=== PATIENT | male | born 1930 | race Caucasian/White ===

== ENCOUNTER → 2016-07-29 | Outpatient (CLI) | payer BC ==
[~2016-07-29] MED LIST: ACET-1056 PO; ACET-1311 PO; AMOX875T PO; ASPCH81X PO; ASPI81TA21 PO; ATOR80TA PO; CALCTAB65 PO; FERR1TAB62 PO; FURO-85 PO; ISOS-10 PO; ISOS-11 PO; ISR/5 PO; LCTX PO; LEVO100T7 PO; LEVO88TA PO; LISI-461 PO; LISI2.5T5 PO; LPR25 PO; LVQ750 PO; MAGN400T6 PO; METO25TA3 PO; MULTCHW PO; NRN300 PO; ONDA4TAB65 PO; ONDA8TAB62 SL; PANT40TA PO; POTA10CA28 PO; POTA20TA16 PO; POTTAB2 PO; SUCR1TAB29 PO; TEST1DIS TD; TEST1DIS TOP; TRAM-10 PO; [UNRECOGNIZED DRUG - OTHER] SL
== END | disposition home or self-care (01) ==
LOC: C.LAB 11:12
PROVIDERS: ATTEND Radiology Radiation Oncology
DX: C61 Malignant neoplasm of prostate (principal)

== ENCOUNTER → 2016-07-31 | Outpatient (CLI) | payer BC ==
[2016-01-23 13:13] VITALS: BP 169/87; PULSE 62
[~2016-07-31] MED LIST changes: -FERR1TAB62 PO; +FERR325T PO; -METO25TA3 PO
[2016-07-31 13:57] VITALS: BP 182/97; PULSE 70; TEMP 36.4; O2SAT 96
--- NOTE | 2016-07-31 15:37 | Radiation Oncology Follow-Up ---
Radiation Oncology Follow-Up Date of Visit Jul 31, 2016. Reason For Visit Annual follow-up Radiation Completion Date Implant 01/31/12, IMRT 06/22/12 Diagnosis (1) Prostate cancer Status: Resolved Onset Date: 12/09/2011 Histology Subtype: adenocarcinoma Stage: ll Permanent Comment: Rising PSA while on Avodart to 16.02, clinical stage T1c Status post ultrasound-guided biopsies biopsy stage T2c [place] grade 4+4 Hormonal suppression Status post prostate seed implant 02/10/2012 received 8500 cGy Status post completion of external radiation with IMRT/IGRT completed 2011 received 5000 cGy Radiation proctitis status post laser therapy Last Edited By: Dayana Rubio on Jan 23, 2016 14:28 Interim History He is been doing well over the past year for urinary standpoint. His AUA score was 5. This is stable. He completed expanded prostate cancer index composite for clinical practice and gave a score of 0 of 12 in urinary incontinence symptoms. He gave a score of 0 12 and urinary irritation symptoms. He gave a score of 0 12 and bowel symptoms. He gave a score of 8 of 12 and sexual symptoms. To note this is not a problem. He gave a score of 3 of 12 in hormonal vitality symptoms. His total was 11 of 60. He had a PSA 11/14/2015 at [facility] and this was 0.25. He had a PSA 07/29/2016 at the [facility]. The PSA was 0.085. He previously had treatment for radiation proctitis approximately one year following the completion of his treatment. He has had no recurrence and has had no difficulty with rectal bleeding. He does continue on androgen patches. He had a extremely low testosterone which caused profound fatigue, leg weakness and vertigo. With the hormonal therapy these symptoms did greatly improved. Allergies Coded Allergies: Iodinated Diagnostic Agents (Verified Allergy, Severe, THROAT TIGHTNESS, ) Cefuroxime (Verified Allergy, Unknown, GI UPSET, 01/14/16) Onion (Verified Allergy, Unknown, RAW ONIONS-BLISTERS ON HANDS AND FEET, ) HMG-CoA-R Inhibitors (Verified Adverse Reaction, Intermediate, ELEVATED LFT'S WITH CRESTOR, 01/14/16) NSAIDs (Verified Adverse Reaction, Unknown, GI BLEEDING- TAKES ASA AT HOME , 01/14/16) Home Medications Scheduled Acetaminophen (Tylenol), 325 MG PO q4hprn Aspirin Enteric Coated (Ecotrin Or Generic), 81 MG PO NOON Atorvastatin Calcium (Lipitor), 80 MG PO NOON Calcium Carbonate-Vitamin D (Calcium 500 + D), 1 TAB PO BID Ferrous Sulfate (Ferrous Sulfate), 325 MG PO BID Furosemide (Lasix), 20 MG PO NOON Isosorbide Mononitrate (Isosorbide Mononitrate ER), 30 MG PO NOON Levothyroxine Sodium (Synthroid), 88 MCG PO QAM Lisinopril (Lisinopril), 2.5 MG PO NOON Magnesium Oxide (Mag-Ox), 400 MG PO NOON Metoprolol Tartrate (Lopressor), 25 MG PO HS Pantoprazole (Protonix), 40 MG PO QAM Pot Phosphate Monobasic W/ Sod (Phospha 250 Neutral), 1 TAB PO QID Potassium Ext Rel (Klor-Con), 10 MEQ PO NOON Sucralfate (Carafate), 1 GM PO QID Testosterone (Androderm), 1 PATCH TOP QPM Scheduled PRN Isosorbide Dinitrate (Isordil Unknown Dose), 2.5 MG SL UD PRN for Prior to exertion. Ondansetron Odt (Zofran Odt), 8 MG SL Q8HPRN PRN for Nausea Tramadol (Ultram), 50 MG PO Q6H PRN for Pain Review of Systems Gastrointestinal: Symptoms: WNL GI Comments: "time to time has diarrhea" takes imodium PRN Oral: Symptoms: No Problems Respiratory: Symptoms: WNL Respiratory Comments: Dry cough from time to time Urinary: Symptoms: WNL Comments: See AUA & EPIC Skin: Symptoms: No Problems Physical Exam Vital Signs Date Time Temp Pulse Resp B/P Pulse Ox O2 Delivery O2 Flow Rate FiO2 07/31/16 13:57 36.4 70 16 182/97 96 Fatigue: Moderate General Appearance: no apparent distress Eyes: normal inspection, EOMI ENT: normal ENT inspection, hearing grossly normal, pharynx normal Respiratory/Chest: lungs clear, no respiratory distress, no accessory muscle use Cardiovascular: regular rate, rhythm, no gallop, no JVD Abdomen: non tender, soft Anal / Rectum: Mild decreased sphincter tone. No rectal masses no rectal bleeding. Prostate consistent with seed implant. Extremities: no pedal edema Neurologic/Psychiatric: no motor/sensory deficits, alert Skin: warm/dry Lymphatic: no adenopathy Laboratory Studies Test 07/29/16 11:28 Prostate Specific Antigen 0.085 ng/ml (0.000-4.000) Assessment & Plan Plan: Continue recheck PSAs he does have an upcoming appointment with Dr. Gregory. Continue regular follow-up with his primary care physician. Today' s blood pressure was elevated and was rechecked. It was 160/90 with recheck evaluation. We asked him to return to our office in 1 year. Total Time In Follow-Up I spent 25 minutes speaking to the patient for examination. I spent 15 minutes reviewing information in completing this note. Copy To Gisselle Orellana DO; Vin Gregory MD
== END | disposition home or self-care (01) ==
LOC: C.ONC 13:52
PROVIDERS: ATTEND Radiology Radiation Oncology
DX: Z08 Encounter for follow-up examination after completed treatment for malignant neoplasm (principal); Z92.3 Personal history of irradiation; Z85.46 Personal history of malignant neoplasm of prostate

== ENCOUNTER 2017-02-17 05:27 | Inpatient (IN) | payer BC, OTHER ==
[~2017-02-17] VITALS: Ht 175.3 cm; Wt 76.8 kg
[~2017-02-17 05:27] MED LIST changes: -ACET-1056 PO; -AMOX875T PO; -ASPCH81X PO; -ISOS-10 PO; -ISR/5 PO; -LCTX PO; -LEVO100T7 PO; -LISI-461 PO; -LVQ750 PO; -MULTCHW PO; -NRN300 PO; -ONDA4TAB65 PO; -POTA10CA28 PO; -TEST1DIS TD
[2017-02-17] MEDS ORDERED: SODIUM CHLORIDE 0.9% 1000ML 1,000 ML IV STA (05:51)
[2017-02-17] MEDS ORDERED: ONDANSETRON INJ 2 MG/ML 2 ML VIAL IV STA (05:51)
[2017-02-17] MEDS ORDERED: MoRPHine SULFATE 4 MG/ML 1 ML CARP\\VIAL IV STA (05:57)
--- NOTE | 2017-02-17 06:05 | EMERGENCY ROOM VISIT NOTE ---
History Report prepared by Imani: Brock Joiner Under the Supervision of: Dr. Naida Morataya D.O. First contact with patient: 05:39 Chief Complaint: ABDOMINAL PAIN Stated Complaint: ABDOMINAL PAIN/NAUSEA Nursing Triage Summary: pt brought to main ED from home by DIANA lord for abd pain that began yesterday, worse this morning. pt c/o right lower quad pain that is worse with palpation. pt c/o nausea and vomiting "green stuff." associates urinary urgency and frequency. denies diarrhea. pt alert and oriented x4. hx of prostate ca. pt breathing WNL. History of Present Illness The patient is an 86 year old male who presents to the Emergency Room with complaints of constant right sided sharp abdominal pain starting around 0200 this morning. He currently rates his discomfort as an 8/10 in severity. The patient additionally states that he has been vomiting and nauseous. He states that he went to bed around 2100 yesterday, and the pain woke him up around 0200. The patient states that he has never had pain like this before, and he has a history of prostate cancer, a history of diverticulitis, and a cholecystectomy. He states that he had radiation for his cancer, and it affected his bowels, and it has led him to having melena in the past but none now. He is currently taking iron supplements which turned his stool black. Source of History: patient Onset: 0200 Position: abdomen (RLQ) Quality: sharp Timing: constant Associated Symptoms: + nausea, + vomiting Review of Systems See HPI for pertinent positives & negatives. A total of 10 systems reviewed and were otherwise negative. Past Medical & Surgical Medical Problems: (1) Anticoagulants,Lt,Current Use (2) BPH (benign prostatic hyperplasia) (3) CAD (coronary artery disease) (4) Carcinoma of prostate (5) CKD (chronic kidney disease) stage 3, GFR 30-59 ml/min (6) CKD (chronic kidney disease), stage III (7) Coronary artery disease (8) Diverticular disease of colon (9) Diverticulosis (10) DVT (deep venous thrombosis) (11) Dyslipidemia (12) Dyslipidemia (13) Esophageal Reflux (14) GERD (gastroesophageal reflux disease) (15) GI bleed (16) History of herpes zoster (17) History of pulmonary embolism (18) HTN (hypertension) (19) Hypertension (20) Hypothyroidism (21) Hypothyroidism (22) Hypothyroidism Nos (23) Osteoarthritis (24) Peptic Ulcer Nos (25) Postherpetic neuralgia (26) Prostate cancer (27) Prostate cancer (28) Pulmonary embolism (29) Septic arthritis (30) Septic arthritis of knee, left (31) Spontaneous pneumothorax (32) Spontaneous pneumothorax Surgical Problems: (1) History of bilateral knee replacement (2) History of cholecystectomy (3) S/P CABG x 3 (4) S/P inguinal hernia repair (5) Status post cholecystectomy (6) Status post coronary artery bypass grafting (7) Status post total knee replacement Family History No pertinent family history Social History Smoking Status: Never Smoker Alcohol Use: none Drug Use: none Marital Status: Housing Status: lives alone Occupation Status: retired Current/Historical Medications Scheduled Aspirin (Aspirin Chewable), 81 MG PO DAILY Atorvastatin Calcium (Lipitor), 80 MG PO HS Calcium Carbonate-Vitamin D (Calcium 500 + D), 1 TAB PO BID Ferrous Sulfate (Ferrous Sulfate), 325 MG PO BID Furosemide (Lasix), 20 MG PO DAILY Gabapentin (Gabapentin), 300 MG PO HS Isosorbide Mononitrate (Isosorbide Mononitrate ER), 60 MG PO DAILY Levothyroxine Sodium (Levothyroxine Sodium), 100 MCG PO DAILY Lisinopril (Lisinopril), 10 MG PO DAILY Magnesium Oxide (Mag-Ox), 400 MG PO DAILY Metoprolol Tartrate (Lopressor), 25 MG PO DAILY Multiple Vitamins W/ Minerals (Centrum Silver), 1 TAB PO DAILY Pantoprazole (Protonix), 40 MG PO QAM Pot Phosphate Monobasic W/ Sod (Phospha 250 Neutral), 1 TAB PO QID Potassium Chloride (Micro-K Ext Rel), 10 MEQ PO DAILY Testosterone (Androderm), 1 PATCH TOP QPM Scheduled PRN Acetaminophen (Tylenol), 325 MG PO Q4H PRN for Pain Ondansetron Hcl (Zofran), 4 MG PO Q6H PRN for Nausea or Vomiting Tramadol (Ultram), 50 MG PO Q6H PRN for Pain Allergies Coded Allergies: Iodinated Diagnostic Agents (Verified Allergy, Severe, THROAT TIGHTNESS, ) Cefuroxime (Verified Allergy, Unknown, GI UPSET, 01/14/16) Onion (Verified Allergy, Unknown, RAW ONIONS-BLISTERS ON HANDS AND FEET, ) HMG-CoA-R Inhibitors (Verified Adverse Reaction, Intermediate, ELEVATED LFT'S WITH CRESTOR, 01/14/16) NSAIDs (Verified Adverse Reaction, Unknown, GI BLEEDING- TAKES ASA AT HOME , 01/14/16) Physical Exam Vital Signs Date Time Temp Pulse Resp B/P (MAP) Pulse Ox O2 Delivery O2 Flow Rate FiO2 02/17/17 07:41 74 16 127/72 97 02/17/17 06:35 67 18 144/79 96 Room Air 02/17/17 05:35 36.8 63 18 174/86 92 Room Air Physical Exam HEENT: Head - normocephalic and atraumatic Pupils are equal, round, and reactive to light. Extraocular eye muscles are intact, and sclera are anicteric. Nose - moist nasal mucosa without discharge. Mouth - moist buccal mucosa. Oropharynx is nonerythematous and there is no tonsillar exudate or edema noted. Neck: Supple; no JVD, nuchal rigidity, cervical lymphadenopathy. Heart: Regular rate and rhythm. There is a normal S1 and S2 with no murmurs, clicks, or gallops appreciated. Lungs: Clear to auscultation bilaterally with no wheezes, rales, or rhonchi. Abdomen: Exquisite tenderness to palpation in the right lower quadrant. Surgical scar in the right inguinal canal and surgical scar in the right upper quadrant. Soft, nondistended, with good bowel sounds. There are no palpable pulsatile masses or hepatosplenomegaly. There is no guarding, rigidity, or rebound noted. Extremities: No evidence of cyanosis, clubbing, or edema. There are easily palpable peripheral pulses. Skin: warm and dry with good turgor and no rashes. Medical Decision & Procedures ER Provider Diagnostic Interpretation: Radiology results as stated below per my review and the radiologist's interpretation: ABD/PELVIS NO IV OR ORAL CONT CT DOSE: 595.73 mGy.cm HISTORY: Pain eval for appy vs. Diverticulitis TECHNIQUE: Multiaxial CT images of the abdomen and pelvis were performed without contrast. A dose lowering technique was utilized adhering to the principles of ALARA. COMPARISON STUDY: 12/25/2015 FINDINGS: Bibasilar atelectatic and/or infiltrative change. Liver demonstrates several calcified granulomas as does the spleen. This is unchanged. Small hiatal hernia. Multiple pancreatic cystic lesions similar to that of the prior study. Cortical scarring of the kidneys bilaterally with no evidence for hydronephrosis. Bowel pattern is nonobstructive. Scattered colonic diverticulosis. No evidence for acute diverticulitis. The cecum is in the right upper quadrant. The appendix is inferior to the cecum and anterior to the right kidney. Shows no evidence for distention or periappendiceal infiltrative change. There are findings of mild nonspecific infiltrative change anterior to the right iliopsoas and surrounding the right ureter. Diagnostic considerations include recently passed calculus versus a nonspecific pyelonephritis. There is atherosclerotic change and ectasia of the abdominal aorta. IMPRESSION: 1. Mild fullness of the right ureter with periureteral infiltrative change anterior to the right iliopsoas. 2. Diagnostic considerations include recently passed calculus versus a nonspecific pyelonephritis. 3. Nonobstructive bowel pattern. 4. Normal appendix. 5. Scattered colonic diverticulosis with no evidence for acute diverticulitis. The above report was generated using voice recognition software. It may contain grammatical, syntax or spelling errors. Electronically signed by: Tres Avelar M.D. 02/17/2017 7:22 AM Dictated Date/Time: 02/17/2017 7:11 AM Laboratory Results 02/17/17 05:40 Red Blood Count 5.01, Mean Corpuscular Volume 97.0, Mean Corpuscular Hemoglobin 32.9, Mean Corpuscular Hemoglobin Concent 34.0, Mean Platelet Volume 9.5, Neutrophils (%) (Auto) 79.0, Lymphocytes (%) (Auto) 10.1, Monocytes (%) (Auto) 10.1, Eosinophils (%) (Auto) 0.3, Basophils (%) (Auto) 0.1, Neutrophils # (Auto ) 10.90, Lymphocytes # (Auto) 1.39, Monocytes # (Auto) 1.39, Eosinophils # (Auto ) 0.04, Basophils # (Auto) 0.02 02/17/17 05:40 Test 02/17/17 05:40 02/17/17 07:45 02/17/17 08:12 White Blood Count 13.79 K/uL (4.8-10.8) Red Blood Count 5.01 M/uL (4.7-6.1) Hemoglobin 16.5 g/dL (14.0-18.0) Hematocrit 48.6 % (42-52) Mean Corpuscular Volume 97.0 fL (80-100) Mean Corpuscular Hemoglobin 32.9 pg (25-34) Mean Corpuscular Hemoglobin Concent 34.0 g/dl (32-36) Platelet Count 239 K/uL (130-400) Mean Platelet Volume 9.5 fL (7.4-10.4) Neutrophils (%) (Auto) 79.0 % Lymphocytes (%) (Auto) 10.1 % Monocytes (%) (Auto) 10.1 % Eosinophils (%) (Auto) 0.3 % Basophils (%) (Auto) 0.1 % Neutrophils # (Auto) 10.90 K/uL (1.4-6.5) Lymphocytes # (Auto) 1.39 K/uL (1.2-3.4) Monocytes # (Auto) 1.39 K/uL (0.11-0.59) Eosinophils # (Auto) 0.04 K/uL (0-0.5) Basophils # (Auto) 0.02 K/uL (0-0.2) RDW Standard Deviation 51.1 fL (36.4-46.3) RDW Coefficient of Variation 14.4 % (11.5-14.5) Immature Granulocyte % (Auto) 0.4 % Immature Granulocyte # (Auto) 0.05 K/uL (0.00-0.02) Prothrombin Time 10.8 SECONDS (9.0-12.0) Prothromb Time International Ratio 1.0 (0.9-1.1) Anion Gap 5.0 mmol/L (3-11) Est Creatinine Clear Calc Drug Dose 29.5 ml/min Estimated GFR () 38.6 Estimated GFR (Non- 33.3 BUN/Creatinine Ratio 17.1 (10-20) Calcium Level 9.7 mg/dl (8.5-10.1) Total Bilirubin 1.3 mg/dl (0.2-1) Direct Bilirubin 0.3 mg/dl (0-0.2) Aspartate Amino Transf (AST/SGOT) 24 U/L (15-37) Alanine Aminotransferase (ALT/SGPT) 28 U/L (12-78) Alkaline Phosphatase 125 U/L (45-117) Total Protein 7.8 gm/dl (6.4-8.2) Albumin 3.6 gm/dl (3.4-5.0) Lipase 77 U/L (73-393) Urine Color YELLOW Urine Appearance TURBID (CLEAR) Urine pH 6.0 (4.5-7.5) Urine Specific [place] 1.018 (1.000-1.030) Urine Protein 3+ (NEG) Urine Glucose (UA) NEG (NEG) Urine Ketones TRACE (NEG) Urine Occult Blood 3+ (NEG) Urine Nitrite POS (NEG) Urine Bilirubin NEG (NEG) Urine Urobilinogen NEG (NEG) Urine Leukocyte Esterase LARGE (NEG) Urine WBC (Auto) >30 /hpf (0-5) Urine RBC (Auto) 10-30 /hpf (0-4) Urine Hyaline Casts (Auto) 1-5 /lpf (0-5) Urine Epithelial Cells (Auto) 10-20 /lpf (0-5) Urine Bacteria (Auto) 4+ (NEG) Urine Yeast (Auto) (NONE PRSENT) Bedside Lactic Acid Venous 1.38 mmol/L (0.90-1.70) Laboratory results per my review. Medications Administered Medications (Trade) Dose Ordered Sig/Freddy Route Start Time Stop Time Status Last Admin Dose Admin Sodium Chloride 1,000 ml @ 250 mls/hr Q4H STAT IV 02/17/17 05:51 02/17/17 09:50 DC 02/17/17 06:03 250 MLS/HR Ondansetron HCl (Zofran Inj) 4 mg NOW STAT IV 02/17/17 05:51 02/17/17 05:54 DC 02/17/17 06:04 4 MG Morphine Sulfate (MoRPHine SULFATE INJ) 4 mg NOW STAT IV 02/17/17 05:57 02/17/17 05:58 DC 02/17/17 06:06 4 MG Levofloxacin (Levaquin / D5W) 750 mg NOW STAT IV 02/17/17 07:53 02/17/17 07:55 DC 02/17/17 08:15 750 MG Procedure Zofran, Sodium Chloride, Morphine sulfate, levofloxacin ED Course 0549: Past medical records reviewed. The patient was evaluated in room A9. A complete history and physical exam was performed. An IV lock was initiated and labs were drawn as above.. 0551: Zofran Inj 4mg IV, Sodium Chloride 1000 ml @ 250 mls/hr IV. 0557: Morphine Sulfate 4mg IV. The patient will go for CT scan of the abdomen/ pelvis. 0748: I reevaluated the patient, and he is still comfortable after getting pain medications. He told me that he had urinary frequency and incontinence yesterday which is unusual for him. He also states that he has a history of kidney stones. A urine specimen was obtained and appeared to be infected. 0753: Levofloxacin 750mg IV 0755: I discussed the patient's case with KIRAN Slaughter. She is going to evaluate the patient for further treatment. Medical Decision The patient is a 86 year old male who presents to the ED with abdominal pain. Differential diagnosis includes appendicitis, diverticulitis, diverticular abscess, small bowel obstruction, and perforated viscus. Lab results show: White Count 13.7, stable H&H, BUN 31, creatinine 1.8 elevated and most likely represents dehydration. Urinalysis appears to be significantly infected. It will be sent for culture. This is an 86 year old Male patient presents to emergency with severe right lower quadrant abdominal pain that woke him from sleep. The patient has had some relief of his discomfort while here in the emergency prompt. Urinalysis appears to be infected. CT scan shows evidence of dilation and inflammation of the right ureter consistent with pyelonephritis and/or a recently passed kidney stone. A septic protocol was performed including blood cultures and lactic acid. He was started on IV Levaquin. I discussed the case with the [facility] Hospitalist and they will evaluate for further management. Medication Reconcilliation Current Medication List: was personally reviewed by me Blood Pressure Screening Patient's blood pressure: Normal blood pressure Consults Time Called: 0750 Consulting Physician: KIRAN Slaughter Returned Call: [phone] I discussed the patient's case with KIRAN Slaughter. She is going to evaluate the patient for further treatment. Impression Primary Impression: Pyelonephritis Scribe Attestation The scribe's documentation has been prepared under my direction and personally reviewed by me in its entirety. I confirm that the note above accurately reflects all work, treatment, procedures, and medical decision making performed by me. Departure Information Dispostion Being Evaluated By Hospitalist Referrals Keiter, Pitts K.,DO (PCP) Patient Instructions [facility]
[2017-02-17 06:08] LABS: BASO % 0.1 %; BASO ABS # 0.02 K/uL (0-0.2); COMPLETE YES; EOS % 0.3 %; HEMATOCRIT 48.6 % (42-52); IG% 0.4 %; LYMPH % 10.1 %; LYMPH ABS # 1.39 K/uL (1.2-3.4); MEAN CORPUSCULAR HEMOGLOBIN 32.9 pg (25-34); MEAN PLATELET VOLUME 9.5 fL (7.4-10.4); MONO % 10.1 %; PLATELET COUNT 239 K/uL (130-400); RED BLOOD COUNT 5.01 M/uL (4.7-6.1); WHITE BLOOD COUNT 13.79 K/uL (4.8-10.8)
[2017-02-17 06:18] LABS: BUN/CREATININE RATIO 17.1 (10-20); CALCIUM 9.7 mg/dl (8.5-10.1); CREATININE 1.8 mg/dl (0.60-1.40); POTASSIUM 4.3 mmol/L (3.5-5.1)
--- NOTE | 2017-02-17 07:24 | DIAGNOSTIC IMAGING REPORT ---
ABD/PELVIS NO IV OR ORAL CONT CT DOSE: 595.73 mGy.cm HISTORY: Pain eval for appy vs. Diverticulitis TECHNIQUE: Multiaxial CT images of the abdomen and pelvis were performed without contrast. A dose lowering technique was utilized adhering to the principles of ALARA. COMPARISON STUDY: 12/25/2015 FINDINGS: Bibasilar atelectatic and/or infiltrative change. Liver demonstrates several calcified granulomas as does the spleen. This is unchanged. Small hiatal hernia. Multiple pancreatic cystic lesions similar to that of the prior study. Cortical scarring of the kidneys bilaterally with no evidence for hydronephrosis. Bowel pattern is nonobstructive. Scattered colonic diverticulosis. No evidence for acute diverticulitis. The cecum is in the right upper quadrant. The appendix is inferior to the cecum and anterior to the right kidney. Shows no evidence for distention or periappendiceal infiltrative change. There are findings of mild nonspecific infiltrative change anterior to the right iliopsoas and surrounding the right ureter. Diagnostic considerations include recently passed calculus versus a nonspecific pyelonephritis. There is atherosclerotic change and ectasia of the abdominal aorta. IMPRESSION: 1. Mild fullness of the right ureter with periureteral infiltrative change anterior to the right iliopsoas. 2. Diagnostic considerations include recently passed calculus versus a nonspecific pyelonephritis. 3. Nonobstructive bowel pattern. 4. Normal appendix. 5. Scattered colonic diverticulosis with no evidence for acute diverticulitis. The above report was generated using voice recognition software. It may contain grammatical, syntax or spelling errors. Electronically signed by: Tres Avelar M.D. 02/17/2017 7:22 AM Dictated Date/Time: 02/17/2017 7:11 AM
[2017-02-17] MEDS ORDERED: LEVO100T7 PO (07:40)
[2017-02-17] MEDS ORDERED: MULTCHW PO (07:40)
[2017-02-17] MEDS ORDERED: ISR/5 PO (07:40)
[2017-02-17] MEDS ORDERED: ASPCH81X PO (07:40)
[2017-02-17] MEDS ORDERED: ISOS-10 PO (07:40)
[2017-02-17] MEDS ORDERED: POTA10CA28 PO (07:40)
[2017-02-17] MEDS ORDERED: LISI-461 PO (07:40)
[2017-02-17] MEDS ORDERED: NRN300 PO (07:40)
[2017-02-17] MEDS ORDERED: LEVAQUIN 750MG / 150ML D5W IV STA (07:53)
[2017-02-17 08:04] LABS: URINE APPEARANCE TURBID (CLEAR); URINE BILIRUBIN NEG (NEG); URINE COLOR YELLOW; URINE NITRITE POS (NEG); URINE SPECIFIC GRAVITY 1.018 (1.000-1.030); UROBILINOGEN NEG (NEG)
[2017-02-17 08:15] LABS: MANUAL MICROSCOPIC REQUIRED? NO; REVIEW REQ? YES
[2017-02-17 08:41] VITALS: O2SAT 97; Ht 175.3 cm; Wt 76.8 kg
[2017-02-17] MEDS ORDERED: ACETAMINOPHEN 325 MG TAB PO PRN (08:45)
[2017-02-17] MEDS ORDERED: ONDANSETRON INJ 2 MG/ML 2 ML VIAL IV PRN (08:45)
[2017-02-17 09:06] LABS: PROTHROMBIN TIME (PATIENT) 10.8 SECONDS (9.0-12.0)
[2017-02-17] MEDS ORDERED: TRAM-10 PO (09:19)
[2017-02-17] MEDS ORDERED: ONDA4TAB65 PO (09:19)
[2017-02-17] MEDS ORDERED: TRAMADOL HCL 50 MG TAB PO PRN (09:30)
[2017-02-17 09:54] VITALS: BP 143/71; PULSE 68; TEMP 36.9; O2SAT 95
--- NOTE | 2017-02-17 10:11 | History and Physical ---
History & Physical Date & Time of Service: Feb 17, 2017 ~ 0815 Chief Complaint: Abdominal Pain/Nausea Primary Care Physician: Gisselle Orellana,DO History of Present Illness 86 year old male who presents to the ER with abdominal pain and nausea. Patient reports his symptoms began yesterday. He reports RLQ pain that has progressively gotten worse. He describes the pain as sharp. He rates the pain # 9/10 at its worst. He reports walking was difficult due to the pain. He has felt nauseous and PO intake has been poor. He reports one episode of vomiting and describes the emesis as yellow and bilious in nature. He denies hematemesis or coffee ground emesis. He reports constipation a couple of days ago and took a stool softener and has since had a normal bowel movement. He reports his stools are always dark due to taking iron. He denies BRBPR. He reports urinary frequency but denies dysuria. He reports running low grade fevers of around 99.0. He reports intermittent lightheadedness and dizziness but denies any syncopal events. No chest pain or shortness of breath. In the ER, patient's U/A is suggestive of UTI. CT abd/pelvis shows possible pyelonephritis vs. recently passed stone. WBC 13K, creat is 1.8 (mildly elevated from baseline). Other labs are unremarkable. Vitals are stable. Patient was treated with IV Levaquin, IVF, Zofran, and morphine. Past Medical/Surgical History Medical Problems: (1) Anticoagulants,Lt,Current Use Status: Chronic (2) BPH (benign prostatic hyperplasia) Status: Chronic (3) CAD (coronary artery disease) Permanent Comment: s/p CABG 2000 cath 2007 - LAD, RCA, and obtuse marginal 100% occlusion 80% stenosis diagonal #2 patent [place]bol[place]o to LAD graft and saphenous to obtuse marginal occluded saphenous to RCA graft with collaterals Status: Chronic (4) Carcinoma of prostate Status: Chronic (5) CKD (chronic kidney disease) stage 3, GFR 30-59 ml/min Status: Chronic (6) CKD (chronic kidney disease), stage III Status: Chronic (7) Coronary artery disease Status: Chronic (8) Diverticular disease of colon Status: Chronic (9) Diverticulosis Status: Chronic (10) DVT (deep venous thrombosis) Status: Chronic (11) Dyslipidemia Status: Chronic (12) Dyslipidemia Status: Chronic (13) Esophageal Reflux Status: Chronic (14) GERD (gastroesophageal reflux disease) Status: Chronic (15) GI bleed Status: Chronic (16) History of herpes zoster Status: Chronic (17) History of pulmonary embolism Status: Chronic (18) HTN (hypertension) Status: Chronic (19) Hypertension Status: Chronic (20) Hypothyroidism Status: Chronic (21) Hypothyroidism Status: Chronic (22) Hypothyroidism Nos Status: Chronic (23) Osteoarthritis Status: Chronic (24) Peptic Ulcer Nos Status: Chronic (25) Postherpetic neuralgia Status: Chronic (26) Prostate cancer Permanent Comment: Rising PSA while on Avodart to 16.04. Clinical stage TIc Status post ultrasound-guided biopsies, biopsy stage T2c Leeson grade 4+4 Initiation of hormonal suppression Status post seed implant as boost 02/10/2012 received 8500 cGy Status post completion of external radiation with IMRT IGRT 06/22/2012 5000 cGy Radiation proctitis status post laser therapy Status: Resolved (27) Prostate cancer Permanent Comment: Rising PSA while on Avodart to 16.02, clinical stage T1c Status post ultrasound-guided biopsies biopsy stage T2c Creole grade 4+4 Hormonal suppression Status post prostate seed implant 02/10/2012 received 8500 cGy Status post completion of external radiation with IMRT/IGRT completed 2011 received 5000 cGy Radiation proctitis status post laser therapy Status: Resolved (28) Pulmonary embolism Status: Chronic (29) Septic arthritis Status: Chronic (30) Septic arthritis of knee, left Status: Chronic (31) Spontaneous pneumothorax Status: Resolved (32) Spontaneous pneumothorax Status: Chronic Surgical Problems: (1) History of bilateral knee replacement Permanent Comment: revision of left for septic arthritis Status: Chronic (2) History of cholecystectomy Status: Chronic (3) S/P CABG x 3 Permanent Comment: 2000 Status: Chronic (4) S/P inguinal hernia repair Status: Chronic (5) Status post cholecystectomy Status: Chronic (6) Status post coronary artery bypass grafting Status: Chronic (7) Status post total knee replacement Status: Chronic Family History non contributory due to patient's advanced age Social History Smoking Status: Never Smoker Alcohol Use: none Housing status: lives alone Immunizations History of Influenza Vaccine: Yes Influenza Vaccine Date: Mar 27, 2016 History of Tetanus Vaccine?: Yes Tetanus Immunization Date: December 09, 2012 History of Pneumococcal: Yes Pneumococcal Date: Aug 29, 2014 Multi-Drug Resistant Organisms History of MDRO: No Allergies Coded Allergies: Iodinated Diagnostic Agents (Verified Allergy, Severe, THROAT TIGHTNESS, ) Cefuroxime (Verified Allergy, Unknown, GI UPSET, 01/14/16) Onion (Verified Allergy, Unknown, RAW ONIONS-BLISTERS ON HANDS AND FEET, ) HMG-CoA-R Inhibitors (Verified Adverse Reaction, Intermediate, ELEVATED LFT'S WITH CRESTOR, 01/14/16) NSAIDs (Verified Adverse Reaction, Unknown, GI BLEEDING- TAKES ASA AT HOME , 01/14/16) Home Medications Scheduled Aspirin (Aspirin Chewable), 81 MG PO DAILY Atorvastatin Calcium (Lipitor), 80 MG PO HS Calcium Carbonate-Vitamin D (Calcium 500 + D), 1 TAB PO BID Ferrous Sulfate (Ferrous Sulfate), 325 MG PO BID Furosemide (Lasix), 20 MG PO DAILY Gabapentin (Gabapentin), 300 MG PO HS Isosorbide Mononitrate (Isosorbide Mononitrate ER), 60 MG PO DAILY Levothyroxine Sodium (Levothyroxine Sodium), 100 MCG PO DAILY Lisinopril (Lisinopril), 10 MG PO DAILY Magnesium Oxide (Mag-Ox), 400 MG PO DAILY Metoprolol Tartrate (Lopressor), 25 MG PO DAILY Multiple Vitamins W/ Minerals (Centrum Silver), 1 TAB PO DAILY Pantoprazole (Protonix), 40 MG PO QAM Pot Phosphate Monobasic W/ Sod (Phospha 250 Neutral), 1 TAB PO QID Potassium Chloride (Micro-K Ext Rel), 10 MEQ PO DAILY Testosterone (Androderm), 1 PATCH TOP QPM Scheduled PRN Acetaminophen (Tylenol), 325 MG PO Q4H PRN for Pain Ondansetron Hcl (Zofran), 4 MG PO Q6H PRN for Nausea or Vomiting Tramadol (Ultram), 50 MG PO Q6H PRN for Pain Review of Systems ROS per HPI, all other systems reviewed and negative Physical Exam Vital Signs Date Time Temp Pulse Resp B/P (MAP) Pulse Ox O2 Delivery O2 Flow Rate FiO2 02/17/17 09:22 66 16 147/84 95 02/17/17 09:11 66 16 147/84 95 Room Air 02/17/17 08:41 97 Room Air 02/17/17 07:41 74 16 127/72 97 02/17/17 06:35 67 18 144/79 96 Room Air 02/17/17 05:35 36.8 63 18 174/86 92 Room Air General Appearance: no apparent distress Head: normocephalic Eyes: normal inspection ENT: hearing grossly normal Neck: supple, no JVD Respiratory/Chest: lungs clear, normal breath sounds, no respiratory distress Cardiovascular: regular rate, rhythm, no edema, normal peripheral pulses Abdomen/GI: soft, + tenderness (RLQ, LLQ ) Back: no CVA tenderness Extremities/Musculoskelatal: normal inspection, no calf tenderness Neurologic/Psych: no motor/sensory deficits, alert, normal mood/affect, oriented x 3 Skin: normal color, warm/dry Diagnostics Laboratory Results Results Past 24 Hours Test 02/17/17 05:40 02/17/17 07:45 02/17/17 08:12 Range/Units White Blood Count 13.79 4.8-10.8 K/uL Red Blood Count 5.01 4.7-6.1 M/uL Hemoglobin 16.5 14.0-18.0 g/dL Hematocrit 48.6 42-52 % Mean Corpuscular Volume 97.0 80-100 fL Mean Corpuscular Hemoglobin 32.9 25-34 pg Mean Corpuscular Hemoglobin Concent 34.0 32-36 g/dl Platelet Count 239 130-400 K/uL Mean Platelet Volume 9.5 7.4-10.4 fL Neutrophils (%) (Auto) 79.0 % Lymphocytes (%) (Auto) 10.1 % Monocytes (%) (Auto) 10.1 % Eosinophils (%) (Auto) 0.3 % Basophils (%) (Auto) 0.1 % Neutrophils # (Auto) 10.90 1.4-6.5 K/uL Lymphocytes # (Auto) 1.39 1.2-3.4 K/uL Monocytes # (Auto) 1.39 0.11-0.59 K/uL Eosinophils # (Auto) 0.04 0-0.5 K/uL Basophils # (Auto) 0.02 0-0.2 K/uL RDW Standard Deviation 51.1 36.4-46.3 fL RDW Coefficient of Variation 14.4 11.5-14.5 % Immature Granulocyte % (Auto) 0.4 % Immature Granulocyte # (Auto) 0.05 0.00-0.02 K/uL Prothrombin Time 10.8 9.0-12.0 SECONDS Prothromb Time International Ratio 1.0 0.9-1.1 Sodium Level 141 136-145 mmol/L Potassium Level 4.3 3.5-5.1 mmol/L Chloride Level 106 98-107 mmol/L Carbon Dioxide Level 30 21-32 mmol/L Anion Gap 5.0 3-11 mmol/L Blood Urea Nitrogen 31 7-18 mg/dl Creatinine 1.80 0.60-1.40 mg/dl Est Creatinine Clear Calc Drug Dose 29.5 ml/min Estimated GFR () 38.6 Estimated GFR (Non- 33.3 BUN/Creatinine Ratio 17.1 10-20 Random Glucose 118 70-99 mg/dl Calcium Level 9.7 8.5-10.1 mg/dl Total Bilirubin 1.3 0.2-1 mg/dl Direct Bilirubin 0.3 0-0.2 mg/dl Aspartate Amino Transf (AST/SGOT) 24 15-37 U/L Alanine Aminotransferase (ALT/SGPT) 28 12-78 U/L Alkaline Phosphatase 125 45-117 U/L Total Protein 7.8 6.4-8.2 gm/dl Albumin 3.6 3.4-5.0 gm/dl Lipase 77 73-393 U/L Urine Color YELLOW Urine Appearance TURBID CLEAR Urine pH 6.0 4.5-7.5 Urine Specific Rumely 1.018 1.000-1.030 Urine Protein 3+ NEG Urine Glucose (UA) NEG NEG Urine Ketones TRACE NEG Urine Occult Blood 3+ NEG Urine Nitrite POS NEG Urine Bilirubin NEG NEG Urine Urobilinogen NEG NEG Urine Leukocyte Esterase LARGE NEG Urine WBC (Auto) >30 0-5 /hpf Urine RBC (Auto) 10-30 0-4 /hpf Urine Hyaline Casts (Auto) 1-5 0-5 /lpf Urine Epithelial Cells (Auto) 10-20 0-5 /lpf Urine Bacteria (Auto) 4+ NEG Urine Yeast (Auto) NONE PRSENT Bedside Lactic Acid Venous 1.38 0.90-1.70 mmol/L Microbiology Results 02/17/17 Blood Culture, Received Pending 02/17/17 Blood Culture, Received Pending 02/17/17 Urine Culture, Received Pending Diagnostic Radiology CT ABD/PELVIS IMPRESSION: 1. Mild fullness of the right ureter with periureteral infiltrative change anterior to the right iliopsoas. 2. Diagnostic considerations include recently passed calculus versus a nonspecific pyelonephritis. 3. Nonobstructive bowel pattern. 4. Normal appendix. 5. Scattered colonic diverticulosis with no evidence for acute diverticulitis. Impression Assessment and Plan COMPLICATED UTI, POSSIBLE PYELONEPHRITIS - admit to med/surg - patient presenting with RLQ pain and urinary frequency x 1 day; in the ED, U/ A suggestive of UTI and CT showing pyelonephritis vs. recently passed stone, no obstructing stone identified - WBC 13K, no other signs of sepsis - s/p Levaquin in the ED, will continue with - follow up urine and blood culture results - IVF JUVENTINO ON CKD STAGE III - baseline creat runs in the mid 1's - creat noted to be 1.8 today - likely prerenal due to poor PO intake / GI loss from vomiting - IVF, hold ACEi CAD - stable, no reports of chest pain - continue ASA, beta lizzie, nitrate, and statin HTN - BP intermittently elevated, likely pain driven - continue metoprolol and isosorbide, holding Lisinopril for now due to JUVENTINO HYPOTHYROIDISM - continue levothyroxine DVT PROPHYLAXIS - SQ heparin CODE STATUS - Patient is a full code as per my discussion with him. DISPO - In my clinical judgment this beneficiary meets acute admission criteria, established by [facility], that includes being hospitalized through two midnights. Attending Addendum: The patient was seen and examined Admitted with Lower abdominal pain and fever with chills and sweating last night No nausea and or vomiting Feels a lot better following admission O/E Hemodynamically stable Chest-clear Heart-regular Abdomen-benign,minimally tender RLQ No tenderness in Renal Angles Extremities-negative for any edema Labs and Imaging studies were reviewed Agree with the assessment and plan. Dr Suresh Ludwig Advanced Directives Existing Living Will: Yes Existing Power of Sales Data Analyst: Yes ([employer] ) VTE Prophylaxis VTE Risk Assessment Done? Y/N: Yes Risk Level: Moderate
[2017-02-17] MEDS: SODIUM CHLORIDE 0.9% 1000ML 1,000 ML IV SCH ×2 (10:52→21:23)
[2017-02-17] MEDS: POT PHOSPHATE MONOBASIC W/ SOD TAB PO SCH ×3 (14:14→21:21)
[2017-02-17 15:19] VITALS: BP 123/73; PULSE 61; TEMP 37; O2SAT 94
[2017-02-17] MEDS: CALCIUM 600MG + VIT D 400 IU TAB PO SCH (21:22)
[2017-02-17] MEDS: GABAPENTIN 300 MG CAP PO SCH (21:22)
[2017-02-17] MEDS: ATORVASTATIN 40 MG TAB PO SCH (21:22)
[2017-02-17] MEDS: HEPARIN SOD 5000 UNIT/0.5 ML CARP SQ SCH (21:25)
[2017-02-17 23:08] VITALS: BP 131/76; PULSE 59; TEMP 36.8; O2SAT 94
[2017-02-18] MEDS: LEVOTHYROXINE 100 MCG TAB PO SCH (05:39)
[2017-02-18 07:20] VITALS: BP 133/73; PULSE 53; TEMP 36.9; O2SAT 93
[2017-02-18 08:00] VITALS: O2SAT 93
[2017-02-18] MEDS: CEROVITE ADV FORMULA TAB PO SCH (08:00)
[2017-02-18] MEDS: PANTOprazole SOD 40 MG TAB PO SCH (08:00)
[2017-02-18] MEDS: ISOSORBIDE MONONITRATE 60 MG TABCR PO SCH (08:00)
[2017-02-18] MEDS: POT PHOSPHATE MONOBASIC W/ SOD TAB PO SCH ×4 (08:00→21:25)
[2017-02-18] MEDS: ASPIRIN 81 MG ECTAB PO SCH (08:01)
[2017-02-18] MEDS: POTASSIUM CHLORIDE 10 MEQ TABCR PO SCH (08:01)
[2017-02-18] MEDS: CALCIUM 600MG + VIT D 400 IU TAB PO SCH ×2 (08:01→21:25)
[2017-02-18] MEDS: METOPROLOL TARTRATE 25 MG TAB PO SCH (08:02)
[2017-02-18] MEDS: MAGNESIUM OXIDE 400 MG TAB PO SCH (08:02)
[2017-02-18] MEDS: HEPARIN SOD 5000 UNIT/0.5 ML CARP SQ SCH ×2 (08:08→21:24)
[2017-02-18 08:11] LABS: BLOOD UREA NITROGEN 23 mg/dl (7-18); BUN/CREATININE RATIO 15.5 (10-20); CARBON DIOXIDE 29 mmol/L (21-32); CHLORIDE 108 mmol/L (98-107); GLUCOSE 93 mg/dl (70-99); SODIUM 142 mmol/L (136-145)
[2017-02-18 08:12] LABS: CALCIUM 8.1 mg/dl (8.5-10.1)
[2017-02-18 08:41] LABS: HEMATOCRIT 39.8 % (42-52); MEAN CELL VOLUME 96.8 fL (80-100); MEAN CORPUSCULAR HEMOGLOBIN 31.6 pg (25-34); MEAN CORPUSCULAR HGB CONC 32.7 g/dl (32-36); MEAN PLATELET VOLUME 9.4 fL (7.4-10.4); PLATELET COUNT 203 K/uL (130-400); RED BLOOD COUNT 4.11 M/uL (4.7-6.1); WHITE BLOOD COUNT 9.37 K/uL (4.8-10.8)
--- NOTE | 2017-02-18 11:28 | Progress Note ---
Internal Med Progress Note Date of Service: Feb 18, 2017. Provider Documentation: SUBJECTIVE: The patient was seen and examined Denies any more abdominal pain,nausea and or vomiting Feels a lot better No problem with ambulation OBJECTIVE: Vital Signs-as noted below Exam: General-No distress at rest Eyes-normal ENT-normal Neck-supple Lungs-clear to ausucltate bilaterally Heart-Regular,no murmur Abdomen-Benign,no masses.bowel sound present No tenderness in renal angles Extremities-No edema Neuro-AAOx3 Lab data as noted below. ASSESSMENT & PLAN: COMPLICATED UTI, POSSIBLE PYELONEPHRITIS - patient presented with RLQ pain and urinary frequency x 1 day;U/A suggestive of UTI and CT showing pyelonephritis vs. recently passed stone, no obstructing stone identified - No signs of Sepsis - s/p Levaquin in the ED and will continue - urine culture-E Coli,sensitivity pending -Blood culture-pending - gentle IV fluid -Clinicvally much better JUVENTINO ON CKD STAGE III - baseline creat runs in the mid 1's - creat noted to be 1.8 today - likely prerenal due to poor PO intake / GI loss from vomiting - IVF, hold ACEi -Renal function improving CAD - stable, no reports of chest pain - continue ASA, beta lizzie, nitrate, and statin HTN - BP intermittently elevated, likely pain driven - continue metoprolol and isosorbide, holding Lisinopril for now due to JUVENTINO -remains stable -may need to restart Lisinopril on improvement of the Renal function HYPOTHYROIDISM - continue levothyroxine DVT PROPHYLAXIS - SQ heparin CODE STATUS - Patient is a full code as per my discussion with him. DISPO - In my clinical judgment this beneficiary meets acute admission criteria, established by [facility], that includes being hospitalized through two midnights. Likely discharge tomorrow Vital Signs: Date Time Temp Pulse Resp B/P (MAP) Pulse Ox O2 Delivery O2 Flow Rate FiO2 02/18/17 08:00 93 Room Air 02/18/17 07:20 36.9 53 18 133/73 (93) 93 Room Air 02/18/17 00:00 Room Air 02/17/17 23:08 36.8 59 18 131/76 (94) 94 Room Air 02/17/17 16:20 Room Air 02/17/17 15:19 37.0 61 18 123/73 (90) 94 Room Air Lab Results: Results Past 24 Hours Test 02/18/17 07:14 02/18/17 08:56 Range/Units White Blood Count 9.37 4.8-10.8 K/uL Red Blood Count 4.11 4.7-6.1 M/uL Hemoglobin 13.0 14.0-18.0 g/dL Hematocrit 39.8 42-52 % Mean Corpuscular Volume 96.8 80-100 fL Mean Corpuscular Hemoglobin 31.6 25-34 pg Mean Corpuscular Hemoglobin Concent 32.7 32-36 g/dl RDW Standard Deviation 51.8 36.4-46.3 fL RDW Coefficient of Variation 14.6 11.5-14.5 % Platelet Count 203 130-400 K/uL Mean Platelet Volume 9.4 7.4-10.4 fL Sodium Level 142 136-145 mmol/L Potassium Level 4.2 3.5-5.1 mmol/L Chloride Level 108 98-107 mmol/L Carbon Dioxide Level 29 21-32 mmol/L Anion Gap 5.0 3-11 mmol/L Blood Urea Nitrogen 23 7-18 mg/dl Creatinine 1.50 0.60-1.40 mg/dl Est Creatinine Clear Calc Drug Dose 35.4 ml/min Estimated GFR () 48.2 Estimated GFR (Non- 41.6 BUN/Creatinine Ratio 15.5 10-20 Random Glucose 93 70-99 mg/dl Calcium Level 8.1 8.5-10.1 mg/dl
[2017-02-18] MEDS: SODIUM CHLORIDE 0.9% 1000ML 1,000 ML IV SCH ×2 (14:10→22:25)
[2017-02-18 15:38] VITALS: BP 103/58; PULSE 68; TEMP 36.9; O2SAT 94
[2017-02-18] MEDS: GABAPENTIN 300 MG CAP PO SCH (21:25)
[2017-02-18] MEDS: ATORVASTATIN 40 MG TAB PO SCH (21:26)
[2017-02-18 23:52] VITALS: BP 112/66; PULSE 60; TEMP 37.5; O2SAT 92
[2017-02-19] MEDS: LEVOTHYROXINE 100 MCG TAB PO SCH (06:45)
[2017-02-19 07:34] VITALS: BP 148/79; PULSE 54; TEMP 37; O2SAT 93
[2017-02-19 08:00] VITALS: O2SAT 93
[2017-02-19] MEDS ORDERED: LEVOFLOXACIN / D5W 750 MG in PREMIXED IN D5W 150 ML IV SCH (08:00)
[2017-02-19] MEDS: ASPIRIN 81 MG ECTAB PO SCH (08:15)
[2017-02-19] MEDS: POTASSIUM CHLORIDE 10 MEQ TABCR PO SCH (08:16)
[2017-02-19] MEDS: MAGNESIUM OXIDE 400 MG TAB PO SCH (08:16)
[2017-02-19] MEDS: POT PHOSPHATE MONOBASIC W/ SOD TAB PO SCH (08:16)
[2017-02-19] MEDS: ISOSORBIDE MONONITRATE 60 MG TABCR PO SCH (08:16)
[2017-02-19] MEDS: CEROVITE ADV FORMULA TAB PO SCH (08:17)
[2017-02-19] MEDS: PANTOprazole SOD 40 MG TAB PO SCH (08:17)
[2017-02-19] MEDS: METOPROLOL TARTRATE 25 MG TAB PO SCH (08:17)
[2017-02-19] MEDS: HEPARIN SOD 5000 UNIT/0.5 ML CARP SQ SCH (08:21)
[2017-02-19] MEDS: CALCIUM 600MG + VIT D 400 IU TAB PO SCH (08:22)
[2017-02-19] MEDS: SODIUM CHLORIDE 0.9% 1000ML 1,000 ML IV SCH (11:00)
--- NOTE | 2017-02-19 11:08 | Progress Note ---
Internal Med Progress Note Date of Service: Feb 19, 2017. Provider Documentation: SUBJECTIVE: The patient was seen and examined Denies any more abdominal pain,nausea and or vomiting Feels a lot better today No problem with ambulation Wants to go home today OBJECTIVE: Vital Signs-as noted below Exam: General-No distress at rest Eyes-normal ENT-normal Neck-supple Lungs-clear to ausucltate bilaterally Heart-Regular,no murmur Abdomen-Benign,no masses.bowel sound present No tenderness in renal angles Extremities-No edema Neuro-AAOx3 Lab data as noted below. ASSESSMENT & PLAN: COMPLICATED UTI, POSSIBLE PYELONEPHRITIS - patient presented with RLQ pain and urinary frequency x 1 day;U/A suggestive of UTI and CT showing pyelonephritis vs. recently passed stone, no obstructing stone identified - No signs of Sepsis - s/p Levaquin in the ED and will continue - urine culture-E Coli,Pansensitive -Blood culture-negative - gentle IV fluid -Clinically much better today -will give Levaquin for 10 days in total JUVENTINO ON CKD STAGE III - baseline creat runs in the mid 1's - creat noted to be 1.8 today - likely prerenal due to poor PO intake / GI loss from vomiting - IVF, hold ACEi -Renal function improving CAD - stable, no reports of chest pain - continue ASA, beta lizzie, nitrate, and statin HTN - BP intermittently elevated, likely pain driven - continue metoprolol and isosorbide, holding Lisinopril for now due to JUVENTINO -remains stable -may need to restart Lisinopril on improvement of the Renal function HYPOTHYROIDISM - continue levothyroxine DVT PROPHYLAXIS - SQ heparin CODE STATUS - Patient is a full code as per my discussion with him. DISPO - In my clinical judgment this beneficiary meets acute admission criteria, established by [facility], that includes being hospitalized through two midnights. -discharge today Vital Signs: Date Time Temp Pulse Resp B/P (MAP) Pulse Ox O2 Delivery O2 Flow Rate FiO2 02/19/17 08:00 93 Room Air 02/19/17 07:34 37.0 54 18 148/79 (102) 93 Room Air 02/19/17 00:00 Room Air 02/18/17 23:52 37.5 60 20 112/66 (81) 92 Room Air 02/18/17 16:10 Room Air 02/18/17 15:38 36.9 68 18 103/58 (35) 94 Room Air
[2017-02-19 12:31] LABS: BUN/CREATININE RATIO 17.4 (10-20); CALCIUM 7.9 mg/dl (8.5-10.1); CREATININE 1.4 mg/dl (0.60-1.40); POTASSIUM 3.6 mmol/L (3.5-5.1)
[2017-02-19] MEDS ORDERED: LCTX PO (12:55)
[2017-02-19] MEDS ORDERED: LVQ750 PO (12:55)
--- NOTE | 2017-02-19 12:58 | Discharge Instructions ---
Discharge Instructions Date of Service Feb 19, 2017. Admission Reason for Admission: UTI Discharge Discharge Diagnosis / Problem: E Coli UTI,Pyelonephritis Discharge Goals Goal(s): Prevent Disease Progression Activity Recommendations Activity Limitations: resume your previous activity . Instructions / Follow-Up Instructions / Follow-Up Dr Orellana on 02/24/17 at 1:00PM.Keep appointment with your Urologist Current Hospital Diet Patient's current hospital diet: AHA Diet (Heart Healthy) Discharge Diet Recommended Diet: AHA Diet (Heart Healthy) Pending Studies Studies pending at discharge: no Medical Emergencies . Who to Call and When: Medical Emergencies: If at any time you feel your situation is an emergency, please call 911 immediately. . Non-Emergent Contact Non-Emergency issues call your: Primary Care Provider . Past History Medical & Surgical History: (1) Pyelonephritis (2) HTN (hypertension) (3) CAD (coronary artery disease) (4) CKD (chronic kidney disease), stage III (5) Prostate cancer (6) BPH (benign prostatic hyperplasia) (7) Hypothyroidism (8) History of cholecystectomy (9) History of bilateral knee replacement (10) S/P CABG x 3 (11) S/P inguinal hernia repair . "Provider Documentation" section prepared by Amara Ludwig. . VTE Core Measure Inpt VTE Proph given/why not?: Unfractionated heparin SQ
[2017-02-19 13:00] VITALS: BP 148/79; PULSE 54; TEMP 37; O2SAT 93
--- NOTE | 2017-02-20 08:15 | Discharge Summary ---
Discharge Summary Date of Service Feb 20, 2017. Discharge Summary Admission Date: Feb 17, 2017 at 08:31 Discharge Date: Feb 19, 2017 Discharge Disposition: Home Principal Diagnosis: E Coli UTI,Pyelonephritis Secondary Diagnoses/Problems: Please see H&P and Hospital Progress note Medication Reconciliation New Medications: Lactobacillus Acidophilus (Lactinex) Tab 2 TAB PO BID, #30 TAB Levofloxacin (Levofloxacin) 750 Mg Tab 750 MG PO Q2D@1100 for 6 Days, #3 TAB Continued Medications: Acetaminophen (Tylenol) 325 Mg Tab 325 MG PO Q4H PRN for Pain, TAB Aspirin (Aspirin Chewable) 81 Mg Chew 81 MG PO DAILY Atorvastatin Calcium (Lipitor) 80 Mg Tab 80 MG PO HS Calcium Carbonate-Vitamin D (Calcium 500 + D) 1 Tab Tab 1 TAB PO BID Ferrous Sulfate (Ferrous Sulfate) 325 Mg Tab 325 MG PO BID Furosemide (Lasix) 20 Mg Tab 20 MG PO DAILY extra tab daily as needed for edema Gabapentin (Gabapentin) 300 Mg Cap 300 MG PO HS Isosorbide Mononitrate (Isosorbide Mononitrate ER) 60 Mg Tabcr 60 MG PO DAILY Levothyroxine Sodium (Levothyroxine Sodium) 100 Mcg Tab 100 MCG PO DAILY for 90 Days, #90 TAB 3 Refills Lisinopril (Lisinopril) 10 Mg Tab 10 MG PO DAILY Magnesium Oxide (Mag-Ox) 400 Mg Tab 400 MG PO DAILY Metoprolol Tartrate (Lopressor) 25 Mg Tab 25 MG PO DAILY Multiple Vitamins W/ Minerals (Centrum Silver) 1 Chw Chw 1 TAB PO DAILY Ondansetron Hcl (Zofran) 4 Mg Tab 4 MG PO Q6H PRN for Nausea or Vomiting, TAB Pantoprazole (Protonix) 40 Mg Tab 40 MG PO QAM, TAB Pot Phosphate Monobasic W/ Sod (Phospha 250 Neutral) 1 Tab Tab 1 TAB PO QID Potassium Chloride (Micro-K Ext Rel) 10 Meq Capcr 10 MEQ PO DAILY, CAP Testosterone (Androderm) 4 Mg/24 Hr Dis 1 PATCH TOP QPM Tramadol (Ultram) 50 Mg Tab 50 MG PO Q6H PRN for Pain, TAB Admission Information HPI (per Admitting provider): 86 year old male who presents to the ER with abdominal pain and nausea. Patient reports his symptoms began yesterday. He reports RLQ pain that has progressively gotten worse. He describes the pain as sharp. He rates the pain # 9/10 at its worst. He reports walking was difficult due to the pain. He has felt nauseous and PO intake has been poor. He reports one episode of vomiting and describes the emesis as yellow and bilious in nature. He denies hematemesis or coffee ground emesis. He reports constipation a couple of days ago and took a stool softener and has since had a normal bowel movement. He reports his stools are always dark due to taking iron. He denies BRBPR. He reports urinary frequency but denies dysuria. He reports running low grade fevers of around 99.0. He reports intermittent lightheadedness and dizziness but denies any syncopal events. No chest pain or shortness of breath. In the ER, patient's U/A is suggestive of UTI. CT abd/pelvis shows possible pyelonephritis vs. recently passed stone. WBC 13K, creat is 1.8 (mildly elevated from baseline). Other labs are unremarkable. Vitals are stable. Patient was treated with IV Levaquin, IVF, Zofran, and morphine. Past Medical/Surgical History Medical Problems: (1) Anticoagulants,Lt,Current Use Status: Chronic (2) BPH (benign prostatic hyperplasia) Status: Chronic (3) CAD (coronary artery disease) Permanent Comment: s/p CABG 2000 cath 2007 - LAD, RCA, and obtuse marginal 100% occlusion 80% stenosis diagonal #2 patent [place] to LAD graft and saphenous to obtuse marginal occluded saphenous to RCA graft with collaterals Status: Chronic (4) Carcinoma of prostate Status: Chronic (5) CKD (chronic kidney disease) stage 3, GFR 30-59 ml/min Status: Chronic (6) CKD (chronic kidney disease), stage III Status: Chronic (7) Coronary artery disease Status: Chronic (8) Diverticular disease of colon Status: Chronic (9) Diverticulosis Status: Chronic (10) DVT (deep venous thrombosis) Status: Chronic (11) Dyslipidemia Status: Chronic (12) Dyslipidemia Status: Chronic (13) Esophageal Reflux Status: Chronic (14) GERD (gastroesophageal reflux disease) Status: Chronic (15) GI bleed Status: Chronic (16) History of herpes zoster Status: Chronic (17) History of pulmonary embolism Status: Chronic (18) HTN (hypertension) Status: Chronic (19) Hypertension Status: Chronic (20) Hypothyroidism Status: Chronic (21) Hypothyroidism Status: Chronic (22) Hypothyroidism Nos Status: Chronic (23) Osteoarthritis Status: Chronic (24) Peptic Ulcer Nos Status: Chronic (25) Postherpetic neuralgia Status: Chronic (26) Prostate cancer Permanent Comment: Rising PSA while on Avodart to 16.04. Clinical stage TIc Status post ultrasound-guided biopsies, biopsy stage T2c [place] grade 4+4 Initiation of hormonal suppression Status post seed implant as boost 02/10/2012 received 8500 cGy Status post completion of external radiation with IMRT IGRT 06/22/2012 5000 cGy Radiation proctitis status post laser therapy Status: Resolved (27) Prostate cancer Permanent Comment: Rising PSA while on Avodart to 16.02, clinical stage T1c Status post ultrasound-guided biopsies biopsy stage T2c [place] grade 4+4 Hormonal suppression Status post prostate seed implant 02/10/2012 received 8500 cGy Status post completion of external radiation with IMRT/IGRT completed 2011 received 5000 cGy Radiation proctitis status post laser therapy Status: Resolved (28) Pulmonary embolism Status: Chronic (29) Septic arthritis Status: Chronic (30) Septic arthritis of knee, left Status: Chronic (31) Spontaneous pneumothorax Status: Resolved (32) Spontaneous pneumothorax Status: Chronic Surgical Problems: (1) History of bilateral knee replacement Permanent Comment: revision of left for septic arthritis Status: Chronic (2) History of cholecystectomy Status: Chronic (3) S/P CABG x 3 Permanent Comment: 2000 Status: Chronic (4) S/P inguinal hernia repair Status: Chronic (5) Status post cholecystectomy Status: Chronic (6) Status post coronary artery bypass grafting Status: Chronic (7) Status post total knee replacement Status: Chronic Family History non contributory due to patient's advanced age Social History Smoking Status: Never Smoker Alcohol Use: none Housing status: lives alone Immunizations History of Influenza Vaccine: Yes Influenza Vaccine Date: Mar 27, 2016 History of Tetanus Vaccine?: Yes Tetanus Immunization Date: December 09, 2012 History of Pneumococcal: Yes Pneumococcal Date: Aug 29, 2014 Multi-Drug Resistant Organisms History of MDRO: No Allergies Coded Allergies: Iodinated Diagnostic Agents (Verified Allergy, Severe, THROAT TIGHTNESS, ) Cefuroxime (Verified Allergy, Unknown, GI UPSET, 01/14/16) Onion (Verified Allergy, Unknown, RAW ONIONS-BLISTERS ON HANDS AND FEET, ) HMG-CoA-R Inhibitors (Verified Adverse Reaction, Intermediate, ELEVATED LFT'S WITH CRESTOR, 01/14/16) NSAIDs (Verified Adverse Reaction, Unknown, GI BLEEDING- TAKES ASA AT HOME , 01/14/16) Home Medications Scheduled Aspirin (Aspirin Chewable), 81 MG PO DAILY Atorvastatin Calcium (Lipitor), 80 MG PO HS Calcium Carbonate-Vitamin D (Calcium 500 + D), 1 TAB PO BID Ferrous Sulfate (Ferrous Sulfate), 325 MG PO BID Furosemide (Lasix), 20 MG PO DAILY Gabapentin (Gabapentin), 300 MG PO HS Isosorbide Mononitrate (Isosorbide Mononitrate ER), 60 MG PO DAILY Levothyroxine Sodium (Levothyroxine Sodium), 100 MCG PO DAILY Lisinopril (Lisinopril), 10 MG PO DAILY Magnesium Oxide (Mag-Ox), 400 MG PO DAILY Metoprolol Tartrate (Lopressor), 25 MG PO DAILY Multiple Vitamins W/ Minerals (Centrum Silver), 1 TAB PO DAILY Pantoprazole (Protonix), 40 MG PO QAM Pot Phosphate Monobasic W/ Sod (Phospha 250 Neutral), 1 TAB PO QID Potassium Chloride (Micro-K Ext Rel), 10 MEQ PO DAILY Testosterone (Androderm), 1 PATCH TOP QPM Scheduled PRN Acetaminophen (Tylenol), 325 MG PO Q4H PRN for Pain Ondansetron Hcl (Zofran), 4 MG PO Q6H PRN for Nausea or Vomiting Tramadol (Ultram), 50 MG PO Q6H PRN for Pain Review of Systems ROS per HPI, all other systems reviewed and negative Physical Ex - H&P Physical Exam Vital Signs Date Time Temp Pulse Resp B/P (MAP) Pulse Ox O2 Delivery O2 Flow Rate FiO2 02/17/17 09:22 66 16 147/84 95 02/17/17 09:11 66 16 147/84 95 Room Air 02/17/17 08:41 97 Room Air 02/17/17 07:41 74 16 127/72 97 02/17/17 06:35 67 18 144/79 96 Room Air 02/17/17 05:35 36.8 63 18 174/86 92 Room Air General Appearance: no apparent distress Head: normocephalic Eyes: normal inspection ENT: hearing grossly normal Neck: supple, no JVD Respiratory/Chest: lungs clear, normal breath sounds, no respiratory distress Cardiovascular: regular rate, rhythm, no edema, normal peripheral pulses Abdomen/GI: soft, + tenderness (RLQ, LLQ ) Back: no CVA tenderness Extremities/Musculoskelatal: normal inspection, no calf tenderness Neurologic/Psych: no motor/sensory deficits, alert, normal mood/affect, oriented x 3 Skin: normal color, warm/dry Diagnostics - H&P Diagnostics Laboratory Results Results Past 24 Hours Test 02/17/17 05:40 02/17/17 07:45 02/17/17 08:12 Range/Units White Blood Count 13.79 4.8-10.8 K/uL Red Blood Count 5.01 4.7-6.1 M/uL Hemoglobin 16.5 14.0-18.0 g/dL Hematocrit 48.6 42-52 % Mean Corpuscular Volume 97.0 80-100 fL Mean Corpuscular Hemoglobin 32.9 25-34 pg Mean Corpuscular Hemoglobin Concent 34.0 32-36 g/dl Platelet Count 239 130-400 K/uL Mean Platelet Volume 9.5 7.4-10.4 fL Neutrophils (%) (Auto) 79.0 % Lymphocytes (%) (Auto) 10.1 % Monocytes (%) (Auto) 10.1 % Eosinophils (%) (Auto) 0.3 % Basophils (%) (Auto) 0.1 % Neutrophils # (Auto) 10.90 1.4-6.5 K/uL Lymphocytes # (Auto) 1.39 1.2-3.4 K/uL Monocytes # (Auto) 1.39 0.11-0.59 K/uL Eosinophils # (Auto) 0.04 0-0.5 K/uL Basophils # (Auto) 0.02 0-0.2 K/uL RDW Standard Deviation 51.1 36.4-46.3 fL RDW Coefficient of Variation 14.4 11.5-14.5 % Immature Granulocyte % (Auto) 0.4 % Immature Granulocyte # (Auto) 0.05 0.00-0.02 K/uL Prothrombin Time 10.8 9.0-12.0 SECONDS Prothromb Time International Ratio 1.0 0.9-1.1 Sodium Level 141 136-145 mmol/L Potassium Level 4.3 3.5-5.1 mmol/L Chloride Level 106 98-107 mmol/L Carbon Dioxide Level 30 21-32 mmol/L Anion Gap 5.0 3-11 mmol/L Blood Urea Nitrogen 31 7-18 mg/dl Creatinine 1.80 0.60-1.40 mg/dl Est Creatinine Clear Calc Drug Dose 29.5 ml/min Estimated GFR () 38.6 Estimated GFR (Non- 33.3 BUN/Creatinine Ratio 17.1 10-20 Random Glucose 118 70-99 mg/dl Calcium Level 9.7 8.5-10.1 mg/dl Total Bilirubin 1.3 0.2-1 mg/dl Direct Bilirubin 0.3 0-0.2 mg/dl Aspartate Amino Transf (AST/SGOT) 24 15-37 U/L Alanine Aminotransferase (ALT/SGPT) 28 12-78 U/L Alkaline Phosphatase 125 45-117 U/L Total Protein 7.8 6.4-8.2 gm/dl Albumin 3.6 3.4-5.0 gm/dl Lipase 77 73-393 U/L Urine Color YELLOW Urine Appearance TURBID CLEAR Urine pH 6.0 4.5-7.5 Urine Specific [place] 1.018 1.000-1.030 Urine Protein 3+ NEG Urine Glucose (UA) NEG NEG Urine Ketones TRACE NEG Urine Occult Blood 3+ NEG Urine Nitrite POS NEG Urine Bilirubin NEG NEG Urine Urobilinogen NEG NEG Urine Leukocyte Esterase LARGE NEG Urine WBC (Auto) >30 0-5 /hpf Urine RBC (Auto) 10-30 0-4 /hpf Urine Hyaline Casts (Auto) 1-5 0-5 /lpf Urine Epithelial Cells (Auto) 10-20 0-5 /lpf Urine Bacteria (Auto) 4+ NEG Urine Yeast (Auto) NONE PRSENT Bedside Lactic Acid Venous 1.38 0.90-1.70 mmol/L Microbiology Results 02/17/17 Blood Culture, Received Pending 02/17/17 Blood Culture, Received Pending 02/17/17 Urine Culture, Received Pending Diagnostic Radiology CT ABD/PELVIS IMPRESSION: 1. Mild fullness of the right ureter with periureteral infiltrative change anterior to the right iliopsoas. 2. Diagnostic considerations include recently passed calculus versus a nonspecific pyelonephritis. 3. Nonobstructive bowel pattern. 4. Normal appendix. 5. Scattered colonic diverticulosis with no evidence for acute diverticulitis. Impression - H&P Impression Assessment and Plan COMPLICATED UTI, POSSIBLE PYELONEPHRITIS - admit to med/surg - patient presenting with RLQ pain and urinary frequency x 1 day; in the ED, U/ A suggestive of UTI and CT showing pyelonephritis vs. recently passed stone, no obstructing stone identified - WBC 13K, no other signs of sepsis - s/p Levaquin in the ED, will continue with - follow up urine and blood culture results - IVF JUVENTINO ON CKD STAGE III - baseline creat runs in the mid 1's - creat noted to be 1.8 today - likely prerenal due to poor PO intake / GI loss from vomiting - IVF, hold ACEi CAD - stable, no reports of chest pain - continue ASA, beta lizzie, nitrate, and statin HTN - BP intermittently elevated, likely pain driven - continue metoprolol and isosorbide, holding Lisinopril for now due to JUVENTINO HYPOTHYROIDISM - continue levothyroxine DVT PROPHYLAXIS - SQ heparin CODE STATUS - Patient is a full code as per my discussion with him. DISPO - In my clinical judgment this beneficiary meets acute admission criteria, established by [facility], that includes being hospitalized through two midnights. Attending Addendum: The patient was seen and examined Admitted with Lower abdominal pain and fever with chills and sweating last night No nausea and or vomiting Feels a lot better following admission O/E Hemodynamically stable Chest-clear Heart-regular Abdomen-benign,minimally tender RLQ No tenderness in Renal Angles Extremities-negative for any edema Labs and Imaging studies were reviewed Agree with the assessment and plan. Dr Suresh Ludwig Advanced Directives Existing Living Will: Yes Existing Power of Product Engineering Manager: Yes (JERMAINE DTR ) VTE Prophylaxis VTE Risk Assessment Done? Y/N: Yes Risk Level: Moderate Physical Exam (per Admitting): General Appearance: no apparent distress Head: normocephalic Eyes: normal inspection ENT: hearing grossly normal Neck: supple, no JVD Respiratory/Chest: lungs clear, normal breath sounds, no respiratory distress Cardiovascular: regular rate, rhythm, no edema, normal peripheral pulses Abdomen/GI: soft, + tenderness (RLQ, LLQ ) Back: no CVA tenderness Extremities/Musculoskelatal: normal inspection, no calf tenderness Neurologic/Psych: no motor/sensory deficits, alert, normal mood/affect, oriented x 3 Skin: normal color, warm/dry Hospital Course COMPLICATED UTI, POSSIBLE PYELONEPHRITIS - patient presented with RLQ pain and urinary frequency x 1 day;U/A suggestive of UTI and CT showing pyelonephritis vs. recently passed stone, no obstructing stone identified - No signs of Sepsis - s/p Levaquin in the ED and will continue - urine culture-E Coli,Pansensitive -Blood culture-negative - gentle IV fluid -Clinically much better today -will give Levaquin for 10 days in total JUVENTINO ON CKD STAGE III - baseline creat runs in the mid 1's - creat noted to be 1.8 today - likely prerenal due to poor PO intake / GI loss from vomiting - IVF, hold ACEi -Renal function improving CAD - stable, no reports of chest pain - continue ASA, beta lizzie, nitrate, and statin HTN - BP intermittently elevated, likely pain driven - continue metoprolol and isosorbide, holding Lisinopril for now due to JUVENTINO -remains stable -may need to restart Lisinopril on improvement of the Renal function HYPOTHYROIDISM - continue levothyroxine DVT PROPHYLAXIS - SQ heparin CODE STATUS - Patient is a full code as per my discussion with him. DISPO - In my clinical judgment this beneficiary meets acute admission criteria, established by [facility], that includes being hospitalized through two midnights. -discharge today Total time spent on discharge = 35 minutes This includes examination of the patient, discharge planning, medication reconciliation, and communication with other providers. Discharge Instructions Date of Service Feb 19, 2017. Admission Reason for Admission: UTI Discharge Discharge Diagnosis / Problem: E Coli UTI,Pyelonephritis Discharge Goals Goal(s): Prevent Disease Progression Activity Recommendations Activity Limitations: resume your previous activity . Instructions / Follow-Up Instructions / Follow-Up Dr Orellana on 02/24/17 at 1:00PM.Keep appointment with your Urologist Current Hospital Diet Patient's current hospital diet: AHA Diet (Heart Healthy) Discharge Diet Recommended Diet: AHA Diet (Heart Healthy) Pending Studies Studies pending at discharge: no Medical Emergencies . Who to Call and When: Medical Emergencies: If at any time you feel your situation is an emergency, please call 911 immediately. . Non-Emergent Contact Non-Emergency issues call your: Primary Care Provider . Past History Medical & Surgical History: (1) Pyelonephritis (2) HTN (hypertension) (3) CAD (coronary artery disease) (4) CKD (chronic kidney disease), stage III (5) Prostate cancer (6) BPH (benign prostatic hyperplasia) (7) Hypothyroidism (8) History of cholecystectomy (9) History of bilateral knee replacement (10) S/P CABG x 3 (11) S/P inguinal hernia repair . "Provider Documentation" section prepared by Amara Ludwig. . VTE Core Measure Inpt VTE Proph given/why not?: Unfractionated heparin SQ <Electronically signed by Amara Ludwig M.D.> Signed: 02/19/17 [id number] Additional Copies To Gisselle Orellana,DO
[2017-02-21] MEDS ORDERED: LEVOFLOXACIN 750 MG TAB PO SCH (11:00)
[2017-03-24] MEDS ORDERED: LCTX PO (15:01)
[2017-03-24] MEDS ORDERED: AMOX875T PO (15:01)
== END 2017-02-19 14:00 | disposition home or self-care (01) | DRG 690 ==
LOC: EDBD 05:27 → C.EDA 05:28 → C.MS2W 08:31 → ENRESERV 08:54
PROVIDERS: ADMIT Internal Medicine; ATTEND Internal Medicine
DX: N12 Tubulo-interstitial nephritis, not specified as acute or chronic (principal); B96.20 Unspecified Escherichia coli [E. coli] as the cause of diseases classified elsewhere; N39.0 Urinary tract infection, site not specified; N17.9 Acute kidney failure, unspecified; I12.9 Hypertensive chronic kidney disease with stage 1 through stage 4 chronic kidney disease, or unspecified chronic kidney disease; N18.3 Chronic kidney disease, stage 3 (moderate); E03.9 Hypothyroidism, unspecified; I25.10 Atherosclerotic heart disease of native coronary artery without angina pectoris; Z95.1 Presence of aortocoronary bypass graft; Z96.653 Presence of artificial knee joint, bilateral; Z86.718 Personal history of other venous thrombosis and embolism; Z86.711 Personal history of pulmonary embolism; Z79.891 Long term (current) use of opiate analgesic; Z79.82 Long term (current) use of aspirin; Z79.899 Other long term (current) drug therapy

== ENCOUNTER 2017-03-22 14:15 | Inpatient (IN) | payer BC, OTHER ==
[~2017-03-22] VITALS: Ht 177.8 cm; Wt 78.7 kg
[~2017-03-22 14:15] MED LIST changes: +ASPCH81X PO; -ASPI81TA21 PO; +ISOS-10 PO; -ISOS-11 PO; +LCTX PO; +LEVO100T7 PO; -LEVO88TA PO; +LISI-461 PO; -LISI2.5T5 PO; +LVQ750 PO; +MULTCHW PO; +NRN300 PO; +ONDA4TAB65 PO; -ONDA8TAB62 SL; +POTA10CA28 PO; -POTA20TA16 PO; -SUCR1TAB29 PO; -[UNRECOGNIZED DRUG - OTHER] SL
[2017-03-22] MEDS ORDERED: SODIUM CHLORIDE 0.9% 1000ML 1,000 ML IV STA (14:46)
[2017-03-22] MEDS ORDERED: SODIUM CHLORIDE 0.9% 1000ML 1,000 ML IV ONE (14:46)
[2017-03-22] MEDS ORDERED: ACET-1056 PO (15:02)
[2017-03-22] MEDS ORDERED: ISR/5 PO (15:02)
[2017-03-22] MEDS ORDERED: TEST1DIS TD (15:02)
[2017-03-22 15:27] LABS: BASO % 0.3 %; BASO ABS # 0.03 K/uL (0-0.2); COMPLETE YES; EOS % 0.7 %; HEMATOCRIT 44.4 % (42-52); IG% 0.3 %; LYMPH % 28.1 %; LYMPH ABS # 2.86 K/uL (1.2-3.4); MEAN CELL VOLUME 97.2 fL (80-100); MEAN CORPUSCULAR HEMOGLOBIN 32.2 pg (25-34); MEAN CORPUSCULAR HGB CONC 33.1 g/dl (32-36); MEAN PLATELET VOLUME 9.4 fL (7.4-10.4); MONO % 10.9 %; NEUT % 59.7 %; PLATELET COUNT 185 K/uL (130-400); RED BLOOD COUNT 4.57 M/uL (4.7-6.1); WHITE BLOOD COUNT 10.17 K/uL (4.8-10.8)
[2017-03-22 15:35] LABS: PARTIAL THROMBOPLASTIN RATIO 1.1; PROTHROMBIN TIME (PATIENT) 10.9 SECONDS (9.0-12.0)
[2017-03-22 15:44] LABS: ALT/SGPT 23 U/L (12-78); AST/SGOT 22 U/L (15-37); BLOOD UREA NITROGEN 26 mg/dl (7-18); BUN/CREATININE RATIO 16.1 (10-20); CALCIUM 9.2 mg/dl (8.5-10.1); CARBON DIOXIDE 30 mmol/L (21-32); CHLORIDE 104 mmol/L (98-107); GLUCOSE 98 mg/dl (70-99); POTASSIUM 4.3 mmol/L (3.5-5.1); SODIUM 139 mmol/L (136-145)
[2017-03-22 15:46] LABS: ACETAMINOPHEN < 2 ug/ml (10-30)
--- NOTE | 2017-03-22 15:49 | DIAGNOSTIC IMAGING REPORT ---
CHEST ONE VIEW PORTABLE HISTORY: 86 years-old Male CHEST PAIN COMPARISON: Portable chest radiograph 01/17/2016 TECHNIQUE: Portable upright AP view of the chest FINDINGS: Cardiac silhouette is mildly enlarged. Prior median sternotomy. There is atherosclerosis of the aorta. There is no pneumothorax, pleural effusion or focal airspace consolidation. There is chronic right hemidiaphragmatic elevation with subsegmental right basilar atelectasis/scarring. No change from prior. The bones are grossly intact. Degenerative changes involve the bilateral shoulders. IMPRESSION: No acute cardiopulmonary process. The above report was generated using voice recognition software. It may contain grammatical, syntax or spelling errors. Electronically signed by: Chevy Emmanuel M.D. 03/22/2017 3:48 PM Dictated Date/Time: 03/22/2017 3:46 PM
[2017-03-22 15:55] LABS: ALKALINE PHOSPHATASE 118 U/L (45-117)
--- NOTE | 2017-03-22 16:02 | DIAGNOSTIC IMAGING REPORT ---
HEAD WITHOUT CONTRAST (CT) CLINICAL HISTORY: 86 years-old Male with episode of confusion. TECHNIQUE: Multiple axial CT images of the head were obtained without contrast. A dose lowering technique was utilized adhering to the principles of ALARA. CT DOSE: 638.56 mGycm COMPARISON: CT head 01/09/2015 FINDINGS: No acute intracranial hemorrhage, midline shift, mass, large territorial ischemia or abnormal extra-axial collection. There is moderate cerebral atrophy with ex vacuo ventriculomegaly. Scattered areas of low-attenuation within the periventricular white matter suggests chronic microvascular ischemic changes. Vascular calcifications are seen at the level of the skull base. The calvarium is intact. The paranasal sinuses, mastoid air cells, and middle ear cavities are clear. IMPRESSION: 1. No acute intracranial abnormality. 2. Atrophy with chronic microvascular ischemic changes. The above report was generated using voice recognition software. It may contain grammatical, syntax or spelling errors. Electronically signed by: Chevy Emmanuel M.D. 03/22/2017 4:01 PM Dictated Date/Time: 03/22/2017 3:59 PM
--- NOTE | 2017-03-22 16:28 | DIAGNOSTIC IMAGING REPORT ---
SOFT TISSUE NECK WITHOUT HISTORY: 86 years-old Male eval for infection/abcess . Acute stroke pain. Submandibular swelling. COMPARISON: CT soft tissue neck 12/25/2015 TECHNIQUE: Multiple axial CT images of the soft tissues of the neck were obtained without IV contrast. A dose lowering technique was used consistent with the principals of JEYSON. FINDINGS: The nasopharynx, oropharynx and hypopharynx are patent. Ventral fat planes are symmetric without peritonsillar abscess. The epiglottis and vallecula are unremarkable. The aryepiglottic folds are not thickened. The preepiglottic fat is well-maintained. The true and false cords appear symmetric. There is moderate soft tissue swelling within the submandibular tissues with associated subcutaneous edema. There is a focus of soft tissue density and air foci measuring approximately 1.4 x 1.0 cm just inferior to the left mandibular body without well-circumscribed margins identified. This is adjacent to a linear lucent tract corresponding to a prior left mandibular molar seen on comparison study which has been extracted in the interval (nicely seen on image 103 of the axial series). No large periapical cysts are identified. Air is also seen within the root tract. Multilevel degenerative changes of the cervical spine are noted. Intervertebral disc space narrowing is seen most pronounced at C5-C6 and C6-C7. There is atherosclerotic plaquing of the carotid bulbs. Mastoid air cells, middle ear cavities and paranasal sinuses are clear. Lung apices are generally clear with mild biapical pleural parenchymal scarring. There is thyroid atrophy. IMPRESSION: 1. Moderate soft tissue swelling and phlegmonous change with suggested abscess without well-defined margins within the left submandibular tissues, 1.4 x 1.0 cm containing mostly air without significant fluid. This is adjacent to a partially air-filled tract of the left mandible corresponding to an area of prior mandibular molar tooth extraction. No evidence of associated osteomyelitis at this time. 2. Additional incidental findings as above. The above report was generated using voice recognition software. It may contain grammatical, syntax or spelling errors. Electronically signed by: Chevy Emmanuel M.D. 03/22/2017 4:27 PM Dictated Date/Time: 03/22/2017 4:08 PM
[2017-03-22] MEDS ORDERED: AMPICILLIN/SULBACTAM SOD INJ 3,000 MG in SODIUM CHLORIDE 0.9% 100ML 100 ML IV ONE (17:00)
[2017-03-22] MEDS ORDERED: SODIUM CHLORIDE 0.9% 1000ML 500 ML IV SCH (17:33)
[2017-03-22] MEDS ORDERED: ONDANSETRON 4 MG TAB PO PRN (17:45)
[2017-03-22] MEDS ORDERED: ONDANSETRON INJ 2 MG/ML 2 ML VIAL IV PRN (17:45)
[2017-03-22] MEDS ORDERED: VANCOMYCIN INJ 1,000 MG in SODIUM CHLORIDE 0.9% 250ML 250 ML IV SCH (17:45)
[2017-03-22] MEDS ORDERED: ALUMINUM/MAGNESIUM/SIMETH (MAALOX MAX) 30 ML UDC PO PRN (17:45)
[2017-03-22] MEDS ORDERED: TRAMADOL HCL 50 MG TAB PO PRN (17:45)
[2017-03-22] MEDS ORDERED: MAGNESIUM HYDROXIDE SUSP 30 ML UDC PO PRN (17:45)
[2017-03-22] MEDS ORDERED: NITROGLYCERIN 0.4 MG SL PER TAB CHARGE SL PRN (17:45)
[2017-03-22] MEDS ORDERED: PIPERACILL/TAZOBAC IV 4.5 GM in DEXTROSE 5% 100ML 100 ML IV SCH (17:45)
[2017-03-22] MEDS ORDERED: ACETAMINOPHEN 325 MG TAB PO PRN (17:45)
[2017-03-22 20:10] VITALS: BP 135/75; PULSE 85; TEMP 36.8; O2SAT 94; Ht 177.8 cm; Wt 78.7 kg
--- NOTE | 2017-03-22 20:15 | HISTORY & PHYSICAL EXAMINATION ---
DATE OF ADMISSION: 03/22/2017 CHIEF COMPLAINT: Confusion. HISTORY OF PRESENT ILLNESS: This 86-year-old male with past medical history significant for hypertension, ischemic heart disease, hypothyroidism, hyperlipidemia, history of prostate cancer, history of anemia, history of testicular hypofunction, history of pancreatic cyst, history of septic arthritis of left knee, history of bacterial endocarditis, history of radiation proctitis, history of chronic kidney disease stage III, presents with confusion. The patient had his left molar tooth extracted for abscess infection last Thursday and he is taking Tylenol, he lives alone. He talks with his daughter everyday. Yesterday, daughter thought that he was confused but he thought it from the procedure and from the pain, and today he did go to the [facility]. When his friend came and checked on him saw redness and swelling on the left side of the neck and brought him to the ER. The patient currently is more alert and awake and more talking, though somewhat slow to answer. He has some mild headache, no blurred vision. Denies any fever, chills, no cough. He has some pain at surgical site. Denies any cough, no chest pain, no nausea, no vomiting, no abdominal pain. Normal bowel and bladder movements. Did not notice any blood in the urine or stools. No burning micturition. No swelling in the legs, currently resting comfortably. The patient says he did not eat anything today. Blood pressure running slightly on the lower side. ALLERGIES: ONION. PAST MEDICAL HISTORY: As mentioned above. PAST SURGICAL HISTORY: Bilateral total knee arthroscopy, biopsy of the prostate, CABG, colonoscopy, EGD with endoscopic ultrasound, cholecystectomy, repair of inguinal hernia on the right side. MEDICATIONS: The patient is on lactobacillus 2 tablets p.o. b.i.d., Androderm 4 mg/24hr apply on skin daily, Lasix 20 mg p.o. daily, lisinopril 10 mg p.o. daily, Imdur 60 mg p.o. daily, atorvastatin 80 mg p.o. daily, Neutra-Phos 1 tablet p.o. q.i.d., gabapentin 300 mg p.o. at bedtime, potassium chloride ER 10 mEq p.o. daily, levothyroxine 100 mcg p.o. daily, tramadol 50 mg p.o. q. 6 hours p.r.n., Zofran 4 mg p.o. q. 6 hours p.r.n., Imodium 2 mg p.o. every 4 hours p.r.n., magnesium oxide 400 mg p.o. daily, Tylenol 650 mg p.o. q. 4 hours p.r.n., aspirin 81 mg p.o. daily, calcium 500 plus D 1 tablet twice daily, Centrum Silver 1 tablet p.o. daily, ferrous sulfate 325 mg p.o. b.i.d., metoprolol succinate XL 25 mg p.o. daily, Protonix 40 mg p.o. daily. FAMILY HISTORY: Father had WI and at age of 62. Mother had diabetes, dementia, at the age of 72 .Sister had multiple myeloma and at age of 59. SOCIAL HISTORY: No tobacco use. No alcohol use. No drug abuse. , currently lives alone. REVIEW OF SYMPTOMS: As per HPI. Rest of review of symptoms negative. PHYSICAL EXAMINATION: GENERAL: The patient is of moderate build, not in distress. VITAL SIGNS: Temperature 36.6, pulse 76, respiratory rate 18, blood pressure 92/60 oxygen 96% room air. HEENT: No pallor, no icterus. Pupils equal, round, and reactive to light. NECK: Mild erythematous changes on the left side of neck and tenderness in the left mandibular region. CARDIOVASCULAR: S1, S2 heard, regular rate and rhythm, no murmur, no gallop. RESPIRATORY SYSTEM: Normal AP diameter. No accessory muscle use. No wheezing, no crackles. ABDOMEN: Soft, bowel sounds present, nontender. No distention. CENTRAL NERVOUS SYSTEM: Cranial nerves are II-XII grossly intact, nonfocal. SKIN: Erythematous and changes in the left side of the neck. EXTREMITIES: No edema, erythema. LABS: WBC 10.17, hemoglobin 14.7, hematocrit 44.4, platelets 185. Sodium 139, potassium 4.3, chloride 104, bicarbonate 30, BUN 26, creatinine 1.6, serum glucose 98, calcium 9.2. Total bilirubin 1, direct bilirubin 0.2, AST 22, ALT 23, alkaline phosphatase is 118. Point of care troponin 0.03. Lipase 62. TSH is 3.03. PT 10.9, INR 1, APTT 29.2. Toxicology: Acetaminophen level less than 2, salicylate less than 1.7. CT of the soft tissue of the neck shows moderate soft tissue swelling and phlegmonous changes to suggest abscess without well-defined margins with left submandibular tissue mostly air without significant fluid. This is adjacent to partially air-filled tract of the left mandible corresponding to area of prior mandibular molar tooth extraction. No evidence of osteomyelitis at this time. IMAGING DATA: CT of the head, no acute findings. Chest x-ray, no cardiopulmonary findings. EKG: Normal sinus rhythm with rate of 79 with some left axis deviation, no acute ST changes seen. ASSESSMENT AND PLAN: This is an 86-year-old male presents with altered mental status. 1. Altered mental status, most likely secondary to left side of the neck cellulitis and abscess, possible abscess at the tooth extraction site. Metabolic encephalopathy. We will place him on IV Zosyn and IV vancomycin and follow the cultures and consult oral surgery for further recommendations. We will also check the urinalysis and culture as patient recently was treated for urinary tract infection.Intravenous fluids and monitor on tele floor. 2. History of coronary artery disease status post coronary artery bypass graft. Continue with aspirin and statin, beta lizzie with holding parameters, we will hold nitrates as blood pressure running on the lower side. 3. History of hypertension. Currently, blood pressure is on the lower side. Will continue Toprol-XL with holding parameters. Hold lisinopril and Imdur. Monitor blood pressure. 4. Hypothyroidism. Continue Synthroid. 5. Acute renal failure and chronic kidney disease, stage III, baseline creatinine of 1.5 We will follow his labs. 6. History of prostate cancer, follow with his urologist. 7. Hyperlipidemia, statin. 8. Deep vein thrombosis prophylaxis, sequential compression devices and heparin subQ. DISPOSITION: Admit to tele floor. Expect to discharge home and follow with family doctor. Level 1 full code. MTDD
[2017-03-22] MEDS ORDERED: PIPERACILL/TAZOBAC IV 4.5 GM in DEXTROSE 5% 100ML IV ONE (21:45)
[2017-03-22] MEDS ORDERED: PIPERACILL/TAZOBAC IV 4.5 GM in DEXTROSE 5% 100ML IV SCH (21:45)
[2017-03-22] MEDS ORDERED: PATIENT'S HEIGHT AND/OR WEIGHT NEEDED SCH (21:45)
--- NOTE | 2017-03-22 22:11 | EMERGENCY ROOM VISIT NOTE ---
History Report prepared by Imani: Yvrose Forrester Under the Supervision of: Dr. Kranthi Durant M.D. First contact with patient: 14:29 Chief Complaint: CONFUSION Stated Complaint: NECK SWELLING AND CONFUSION Nursing Triage Summary: Pt normally goes to worship and did not show, friends checked on him and found him confused. Recent tooth extraction and now with swelling in the neck which was not there before. Also was prescribed tylenol with codeine not sure if he is taking more than he should. Pt has not eaten yet today and this is out of his normal routine per family friend. Pinpoint pupils in triage History of Present Illness The patient is an 86 year old male who presents to the Emergency Room with complaints of an episode of confusion starting today. The patient states that he had a molar extracted two days ago. He states that they gave him pain medications to use as needed, but he denies taking any. He notes that they also gave him antibiotics. The patient is complains of having swelling in his mouth and neck. He notes that he realized that he was kind of bewildered today when he had a friend call saying they missed him in worship today. He reports that he didn't even realize it was Thursday. The patient notes that he hasn't eaten breakfast or lunch today and normally he eats a lot. The patient complains of a headache, eye pain, a cough, and infrequent bowel movements. He notes that the infrequent bowel movements are not new. The patient denies a fall, prior eye problems, fevers, shortness of breath, abdominal pain, weakness, numbness, nausea, urinary symptoms, hematochezia, melena, and chills. The patient's friend notes that the patient is normally like clockwork and that this is very unlike him. He reports that he normally has more "pep in his step." He also states that his daughter called him and said he may have taken too much or taking his pain medication too frequently. Source of History: patient, friend Onset: today Position: other (global) Quality: other (global) Timing: other (episode) Associated Symptoms: + headache, + cough, No fevers, No chills, No SOB, No nausea, No abdominal pain, No melena, No hematochezia, No urinary symptoms, No weakness, No numbness Note: The patient complains of swelling in his mouth, swelling in his neck, eye pain, and infrequent bowel movements. The patient denies a fall and prior eye problems. The patient's friend notes he has lost his "pep in his step." Review of Systems See HPI for pertinent positives & negatives. A total of 10 systems reviewed and were otherwise negative. Past Medical & Surgical Medical Problems: (1) Altered mental status (2) Anticoagulants,Lt,Current Use (3) BPH (benign prostatic hyperplasia) (4) CAD (coronary artery disease) (5) Carcinoma of prostate (6) CKD (chronic kidney disease) stage 3, GFR 30-59 ml/min (7) CKD (chronic kidney disease), stage III (8) Coronary artery disease (9) Diverticular disease of colon (10) Diverticulosis (11) DVT (deep venous thrombosis) (12) Dyslipidemia (13) Dyslipidemia (14) Esophageal Reflux (15) Facial cellulitis (16) GERD (gastroesophageal reflux disease) (17) GI bleed (18) History of herpes zoster (19) History of pulmonary embolism (20) HTN (hypertension) (21) Hypertension (22) Hypothyroidism (23) Hypothyroidism (24) Hypothyroidism Nos (25) Osteoarthritis (26) Peptic Ulcer Nos (27) Postherpetic neuralgia (28) Prostate cancer (29) Prostate cancer (30) Pulmonary embolism (31) Pyelonephritis (32) Septic arthritis (33) Septic arthritis of knee, left (34) Spontaneous pneumothorax (35) Spontaneous pneumothorax Surgical Problems: (1) History of bilateral knee replacement (2) History of cholecystectomy (3) S/P CABG x 3 (4) S/P inguinal hernia repair (5) Status post cholecystectomy (6) Status post coronary artery bypass grafting (7) Status post total knee replacement Old medical records were reviewed. Nurse's notes were reviewed and I agree with. Family History No pertinent family history Social History Smoking Status: Never Smoker Alcohol Use: none Marital Status: single Housing Status: lives alone Occupation Status: retired Current/Historical Medications Scheduled Aspirin (Aspirin Chewable), 81 MG PO QDL Atorvastatin Calcium (Lipitor), 80 MG PO HS Calcium Carbonate-Vitamin D (Calcium 500 + D), 1 TAB PO BID Ferrous Sulfate (Ferrous Sulfate), 325 MG PO BID Furosemide (Lasix), 20 MG PO QDL Gabapentin (Gabapentin), 300 MG PO HS Isosorbide Mononitrate (Isosorbide Mononitrate ER), 60 MG PO QDL Levothyroxine Sodium (Levothyroxine Sodium), 100 MCG PO QAM Lisinopril (Lisinopril), 10 MG PO QDL Magnesium Oxide (Mag-Ox), 400 MG PO QDL Metoprolol Tartrate (Lopressor), 25 MG PO HS Multiple Vitamins W/ Minerals (Centrum Silver), 1 TAB PO QDL Pantoprazole (Protonix), 40 MG PO QAM Pot Phosphate Monobasic W/ Sod (Phospha 250 Neutral), 1 TAB PO QDB Potassium Chloride (Micro-K Ext Rel), 10 MEQ PO QDL Testosterone (Androderm), 1 PATCH TOP QPM Scheduled PRN Acetaminophen (Tylenol), 325 MG PO Q4H PRN for Pain Acetaminophen W/ Codeine (Acetaminophen/Codeine #3 300-30 mg), 1-2 TABS PO Q4 PRN for Pain Isosorbide Dinitrate (Isordil), 2.5 MG PO TID PRN for Ondansetron Hcl (Zofran), 4 MG PO Q6H PRN for Nausea or Vomiting Tramadol (Ultram), 50 MG PO Q6H PRN for Pain Allergies Coded Allergies: Iodinated Diagnostic Agents (Verified Allergy, Severe, THROAT TIGHTNESS, ) Cefuroxime (Verified Allergy, Unknown, GI UPSET, 03/22/17) Onion (Verified Allergy, Unknown, RAW ONIONS-BLISTERS ON HANDS AND FEET, ) HMG-CoA-R Inhibitors (Verified Adverse Reaction, Intermediate, ELEVATED LFT'S WITH CRESTOR, 03/22/17) NSAIDs (Verified Adverse Reaction, Unknown, GI BLEEDING- TAKES ASA AT HOME , 03/22/17) Physical Exam Vital Signs Date Time Temp Pulse Resp B/P (MAP) Pulse Ox O2 Delivery O2 Flow Rate FiO2 03/22/17 17:05 67 18 97/63 96 Room Air 03/22/17 16:22 71 18 92/60 94 03/22/17 14:22 36.6 86 18 117/77 91 Room Air Physical Exam General: Well developed well nourished in no acute distress, breathing comfortably on room air. [id number] older male. Oriented x3. Answers most questions appropriately. Some slow and vague answers. Mild problems with memory. HEENT: Normal cephalic atraumatic. Pupils are equal round and reactive to light. Sclerae anicteric. Extraocular movements are intact. Oropharynx is pink with moist mucous membranes. No swelling of the mouth lips or tongue. Throat has mild tenderness under left jaw and minimal swelling. Floor of mouth is soft. Neck: Supple with a midline trachea. No meningeal signs or stiffness, no JVD or bruits. No Stridor. Chest: Clear to auscultation bilaterally. No wheezes or rhonchi. No increased work of breathing. Heart: regular rate and rhythm. Abdomen: Soft nontender, nondistended without rebound guarding or rigidity. Extremities: No cyanosis clubbing or edema. No calf tenderness or assymetry Spine/Back. Non tender to palpation. No CVA tenderness Skin: Good turgor without rashes. Neurologic exam: Cranial nerves two through 12 are intact. Motor and sensation are intact and symmetrical throughout. Medical Decision & Procedures ER Provider Diagnostic Interpretation: Radiology results as stated below per my review and radiologist interpretation: HEST ONE VIEW PORTABLE HISTORY: 86 years-old Male CHEST PAIN COMPARISON: Portable chest radiograph 01/17/2016 TECHNIQUE: Portable upright AP view of the chest FINDINGS: Cardiac silhouette is mildly enlarged. Prior median sternotomy. There is atherosclerosis of the aorta. There is no pneumothorax, pleural effusion or focal airspace consolidation. There is chronic right hemidiaphragmatic elevation with subsegmental right basilar atelectasis/scarring. No change from prior. The bones are grossly intact. Degenerative changes involve the bilateral shoulders. IMPRESSION: No acute cardiopulmonary process. The above report was generated using voice recognition software. It may contain grammatical, syntax or spelling errors. Electronically signed by: Chevy Emmanuel M.D. 03/22/2017 3:48 PM Dictated Date/Time: 03/22/2017 3:46 PM Chest x-ray per my interpretation reveals no pneumothorax, failure, or infiltrate. SOFT TISSUE NECK WITHOUT HISTORY: 86 years-old Male eval for infection/abcess . Acute stroke pain. Submandibular swelling. COMPARISON: CT soft tissue neck 12/25/2015 TECHNIQUE: Multiple axial CT images of the soft tissues of the neck were obtained without IV contrast. A dose lowering technique was used consistent with the principals of JEYSON. FINDINGS: The nasopharynx, oropharynx and hypopharynx are patent. Ventral fat planes are symmetric without peritonsillar abscess. The epiglottis and vallecula are unremarkable. The aryepiglottic folds are not thickened. The preepiglottic fat is well-maintained. The true and false cords appear symmetric. There is moderate soft tissue swelling within the submandibular tissues with associated subcutaneous edema. There is a focus of soft tissue density and air foci measuring approximately 1.4 x 1.0 cm just inferior to the left mandibular body without well-circumscribed margins identified. This is adjacent to a linear lucent tract corresponding to a prior left mandibular molar seen on comparison study which has been extracted in the interval (nicely seen on image 103 of the axial series). No large periapical cysts are identified. Air is also seen within the root tract. Multilevel degenerative changes of the cervical spine are noted. Intervertebral disc space narrowing is seen most pronounced at C5-C6 and C6-C7. There is atherosclerotic plaquing of the carotid bulbs. Mastoid air cells, middle ear cavities and paranasal sinuses are clear. Lung apices are generally clear with mild biapical pleural parenchymal scarring. There is thyroid atrophy. IMPRESSION: 1. Moderate soft tissue swelling and phlegmonous change with suggested abscess without well-defined margins within the left submandibular tissues, 1.4 x 1.0 cm containing mostly air without significant fluid. This is adjacent to a partially air-filled tract of the left mandible corresponding to an area of prior mandibular molar tooth extraction. No evidence of associated osteomyelitis at this time. 2. Additional incidental findings as above. The above report was generated using voice recognition software. It may contain grammatical, syntax or spelling errors. Electronically signed by: Chevy Emmanuel M.D. 03/22/2017 4:27 PM Dictated Date/Time: 03/22/2017 4:08 PM HEAD WITHOUT CONTRAST (CT) CLINICAL HISTORY: 86 years-old Male with episode of confusion. TECHNIQUE: Multiple axial CT images of the head were obtained without contrast. A dose lowering technique was utilized adhering to the principles of ALARA. CT DOSE: 638.56 mGycm COMPARISON: CT head 01/09/2015 FINDINGS: No acute intracranial hemorrhage, midline shift, mass, large territorial ischemia or abnormal extra-axial collection. There is moderate cerebral atrophy with ex vacuo ventriculomegaly. Scattered areas of low-attenuation within the periventricular white matter suggests chronic microvascular ischemic changes. Vascular calcifications are seen at the level of the skull base. The calvarium is intact. The paranasal sinuses, mastoid air cells, and middle ear cavities are clear. IMPRESSION: 1. No acute intracranial abnormality. 2. Atrophy with chronic microvascular ischemic changes. The above report was generated using voice recognition software. It may contain grammatical, syntax or spelling errors. Electronically signed by: Chevy Emmanuel M.D. 03/22/2017 4:01 PM Dictated Date/Time: 03/22/2017 3:59 PM Laboratory Results 03/22/17 15:00 Red Blood Count 4.57, Mean Corpuscular Volume 97.2, Mean Corpuscular Hemoglobin 32.2, Mean Corpuscular Hemoglobin Concent 33.1, Mean Platelet Volume 9.4, Neutrophils (%) (Auto) 59.7, Lymphocytes (%) (Auto) 28.1, Monocytes (%) (Auto) 10.9, Eosinophils (%) (Auto) 0.7, Basophils (%) (Auto) 0.3, Neutrophils # (Auto ) 6.07, Lymphocytes # (Auto) 2.86, Monocytes # (Auto) 1.11, Eosinophils # (Auto ) 0.07, Basophils # (Auto) 0.03 03/22/17 15:00 Test 03/22/17 15:00 03/22/17 15:18 White Blood Count 10.17 K/uL (4.8-10.8) Red Blood Count 4.57 M/uL (4.7-6.1) Hemoglobin 14.7 g/dL (14.0-18.0) Hematocrit 44.4 % (42-52) Mean Corpuscular Volume 97.2 fL (80-100) Mean Corpuscular Hemoglobin 32.2 pg (25-34) Mean Corpuscular Hemoglobin Concent 33.1 g/dl (32-36) Platelet Count 185 K/uL (130-400) Mean Platelet Volume 9.4 fL (7.4-10.4) Neutrophils (%) (Auto) 59.7 % Lymphocytes (%) (Auto) 28.1 % Monocytes (%) (Auto) 10.9 % Eosinophils (%) (Auto) 0.7 % Basophils (%) (Auto) 0.3 % Neutrophils # (Auto) 6.07 K/uL (1.4-6.5) Lymphocytes # (Auto) 2.86 K/uL (1.2-3.4) Monocytes # (Auto) 1.11 K/uL (0.11-0.59) Eosinophils # (Auto) 0.07 K/uL (0-0.5) Basophils # (Auto) 0.03 K/uL (0-0.2) RDW Standard Deviation 52.3 fL (36.4-46.3) RDW Coefficient of Variation 14.8 % (11.5-14.5) Immature Granulocyte % (Auto) 0.3 % Immature Granulocyte # (Auto) 0.03 K/uL (0.00-0.02) Prothrombin Time 10.9 SECONDS (9.0-12.0) Prothromb Time International Ratio 1.0 (0.9-1.1) Activated Partial Thromboplast Time 29.2 SECONDS (21.0-31.0) Partial Thromboplastin Ratio 1.1 Anion Gap 5.0 mmol/L (3-11) Estimated GFR () 44.6 Estimated GFR (Non- 38.4 BUN/Creatinine Ratio 16.1 (10-20) Calcium Level 9.2 mg/dl (8.5-10.1) Total Bilirubin 1.0 mg/dl (0.2-1) Direct Bilirubin 0.2 mg/dl (0-0.2) Aspartate Amino Transf (AST/SGOT) 22 U/L (15-37) Alanine Aminotransferase (ALT/SGPT) 23 U/L (12-78) Alkaline Phosphatase 118 U/L (45-117) Total Protein 7.0 gm/dl (6.4-8.2) Albumin 3.4 gm/dl (3.4-5.0) Lipase 62 U/L (73-393) Thyroid Stimulating Hormone (TSH) 3.030 uIu/ml (0.300-4.500) Salicylates Level < 1.7 mg/dl (2.8-20) Acetaminophen Level < 2 ug/ml (10-30) Bedside Troponin I < 0.030 ng/ml (0-0.045) Laboratory studies as stated above per my review. Medications Administered Medications (Trade) Dose Ordered Sig/Freddy Route Start Time Stop Time Status Last Admin Dose Admin Sodium Chloride 1,000 ml @ 999 mls/hr Q1H1M STAT IV 03/22/17 14:46 03/22/17 15:46 DC 03/22/17 14:46 999 MLS/HR Sodium Chloride 1,000 ml @ 150 mls/hr Q6H40M ONCE IV 03/22/17 14:46 03/22/17 21:25 DC 03/22/17 14:46 150 MLS/HR Ampicillin Sodium/ Sulbactam Sodium 3000 mg/Sodium Chloride 108 ml @ 200 mls/hr ONE ONCE IV 03/22/17 17:00 03/22/17 17:32 DC 03/22/17 17:35 200 MLS/HR ECG Indication: altered mental status Rate (beats per minute): 79 Rhythm: normal sinus Findings: no acute ischemic change, no ectopy, other (left axis deviation) Comparison ECG Date: 12/25/2015 Change: no significant change ED Course 1431: Past medical records reviewed. The patient was evaluated in room C6, and a complete history and physical examination were performed. 1446: Ordered NSS 1000 ml @ 150 mls/hr IV, NSS 1000 ml @ 999 mls/hr IV. 1542: I reevaluated the patient and he is over in CT. I spoke with his friend who had been talking to his daughter who said he was taking his pain medications every four hours. She thinks it may have contributed to his confusion. 1603: I reevaluated the patient and he was doing well. 1650: I reevaluated the patient and he was resting comfortably. 1651: I discussed the patient's case with Dr. Kilgore. He agrees with the plan and we are going to keep him overnight. He believes most of the symptoms are from post op, but agrees to put the patient on antibiotics. 1700: Ordered Ampicillin Sodium/ Sulbactam Sodium 3000 mg/ Sodium Chloride 108 ml @ 200 mls/hr IV. 1701: Discussed the patient's case with Dr. Weaver. The patient will be evaluated for further management. Medical Decision Differential diagnoses include medication side effect, overdose, infection, CVA , arrhythmia, electrolyte abnormality, metabolic abnormality. This patient comes in as described above. He had his tooth pulled on Thursday he' s been taking pain medication as well. He has been confused today and missed worship which is atypical for him. On exam, he is alert and oriented 3 but does not appear to be sharp as normal. He answers questions appropriately but vaguely and slowly at times. he's had no fever and no trauma. He does have some mild redness underneath his jaw and could have a cellulitis. He has no fever or white count. CAT scan of his head is unremarkable. CAT scan of his face was obtained and shows some inflammatory changes. I did review this with Dr. Kilgore who felt this her most likely just postoperative changes. I did give the patient Unasyn 3 g IV. He was also hydrated IV normal saline. He has nothing to suggest acute coronary syndrome or arrhythmia. EKG was unremarkable. He has no acute electrolyte or metabolic abnormalities. I do think he needs to be observed in the hospital .some of these symptoms could be from overuse or use of his pain medication, although his Tylenol level is negative. I could also be from an infection or other etiology. I did consult Dr. Weaver, who saw him in the ER, and will admit him for these measures. Medication Reconcilliation Current Medication List: was personally reviewed by me Blood Pressure Screening Patient's blood pressure: Normal blood pressure Blood pressure disposition: Did not require urgent referral Consults Time Called: 1649 Consulting Physician: Dr. Kilgore Returned Call: [phone] I discussed the patient's case with Dr. Kilgore. He agrees with the plan and we are going to keep him overnight. He believes most of the symptoms are from post op, but agrees to put the patient on antibiotics. Additional Consults: Time Called: 1658 Consulted Physician: Dr. Weaver Returned Call: [phone] Additional Comments: Discussed the patient's case with Dr. Weaver. The patient will be evaluated for further management. Impression Primary Impression: Altered mental status Additional Impressions: Facial cellulitis Medication side effects Scribe Attestation The scribe's documentation has been prepared under my direction and personally reviewed by me in its entirety. I confirm that the note above accurately reflects all work, treatment, procedures, and medical decision making performed by me. Departure Information Dispostion Being Evaluated By Hospitalist Referrals Gisselle Orellana DO (PCP) Patient Instructions My [facility] Problem Qualifiers
[2017-03-22] MEDS: GABAPENTIN 300 MG CAP PO SCH (22:25)
[2017-03-22] MEDS: METOPROLOL TARTRATE 25 MG TAB PO SCH (22:25)
[2017-03-22] MEDS: CALCIUM 600MG + VIT D 400 IU TAB PO SCH (22:26)
[2017-03-22] MEDS: FERROUS SULFATE 325 MG TAB PO SCH (22:26)
[2017-03-22] MEDS: LACTOBACILLUS ACIDOPHILUS (FLORANEX) TAB PO SCH (22:27)
[2017-03-22] MEDS: HEPARIN SOD 5000 UNIT/0.5 ML CARP SQ SCH (22:29)
[2017-03-22] MEDS ORDERED: VANCOMYCIN CONSULT ACTIVE PRN (23:00)
[2017-03-22] MEDS ORDERED: PIPERACILL/TAZOBAC CONSULT ACTIVE PRN (23:00)
[2017-03-22] MEDS ORDERED: VANCOMYCIN INJ 1,750 MG in SODIUM CHLORIDE 0.9% 500ML 500 ML IV SCH (23:00)
[2017-03-22] MEDS: SODIUM CHLORIDE 0.9% 1000ML 1,000 ML IV SCH (23:36)
[2017-03-23] VITALS (8 sets, daily range): BP systolic 109–123; BP diastolic 52–70; PULSE 45–65; TEMP 36.3–37.1; O2SAT 94–98
[2017-03-23] MEDS: PIPERACILL/TAZOBAC IV 3.375 GM in DEXTROSE 5% 100ML IV SCH ×3 (04:00→20:44)
[2017-03-23 05:45] LABS: BASO % 0.2 %; BASO ABS # 0.02 K/uL (0-0.2); COMPLETE YES; EOS % 1.1 %; HEMATOCRIT 36.4 % (42-52); IG% 0.4 %; LYMPH % 20.8 %; LYMPH ABS # 1.88 K/uL (1.2-3.4); MEAN CELL VOLUME 95.8 fL (80-100); MEAN CORPUSCULAR HEMOGLOBIN 31.8 pg (25-34); MEAN CORPUSCULAR HGB CONC 33.2 g/dl (32-36); MEAN PLATELET VOLUME 9.1 fL (7.4-10.4); MONO % 10.5 %; PLATELET COUNT 152 K/uL (130-400); WHITE BLOOD COUNT 9.04 K/uL (4.8-10.8)
[2017-03-23] MEDS: SODIUM CHLORIDE 0.9% 1000ML 1,000 ML IV SCH ×2 (06:12→18:15)
[2017-03-23 06:15] LABS: BUN/CREATININE RATIO 15.5 (10-20); CREATININE 1.6 mg/dl (0.60-1.40); MAGNESIUM 2.1 mg/dl (1.8-2.4); POTASSIUM 4.1 mmol/L (3.5-5.1)
[2017-03-23] MEDS: LEVOTHYROXINE 100 MCG TAB PO SCH (06:31)
--- NOTE | 2017-03-23 08:05 | Pharmacy Progress Note ---
Pharmacy Abx Initial Consult Date of Service Mar 23, 2017. Pharmacy Dosing Scope Date of Consult: 03/22/17 Consultation requested by: Dr. Weaver Pharmacy is consulted to initiate Vancomycin and Zosyn IV dosing therapy, order appropriate labs and adjust drug dose/frequency. Subjective The patient is a 86 year old male admitted on Mar 22, 2017 at 17:45. Objective Height (Feet): 5 Height (Inches): 10.00 Weight (Kilograms): 78.700 Vital Signs (Past 12Hrs) Vital Signs Past 12 Hours Date Time Temp Pulse Resp B/P (MAP) Pulse Ox O2 Delivery O2 Flow Rate FiO2 03/23/17 04:24 36.7 45 18 112/66 (81) 94 Room Air 03/23/17 04:00 Room Air 03/23/17 00:20 36.6 64 18 111/62 (78) 94 Room Air 03/23/17 00:00 Room Air 03/22/17 20:10 36.8 85 18 135/75 94 Room Air 03/22/17 19:57 36.6 93 18 131/68 93 03/22/17 19:57 131/68 93 Lab Results (24Hrs) Laboratory Tests (24 Hours) Test 03/22/17 18:28 03/23/17 05:25 Lactic Acid Level 1.3 mmol/L (0.4-2.0) White Blood Count 9.04 K/uL (4.8-10.8) Red Blood Count 3.80 M/uL (4.7-6.1) L Hemoglobin 12.1 g/dL (14.0-18.0) L Hematocrit 36.4 % (42-52) L Mean Corpuscular Volume 95.8 fL (80-100) Mean Corpuscular Hemoglobin 31.8 pg (25-34) Mean Corpuscular Hemoglobin Concent 33.2 g/dl (32-36) Platelet Count 152 K/uL (130-400) Mean Platelet Volume 9.1 fL (7.4-10.4) Neutrophils (%) (Auto) 67.0 % Lymphocytes (%) (Auto) 20.8 % Monocytes (%) (Auto) 10.5 % Eosinophils (%) (Auto) 1.1 % Basophils (%) (Auto) 0.2 % Neutrophils # (Auto) 6.05 K/uL (1.4-6.5) Lymphocytes # (Auto) 1.88 K/uL (1.2-3.4) Monocytes # (Auto) 0.95 K/uL (0.11-0.59) H Eosinophils # (Auto) 0.10 K/uL (0-0.5) Basophils # (Auto) 0.02 K/uL (0-0.2) Micro Results Date/Time Source Procedure Growth Status 03/22/17 18:15 Blood Blood Culture Pending Received 03/22/17 18:08 Blood Blood Culture Pending Received Assessment & Plan Assessment 86 year old male with neck cellulitis and possible abscess, s/p tooth extraction. Pt with h/o CKD-3. Plan IV Zosyn/Vancomycin for treatment of soft tissue infection Vancomycin IV * Loading dose: Vancomycin 1750 mg (22 mg/kg) * Maintenance dose: 1250 mg IV (16 mg/kg) every 24] hours * Goal trough level for soft tissue infection : 13 to 17 mcg/mL * Trough level ordered for 03/25/17 prior to the 2200 hours dose Piperacillin/tazobactam * 4.5 g bolus administered over 30 minutes, then 3.375 g IV extended infusion every 8 hours for CrCl greater than 20 mL/min OR every 12 hours for CrCl 20 mL/ min or less and dialysis. Pharmacy will continue to follow and will adjust dose/frequency as necessary. Thank you.
[2017-03-23] MEDS: CALCIUM 600MG + VIT D 400 IU TAB PO SCH ×2 (08:16→20:39)
[2017-03-23] MEDS: FERROUS SULFATE 325 MG TAB PO SCH ×2 (08:16→20:39)
[2017-03-23] MEDS: POT PHOSPHATE MONOBASIC W/ SOD TAB PO SCH (08:16)
[2017-03-23] MEDS: PANTOprazole SOD 40 MG TAB PO SCH (08:16)
[2017-03-23] MEDS: LACTOBACILLUS ACIDOPHILUS (FLORANEX) TAB PO SCH ×3 (08:17→17:41)
[2017-03-23] MEDS: HEPARIN SOD 5000 UNIT/0.5 ML CARP SQ SCH ×2 (08:19→20:38)
--- NOTE | 2017-03-23 10:55 | Progress Note ---
Internal Med Progress Note Date of Service: Mar 23, 2017. Provider Documentation: SUBJECTIVE: sitting on the chair comfortably erythema and tenderness of left side of neck much improved eating without any issues afebrile no sob OBJECTIVE: Vital Signs-as noted below Exam: General-alert and oriented. Not in distress ENT-normal hearing Neck-no neck masses erythema on left side of neck-much improved Lungs-cta b/l no wheezing or crackles Heart-s1 and s2 heard regular rate and rhythm, no murmurs Abdomen-soft bowel sounds present non tender no distension Extremities no edema no erythema Neuro-alert and oriented moves extremities Lab data as noted below. ASSESSMENT & PLAN: This is an 86-year-old male presents with altered mental status. 1. Altered mental status, most likely secondary to left side of the neck cellulitis and abscess, possible abscess at the tooth extraction site. Metabolic encephalopathy from above. on iv zosyn and vancomycin await cx improving await oral surgery inputs. 2. History of coronary artery disease status post coronary artery bypass graft. Continue with aspirin and statin, beta lizzie with holding parameters, Holding nitrates as blood pressure running on the lower side.Stable 3. History of hypertension. Currently, blood pressure is on the lower side. Continue Toprol-XL with holding parameters. Holding lisinopril and Imdur. Monitor blood pressure. 4. Hypothyroidism. Continue Synthroid. 5. Acute renal failure and chronic kidney disease, stage III, baseline creatinine of 1.5 We will follow his labs. 6. History of prostate cancer, follow with his urologist. 7. Hyperlipidemia, statin. 8. Deep vein thrombosis prophylaxis, sequential compression devices and heparin subQ. DISPOSITION transfer to medical floor pt/ot patient lives alone social service for d/c planning Vital Signs: Date Time Temp Pulse Resp B/P (MAP) Pulse Ox O2 Delivery O2 Flow Rate FiO2 03/23/17 10:27 56 16 118/70 (86) 98 Room Air 03/23/17 09:55 36.6 51 18 94 03/23/17 08:00 Room Air 03/23/17 07:54 36.6 51 18 119/65 (83) 94 Room Air 03/23/17 04:24 36.7 45 18 112/66 (81) 94 Room Air 03/23/17 04:00 Room Air 03/23/17 00:20 36.6 64 18 111/62 (78) 94 Room Air 03/23/17 00:00 Room Air 03/22/17 20:10 36.8 85 18 135/75 94 Room Air 03/22/17 19:57 36.6 93 18 131/68 93 03/22/17 19:57 131/68 93 03/22/17 19:10 93 18 94/61 96 03/22/17 17:05 67 18 97/63 96 Room Air 03/22/17 16:22 71 18 92/60 94 03/22/17 14:22 36.6 86 18 117/77 91 Room Air Lab Results: Results Past 24 Hours Test 03/22/17 15:00 03/22/17 15:18 03/22/17 18:28 03/23/17 05:25 Range/Units White Blood Count 10.17 9.04 4.8-10.8 K/uL Red Blood Count 4.57 3.80 4.7-6.1 M/uL Hemoglobin 14.7 12.1 14.0-18.0 g/dL Hematocrit 44.4 36.4 42-52 % Mean Corpuscular Volume 97.2 95.8 80-100 fL Mean Corpuscular Hemoglobin 32.2 31.8 25-34 pg Mean Corpuscular Hemoglobin Concent 33.1 33.2 32-36 g/dl Platelet Count 185 152 130-400 K/uL Mean Platelet Volume 9.4 9.1 7.4-10.4 fL Neutrophils (%) (Auto) 59.7 67.0 % Lymphocytes (%) (Auto) 28.1 20.8 % Monocytes (%) (Auto) 10.9 10.5 % Eosinophils (%) (Auto) 0.7 1.1 % Basophils (%) (Auto) 0.3 0.2 % Neutrophils # (Auto) 6.07 6.05 1.4-6.5 K/uL Lymphocytes # (Auto) 2.86 1.88 1.2-3.4 K/uL Monocytes # (Auto) 1.11 0.95 0.11-0.59 K/uL Eosinophils # (Auto) 0.07 0.10 0-0.5 K/uL Basophils # (Auto) 0.03 0.02 0-0.2 K/uL RDW Standard Deviation 52.3 51.6 36.4-46.3 fL RDW Coefficient of Variation 14.8 14.8 11.5-14.5 % Immature Granulocyte % (Auto) 0.3 0.4 % Immature Granulocyte # (Auto) 0.03 0.04 0.00-0.02 K/uL Prothrombin Time 10.9 9.0-12.0 SECONDS Prothromb Time International Ratio 1.0 0.9-1.1 Activated Partial Thromboplast Time 29.2 21.0-31.0 SECONDS Partial Thromboplastin Ratio 1.1 Sodium Level 139 143 136-145 mmol/L Potassium Level 4.3 4.1 3.5-5.1 mmol/L Chloride Level 104 111 98-107 mmol/L Carbon Dioxide Level 30 25 21-32 mmol/L Anion Gap 5.0 7.0 3-11 mmol/L Blood Urea Nitrogen 26 25 7-18 mg/dl Creatinine 1.60 1.60 0.60-1.40 mg/dl Estimated GFR () 44.6 44.6 Estimated GFR (Non- 38.4 38.4 BUN/Creatinine Ratio 16.1 15.5 10-20 Random Glucose 98 80 70-99 mg/dl Calcium Level 9.2 8.0 8.5-10.1 mg/dl Total Bilirubin 1.0 0.2-1 mg/dl Direct Bilirubin 0.2 0-0.2 mg/dl Aspartate Amino Transf (AST/SGOT) 22 15-37 U/L Alanine Aminotransferase (ALT/SGPT) 23 12-78 U/L Alkaline Phosphatase 118 45-117 U/L Total Protein 7.0 6.4-8.2 gm/dl Albumin 3.4 3.4-5.0 gm/dl Lipase 62 73-393 U/L Thyroid Stimulating Hormone (TSH) 3.030 0.300-4.500 uIu/ml Salicylates Level < 1.7 2.8-20 mg/dl Acetaminophen Level < 2 10-30 ug/ml Bedside Troponin I < 0.030 0-0.045 ng/ml Lactic Acid Level 1.3 0.4-2.0 mmol/L Est Creatinine Clear Calc Drug Dose 34.2 ml/min Magnesium Level 2.1 1.8-2.4 mg/dl Microbiology Results 03/22/17 Blood Culture, Received Pending 03/22/17 Blood Culture, Received Pending
[2017-03-23] MEDS: ASPIRIN 81 MG CHEW PO SCH (12:04)
[2017-03-23] MEDS: MAGNESIUM OXIDE 400 MG TAB PO SCH (12:04)
[2017-03-23] MEDS: CEROVITE ADV FORMULA TAB PO SCH (12:05)
[2017-03-23] MEDS: METOPROLOL TARTRATE 25 MG TAB PO SCH (20:37)
[2017-03-23] MEDS: GABAPENTIN 300 MG CAP PO SCH (20:38)
[2017-03-23] MEDS ORDERED: ATORVASTATIN 40 MG TAB PO SCH (21:00)
[2017-03-23] MEDS ORDERED: VANCOMYCIN INJ 1,250 MG in SODIUM CHLORIDE 0.9% 250ML 250 ML IV SCH (22:00)
--- NOTE | 2017-03-23 23:32 | CONSULTATION REPORT ---
DATE OF CONSULTATION: 03/23/2017 REASON FOR CONSULTATION: Altered mental status and concern for cellulitis after left wisdom tooth extraction. He was originally admitted through the Emergency Department last evening and I consulted with Dr. Durant in the ER at that point and he was then transferred to the CCU and now currently up on the medical floor. Problem #1 was that there was some mild level of confusion and so that prompted some friends to bring him to the hospital for evaluation. Problem #2 is that there was some left mandibular swelling and a CT scan was done, which showed some air in the tissues at that point. I will defer you to the patient's history and physical and documentation in the electronic medical record in terms of his comprehensive workup but it is felt that his change in mental status is probably related to some codeine he had been taking post extraction and he was placed on IV antibiotics, which included Zosyn and vancomycin as potential coverage for an evolving infection. Please note that the patient has never had a fever and his white count has not been elevated. PHYSICAL EXAMINATION: GENERAL: He is awake, alert, oriented to person, place and time, and seems quite appropriate for 86-year-old man. HEENT: On examination, there is very minimal left facial swelling. The extraction site looks unremarkable for an extraction of 3 days duration and clinically, there does not appear to be any signs of infection. I would suggest that we continue his IV antibiotics through the course of the evening as a prophylactic measure. Consider transitioning him over to amoxicillin 500 mg 3 times daily for an additional 5 days and pending the rest of his medical issues, consider discharge to home tomorrow. At least that would be appropriate from an oral surgery standpoint. We will then follow up as an outpatient as needed.
[2017-03-24] MEDS: PIPERACILL/TAZOBAC IV 3.375 GM in DEXTROSE 5% 100ML IV SCH ×2 (03:49→11:30)
[2017-03-24] MEDS: LEVOTHYROXINE 100 MCG TAB PO SCH (05:52)
[2017-03-24 06:26] LABS: BASO % 0.4 %; BASO ABS # 0.03 K/uL (0-0.2); COMPLETE YES; EOS % 1.2 %; HEMATOCRIT 36.4 % (42-52); IG% 0.3 %; LYMPH % 22.8 %; LYMPH ABS # 1.71 K/uL (1.2-3.4); MEAN CELL VOLUME 96.3 fL (80-100); MEAN CORPUSCULAR HEMOGLOBIN 30.7 pg (25-34); MEAN CORPUSCULAR HGB CONC 31.9 g/dl (32-36); MEAN PLATELET VOLUME 9.1 fL (7.4-10.4); MONO % 10.9 %; NEUT % 64.4 %; PLATELET COUNT 171 K/uL (130-400); RED BLOOD COUNT 3.78 M/uL (4.7-6.1)
[2017-03-24 06:54] LABS: BUN/CREATININE RATIO 15.3 (10-20); CALCIUM 7.7 mg/dl (8.5-10.1); CREATININE 1.4 mg/dl (0.60-1.40); MAGNESIUM 1.9 mg/dl (1.8-2.4); POTASSIUM 3.8 mmol/L (3.5-5.1)
[2017-03-24 07:53] VITALS: BP 123/70; PULSE 52; TEMP 36.9; O2SAT 93
[2017-03-24] MEDS: CALCIUM 600MG + VIT D 400 IU TAB PO SCH (08:22)
[2017-03-24] MEDS: LACTOBACILLUS ACIDOPHILUS (FLORANEX) TAB PO SCH ×2 (08:22→12:59)
[2017-03-24] MEDS: FERROUS SULFATE 325 MG TAB PO SCH (08:22)
[2017-03-24] MEDS: POT PHOSPHATE MONOBASIC W/ SOD TAB PO SCH (08:22)
[2017-03-24] MEDS: PANTOprazole SOD 40 MG TAB PO SCH (08:22)
[2017-03-24] MEDS: HEPARIN SOD 5000 UNIT/0.5 ML CARP SQ SCH (08:27)
[2017-03-24] MEDS: ASPIRIN 81 MG CHEW PO SCH (12:59)
[2017-03-24] MEDS: MAGNESIUM OXIDE 400 MG TAB PO SCH (12:59)
[2017-03-24] MEDS: CEROVITE ADV FORMULA TAB PO SCH (13:00)
[2017-03-24] MEDS ORDERED: AMOX875T PO (15:01)
[2017-03-24] MEDS ORDERED: LCTX PO (15:01)
--- NOTE | 2017-03-24 15:05 | Discharge Instructions ---
Discharge Instructions Date of Service Mar 24, 2017. Admission Reason for Admission: Altered Mental Status, Facial Cellulitis Discharge Discharge Diagnosis / Problem: encephalopathy, cellilitis of neck Discharge Goals Goal(s): Decrease discomfort, Improve function Activity Recommendations Activity Limitations: resume your previous activity . Instructions / Follow-Up Instructions / Follow-Up FOLLOWUP WITH FAMILY DOCTOR Gisselle Garnica ON February AT 2PM. BLOOD PRESSURE FOLLOWUP WITH FAMILY DOCTOR. FOLLOWUP WITH ORAL SURGERY SCHEDULED. LAB: BMP PER FAMILY DOCTOR FRO ARF/CKD Current Hospital Diet Patient's current hospital diet: AHA Diet (Heart Healthy), Low Fiber Diet Discharge Diet Recommended Diet: AHA Diet (Heart Healthy) Diet Texture: Dental Soft (bite-sized) Pending Studies Studies pending at discharge: no Medical Emergencies . Who to Call and When: Medical Emergencies: If at any time you feel your situation is an emergency, please call 911 immediately. . Non-Emergent Contact Non-Emergency issues call your: Primary Care Provider . . "Provider Documentation" section prepared by Nabil Weaver. . VTE Core Measure Inpt VTE Proph given/why not?: Unfractionated heparin SQ
[2017-03-24 15:08] VITALS: BP 123/70; PULSE 52; TEMP 36.9; O2SAT 93
[2017-03-24 15:42] VITALS: BP 150/75; PULSE 57; TEMP 36.6; O2SAT 98
--- NOTE | 2017-03-24 16:54 | Progress Note ---
Internal Med Progress Note Date of Service: Mar 24, 2017. Provider Documentation: SUBJECTIVE: sitting on the chair comfortably erythema and tenderness of left side of neck almost resolved eating fine ambulated in hallways ok afebrile ok for discharge OBJECTIVE: Vital Signs-as noted below Exam: General-alert and oriented. Not in distress ENT-normal hearing Neck-no neck masses erythema on left side of neck-much improved Lungs-cta b/l no wheezing or crackles Heart-s1 and s2 heard regular rate and rhythm, no murmurs Abdomen-soft bowel sounds present non tender no distension Extremities no edema no erythema Neuro-alert and oriented moves extremities Lab data as noted below. ASSESSMENT & PLAN: This is an 86-year-old male presents with altered mental status. 1. Altered mental status, most likely secondary to left side of the neck cellulitis and abscess, possible abscess at the tooth extraction site. Metabolic encephalopathy from above. on iv zosyn and vancomycin await cx improving seen by oral surgery and recommends po abx and to f/u as out pt d/lizbeth on po Augmentin 2. History of coronary artery disease status post coronary artery bypass graft. Continue with aspirin and statin, beta lizzie with holding parameters, Holding nitrates as blood pressure running on the lower side.Stable 3. History of hypertension. Currently, blood pressure is on the lower side. Continue Toprol-XL with holding parameters. Holding lisinopril and Imdur. Improved..discharged on home meds. f/u with pcp 4. Hypothyroidism. Continue Synthroid. 5. Acute renal failure and chronic kidney disease, stage III, baseline creatinine of 1.5 cr 1.4 today 6. History of prostate cancer, follow with his urologist. 7. Hyperlipidemia, statin. discharged home Vital Signs: Date Time Temp Pulse Resp B/P (MAP) Pulse Ox O2 Delivery O2 Flow Rate FiO2 03/24/17 15:42 36.6 57 18 150/75 (100) 98 Room Air 03/24/17 15:08 36.9 52 20 93 Room Air 03/24/17 09:49 Room Air 03/24/17 07:53 36.9 52 20 123/70 (87) 93 Room Air 03/24/17 00:00 Room Air 03/23/17 23:26 37.1 59 18 111/52 (71) 95 Room Air 03/23/17 20:36 65 123/57 (79) Lab Results: Results Past 24 Hours Test 03/24/17 06:04 Range/Units White Blood Count 7.50 4.8-10.8 K/uL Red Blood Count 3.78 4.7-6.1 M/uL Hemoglobin 11.6 14.0-18.0 g/dL Hematocrit 36.4 42-52 % Mean Corpuscular Volume 96.3 80-100 fL Mean Corpuscular Hemoglobin 30.7 25-34 pg Mean Corpuscular Hemoglobin Concent 31.9 32-36 g/dl Platelet Count 171 130-400 K/uL Mean Platelet Volume 9.1 7.4-10.4 fL Neutrophils (%) (Auto) 64.4 % Lymphocytes (%) (Auto) 22.8 % Monocytes (%) (Auto) 10.9 % Eosinophils (%) (Auto) 1.2 % Basophils (%) (Auto) 0.4 % Neutrophils # (Auto) 4.83 1.4-6.5 K/uL Lymphocytes # (Auto) 1.71 1.2-3.4 K/uL Monocytes # (Auto) 0.82 0.11-0.59 K/uL Eosinophils # (Auto) 0.09 0-0.5 K/uL Basophils # (Auto) 0.03 0-0.2 K/uL RDW Standard Deviation 52.4 36.4-46.3 fL RDW Coefficient of Variation 14.7 11.5-14.5 % Immature Granulocyte % (Auto) 0.3 % Immature Granulocyte # (Auto) 0.02 0.00-0.02 K/uL Sodium Level 141 136-145 mmol/L Potassium Level 3.8 3.5-5.1 mmol/L Chloride Level 111 98-107 mmol/L Carbon Dioxide Level 24 21-32 mmol/L Anion Gap 6.0 3-11 mmol/L Blood Urea Nitrogen 21 7-18 mg/dl Creatinine 1.40 0.60-1.40 mg/dl Est Creatinine Clear Calc Drug Dose 39.1 ml/min Estimated GFR () 52.4 Estimated GFR (Non- 45.2 BUN/Creatinine Ratio 15.3 10-20 Random Glucose 95 70-99 mg/dl Calcium Level 7.7 8.5-10.1 mg/dl Magnesium Level 1.9 1.8-2.4 mg/dl
--- NOTE | 2017-03-24 18:46 | Discharge Summary ---
Discharge Summary Date of Service Mar 24, 2017. Discharge Summary Admission Date: Mar 22, 2017 at 17:45 Discharge Date: Mar 24, 2017 Discharge Disposition: Home with services Principal Diagnosis: ENCEPHALOPATHY METABOLIC LEFT SIDE OF NECK CELLULITIS Secondary Diagnoses/Problems: hypertension, ischemic heart disease, hypothyroidism, hyperlipidemia, history of prostate cancer, history of anemia, history of testicular hypofunction, history of pancreatic cyst, history of septic arthritis of left knee, history of bacterial endocarditis, history of radiation proctitis, history of chronic kidney disease stage III, Procedures: CT SOFT TISSUE NECK: 1. Moderate soft tissue swelling and phlegmonous change with suggested abscess without well-defined margins within the left submandibular tissues, 1.4 x 1.0 cm containing mostly air without significant fluid. This is adjacent to a partially air-filled tract of the left mandible corresponding to an area of prior mandibular molar tooth extraction. No evidence of associated osteomyelitis at this time. CT HEAD: 1. No acute intracranial abnormality. 2. Atrophy with chronic microvascular ischemic changes. Medication Reconciliation New Medications: Amoxicillin & Pot Clavulanate (Augmentin 875-125 mg) 1 Tab Tab 875 MG PO BID, #12 TAB Lactobacillus Acidophilus (Lactinex) Tab 2 TAB PO BID, #40 TAB Continued Medications: Acetaminophen (Tylenol) 325 Mg Tab 325 MG PO Q4H PRN for Pain, TAB Aspirin (Aspirin Chewable) 81 Mg Chew 81 MG PO QDL Atorvastatin Calcium (Lipitor) 80 Mg Tab 80 MG PO HS Calcium Carbonate-Vitamin D (Calcium 500 + D) 1 Tab Tab 1 TAB PO BID NOON AND EVENING Ferrous Sulfate (Ferrous Sulfate) 325 Mg Tab 325 MG PO BID NOON AND EVENING Furosemide (Lasix) 20 Mg Tab 20 MG PO QDL extra tab daily as needed for edema Gabapentin (Gabapentin) 300 Mg Cap 300 MG PO HS Isosorbide Mononitrate (Isosorbide Mononitrate ER) 60 Mg Tabcr 60 MG PO QDL Levothyroxine Sodium (Levothyroxine Sodium) 100 Mcg Tab 100 MCG PO QAM for 90 Days, #90 TAB 3 Refills Lisinopril (Lisinopril) 10 Mg Tab 10 MG PO QDL Magnesium Oxide (Mag-Ox) 400 Mg Tab 400 MG PO QDL Metoprolol Tartrate (Lopressor) 25 Mg Tab 25 MG PO HS Multiple Vitamins W/ Minerals (Centrum Silver) 1 Chw Chw 1 TAB PO QDL Ondansetron Hcl (Zofran) 4 Mg Tab 4 MG PO Q6H PRN for Nausea or Vomiting, TAB Pantoprazole (Protonix) 40 Mg Tab 40 MG PO QAM, TAB Pot Phosphate Monobasic W/ Sod (Phospha 250 Neutral) 1 Tab Tab 1 TAB PO QDB Potassium Chloride (Micro-K Ext Rel) 10 Meq Capcr 10 MEQ PO QDL, CAP Testosterone (Androderm) 4 Mg/24 Hr Dis 1 PATCH TOP QPM Tramadol (Ultram) 50 Mg Tab 50 MG PO Q6H PRN for Pain, TAB Admission Information HPI (per Admitting provider): This 86-year-old male with past medical history significant for hypertension, ischemic heart disease, hypothyroidism, hyperlipidemia, history of prostate cancer, history of anemia, history of testicular hypofunction, history of pancreatic cyst, history of septic arthritis of left knee, history of bacterial endocarditis, history of radiation proctitis, history of chronic kidney disease stage III, presents with confusion. The patient had his left molar tooth extracted for abscess infection last Thursday and he is taking Tylenol, he lives alone. He talks with his daughter everyday. Yesterday, daughter thought that he was confused but he thought it from the procedure and from the pain, and today he did go to the [facility]. When his friend came and checked on him saw redness and swelling on the left side of the neck and brought him to the ER. The patient currently is more alert and awake and more talking, though somewhat slow to answer. He has some mild headache, no blurred vision. Denies any fever, chills, no cough. He has some pain at surgical site. Denies any cough, no chest pain, no nausea, no vomiting, no abdominal pain. Normal bowel and bladder movements. Did not notice any blood in the urine or stools. No burning micturition. No swelling in the legs, currently resting comfortably. The patient says he did not eat anything today. Blood pressure running slightly on the lower side. Physical Exam (per Admitting): GENERAL: The patient is of moderate build, not in distress. VITAL SIGNS: Temperature 36.6, pulse 76, respiratory rate 18, blood pressure 92/60 oxygen 96% room air. HEENT: No pallor, no icterus. Pupils equal, round, and reactive to light. NECK: Mild erythematous changes on the left side of neck and tenderness in the left mandibular region. CARDIOVASCULAR: S1, S2 heard, regular rate and rhythm, no murmur, no gallop. RESPIRATORY SYSTEM: Normal AP diameter. No accessory muscle use. No wheezing, no crackles. ABDOMEN: Soft, bowel sounds present, nontender. No distention. CENTRAL NERVOUS SYSTEM: Cranial nerves are II-XII grossly intact, nonfocal. SKIN: Erythematous and changes in the left side of the neck. EXTREMITIES: No edema, erythema. Hospital Course This is an 86-year-old male presents with altered mental status. 1. Altered mental status, most likely secondary to left side of the neck cellulitis and abscess, possible abscess at the tooth extraction site. Metabolic encephalopathy from above. on iv zosyn and vancomycin await cx improving seen by oral surgery and recommends po abx and to f/u as out pt d/lizbeth on po Augmentin 2. History of coronary artery disease status post coronary artery bypass graft. Continue with aspirin and statin, beta lizzie with holding parameters, Holding nitrates as blood pressure running on the lower side.Stable 3. History of hypertension. Currently, blood pressure is on the lower side. Continue Toprol-XL with holding parameters. Holding lisinopril and Imdur. Improved..discharged on home meds. f/u with pcp 4. Hypothyroidism. Continue Synthroid. 5. Acute renal failure and chronic kidney disease, stage III, baseline creatinine of 1.5 cr 1.4 today 6. History of prostate cancer, follow with his urologist. 7. Hyperlipidemia, statin. discharged home Total time spent on discharge = 35MINUTES This includes examination of the patient, discharge planning, medication reconciliation, and communication with other providers. Discharge Instructions Discharge Instructions Date of Service Mar 24, 2017. Admission Reason for Admission: Altered Mental Status, Facial Cellulitis Discharge Discharge Diagnosis / Problem: encephalopathy, cellilitis of neck Discharge Goals Goal(s): Decrease discomfort, Improve function Activity Recommendations Activity Limitations: resume your previous activity . Instructions / Follow-Up Instructions / Follow-Up FOLLOWUP WITH FAMILY DOCTOR Gisselle Garnica ON February AT 2PM. BLOOD PRESSURE FOLLOWUP WITH FAMILY DOCTOR. FOLLOWUP WITH ORAL SURGERY SCHEDULED. LAB: BMP PER FAMILY DOCTOR FRO ARF/CKD Current Hospital Diet Patient's current hospital diet: AHA Diet (Heart Healthy), Low Fiber Diet Discharge Diet Recommended Diet: AHA Diet (Heart Healthy) Diet Texture: Dental Soft (bite-sized) Pending Studies Studies pending at discharge: no Medical Emergencies . Who to Call and When: Medical Emergencies: If at any time you feel your situation is an emergency, please call 911 immediately. . Non-Emergent Contact Non-Emergency issues call your: Primary Care Provider . . "Provider Documentation" section prepared by Nabil Weaver. . VTE Core Measure Inpt VTE Proph given/why not?: Unfractionated heparin SQ
[2017-03-25] MEDS ORDERED: VANCOMYCIN TROUGH SCH (21:30)
== END 2017-03-24 16:46 | disposition home or self-care (01) | DRG 602 ==
LOC: C.EDB 14:18 → C.2T 17:45 → ENRESERV 18:08 → EDBEDREQ 03-23 09:24 → ENRESERV 03-23 09:35 → C.4E 03-23 10:13
PROVIDERS: ADMIT Internal Medicine; ATTEND Internal Medicine
DX: L03.221 Cellulitis of neck (principal); G93.41 Metabolic encephalopathy; N17.9 Acute kidney failure, unspecified; K04.7 Periapical abscess without sinus; I25.10 Atherosclerotic heart disease of native coronary artery without angina pectoris; I12.9 Hypertensive chronic kidney disease with stage 1 through stage 4 chronic kidney disease, or unspecified chronic kidney disease; N18.3 Chronic kidney disease, stage 3 (moderate); E03.9 Hypothyroidism, unspecified; E87.5 Hyperkalemia; Z95.1 Presence of aortocoronary bypass graft; Z96.653 Presence of artificial knee joint, bilateral; Z82.49 Family history of ischemic heart disease and other diseases of the circulatory system; Z79.82 Long term (current) use of aspirin; Z79.891 Long term (current) use of opiate analgesic; Z79.899 Other long term (current) drug therapy

== ENCOUNTER → 2017-07-31 | Outpatient (CLI) | payer BC ==
[~2017-07-31] MED LIST changes: +FERR1TAB62 PO; -FERR325T PO; -LVQ750 PO; +METO25TA3 PO
[2017-07-31 09:40] VITALS: BP 167/78; PULSE 55; TEMP 36.4; O2SAT 97
--- NOTE | 2017-07-31 11:44 | Radiation Oncology Follow-Up ---
Radiation Oncology Follow-Up Date of Visit Jul 31, 2017. Reason For Visit Annual follow-up Radiation Completion Date seed implant on 01-31-2012 , and finished IMRT on 06-22-2012 Diagnosis (1) Prostate cancer Status: Resolved Onset Date: 12/09/2011 Histology Subtype: adenocarcinoma Stage: ll Permanent Comment: Rising PSA while on Avodart to 16.02, clinical stage T1c Status post ultrasound-guided biopsies biopsy stage T2c Shawn grade 4+4 Hormonal suppression Status post prostate seed implant 02/10/2012 received 8500 cGy Status post completion of external radiation with IMRT/IGRT completed 2011 received 5000 cGy Radiation proctitis status post laser therapy Last Edited By: Dayana Rubio on Jan 23, 2016 14:28 Interim History He is stable from urinary standpoint today he gave an AUA score 1. Last year he gave a score of 5. He does not require any medication to help with urination. He completed expanded prostate cancer index composite for clinical practice and gave a score of 0 of 12 urinary incontinence symptoms. He gave a score of 0 of 12 and bowel symptoms. He did not complete the sexual symptom category. He gave a score of 2 of 12 any hormonal vitality symptoms. His total was 2 of 48. He had a recheck PSA 07/29/2016 and that was 0.085. Previously was treated for radiation proctitis. This was treated with argon laser therapy. He only required one treatment. He continues to follow closely by Dr. Gamez. He did have a colonoscopy in February 2017. Allergies Coded Allergies: Iodinated Diagnostic Agents (Verified Allergy, Severe, THROAT TIGHTNESS, ) Cefuroxime (Verified Allergy, Unknown, GI UPSET, 03/22/17) Onion (Verified Allergy, Unknown, RAW ONIONS-BLISTERS ON HANDS AND FEET, ) HMG-CoA-R Inhibitors (Verified Adverse Reaction, Intermediate, ELEVATED LFT'S WITH CRESTOR, 03/22/17) NSAIDs (Verified Adverse Reaction, Unknown, GI BLEEDING- TAKES ASA AT HOME , 03/22/17) Home Medications Scheduled Aspirin (Aspirin Chewable), 81 MG PO QDL Atorvastatin Calcium (Lipitor), 80 MG PO HS Calcium Carbonate-Vitamin D (Calcium 500 + D), 1 TAB PO BID Ferrous Sulfate (Ferrous Sulfate), 325 MG PO BID Furosemide (Lasix), 20 MG PO QDL Gabapentin (Gabapentin), 300 MG PO HS Isosorbide Mononitrate (Isosorbide Mononitrate ER), 60 MG PO QDL Lactobacillus Acidophilus (Lactinex), 2 TAB PO BID Levothyroxine Sodium (Levothyroxine Sodium), 100 MCG PO QAM Lisinopril (Lisinopril), 10 MG PO QDL Magnesium Oxide (Mag-Ox), 400 MG PO QDL Metoprolol Succ (Toprol Xl) (Toprol-Xl), 25 MG PO DAILY Multiple Vitamins W/ Minerals (Centrum Silver), 1 TAB PO QDL Pantoprazole (Protonix), 40 MG PO QAM Pot Phosphate Monobasic W/ Sod (Phospha 250 Neutral), 1 TAB PO QDB Potassium Chloride (Micro-K Ext Rel), 10 MEQ PO QDL Testosterone (Androderm), 1 PATCH TOP QPM Scheduled PRN Acetaminophen (Tylenol), 325 MG PO Q4H PRN for Pain Ondansetron Hcl (Zofran), 4 MG PO Q6H PRN for Nausea or Vomiting Tramadol (Ultram), 50 MG PO Q6H PRN for Pain Review of Systems Gastrointestinal: Symptoms: WNL GI Comments: "time to time has diarrhea" takes imodium PRN Oral: Symptoms: No Problems Respiratory: Symptoms: WNL Respiratory Comments: Dry cough from time to time Other Respiratory: occ dry cough Urinary: Symptoms: WNL Comments: " denies any problems , has a strong urinary stream " , occ urgency Skin: Symptoms: No Problems Physical Exam Vital Signs Date Time Temp Pulse Resp B/P (MAP) Pulse Ox O2 Delivery O2 Flow Rate FiO2 07/31/17 09:40 36.4 55 16 167/78 97 Fatigue: None General Appearance: no apparent distress Eyes: normal inspection, EOMI ENT: normal ENT inspection, hearing grossly normal Respiratory/Chest: lungs clear, no respiratory distress, no accessory muscle use Cardiovascular: regular rate, rhythm, no gallop, no murmur Abdomen: normal bowel sounds, soft, no organomegaly, + tenderness (there is mild tenderness in the right lower quadrant.) Extremities: no pedal edema Neurologic/Psychiatric: no motor/sensory deficits, alert, normal mood/affect Pain Management Patient Reports Pain: Yes Side: Bilateral Pain Location: Abdomen Patient Preferred Pain Scale: 0 - 10 Initial Pain Intensity: 2 Pain Management Plan His pain is minimal and does not require pain management. Laboratory Laboratory Results: were reviewed, and pertinent findings noted below Laboratory Comments: Test 07/31/17 10:28 Prostate Specific Antigen 0.062 ng/ml (0.000-4.000) Pathology Pathology Results: not applicable Imaging Imaging Studies: not applicable Assessment & Plan Plan: PSA was drawn today prior to examination. She'll be notified as the results. We discussed the mild tenderness in the right lower quadrant. He had noticed no abdominal discomfort prior to examination. He has had no nausea or vomiting and no change of bowel habits. He had a recent colonoscopy in February. He has not had any rectal bleeding. He's had no fever or chills. He has had a mild cough. We discussed possibility of a muscular strain. He has had no injury. I've asked him to palpate the area twice per day to see if this increases. If he has increased pain he should see his primary care physician. A follow-up will plan with our office was not given. He'll not continue follow- up with Dr. Gregory. He has an appointment with him in the next 2 weeks. Total Time In Follow-Up I spent 20 minutes speaking to the patient performing examination. I spent 15 minutes reviewing information in completing this note. AK Copy To Gisselle Orellana,DO; Vin Gregory MD
== END | disposition home or self-care (01) ==
LOC: C.ONC 09:24
PROVIDERS: ATTEND Physician Assistant Medical
DX: Z08 Encounter for follow-up examination after completed treatment for malignant neoplasm (principal); Z92.3 Personal history of irradiation; Z85.46 Personal history of malignant neoplasm of prostate

== ENCOUNTER 2017-10-11 21:03 | Observation (INO) | payer BC ==
[~2017-10-11] VITALS: Ht 177.8 cm; Wt 77.6 kg
[~2017-10-11 21:03] MED LIST changes: -FERR1TAB62 PO; -LCTX PO; -LPR25 PO
[2017-10-11] MEDS ORDERED: SODIUM CHLORIDE 0.9% 1000ML 500 ML IV STA (21:32)
--- NOTE | 2017-10-11 21:52 | EMERGENCY ROOM VISIT NOTE ---
History Report prepared by Imani: Christian Doshi Under the Supervision of: Dr. Kranthi Durant M.D. First contact with patient: 21:29 Chief Complaint: SYNCOPE Stated Complaint: SYNCOPE Nursing Triage Summary: Pt brought ALS from friends home. Pt was sitting on the couch when he began acting "spacey and not acting right", was unresponsive, laid down and sx resolved in a few minutes. Pt has hx of vertigo, which has been worse for a couple of days. Pt is alert and oriented at arrival, answering questions appropriately, does c/o feeling lightheaded and having substernal chest tenderness. History of Present Illness The patient is an 87 year old male who presents to the Emergency Room with complaints of persistent general vertigo for two days. He states that he has been dizzy for the last two days, though he passed out while at [employer] tonight. He reports a mild headache that began today. He states that he has been losing his balance a lot lately. Per friend, the patient was sitting down at [employer] this evening when he began to sway as though he was falling asleep and his eyes were closed. They lowered him to the floor and the patient passed out for about 40 seconds. The friend states the patient immediately complained of abdominal pain and he had a significant amount of gas. The patient states that he felt the need to pass a stool. He states that he was able to ambulate with assistance to the bathroom. He reports passing a normal black stool. He states his stools are black due to iron tablets he takes three times a day. He denies any bloody stools. He denies any fevers or current abdominal pain. He reports a cough with phlegm and mild shortness of breath. He normally drinks four 16 oz. bottles of water today, though he has only had 40 oz. of water today. Per friend, the patient's speech was normal. He reports pain in his leg and feet due to chronic nerve issues. He reports sensitivity with his legs. He denies any history of aneurysms. He reports being stressed out as of late due to prepping for selling his property. 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 Source of History: patient Onset: two days Position: other (general) Quality: other (vertigo) Timing: other (persistent) Associated Symptoms: + headache, + cough, + SOB, + abdominal pain, No fevers Note: He notes dizziness. He denies any bloody stools. He notes leg sensitivity. Review of Systems See HPI for pertinent positives & negatives. A total of 10 systems reviewed and were otherwise negative. Past Medical & Surgical Medical Problems: (1) Altered mental status (2) Anticoagulants,Lt,Current Use (3) BPH (benign prostatic hyperplasia) (4) CAD (coronary artery disease) (5) Carcinoma of prostate (6) CKD (chronic kidney disease) stage 3, GFR 30-59 ml/min (7) CKD (chronic kidney disease), stage III (8) Coronary artery disease (9) Diverticular disease of colon (10) Diverticulosis (11) DVT (deep venous thrombosis) (12) Dyslipidemia (13) Dyslipidemia (14) Esophageal Reflux (15) Facial cellulitis (16) GERD (gastroesophageal reflux disease) (17) GI bleed (18) History of herpes zoster (19) History of pulmonary embolism (20) HTN (hypertension) (21) Hypertension (22) Hypothyroidism (23) Hypothyroidism (24) Hypothyroidism Nos (25) Osteoarthritis (26) Peptic Ulcer Nos (27) Postherpetic neuralgia (28) Prostate cancer (29) Prostate cancer (30) Pulmonary embolism (31) Pyelonephritis (32) Septic arthritis (33) Septic arthritis of knee, left (34) Spontaneous pneumothorax (35) Spontaneous pneumothorax (36) Syncope Surgical Problems: (1) History of bilateral knee replacement (2) History of cholecystectomy (3) S/P CABG x 3 (4) S/P inguinal hernia repair (5) Status post cholecystectomy (6) Status post coronary artery bypass grafting (7) Status post total knee replacement Old medical records were reviewed. Nurse's notes were reviewed and I agree with. Family History No pertinent family history Social History Smoking Status: Never Smoker Alcohol Use: none Marital Status: single Housing Status: lives alone Occupation Status: retired Current/Historical Medications Scheduled Aspirin (Aspirin Chewable), 81 MG PO QDL Atorvastatin (Lipitor), 80 MG PO HS Calcium Carbonate-Vitamin D (Calcium 500 + D), 1 TAB PO BID Ferrous Sulfate (Ferrous Sulfate), 325 MG PO BID Furosemide (Lasix), 20 MG PO QDL Gabapentin (Gabapentin), 300 MG PO HS Isosorbide Mononitrate Ext Rel (Imdur Ext Rel), 1 TAB PO QAM Levothyroxine Sodium (Levothyroxine Sodium), 100 MCG PO QAM Lisinopril (Lisinopril), 10 MG PO QDL Magnesium Oxide (Mag-Ox), 400 MG PO QDL Metoprolol Succinate (Metoprolol Succinate ER), 12.5 MG PO HS Multiple Vitamins W/ Minerals (Centrum Silver), 1 TAB PO QDL Pantoprazole (Protonix), 40 MG PO QAM Potassium Chloride (Micro-K Ext Rel), 10 MEQ PO QDL Testosterone (Androderm), 1 PATCH TOP QPM Scheduled PRN Acetaminophen (Tylenol), 325 MG PO Q4H PRN for Pain Ondansetron Hcl (Zofran), 4 MG PO Q6H PRN for Nausea or Vomiting Tramadol (Ultram), 50 MG PO Q6H PRN for Pain Allergies Coded Allergies: Iodinated Diagnostic Agents (Verified Allergy, Severe, THROAT TIGHTNESS, ) Cefuroxime (Verified Allergy, Unknown, GI UPSET, 03/22/17) Onion (Verified Allergy, Unknown, RAW ONIONS-BLISTERS ON HANDS AND FEET, ) HMG-CoA-R Inhibitors (Verified Adverse Reaction, Intermediate, ELEVATED LFT'S WITH CRESTOR, 03/22/17) NSAIDs (Verified Adverse Reaction, Unknown, GI BLEEDING- TAKES ASA AT HOME , 03/22/17) Physical Exam Vital Signs Date Time Temp Pulse Resp B/P (MAP) Pulse Ox O2 Delivery O2 Flow Rate FiO2 10/12/17 00:31 53 20 106/66 93 Room Air 10/12/17 00:01 55 16 99/63 95 Room Air 10/11/17 23:31 52 18 118/68 95 Room Air 10/11/17 23:01 54 20 94/62 97 Room Air 10/11/17 22:45 52 16 92/58 98 Room Air 10/11/17 22:01 59 16 90/61 93 Room Air 10/11/17 21:12 36.6 56 20 98/63 93 Room Air 10/11/17 21:09 60 Physical Exam General: Non-ill appearing older male in no acute distress. HEENT: Normal cephalic atraumatic. Pupils are equal round and reactive to light. Extraocular movements are intact. Oropharynx is pink with moist mucous membranes. No swelling of the mouth lips or tongue. Neck: Supple with a midline trachea. No meningeal signs or stiffness, no JVD or bruits. No Stridor. Chest: Clear to auscultation bilaterally. No wheezes or rhonchi. No increased work of breathing. Heart: regular rate and rhythm. Abdomen: Soft nontender, nondistended without rebound guarding or rigidity. Extremities: No cyanosis clubbing or edema. No calf tenderness or assymetry Spine/Back. Non tender to palpation. No CVA tenderness Skin: Good turgor without rashes. Neurologic exam: Cranial nerves two through 12 are intact. Motor and sensation are intact and symmetrical throughout. Medical Decision & Procedures ER Provider Diagnostic Interpretation: Radiology results as stated below per my review and radiologist interpretation: CHEST ONE VIEW PORTABLE HISTORY: 87 years-old Male CHEST PAIN acute atypical chest pain with shortness of breath COMPARISON: Is radiograph 03/22/2017 TECHNIQUE: Portable AP view of the chest FINDINGS: Cardiac silhouette is again mildly enlarged. Prior median sternotomy. Atherosclerosis of the aorta. Moderate right hemidiaphragmatic elevation is unchanged. Linear left basilar opacities suggest atelectasis. No pneumothorax, large pleural effusion or overt pulmonary edema. No lobar airspace consolidation. The bones of the chest appear grossly intact. Degenerative changes are again noted within the spine and shoulders. IMPRESSION: No acute process. The above report was generated using voice recognition software. It may contain grammatical, syntax or spelling errors. Electronically signed by: Chevy Emmanuel M.D. 10/11/2017 10:12 PM Dictated Date/Time: 10/11/2017 10:10 PM HEAD WITHOUT CONTRAST (CT) CLINICAL HISTORY: 87 years-old Male with vertigo, possible syncope. Acute vertigo with syncope TECHNIQUE: Multiple axial CT images of the head were obtained without contrast. A dose lowering technique was utilized adhering to the principles of ALARA. CT DOSE: 537.48 mGy.cm COMPARISON: CT head 03/22/2017. FINDINGS: No acute intracranial hemorrhage, midline shift, intracranial mass, hydrocephalus, territorial ischemia or abnormal extra-axial collection. Moderate brain atrophy with ex vacuo ventriculomegaly. Chronic microvascular ischemic changes redemonstrated. Cerebral vascular calcifications are again seen at the level of the skull base. The calvarium is intact. The paranasal sinuses, mastoid air cells, and middle ear cavities are clear. Postsurgical changes of the bilateral globes. IMPRESSION: No acute intracranial abnormality. The above report was generated using voice recognition software. It may contain grammatical, syntax or spelling errors. Electronically signed by: Chevy Emmanuel M.D. 10/11/2017 10:18 PM Dictated Date/Time: 10/11/2017 10:15 PM [address] AND PELVIS CT WITHOUT CONTRAST CT DOSE: 452.81 mGy.cm HISTORY: Acute generalized abdominal pain with concern for abdominal aortic aneurysm eval for AAA TECHNIQUE: Multiaxial CT images of the abdomen and pelvis were performed without contrast. A dose lowering technique was utilized adhering to the principles of ALARA. COMPARISON STUDY: CT abdomen and pelvis 02/17/2017. FINDINGS: Moderate multichamber cardiac enlargement with extensive coronary arterial disease. Prior median sternotomy and CABG. No thoracic aortic aneurysm identified. Calcified subcarinal and mediastinal lymph nodes are present. Subsegmental bibasilar groundglass opacities suggest atelectasis. No pneumatosis or pneumoperitoneum identified. Moderate right hemidiaphragmatic elevation appears unchanged. Evaluation of the solid abdominal organs is limited without the use of IV contrast. Scattered splenic and hepatic calcifications are again noted compatible with prior granulomatous disease. No intrahepatic biliary ductal dilation or suspicious hepatic mass lesions. Unchanged fluid attenuating lesions of the pancreas measuring up to 3.0 cm and the pancreatic head, neck and body suggesting sidebranch IPMN's, unchanged. There is moderate generalized pancreatic atrophy. Glands are within normal limits. Gallbladder appears surgically absent. Mild nonspecific bilateral perinephric stranding. Areas of cortical lobulation and parenchymal thinning suggest areas of scarring. Punctate calcification of the superior pole right kidney suggests nonobstructing calculus or vascular calcification. Final attenuating 1.3 center lesion of the superior pole right kidney may reflect a renal cyst. Additional punctate calcification is noted involving the interpolar right kidney. No ureteral calculi or obstructive uropathy. The urinary bladder is within normal limits. Brachytherapy seeds noted within the prostate. Extensive atherosclerosis of the aorta with mild fusiform infrarenal ectasia, 2.4 x 2.3 cm. No aneurysm. No bulky adenopathy identified. Oxwop-[id number] sliding-type hiatal hernia. High attenuating material seen within the distal gastric lumen. No bowel obstruction or focal bowel wall thickening. Extensive colonic diverticulosis without CT evidence of acute diverticulitis. Normal appendix. Fat filled hernia of the left lower quadrant abdomen, diastases 3.8 cm is noted suggesting an incisional hernia. The bones appear demineralized. Severe multilevel facet arthropathy with severe multilevel intervertebral disc space narrowing. Grade 1 anterolisthesis L4 on L5 is likely secondary to long-standing facet disease. Degenerative changes of the bilateral hips without avascular necrosis. IMPRESSION: 1. Extensive atherosclerosis of the aorta with mild infrarenal abdominal aortic ectasia, 2.4 cm. No evidence of abdominal aortic aneurysm. 2. Colonic diverticulosis without CT evidence of acute diverticulitis. 3. Prior granulomatous disease. 4. Small to moderate sliding-type hiatal hernia. Moderate sized fat filled hernia of the left lower pelvic wall superior to the left inguinal canal suggests incisional hernia. 5. Additional findings as above. Electronically signed by: Chevy Emmanuel M.D. 10/11/2017 10:32 PM Dictated Date/Time: 10/11/2017 10:19 PM Laboratory Results Test 10/11/17 21:47 10/11/17 23:30 Prothrombin Time 10.3 SECONDS (9.0-12.0) Prothromb Time International Ratio 1.0 (0.9-1.1) Activated Partial Thromboplast Time 25.0 SECONDS (21.0-31.0) Partial Thromboplastin Ratio 1.0 Magnesium Level 2.2 mg/dl (1.8-2.4) Total Bilirubin 0.5 mg/dl (0.2-1) Direct Bilirubin 0.1 mg/dl (0-0.2) Aspartate Amino Transf (AST/SGOT) 31 U/L (15-37) Alanine Aminotransferase (ALT/SGPT) 37 U/L (12-78) Alkaline Phosphatase 101 U/L (45-117) Total Creatine Kinase 67 U/L (39-308) Creatine Kinase MB 2.1 ng/ml (0.5-3.6) Creatine Kinase MB Ratio 3.1 (0-3.0) Troponin I < 0.015 ng/ml (0-0.045) Total Protein 6.6 gm/dl (6.4-8.2) Albumin 3.2 gm/dl (3.4-5.0) Lipase 117 U/L (73-393) Thyroid Stimulating Hormone (TSH) 5.010 uIu/ml (0.300-4.500) Free Thyroxine 1.19 ng/dl (0.80-1.60) Total Triiodothyronine 0.70 ng/ml (0.60-1.81) Urine Color DK YELLOW Urine Appearance CLEAR (CLEAR) Urine pH 5.0 (4.5-7.5) Urine Specific [place] 1.023 (1.000-1.030) Urine Protein NEG (NEG) Urine Glucose (UA) NEG (NEG) Urine Ketones TRACE (NEG) Urine Occult Blood NEG (NEG) Urine Nitrite NEG (NEG) Urine Bilirubin NEG (NEG) Urine Urobilinogen NEG (NEG) Urine Leukocyte Esterase NEG (NEG) Laboratory studies as stated above per my review. Medications Administered Medications (Trade) Dose Ordered Sig/Freddy Route Start Time Stop Time Status Last Admin Dose Admin Sodium Chloride 500 ml @ 999 mls/hr Q31M STAT IV 10/11/17 21:32 10/11/17 22:02 DC 10/11/17 22:35 999 MLS/HR ECG Per My Interpretation Indication: syncope Rate (beats per minute): 54 Rhythm: sinus bradycardia Findings: no acute ischemic change, left axis deviation, other (LVH) Change: no significant change (when compared to 03/22/2017) ED Course 2128: Past medical records reviewed. The patient was evaluated in room A10, and a complete history and physical examination were performed. 2131: Ordered Sodium Chloride 500 ml @ 999 mls/hr IV 2349: I reassessed the patient at this time. He is feeling better. 7: I spoke with Dr. Barnes, [facility]. We discussed the patient' s case. The patient will be evaluated by the [facility] for further management. Medical Decision Differentials include, but are not limited to: syncope, dehydration, cardiac disease, infection, intracranial process, and electrolyte or metabolic abnormality. This patient comes in as described above. He was placed in room A-10. He had an episode where he became unresponsive and may have had a syncopal episode. He does have multiple medical problems is feeling better now. IV access was established was hydrated with normal saline bolus. EKG does not suggest any acute coronary syndrome or significant anemia. I did a CAT scan of his head as well as abdomen and was unremarkable for any acute etiology. He has no significant electrolyte or metabolic abnormalities. his cardiac biomarkers are not elevated. I think he is somewhat dry and dehydrated and may have had a vasovagal episode but given his age and comorbidities, I do think he needs to be observed for further treatment and evaluation to rule out cardiac disease. I have counsulted Dr. Bianchi to see him in the ER. Medication Reconcilliation Current Medication List: was personally reviewed by me Blood Pressure Screening Patient's blood pressure: Normal blood pressure Consults Time Called: 2346 Consulting Physician: Dr. Barnes, [facility] hospitalist I spoke with Dr. Barnes, [facility]. We discussed the patient's case. The patient will be evaluated by the [facility] for further management. Impression Primary Impression: Syncope Additional Impression: Dehydration Scribe Attestation The scribe's documentation has been prepared under my direction and personally reviewed by me in its entirety. I confirm that the note above accurately reflects all work, treatment, procedures, and medical decision making performed by me. Departure Information Dispostion Being Evaluated By Hospitalist Prescriptions Isosorbide Mononitrate Ext Rel (Imdur Ext Rel) 30 Mg Tabcr 1 TAB PO QAM, #30 TAB 2 Refills Prov: Nabil Weaver MD 10/13/17 Metoprolol Succinate (Metoprolol Succinate ER) 25 Mg Tabcr 12.5 MG PO HS, #30 1 Refill Prov: Nabil Weaver MD 10/13/17 Referrals Gisselle Orellana DO (PCP) Patient Instructions [facility] Problem Qualifiers
[2017-10-11 21:58] LABS: BASO % 0.3 %; BASO ABS # 0.03 K/uL (0-0.2); EOS % 1.6 %; EOS ABS # 0.14 K/uL (0-0.5); HEMATOCRIT 46.4 % (42-52); HEMOGLOBIN 15.1 g/dL (14.0-18.0); IG# 0.04 K/uL (0.00-0.02); LYMPH % 18.9 %; LYMPH ABS # 1.65 K/uL (1.2-3.4); MEAN CELL VOLUME 96.7 fL (80-100); MEAN CORPUSCULAR HEMOGLOBIN 31.5 pg (25-34); MEAN CORPUSCULAR HGB CONC 32.5 g/dl (32-36); MEAN PLATELET VOLUME 9.7 fL (7.4-10.4); MONO % 13.1 %; MONO ABS # 1.14 K/uL (0.11-0.59); NEUT % 65.6 %; NEUT ABS # 5.71 K/uL (1.4-6.5); PLATELET COUNT 209 K/uL (130-400); RED CELL DISTRIBUTION WIDTH CV 14.8 % (11.5-14.5); RED CELL DISTRIBUTION WIDTH SD 52.3 fL (36.4-46.3); WHITE BLOOD COUNT 8.71 K/uL (4.8-10.8)
--- NOTE | 2017-10-11 22:13 | DIAGNOSTIC IMAGING REPORT ---
CHEST ONE VIEW PORTABLE HISTORY: 87 years-old Male CHEST PAIN acute atypical chest pain with shortness of breath COMPARISON: Is radiograph 03/22/2017 TECHNIQUE: Portable AP view of the chest FINDINGS: Cardiac silhouette is again mildly enlarged. Prior median sternotomy. Atherosclerosis of the aorta. Moderate right hemidiaphragmatic elevation is unchanged. Linear left basilar opacities suggest atelectasis. No pneumothorax, large pleural effusion or overt pulmonary edema. No lobar airspace consolidation. The bones of the chest appear grossly intact. Degenerative changes are again noted within the spine and shoulders. IMPRESSION: No acute process. The above report was generated using voice recognition software. It may contain grammatical, syntax or spelling errors. Electronically signed by: Chevy Emmanuel M.D. 10/11/2017 10:12 PM Dictated Date/Time: 10/11/2017 10:10 PM
--- NOTE | 2017-10-11 22:20 | DIAGNOSTIC IMAGING REPORT ---
HEAD WITHOUT CONTRAST (CT) CLINICAL HISTORY: 87 years-old Male with vertigo, possible syncope. Acute vertigo with syncope TECHNIQUE: Multiple axial CT images of the head were obtained without contrast. A dose lowering technique was utilized adhering to the principles of ALARA. CT DOSE: 537.48 mGy.cm COMPARISON: CT head 03/22/2017. FINDINGS: No acute intracranial hemorrhage, midline shift, intracranial mass, hydrocephalus, territorial ischemia or abnormal extra-axial collection. Moderate brain atrophy with ex vacuo ventriculomegaly. Chronic microvascular ischemic changes redemonstrated. Cerebral vascular calcifications are again seen at the level of the skull base. The calvarium is intact. The paranasal sinuses, mastoid air cells, and middle ear cavities are clear. Postsurgical changes of the bilateral globes. IMPRESSION: No acute intracranial abnormality. The above report was generated using voice recognition software. It may contain grammatical, syntax or spelling errors. Electronically signed by: Chevy Emmanuel M.D. 10/11/2017 10:18 PM Dictated Date/Time: 10/11/2017 10:15 PM
[2017-10-11 22:28] LABS: ALBUMIN 3.2 gm/dl (3.4-5.0); BLOOD UREA NITROGEN 29 mg/dl (7-18); CALCIUM 8.5 mg/dl (8.5-10.1); CARBON DIOXIDE 29 mmol/L (21-32); CREATININE 1.91 mg/dl (0.60-1.40); GLUCOSE 125 mg/dl (70-99); LIPASE 117 U/L (73-393); POTASSIUM 3.9 mmol/L (3.5-5.1); SODIUM 143 mmol/L (136-145)
[2017-10-11 22:33] LABS: ALKALINE PHOSPHATASE 101 U/L (45-117); ALT/SGPT 37 U/L (12-78); AST/SGOT 31 U/L (15-37); CKMB 2.1 ng/ml (0.5-3.6); TOTAL PROTEIN 6.6 gm/dl (6.4-8.2)
--- NOTE | 2017-10-11 22:34 | DIAGNOSTIC IMAGING REPORT ---
ABDOMEN AND PELVIS CT WITHOUT CONTRAST CT DOSE: 452.81 mGy.cm HISTORY: Acute generalized abdominal pain with concern for abdominal aortic aneurysm eval for AAA TECHNIQUE: Multiaxial CT images of the abdomen and pelvis were performed without contrast. A dose lowering technique was utilized adhering to the principles of ALARA. COMPARISON STUDY: CT abdomen and pelvis 02/17/2017. FINDINGS: Moderate multichamber cardiac enlargement with extensive coronary arterial disease. Prior median sternotomy and CABG. No thoracic aortic aneurysm identified. Calcified subcarinal and mediastinal lymph nodes are present. Subsegmental bibasilar groundglass opacities suggest atelectasis. No pneumatosis or pneumoperitoneum identified. Moderate right hemidiaphragmatic elevation appears unchanged. Evaluation of the solid abdominal organs is limited without the use of IV contrast. Scattered splenic and hepatic calcifications are again noted compatible with prior granulomatous disease. No intrahepatic biliary ductal dilation or suspicious hepatic mass lesions. Unchanged fluid attenuating lesions of the pancreas measuring up to 3.0 cm and the pancreatic head, neck and body suggesting sidebranch IPMN's, unchanged. There is moderate generalized pancreatic atrophy. Glands are within normal limits. Gallbladder appears surgically absent. Mild nonspecific bilateral perinephric stranding. Areas of cortical lobulation and parenchymal thinning suggest areas of scarring. Punctate calcification of the superior pole right kidney suggests nonobstructing calculus or vascular calcification. Final attenuating 1.3 center lesion of the superior pole right kidney may reflect a renal cyst. Additional punctate calcification is noted involving the interpolar right kidney. No ureteral calculi or obstructive uropathy. The urinary bladder is within normal limits. Brachytherapy seeds noted within the prostate. Extensive atherosclerosis of the aorta with mild fusiform infrarenal ectasia, 2.4 x 2.3 cm. No aneurysm. No bulky adenopathy identified. [id number] sliding-type hiatal hernia. High attenuating material seen within the distal gastric lumen. No bowel obstruction or focal bowel wall thickening. Extensive colonic diverticulosis without CT evidence of acute diverticulitis. Normal appendix. Fat filled hernia of the left lower quadrant abdomen, diastases 3.8 cm is noted suggesting an incisional hernia. The bones appear demineralized. Severe multilevel facet arthropathy with severe multilevel intervertebral disc space narrowing. Grade 1 anterolisthesis L4 on L5 is likely secondary to long-standing facet disease. Degenerative changes of the bilateral hips without avascular necrosis. IMPRESSION: 1. Extensive atherosclerosis of the aorta with mild infrarenal abdominal aortic ectasia, 2.4 cm. No evidence of abdominal aortic aneurysm. 2. Colonic diverticulosis without CT evidence of acute diverticulitis. 3. Prior granulomatous disease. 4. Small to moderate sliding-type hiatal hernia. Moderate sized fat filled hernia of the left lower pelvic wall superior to the left inguinal canal suggests incisional hernia. 5. Additional findings as above. Electronically signed by: Chevy Emmanuel M.D. 10/11/2017 10:32 PM Dictated Date/Time: 10/11/2017 10:19 PM
[2017-10-11] MEDS ORDERED: FERR1TAB62 PO (23:21)
[2017-10-12] VITALS (8 sets, daily range): BP systolic 96–161; BP diastolic 56–82; PULSE 51–60; TEMP 36.3–36.9; O2SAT 94–97; Ht 177.8 cm; Wt 77.6 kg
[2017-10-12] MEDS ORDERED: SODIUM CHLOR 0.45% + 20MEQ KCL 1,000 ML IV SCH ×2 (00:30→02:30)
[2017-10-12] MEDS ORDERED: IV FLUIDS COMPLETED PRN (01:00)
[2017-10-12] MEDS ORDERED: GI COCKTAIL PO ONE (01:15)
[2017-10-12] MEDS ORDERED: LIDOCAINE HCL 2% VISC SOLN 20 ML UDC ONE (01:21)
[2017-10-12] MEDS ORDERED: ALUMINUM/MAGNESIUM SUSP 30 ML UDC ONE (01:21)
[2017-10-12] MEDS ORDERED: NITROGLYCERIN 0.4 MG SL PER TAB CHARGE SL PRN (02:00)
[2017-10-12] MEDS ORDERED: HYDROmorphone INJ 0.5 MG/0.5 ML SYR IV PRN (02:00)
[2017-10-12] MEDS ORDERED: TRAMADOL HCL 50 MG TAB PO PRN (02:00)
[2017-10-12] MEDS ORDERED: PROCHLORPERAZINE INJ 5 MG in SYRINGE 4 ML IV PRN (02:00)
[2017-10-12] MEDS ORDERED: ACETAMINOPHEN 325 MG TAB PO PRN (02:00)
[2017-10-12] MEDS: HEPARIN SOD 5000 UNIT/0.5 ML CARP SQ SCH ×3 (06:00→22:11)
[2017-10-12 06:06] LABS: BASO % 0.5 %; BASO ABS # 0.04 K/uL (0-0.2); EOS % 2.5 %; EOS ABS # 0.21 K/uL (0-0.5); HEMATOCRIT 41.2 % (42-52); HEMOGLOBIN 13.4 g/dL (14.0-18.0); IG# 0.05 K/uL (0.00-0.02); LYMPH % 26.8 %; LYMPH ABS # 2.22 K/uL (1.2-3.4); MEAN CELL VOLUME 96.7 fL (80-100); MEAN CORPUSCULAR HEMOGLOBIN 31.5 pg (25-34); MEAN CORPUSCULAR HGB CONC 32.5 g/dl (32-36); MEAN PLATELET VOLUME 9.4 fL (7.4-10.4); MONO % 12.1 %; NEUT % 57.5 %; NEUT ABS # 4.75 K/uL (1.4-6.5); PLATELET COUNT 183 K/uL (130-400); RED CELL DISTRIBUTION WIDTH SD 53.5 fL (36.4-46.3); WHITE BLOOD COUNT 8.27 K/uL (4.8-10.8)
[2017-10-12] MEDS: LEVOTHYROXINE 100 MCG TAB PO SCH (06:12)
[2017-10-12 06:29] LABS: CALCIUM 8.2 mg/dl (8.5-10.1); CREATININE 1.88 mg/dl (0.60-1.40)
[2017-10-12] MEDS: FERROUS SULFATE 325 MG TAB PO SCH ×2 (07:30→22:09)
[2017-10-12] MEDS: PANTOprazole SOD 40 MG TAB PO SCH (07:30)
--- NOTE | 2017-10-12 07:48 | HISTORY & PHYSICAL EXAMINATION ---
DATE OF ADMISSION: 10/12/2017 PRIMARY CARE DOCTOR: Gisselle Orellana DO. CHIEF COMPLAINT: Syncope. HISTORY OF PRESENT ILLNESS: History obtained from patient and records. Medical history significant for CAD status post CABG, hypertension, hyperlipidemia, GERD, prostate cancer status post radiation, history postop PE status post anticoagulation, diverticulosis per records, chronic bradycardia. chronic renal insufficiency (baseline creatinine of 1.5-1.9 ) Recent confinement last February 2017 for metabolic encephalopathy. The last few days, the patient noted vertigo symptoms, described as dizziness, spinning, worse with head motion, lasting for hours which he has from time to time. Appetite okay. Will lose balance if not careful. Patient was having bible study with some friends last night when he had witnessed syncopal event lasting about 40 seconds. Patient later noted epigastric discomfort, gas-like. No actual chest pain, no shortness of breath. Stools dark, a little hard to move -which patient attributes to iron. Patient brought to the Emergency Room. SBP noted to be 90s. MEDICAL HISTORY: As above. A 2D echo from March 2016 showed EF 60-65%, diastolic dysfunction, mild aortic valve regurg, mild MR, mild TR. SURGERIES: He has had CABG, cholecystectomy, knee surgery, urologic procedures, hernia repair, knee surgery. HOME MEDICATIONS: Include Toprol, Zofran, Protonix, Micro-K, Ultram, gabapentin, isosorbide, levothyroxine, lisinopril, multivitamins, mag oxide, aspirin, Lipitor, Tylenol, calcium plus D, ferrous sulfate, Lasix. ALLERGIES: CEFUROXIME, ONION, NSAIDS, STATIN, DYE. FAMILY HISTORY: Diabetes, heart disease PERSONAL AND SOCIAL HISTORY: Nonsmoker, no chronic intake of alcoholic beverages. 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 REVIEW OF SYSTEMS: As per HPI. All 10 systems reviewed. All other ROS negative. PHYSICAL EXAMINATION: VITAL SIGNS: Blood pressure was noted to be 98/60, later 100/58, pulse rate 55. RR 22, temperature 36.6, sats 93 on room air. GENERAL: Noted to be comfortable, no respiratory distress, slightly anxious. SKIN: Normal color, warm. HEENT: [place] palpebral conjunctiva. No ptosis. Dry mucosa. NECK: Supple, nontender. CHEST: Decreased breath sounds. No tenderness. HEART: Bradycardic. No murmur. ABDOMEN: Some distention. Epigastric tenderness. Healed right upper quadrant scar. RECTAL: Intact sphincter, black stool, heme negative. EXTREMITIES: No edema, no tenderness. No gross deformity. NEUROLOGIC: Coherent. No gross focality. No facial asymmetry. LABORATORY DATA: Hemoglobin was noted to be 15.1, hematocrit 46.4, white blood cell count 8.71, platelets 209. Sodium noted to be 140, potassium 3.9, chloride 105, CO2 29, BUN 29, creatinine 1.91. Glucose 125. CT head, no acute pathology. Chest x-ray, no acute process. CT abdomen and pelvis, mild infrarenal abdominal aortic ectasia 2.4, chronic diverticulosis, disease, hiatal hernia. UA, ketones. EKG as per my interpretation, rate 55, sinus tachycardia, LAD, LAFB, no ischemia. ASSESSMENT: 1. Syncope, likely secondary to orthostasis possibly from clinical dehydration Patient noted to have low blood pressure at the ER. Rule out cardiovascular etio. 2. recurrent BPPV 3. chronic bradycardia. 4. Coronary artery disease status post coronary artery bypass grafting. 5. Hypertension, blood pressure on the lower side. 6. Chronic renal insufficiency, creatinine at baseline. 7. Prostate cancer status post radiation . 8. Epigastric discomfort, probable uncontrolled GERD. 9. hx postop PE sp anticoagulation PLAN: Observation PCU. IV fluids. Hold Imdur, lisinopril, home diuretic until BP improved. Decrease home beta lizzie dose given low BP, chronic bradycardia 2D echo RE syncope. Symptomatic management for vertigo GI cocktail trial for possible uncontrolled GERD. Consider doubling home PPI dose if w response. PT, OT evaluation. DVT prophylaxis, Heparin subQ. Full code. MTDD
[2017-10-12] MEDS: ASPIRIN 81 MG ECTAB PO SCH (12:04)
[2017-10-12] MEDS: CEROVITE ADV FORMULA TAB PO SCH (12:04)
--- NOTE | 2017-10-12 14:26 | ECHOCARDIOGRAM REPORT ---
*NOTICE TO RECEIVING REPUBLICAN AGENCY This information is strictly Confidential and protected under [place] law. [place] law prohibits you from making any further disclosure of this information unless further disclosure is expressly permitted by the written consent of the person to whom it pertains or is authorized by law. A general authorization for the release of medical or other information is not sufficient for this purpose. Hospital accepts no responsibility if the information is made available to any other person, INCLUDING THE PATIENT. Interpretation Summary * Name: ARGELIA SAENZ Study Date: 10/12/2017 06:29 AM BP: 96/56 mmHg * Patient Location: C.2E\S\E207\S\1 HR: 55 * : 1930 (M/d/yyyy) Gender: Male Height: 70 in * Age: 87 yrs Ethnicity: [place] Weight: 174 lb * Ordering Physician: Reece Barnes * Referring Physician: Self, Referred * Performed By: Diego Keys RCS * * Reason For Study: Syncope * BSA: 2.0 m2 * The study was technically adequate. * Compared to prior study, there is no significant change. * -- Conclusions -- * Left ventricular systolic function is normal. * Ejection Fraction = 60-65%. * There is moderate concentric left ventricular hypertrophy. * Grade I diastolic dysfunction, (abnormal relaxation pattern). * Aortic valve sclerosis mild, without significant aortic valvular stenosis. * There is mild tricuspid regurgitation. * Doppler findings do not suggest pulmonary hypertension. * Mild aortic regurgitation. Procedure Details * A complete two-dimensional transthoracic echocardiogram was performed (2D, M-mode, Doppler and color flow Doppler). Left Ventricle * The left ventricle is normal in size. * There is moderate concentric left ventricular hypertrophy. * Left ventricular systolic function is normal. * Ejection Fraction = 60-65%. * The left ventricular wall motion is normal. Right Ventricle * The right ventricle is normal size. * The right ventricular systolic function is normal as assessed by tricuspid annular plane systolic excursion (TAPSE) (normal >1.5 cm). Atria * The left atrium is mildly dilated. * Right atrial size is normal. * There is no evidence of atrial septal defect, but resolution does not allow assessment for a patent foramen ovale. Mitral Valve * There is moderate mitral annular calcification. * There is no mitral valve stenosis. * There is trace mitral regurgitation. Tricuspid Valve * The tricuspid valve is normal. * There is no tricuspid stenosis. * There is mild tricuspid regurgitation. * Doppler findings do not suggest pulmonary hypertension. Aortic Valve * The aortic valve is trileaflet. * Aortic valve sclerosis mild, without significant aortic valvular stenosis. * Aortic stenosis is absent. * Mild aortic regurgitation. Pulmonic Valve * There is no pulmonic valvular stenosis. * Trace pulmonic valvular regurgitation. Great Vessels * The aortic root is normal size. Pericardium/Pleural * There is no pericardial effusion. Great Vessels * Normal inferior vena cava diameter and respiratory variation suggests normal central venous pressure. Left Ventricular Diastolic Function * Grade I diastolic dysfunction, (abnormal relaxation pattern). MMode 2D Measurements and Calculations IVSd 1.6 cm IVSs 2.4 cm LVIDd 4.2 cm LVIDs 2.8 cm LVPWd 1.5 cm LVPWs 1.9 cm IVS/LVPW 1.1 FS 33.8 % EDV(Teich) 80.5 ml ESV(Teich) 29.8 ml EF(Teich) 63.0 % EDV(cubed) 76.4 ml ESV(cubed) 22.2 ml EF(cubed) 71.0 % % IVS thick 53.9 % % LVPW thick 27.4 % LV mass(C)d 260.1 grams LV mass(C)dI 132.2 grams/m\S\2 LV mass(C)s 281.5 grams LV mass(C)sI 143.1 grams/m\S\2 SV(Teich) 50.7 ml SI(Teich) 25.8 ml/m\S\2 SV(cubed) 54.3 ml SI(cubed) 27.6 ml/m\S\2 Ao root diam 3.5 cm Ao root area 9.7 cm\S\2 ACS 1.7 cm LA dimension 4.1 cm asc Aorta Diam 3.5 cm LA/Ao 1.2 EDV(MOD-sp4) 110.0 ml ESV(MOD-sp4) 52.0 ml EF(MOD-sp4) 52.7 % EDV(MOD-sp2) 106.0 ml ESV(MOD-sp2) 58.0 ml EF(MOD-sp2) 45.3 % SV(MOD-sp4) 58.0 ml SI(MOD-sp4) 29.5 ml/m\S\2 SV(MOD-sp2) 48.0 ml SI(MOD-sp2) 24.4 ml/m\S\2 Doppler Measurements and Calculations MV E max shabbir 55.0 cm/sec MV A max shabbir 102.6 cm/sec MV E/A 0.54 MV P1/2t max shabbir 65.7 cm/sec MV P1/2t 116.6 msec MVA(P1/2t) 1.9 cm\S\2 MV dec slope 165.0 cm/sec\S\2 MV dec time 0.38 sec Ao V2 max 91.6 cm/sec Ao max PG 3.4 mmHg Ao max PG (full) 1.2 mmHg LV V1 max PG 2.2 mmHg LV V1 max 73.8 cm/sec PA V2 max 109.1 cm/sec PA max PG 6.4 mmHg PI max shabbir 138.0 cm/sec PI max PG 7.6 mmHg PI dec slope 89.3 cm/sec\S\2 PI P1/2t 452.9 msec TR max shabbir 195.0 cm/sec
[2017-10-12] MEDS ORDERED: LISINOPRIL 10 MG TAB PO ONE (17:00)
--- NOTE | 2017-10-12 19:06 | Progress Note ---
Internal Med Progress Note Date of Service: Oct 12, 2017. Provider Documentation: SUBJECTIVE: says he might have passed out few seconds yesterday felt dizzy before passing out feeling fine now denies any chest pain or sob 'no cough afebrile 'no nausea hemodynamics stable currently OBJECTIVE: Vital Signs-as noted below Exam: General-alert and oriented. ENT-Normal hearing Neck-no neck masses Lungs-cta b/l no wheezing no crackles present Heart-S1 and S2 heard regular rate and rhythm no murmurs Abdomen-Soft bowel sounds present non tender no distension Extremities-no edema no erythema Neuro-alert and awake moves extremities Lab data as noted below. ASSESSMENT & PLAN: 1. Syncope, likely secondary to orthostasis possibly from clinical dehydration Patient noted to have low blood pressure at the ER. received gentle fluids echo moderate LVH otherwise unremarkable. Lasix , Imdur and lisinopril held. cut back on Toprol xl to 12.5mg daily restarted lisinopril will monitor currently asymptomatic pt/ot 2. recurrent BPPV 3. chronic bradycardia.will monitor. cut back on Toprol xl 4. Coronary artery disease status post coronary artery bypass grafting.On statin, Toprol and aspirin. 5. Hypertension, blood pressure on the lower side.Held, Lasix, Imdur and lisinopril and cut back on admission. restarted lisinopril. Will monitor. 6. CKD 3 , creatinine at baseline. 7. Prostate cancer status post radiation . 8. Epigastric discomfort, probable uncontrolled GERD.no complaints today 9. hx postop PE sp anticoagulation DVT PROPHYLAXIS hep sub q DISPOSITION possible d/c in am if stable Vital Signs: Date Time Temp Pulse Resp B/P (MAP) Pulse Ox O2 Delivery O2 Flow Rate FiO2 10/12/17 16:00 Room Air 10/12/17 15:39 36.8 58 20 150/73 (98) 95 Room Air 10/12/17 12:23 36.8 54 19 128/74 (92) 95 Room Air 10/12/17 12:00 Room Air 10/12/17 08:27 36.3 56 18 105/66 (79) 97 Room Air 10/12/17 08:00 Room Air 10/12/17 04:00 Room Air 10/12/17 03:34 36.7 55 17 96/56 (69) 94 Room Air 10/12/17 01:45 36.4 51 20 119/82 96 Room Air 10/12/17 01:26 59 20 112/74 95 Room Air 10/12/17 01:04 53 10/12/17 00:31 53 20 106/66 93 Room Air 10/12/17 00:01 55 16 99/63 95 Room Air 10/11/17 23:31 52 18 118/68 95 Room Air 10/11/17 23:01 54 20 94/62 97 Room Air 10/11/17 22:45 52 16 92/58 98 Room Air 10/11/17 22:01 59 16 90/61 93 Room Air 10/11/17 21:12 36.6 56 20 98/63 93 Room Air 10/11/17 21:09 60 Lab Results: Results Past 24 Hours Test 10/11/17 21:32 10/11/17 21:47 10/11/17 23:30 10/12/17 00:37 Range/Units Creatine Kinase MB Ratio 3.1 0-3.0 White Blood Count 8.71 4.8-10.8 K/uL Red Blood Count 4.80 4.7-6.1 M/uL Hemoglobin 15.1 14.0-18.0 g/dL Hematocrit 46.4 42-52 % Mean Corpuscular Volume 96.7 80-100 fL Mean Corpuscular Hemoglobin 31.5 25-34 pg Mean Corpuscular Hemoglobin Concent 32.5 32-36 g/dl Platelet Count 209 130-400 K/uL Mean Platelet Volume 9.7 7.4-10.4 fL Neutrophils (%) (Auto) 65.6 % Lymphocytes (%) (Auto) 18.9 % Monocytes (%) (Auto) 13.1 % Eosinophils (%) (Auto) 1.6 % Basophils (%) (Auto) 0.3 % Neutrophils # (Auto) 5.71 1.4-6.5 K/uL Lymphocytes # (Auto) 1.65 1.2-3.4 K/uL Monocytes # (Auto) 1.14 0.11-0.59 K/uL Eosinophils # (Auto) 0.14 0-0.5 K/uL Basophils # (Auto) 0.03 0-0.2 K/uL RDW Standard Deviation 52.3 36.4-46.3 fL RDW Coefficient of Variation 14.8 11.5-14.5 % Immature Granulocyte % (Auto) 0.5 % Immature Granulocyte # (Auto) 0.04 0.00-0.02 K/uL Prothrombin Time 10.3 9.0-12.0 SECONDS Prothromb Time International Ratio 1.0 0.9-1.1 Activated Partial Thromboplast Time 25.0 21.0-31.0 SECONDS Partial Thromboplastin Ratio 1.0 Sodium Level 143 136-145 mmol/L Potassium Level 3.9 3.5-5.1 mmol/L Chloride Level 105 98-107 mmol/L Carbon Dioxide Level 29 21-32 mmol/L Anion Gap 9.0 3-11 mmol/L Blood Urea Nitrogen 29 7-18 mg/dl Creatinine 1.91 0.60-1.40 mg/dl Est Creatinine Clear Calc Drug Dose 28.1 ml/min Estimated GFR () 35.7 Estimated GFR (Non- 30.8 BUN/Creatinine Ratio 15.3 10-20 Random Glucose 125 70-99 mg/dl Calcium Level 8.5 8.5-10.1 mg/dl Magnesium Level 2.2 1.8-2.4 mg/dl Total Bilirubin 0.5 0.2-1 mg/dl Direct Bilirubin 0.1 0-0.2 mg/dl Aspartate Amino Transf (AST/SGOT) 31 15-37 U/L Alanine Aminotransferase (ALT/SGPT) 37 12-78 U/L Alkaline Phosphatase 101 45-117 U/L Total Creatine Kinase 67 39-308 U/L Creatine Kinase MB 2.1 0.5-3.6 ng/ml Troponin I < 0.015 0-0.045 ng/ml Total Protein 6.6 6.4-8.2 gm/dl Albumin 3.2 3.4-5.0 gm/dl Lipase 117 73-393 U/L Thyroid Stimulating Hormone (TSH) 5.010 0.300-4.500 uIu/ml Free Thyroxine 1.19 0.80-1.60 ng/dl Total Triiodothyronine 0.70 0.60-1.81 ng/ml Urine Color DK YELLOW Urine Appearance CLEAR CLEAR Urine pH 5.0 4.5-7.5 Urine Specific [place] 1.023 1.000-1.030 Urine Protein NEG NEG Urine Glucose (UA) NEG NEG Urine Ketones TRACE NEG Urine Occult Blood NEG NEG Urine Nitrite NEG NEG Urine Bilirubin NEG NEG Urine Urobilinogen NEG NEG Urine Leukocyte Esterase NEG NEG Lactic Acid Level 1.4 0.4-2.0 mmol/L Test 10/12/17 05:47 Range/Units White Blood Count 8.27 4.8-10.8 K/uL Red Blood Count 4.26 4.7-6.1 M/uL Hemoglobin 13.4 14.0-18.0 g/dL Hematocrit 41.2 42-52 % Mean Corpuscular Volume 96.7 80-100 fL Mean Corpuscular Hemoglobin 31.5 25-34 pg Mean Corpuscular Hemoglobin Concent 32.5 32-36 g/dl Platelet Count 183 130-400 K/uL Mean Platelet Volume 9.4 7.4-10.4 fL Neutrophils (%) (Auto) 57.5 % Lymphocytes (%) (Auto) 26.8 % Monocytes (%) (Auto) 12.1 % Eosinophils (%) (Auto) 2.5 % Basophils (%) (Auto) 0.5 % Neutrophils # (Auto) 4.75 1.4-6.5 K/uL Lymphocytes # (Auto) 2.22 1.2-3.4 K/uL Monocytes # (Auto) 1.00 0.11-0.59 K/uL Eosinophils # (Auto) 0.21 0-0.5 K/uL Basophils # (Auto) 0.04 0-0.2 K/uL RDW Standard Deviation 53.5 36.4-46.3 fL RDW Coefficient of Variation 15.0 11.5-14.5 % Immature Granulocyte % (Auto) 0.6 % Immature Granulocyte # (Auto) 0.05 0.00-0.02 K/uL Sodium Level 143 136-145 mmol/L Potassium Level 4.0 3.5-5.1 mmol/L Chloride Level 106 98-107 mmol/L Carbon Dioxide Level 30 21-32 mmol/L Anion Gap 7.0 3-11 mmol/L Blood Urea Nitrogen 31 7-18 mg/dl Creatinine 1.88 0.60-1.40 mg/dl Est Creatinine Clear Calc Drug Dose 28.6 ml/min Estimated GFR () 36.4 Estimated GFR (Non- 31.4 BUN/Creatinine Ratio 16.3 10-20 Random Glucose 94 70-99 mg/dl Calcium Level 8.2 8.5-10.1 mg/dl Microbiology Results 10/11/17 Urine Culture, Received Pending
[2017-10-12] MEDS ORDERED: GABAPENTIN 300 MG CAP PO SCH (21:00)
[2017-10-12] MEDS ORDERED: ATORVASTATIN 40 MG TAB PO SCH (21:00)
[2017-10-12] MEDS ORDERED: METOPROLOL SUCC 25MG EXT REL TAB PO SCH (21:00)
[2017-10-13 04:07] VITALS: BP 131/70; PULSE 50; TEMP 37; O2SAT 93
[2017-10-13] MEDS: LEVOTHYROXINE 100 MCG TAB PO SCH (06:21)
[2017-10-13] MEDS: HEPARIN SOD 5000 UNIT/0.5 ML CARP SQ SCH ×2 (06:22→14:00)
[2017-10-13 07:24] LABS: CALCIUM 8.7 mg/dl (8.5-10.1); CREATININE 1.69 mg/dl (0.60-1.40); POTASSIUM 4.2 mmol/L (3.5-5.1)
[2017-10-13] MEDS: PANTOprazole SOD 40 MG TAB PO SCH (07:50)
[2017-10-13] MEDS: FERROUS SULFATE 325 MG TAB PO SCH (07:50)
[2017-10-13 07:52] VITALS: BP 158/78
[2017-10-13 08:00] VITALS: BP 147/84; PULSE 57; TEMP 36.6; O2SAT 96
[2017-10-13] MEDS ORDERED: ISOSORBIDE MONONITRATE 30 MG TABCR PO ONE (10:30)
[2017-10-13] MEDS: ASPIRIN 81 MG ECTAB PO SCH (10:57)
[2017-10-13] MEDS: CEROVITE ADV FORMULA TAB PO SCH (10:57)
[2017-10-13] MEDS ORDERED: TPRSR25 PO (11:22)
[2017-10-13] MEDS ORDERED: ISOS30TA35 PO (11:22)
--- NOTE | 2017-10-13 11:26 | Discharge Instructions ---
Discharge Instructions Date of Service Oct 13, 2017. Admission Reason for Admission: Syncope Discharge Discharge Diagnosis / Problem: syncope Discharge Goals Goal(s): Decrease discomfort, Improve function Activity Recommendations Activity Limitations: resume your previous activity . Instructions / Follow-Up Instructions / Follow-Up FOLLOWUP WITH FAMILY DOCTOR ON September AT 12:45PM. CHANGING MEDICATIONS: CHANGED TOPROL XL TO 12.5MG DAILY CHANGED IMDUR EXT REL TO 30MG PO DAILY. BLOOD PRESSURE FOLLOWUP WITH FAMILY DOCTOR. Call your Primary Care doctor if any of the following symptoms or problems start or get worse: * Shortness of breath or difficulty breathing * Wake up at night short of breath * Chest pain * Cough * Swelling of your hands, feet, or legs * More fatigued or tired with your normal activity * Palpitations - sudden fast heart beats WEIGHT * Weigh yourself every morning after using the bathroom. * Use the same scale. * Wear the same amount of clothing. * Write your weight down on a chart. * Call your Primary Care doctor if you gain more than 2-3 pounds in 1-2 days. MEDICATIONS * Use this discharge instruction sheet for medication instructions. * Take your medications at the time your doctor ordered. * Do not skip a dose of your medicines. * If you miss a dose of medicine, take it as soon as possible, but DO NOT DOUBLE A DOSE. * Read your medicine information when you get home. * Know all of the side effects of your medicine. If in doubt, ask your pharmacist * Call your Primary Care doctor's office if you have any side effects. * Be sure all of your doctors know what medicine and herbs you take (including cold, flu, and herbal medicine). Take the following with you to your follow-up doctor appointments: * Weight Chart * Medication List * List of questions Do not drink excessive alcohol, beer or wine. Current Hospital Diet Patient's current hospital diet: AHA Diet (Heart Healthy) Discharge Diet Recommended Diet: AHA Diet (Heart Healthy) Pending Studies Studies pending at discharge: no Medical Emergencies . Who to Call and When: Call 911 or go to the Emergency Room if: * If at any time you feel your situation is an emergency * You have tightness or pain in your chest that does not go away with rest or Nitroglycerin * You are very short of breath even with rest . Non-Emergent Contact Non-Emergency issues call your: Primary Care Provider . . "Provider Documentation" section prepared by Nabil Weaver. .
[2017-10-13] MEDS ORDERED: LISINOPRIL 10 MG TAB PO SCH (11:30)
--- NOTE | 2017-10-13 11:41 | Progress Note ---
Internal Med Progress Note Date of Service: Oct 13, 2017. Provider Documentation: SUBJECTIVE: currently doing fine ambulated fine afebrile denies chest pain and sob no nausea resting comfortably ok to go home OBJECTIVE: Vital Signs-as noted below Exam: General-alert and oriented. ENT-Normal hearing Neck-no neck masses Lungs-cta b/l no wheezing no crackles present Heart-S1 and S2 heard regular rate and rhythm no murmurs Abdomen-Soft bowel sounds present non tender no distension Extremities-no edema no erythema Neuro-alert and awake moves extremities Lab data as noted below. ASSESSMENT & PLAN: 1. Syncope, likely secondary to orthostasis possibly from clinical dehydration Patient noted to have low blood pressure at the ER. received gentle fluids echo moderate LVH otherwise unremarkable. Lasix , Imdur and lisinopril held. cut back on Toprol xl to 12.5mg daily restarted lisinopril gave imdur 30mg today(home staton 60mg daily). Manual BP 140/70 discharged on home meds except Toprol xl changed to 12.5mg daily and Imdur changed to 30mg daily followup with PCP closely 2. recurrent BPPV stable currently 3. chronic bradycardia.will monitor. cut back on Toprol xl 4. Coronary artery disease status post coronary artery bypass grafting.On statin, Toprol and aspirin.Stable 5. Hypertension, blood pressure on the lower side.Held, Lasix, Imdur and lisinopril and cut back on admission. restarted lisinopril. Will monitor. 6. CKD 3 , creatinine at baseline. 7. Prostate cancer status post radiation . 8. Epigastric discomfort, probable uncontrolled GERD.no complaints today 9. hx postop PE sp anticoagulation Discharged home Vital Signs: Date Time Temp Pulse Resp B/P (MAP) Pulse Ox O2 Delivery O2 Flow Rate FiO2 10/13/17 08:00 36.6 57 18 147/84 (105) 96 Room Air 10/13/17 08:00 Room Air 10/13/17 07:52 158/78 (104) 10/13/17 04:07 37.0 50 18 131/70 (90) 93 Room Air 10/13/17 04:00 Room Air 10/13/17 00:01 Room Air 10/12/17 23:14 36.8 60 17 115/56 (75) 96 Room Air 10/12/17 20:00 Room Air 10/12/17 19:16 36.9 60 20 143/71 (95) 94 Room Air 10/12/17 16:00 Room Air 10/12/17 15:39 36.8 58 20 150/73 (98) 95 Room Air 10/12/17 12:23 36.8 54 19 128/74 (92) 95 Room Air 10/12/17 12:00 Room Air Lab Results: Results Past 24 Hours Test 10/13/17 06:38 Range/Units Sodium Level 140 136-145 mmol/L Potassium Level 4.2 3.5-5.1 mmol/L Chloride Level 106 98-107 mmol/L Carbon Dioxide Level 28 21-32 mmol/L Anion Gap 6.0 3-11 mmol/L Blood Urea Nitrogen 30 7-18 mg/dl Creatinine 1.69 0.60-1.40 mg/dl Est Creatinine Clear Calc Drug Dose 31.8 ml/min Estimated GFR () 41.4 Estimated GFR (Non- 35.7 BUN/Creatinine Ratio 17.9 10-20 Random Glucose 99 70-99 mg/dl Calcium Level 8.7 8.5-10.1 mg/dl
[2017-10-13 11:53] VITALS: BP 142/69; PULSE 64; TEMP 36.6; O2SAT 94
--- NOTE | 2017-10-13 11:57 | Discharge Summary ---
Discharge Summary Date of Service Oct 13, 2017. Discharge Summary Admission Date: Oct 12, 2017 at 00:33 Discharge Date: Oct 13, 2017 Discharge Disposition: Home Principal Diagnosis: SYNCOPE Secondary Diagnoses/Problems: CAD status post CABG, hypertension, hyperlipidemia, GERD, prostate cancer status post radiation, history postop PE status post anticoagulation, diverticulosis per records, chronic bradycardia. chronic renal insufficiency (baseline creatinine of 1.5-1.9 ) Procedures: CT HEAD: No acute intracranial abnormality. CXR: No acute process. CT ABD/PELVIS: 1. Extensive atherosclerosis of the aorta with mild infrarenal abdominal aortic ectasia, 2.4 cm. No evidence of abdominal aortic aneurysm. 2. Colonic diverticulosis without CT evidence of acute diverticulitis. 3. Prior granulomatous disease. 4. Small to moderate sliding-type hiatal hernia. Moderate sized fat filled hernia of the left lower pelvic wall superior to the left inguinal canal suggests incisional hernia. ECHO: Left ventricular systolic function is normal. * Ejection Fraction = 60-65%. * There is moderate concentric left ventricular hypertrophy. * Grade I diastolic dysfunction, (abnormal relaxation pattern). * Aortic valve sclerosis mild, without significant aortic valvular stenosis. * There is mild tricuspid regurgitation. * Doppler findings do not suggest pulmonary hypertension. * Mild aortic regurgitation. Medication Reconciliation New Medications: Isosorbide Mononitrate Ext Rel (Imdur Ext Rel) 30 Mg Tabcr 1 TAB PO QAM, #30 TAB 2 Refills Metoprolol Succinate (Metoprolol Succinate ER) 25 Mg Tabcr 12.5 MG PO HS, #30 1 Refill Continued Medications: Acetaminophen (Tylenol) 325 Mg Tab 325 MG PO Q4H PRN for Pain, TAB Aspirin (Aspirin Chewable) 81 Mg Chew 81 MG PO QDL Atorvastatin (Lipitor) 80 Mg Tab 80 MG PO HS Calcium Carbonate-Vitamin D (Calcium 500 + D) 1 Tab Tab 1 TAB PO BID NOON AND EVENING Ferrous Sulfate (Ferrous Sulfate) 325 Mg Tab 325 MG PO BID NOON AND EVENING Furosemide (Lasix) 20 Mg Tab 20 MG PO QDL extra tab daily as needed for edema Gabapentin (Gabapentin) 300 Mg Cap 300 MG PO HS Levothyroxine Sodium (Levothyroxine Sodium) 100 Mcg Tab 100 MCG PO QAM for 90 Days, #90 TAB 3 Refills Lisinopril (Lisinopril) 10 Mg Tab 10 MG PO QDL Magnesium Oxide (Mag-Ox) 400 Mg Tab 400 MG PO QDL Multiple Vitamins W/ Minerals (Centrum Silver) 1 Chw Chw 1 TAB PO QDL Ondansetron Hcl (Zofran) 4 Mg Tab 4 MG PO Q6H PRN for Nausea or Vomiting, TAB Pantoprazole (Protonix) 40 Mg Tab 40 MG PO QAM, TAB Potassium Chloride (Micro-K Ext Rel) 10 Meq Capcr 10 MEQ PO QDL, CAP Testosterone (Androderm) 4 Mg/24 Hr Dis 1 PATCH TOP QPM Tramadol (Ultram) 50 Mg Tab 50 MG PO Q6H PRN for Pain, TAB Discontinued Medications: Isosorbide Mononitrate (Isosorbide Mononitrate ER) 60 Mg Tabcr 60 MG PO QDL Metoprolol Succ (Toprol Xl) (Toprol-Xl) 25 Mg Tabcr 25 MG PO HS, #30 TAB Admission Information HPI (per Admitting provider): History obtained from patient and records. Medical history significant for CAD status post CABG, hypertension, hyperlipidemia, GERD, prostate cancer status post radiation, history postop PE status post anticoagulation, diverticulosis per records, chronic bradycardia. chronic renal insufficiency (baseline creatinine of 1.5-1.9 ) Recent confinement last February 2017 for metabolic encephalopathy. The last few days, the patient noted vertigo symptoms, described as dizziness, spinning, worse with head motion, lasting for hours which he has from time to time. Appetite okay. Will lose balance if not careful. Patient was having bible study with some friends last night when he had witnessed syncopal event lasting about 40 seconds. Patient later noted epigastric discomfort, gas-like. No actual chest pain, no shortness of breath. Stools dark, a little hard to move -which patient attributes to iron. Patient brought to the Emergency Room. SBP noted to be 90s. Physical Exam (per Admitting): VITAL SIGNS: Blood pressure was noted to be 98/60, later 100/58, pulse rate 55. RR 22, temperature 36.6, sats 93 on room air. GENERAL: Noted to be comfortable, no respiratory distress, slightly anxious. SKIN: Normal color, warm. HEENT: [place] palpebral conjunctiva. No ptosis. Dry mucosa. NECK: Supple, nontender. CHEST: Decreased breath sounds. No tenderness. HEART: Bradycardic. No murmur. ABDOMEN: Some distention. Epigastric tenderness. Healed right upper quadrant scar. RECTAL: Intact sphincter, black stool, heme negative. EXTREMITIES: No edema, no tenderness. No gross deformity. NEUROLOGIC: Coherent. No gross focality. No facial asymmetry Hospital Course 1. Syncope, likely secondary to orthostasis possibly from clinical dehydration Patient noted to have low blood pressure at the ER. received gentle fluids echo moderate LVH otherwise unremarkable. Lasix , Imdur and lisinopril held. cut back on Toprol xl to 12.5mg daily restarted lisinopril gave imdur 30mg today(home staton 60mg daily). Manual BP 140/70 discharged on home meds except Toprol xl changed to 12.5mg daily and Imdur changed to 30mg daily followup with PCP closely 2. recurrent BPPV stable currently 3. chronic bradycardia.will monitor. cut back on Toprol xl 4. Coronary artery disease status post coronary artery bypass grafting.On statin, Toprol and aspirin.Stable 5. Hypertension, blood pressure on the lower side.Held, Lasix, Imdur and lisinopril and cut back on admission. restarted lisinopril. Will monitor. 6. CKD 3 , creatinine at baseline. 7. Prostate cancer status post radiation . 8. Epigastric discomfort, probable uncontrolled GERD.no complaints today 9. hx postop PE sp anticoagulation Discharged home Total time spent on discharge = 35MINUTES This includes examination of the patient, discharge planning, medication reconciliation, and communication with other providers. Discharge Instructions Please take this sheet to every appointment for the next month Discharge Instructions Date of Service Oct 13, 2017. Admission Reason for Admission: Syncope Discharge Discharge Diagnosis / Problem: syncope Discharge Goals Goal(s): Decrease discomfort, Improve function Activity Recommendations Activity Limitations: resume your previous activity . Instructions / Follow-Up Instructions / Follow-Up FOLLOWUP WITH FAMILY DOCTOR ON September AT 12:45PM. CHANGING MEDICATIONS: CHANGED TOPROL XL TO 12.5MG DAILY CHANGED IMDUR EXT REL TO 30MG PO DAILY. BLOOD PRESSURE FOLLOWUP WITH FAMILY DOCTOR. Call your Primary Care doctor if any of the following symptoms or problems start or get worse: * Shortness of breath or difficulty breathing * Wake up at night short of breath * Chest pain * Cough * Swelling of your hands, feet, or legs * More fatigued or tired with your normal activity * Palpitations - sudden fast heart beats WEIGHT * Weigh yourself every morning after using the bathroom. * Use the same scale. * Wear the same amount of clothing. * Write your weight down on a chart. * Call your Primary Care doctor if you gain more than 2-3 pounds in 1-2 days. MEDICATIONS * Use this discharge instruction sheet for medication instructions. * Take your medications at the time your doctor ordered. * Do not skip a dose of your medicines. * If you miss a dose of medicine, take it as soon as possible, but DO NOT DOUBLE A DOSE. * Read your medicine information when you get home. * Know all of the side effects of your medicine. If in doubt, ask your pharmacist * Call your Primary Care doctor's office if you have any side effects. * Be sure all of your doctors know what medicine and herbs you take (including cold, flu, and herbal medicine). Take the following with you to your follow-up doctor appointments: * Weight Chart * Medication List * List of questions Do not drink excessive alcohol, beer or wine. Current Hospital Diet Patient's current hospital diet: AHA Diet (Heart Healthy) Discharge Diet Recommended Diet: AHA Diet (Heart Healthy) Pending Studies Studies pending at discharge: no Medical Emergencies . Who to Call and When: Call 911 or go to the Emergency Room if: * If at any time you feel your situation is an emergency * You have tightness or pain in your chest that does not go away with rest or Nitroglycerin * You are very short of breath even with rest . Non-Emergent Contact Non-Emergency issues call your: Primary Care Provider
[2017-10-13 12:06] VITALS: BP 142/69; PULSE 64; TEMP 36.6; O2SAT 94
== END 2017-10-13 14:45 | disposition home or self-care (01) ==
LOC: EDBD 21:03 → C.EDA 21:04 → C.2E 10-12 00:33 → ENRESERV 10-12 00:55
PROVIDERS: ADMIT Internal Medicine; ATTEND Internal Medicine
DX: R55 Syncope and collapse (principal); I25.10 Atherosclerotic heart disease of native coronary artery without angina pectoris; Z95.1 Presence of aortocoronary bypass graft; I12.9 Hypertensive chronic kidney disease with stage 1 through stage 4 chronic kidney disease, or unspecified chronic kidney disease; N18.9 Chronic kidney disease, unspecified; E78.5 Hyperlipidemia, unspecified; K21.9 Gastro-esophageal reflux disease without esophagitis; Z80.42 Family history of malignant neoplasm of prostate; Z86.711 Personal history of pulmonary embolism; K57.90 Diverticulosis of intestine, part unspecified, without perforation or abscess without bleeding; R00.1 Bradycardia, unspecified; Z79.82 Long term (current) use of aspirin; Z79.899 Other long term (current) drug therapy

== ENCOUNTER 2018-11-10 17:24 | Observation (INO) ==
[2018-11-10 18:26] LABS: Basophils # (auto) 0.03 K/uL (0-0.2); Basophils % (auto) 0.4 %; Eosinophils # (auto) 0.09 K/uL (0-0.5); Eosinophils % (auto) 1.1 %; Hematocrit (blood only) 43.7 % (42-52); Hemoglobin 14.6 g/dL (14.0-18.0); Immature Granulocytes # (auto) 0.02 K/uL (0.00-0.02); Immature Granulocytes % (auto) 0.2 %; Lymphocytes # (auto) 2.74 K/uL (1.2-3.4); Lymphocytes % (auto) 32.3 %; Mean Corpuscular Hgb Conc 33.4 g/dL (32-36); Mean Corpuscular Volume 96.5 fL (80-100); Mean Platelet Volume 9.8 fL (7.4-10.4); Monocytes # (auto) 0.76 K/uL (0.11-0.59); Neutrophils # (auto) 4.83 K/uL (1.4-6.5); Platelet Count 265 K/uL (130-400); RDW Coefficient of Variation 14.5 % (11.5-14.5); RDW Standard Deviation 51.4 fL (36.4-46.3); Red Blood Count 4.53 M/uL (4.7-6.1); White Blood Count 8.47 K/uL (4.8-10.8)
[2018-11-10 18:36] LABS: Alanine Aminotransferase 29 U/L (12-78); Albumin Level 3.5 gm/dl (3.4-5.0); Aspartate Aminotransferase 28 U/L (15-37); BUN Creatinine Ratio 13.9 (10-20); Blood Urea Nitrogen 16 mg/dl (7-18); Calcium 9.3 mg/dl (8.5-10.1); Carbon Dioxide 30 mmol/L (21-32); Chloride 107 mmol/L (98-107); Creatinine Clr Calc Pharmacy 45.1 ml/min; Est GFR (African American) 64.1; Est GFR (Non-African American) 55.3; Glucose 92 mg/dl (70-99); Magnesium 2.2 mg/dl (1.8-2.4); Potassium 4.2 mmol/L (3.5-5.1); Sodium 140 mmol/L (136-145)
[2018-11-10 18:38] LABS: Partial Thromboplastin Time 26.6 Seconds (21.0-31.0); Prothrombin Time 10.5 Seconds (9.0-12.0)
--- NOTE | 2018-11-10 18:39 | XRay Report ---
XR chest 1V portable CLINICAL HISTORY: ams mental status change. Dyspnea. COMPARISON STUDY: 10/11/2017 FINDINGS: The bones soft tissues and hemidiaphragms are normal. The cardiomediastinal silhouette is n ormal. The lungs are clear. The pulmonary vasculature is normal. Prior median sternotomy. IMPRESSION: No acute process. The above report was generated using voice recognition software. It may contain grammatical, syntax or spelling errors. Electronically signed by: Tres Avelar M.D. 11/10/2018 6:38 PM
[2018-11-10 18:41] LABS: Albumin Globulin Ratio 0.9 (0.9-2); Alkaline Phosphatase 115 U/L (45-117); Bilirubin,Total 0.6 mg/dl (0.2-1); Globulin 3.7 gm/dl (2.5-4.0); Total Protein 7.2 gm/dl (6.4-8.2); Troponin I < 0.015 ng/ml (0-0.045)
--- NOTE | 2018-11-10 19:11 | CT Scan Report ---
CT head/brain wo con CT DOSE: 537.48 mGy.cm HISTORY: Mental status change Stroke evaluation, aphasia TECHNIQUE: Multiaxial CT images of the head were performed without the use of intravenous contrast. A dose lowering technique was utilized adhering to the principles of ALARA. Comparison: 10/11/2017 Findings: The paranasal sinuses and mastoid air cells are clear. The calvarium and skull base are int act. The ventricles and sulci are within normal limits. There is no mass, hematoma, midline shift, or acute infarct. Age-related atrophy and chronic small vessel change Impression: No acute intracranial abnormality. Age-related atrophy and chronic small vessel change The above report was generated using voice recognition software. It may contain grammatical, syntax or spelling errors. Electronically signed by: Tres Avelar M.D. 11/10/2018 7:10 PM
[2018-11-10] MEDS ORDERED: METOPROLOL SUCC 25MG EXT REL TAB PO SCH (19:50)
[2018-11-10 19:54] LABS: Appearance Urine Clear (Clear); Bilirubin Urine Negative (Negative); Blood Urine Negative (Negative); Color Urine Yellow; Glucose Urine UA Negative (Negative); Ketones Urine Negative (Negative); Leukocyte Esterase Urine Negative (Negative); Nitrite Urine Negative (Negative); Protein Urine Negative (Negative); Specific Gravity Urine 1.015 (1.000-1.030); Urobilinogen Urine Negative (Negative); pH Urine 7.5 (4.5-7.5)
[2018-11-10] MEDS ORDERED: CLOPIDOGREL BISULFATE 75 MG TAB PO ONE (20:31)
--- NOTE | 2018-11-10 20:58 | Emergency Department Note ---
Entered by Yvrose Forrester acting as a scribe for Kobe Tong M.D. History of Present Illness General Chief complaint: Stroke/CVA Symptoms Stated complaint: CVA SX Source: patient History of Present Illness Onset (ago): day(s) (a few days ago) Location: head Pain Consistency: + other (episode) Quality: + other (stroke like symptoms) Associated symptoms: + denies other symptoms (being in any pain, numbness, vision changes, cold symptoms) and + other (difficulty getting his words out); no fever/chills (fever), no loss of appetite and no weakness The patient is an 88 year old male who presents to the Emergency Room with complaints an episode of stroke like symptoms starting a few days ago. The patient states that he was fine when he went to [facility] 3 days ago. He states karma t today he went to the PCP today and they were concerned so they sent him here. He states that he has been having difficulty getting his words out. He states that he knows what he wants to say, but cant get it out. The patient denies ever having this happen before, being in pain, loss of appetite, numbness, weakness, vision changes, fever, and cold symptoms. Home Medications Home Medications Medication Instructions Recorded Confirmed Type Centrum Silver Men 1 tab PO DAILY 06/06/18 11/10/18 History aspirin [Aspir-81] 81 mg PO DAILY 06/06/18 11/10/18 History gabapentin 300 mg PO HS 06/06/18 11/10/18 History magnesium oxide 400 mg PO DAILY 06/06/18 11/10/18 History acetaminophen 1,000 mg PO Q6H PRN 11/10/18 11/10/18 History atorvastatin 40 mg PO DAILY 11/10/18 11/10/18 History calcium carbonate-vitamin D3 1 tab PO BID 11/10/18 11/10/18 History [Calcium 500 With D] docusate sodium [Stool Softener] 100 mg PO BID PRN 11/10/18 11/10/18 History ferrous sulfate 325 mg PO BID 11/10/18 11/10/18 History gabapentin 100 mg PO BID 11/10/18 11/10/18 History isosorbide mononitrate 30 mg PO QAM 11/10/18 11/10/18 History levothyroxine 100 mcg PO QAM 11/10/18 11/10/18 History lisinopril 2.5 mg PO DAILY 11/10/18 11/10/18 History meclizine 12.5 - 25 mg PO TID PRN 11/10/18 11/10/18 History metformin 500 mg PO QAM 11/10/18 11/10/18 History pantoprazole 40 mg PO QAM 11/10/18 11/10/18 History testosterone [Androderm] 1 patch TOPICAL DAILY 11/10/18 11/10/18 History Allergies Allergy/AdvReac Type Severity Reaction Status Date / Time Iodinated Contrast- Oral and Allergy Severe THROAT Verified 06/06/18 18:10 IV Dye TIGHTNESS cefuroxime Allergy Unknown GI UPSET Verified 06/06/18 18:10 onion Allergy Unknown RAW Verified 06/06/18 18:10 ONIONS-BLISTERS ON HANDS AND FEET NSAIDS (Non-Steroidal AdvReac Unknown GI Verified 06/06/18 18:10 Anti-Inflamma BLEEDING- TAKES ASA AT HOME HMG-CoA-R Inhibitors AdvReac Intermediate ELEVATED Uncoded 06/06/18 18:10 LFT'S WITH CRESTOR Past Med/Surg History Medical History HTN (hypertension) (Chronic) Osteoarthritis (Chronic) Diverticulosis (Chronic) GI bleed (Chronic) CAD (coronary artery disease) (Chronic) "s/p CABG 2001 cath 2007 - LAD, RCA, and obtuse marginal 100% occlusion 80% stenosis diagonal #2 patent [place] to LAD graft and saphenous to obtuse marginal occluded saphenous to RCA graft with collaterals" BPH (benign prostatic hyperplasia) (Chronic) Dyslipidemia (Chronic) Hypothyroidism (Chronic) Prostate cancer (Resolved 12/09/11) "Rising PSA while on Avodart to 16.02, clinical stage T1c Status post ultrasound-guided biopsies biopsy stage T2c Shawn grade 4+4 Hormonal suppression Status post prostate seed implant 02/10/2012 received 8500 cGy Status post completion of external radiation with IMRT/IGRT completed 06/22/2012 received 5000 cGy 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, left (Chronic) DVT (deep venous thrombosis) (Chronic) Pulmonary embolism (Chronic) Spontaneous pneumothorax (Chronic) CKD (chronic kidney disease), stage III (Chronic) Pyelonephritis Surgical History History of cholecystectomy (Chronic) History of bilateral knee replacement (Chronic) "revision of left for septic arthritis" 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 and A total of 10 systems reviewed and were otherwise negative Physical Exam Vital Signs Vital Signs - 24 hr 11/10/18 17:30 11/10/18 17:43 11/10/18 17:46 Temperature 36.5 C Temperature Source Oral Sepsis Recent Fever Within 48 Hours No Sepsis New/Unexplained Change in Mental Status No Sepsis Action Taken by Nursing No Action Required Pulse Rate 64 60 65 Pulse Rate from SpO2 Sensor 62 Respiratory Rate 19 23 20 Respiratory Effort / Characteristics Non-Labored Spontaneous Respiratory Depth Normal Respiratory Pattern Regular Blood Pressure 194/97 H 184/90 H 194/97 H Blood Pressure Mean 129 121 129 Pulse Oximetry 96 97 Oxygen Delivery Method Room Air Room Air 11/10/18 18:01 11/10/18 18:31 11/10/18 19:55 Temperature Temperature Source Sepsis Recent Fever Within 48 Hours Sepsis New/Unexplained Change in Mental Status Sepsis Action Taken by Nursing Pulse Rate 64 61 59 L Pulse Rate from SpO2 Sensor 62 Respiratory Rate 26 H 16 21 Respiratory Effort / Characteristics Respiratory Depth Respiratory Pattern Blood Pressure 181/93 H 174/104 H 189/95 H Blood Pressure Mean 122 127 126 Pulse Oximetry 99 94 Oxygen Delivery Method Room Air Room Air 11/10/18 20:01 11/10/18 20:31 Temperature Temperature Source Sepsis Recent Fever Within 48 Hours Sepsis New/Unexplained Change in Mental Status Sepsis Action Taken by Nursing Pulse Rate 55 L 56 L Pulse Rate from SpO2 Sensor Respiratory Rate 25 H 20 Respiratory Effort / Characteristics Respiratory Depth Respiratory Pattern Blood Pressure 182/90 H 161/99 H Blood Pressure Mean 120 119 Pulse Oximetry 94 95 Oxygen Delivery Method Room Air Room Air GENERAL: Awake, alert, well-appearing, in no distress HENT: Normocephalic, atraumatic. EYES: Normal conjunctiva. Sclera non-icteric. PERRL. Extraocular motions intact. NECK: Supple. No nuchal rigidity. RESPIRATORY: Clear to auscultation. No wheezes. Normal respiratory effort. CARDIAC: Normal rate. Normal rhythm. Extremities warm and well perfused. GI: Soft, non-distended. No tenderness to palpation. No rebound or guarding. No masses. RECTAL: Deferred. MUSCULOSKELETAL: Atraumatic. Chest examination reveals no tenderness. LOWER EXTREMITIES: Calves are equal size bilaterally and non-tender. No edema NEURO: Slow to respond. Some aphasia noted. No slurred speech. No sensory or motor deficits noted. No facial droop. No pronator drift. SKIN: Warm and dry. No rash or jaundice noted. Course 1758: The patient was evaluated in room A3. A complete history and physical exam was performed. 1925: I reevaluated the patient and updated him on his test results. I discussed the treatment plan with him at this time. He verbally agrees and understands. 193: I reviewed the patient's case with Dr. Makayla Mccollum. He will evaluate the patient for further management. Consultations Consultation #1: I reviewed the patient's case with Dr. Makayla Mccollum. He will evaluate the patient for further management. Time: 19:32 Administered Medications Metoprolol Succinate (Toprol Xl) 12.5 mg PO HS [facility] Stop: 12/10/18 19:49 Last Admin: 11/10/18 20:40 Dose: Not Given Documented by: [id number] Discontinued Medications Clopidogrel Bisulfate (Plavix) 75 mg PO NOW ONE Stop: 11/10/18 20:32 Last Admin: 11/10/18 20:46 Dose: 75 mg Documented by: [id number] Medical Decision Making Differential Diagnosis Differential Diagnosis includes but is not limited to dehydration, stroke, anemia, hypoglycemia, hyponatremia, hypernatremia, urinary tract infection, pn eumonia, bronchitis, sepsis, gastroenteritis, additional abdominal pathology, metabolic abnormalities and infections. Medical Records Attestation: I reviewed the patient's medical records. Home Medications Current Medication List: was personally reviewed by me Laboratory Data Attestation: I reviewed the patient's lab results. Result diagrams: 11/10/18 17:37 11/10/18 17:37 Lab Results 11/10/18 11/10/18 11/10/18 Range/Units 17:37 17:37 17:37 WBC 8.47 (4.8-10.8) K/uL RBC 4.53 L (4.7-6.1) M/uL Hgb 14.6 (14.0-18.0) g/dL Hct 43.7 (42-52) % MCV 96.5 (80-100) fL MCH 32.2 (25-34) pg MCHC 33.4 (32-36) g/dL RDW Std Deviation 51.4 H (36.4-46.3) fL RDW Coeff of Shraddha 14.5 (11.5-14.5) % Plt Count 265 (130-400) K/uL MPV 9.8 (7.4-10.4) fL Immature Gran % (Auto) 0.2 % Neut % (Auto) 57.0 % Lymph % (Auto) 32.3 % [place] % (Auto) 9.0 % Eos % (Auto) 1.1 % Baso % (Auto) 0.4 % Immature Gran # (Auto) 0.02 (0.00-0.02) K/uL Neut # (Auto) 4.83 (1.4-6.5) K/uL Lymph # (Auto) 2.74 (1.2-3.4) K/uL [place] # (Auto) 0.76 H (0.11-0.59) K/uL Eos # (Auto) 0.09 (0-0.5) K/uL Baso # (Auto) 0.03 (0-0.2) K/uL PT 10.5 (9.0-12.0) Seconds INR 1.0 (0.9-1.1) APTT 26.6 (21.0-31.0) Seconds PTT Ratio 1.0 Sodium 140 (136-145) mmol/L Potassium 4.2 (3.5-5.1) mmol/L Chloride 107 (98-107) mmol/L Carbon Dioxide 30 (21-32) mmol/L Anion Gap 3.0 (3-11) BUN 16 (7-18) mg/dl Creatinine 1.17 (0.6-1.4) mg/dl Est Cr Clr Drug Dosing 45.1 ml/min Est GFR ( Amer) 64.1 Est GFR (Non-Af Amer) 55.3 BUN/Creatinine Ratio 13.9 (10-20) Glucose 92 (70-99) mg/dl Calcium 9.3 (8.5-10.1) mg/dl Magnesium 2.2 (1.8-2.4) mg/dl Total Bilirubin 0.6 (0.2-1) mg/dl AST 28 (15-37) U/L ALT 29 (12-78) U/L Alkaline Phosphatase 115 (45-117) U/L Ammonia (11-32) umol/L Troponin I < 0.015 (0-0.045) ng/ml Total Protein 7.2 (6.4-8.2) gm/dl Albumin 3.5 (3.4-5.0) gm/dl Globulin 3.7 (2.5-4.0) gm/dl Albumin/Globulin Ratio 0.9 (0.9-2) TSH 2.080 (0.300-4.500) uIu/ml Urine Color Urine Appearance (Clear) Urine pH (4.5-7.5) Ur Specific [place] (1.000-1.030) Urine Protein (Negative) Urine Glucose (UA) (Negative) Urine Ketones (Negative) Urine Blood (Negative) Urine Nitrite (Negative) Urine Bilirubin (Negative) Urine Urobilinogen (Negative) Ur Leukocyte Esterase (Negative) Blood Type Antibody Screen 11/10/18 11/10/18 11/10/18 Range/Units 18:29 18:29 19:40 WBC (4.8-10.8) K/uL RBC (4.7-6.1) M/uL Hgb (14.0-18.0) g/dL Hct (42-52) % MCV (80-100) fL MCH (25-34) pg MCHC (32-36) g/dL RDW Std Deviation (36.4-46.3) fL RDW Coeff of Shraddha (11.5-14.5) % Plt Count (130-400) K/uL MPV (7.4-10.4) fL Immature Gran % (Auto) % Neut % (Auto) % Lymph % (Auto) % [place] % (Auto) % Eos % (Auto) % Baso % (Auto) % Immature Gran # (Auto) (0.00-0.02) K/uL Neut # (Auto) (1.4-6.5) K/uL Lymph # (Auto) (1.2-3.4) K/uL [place] # (Auto) (0.11-0.59) K/uL Eos # (Auto) (0-0.5) K/uL Baso # (Auto) (0-0.2) K/uL PT (9.0-12.0) Seconds INR (0.9-1.1) APTT (21.0-31.0) Seconds PTT Ratio Sodium (136-145) mmol/L Potassium (3.5-5.1) mmol/L Chloride (98-107) mmol/L Carbon Dioxide (21-32) mmol/L Anion Gap (3-11) BUN (7-18) mg/dl Creatinine (0.6-1.4) mg/dl Est Cr Clr Drug Dosing ml/min Est GFR ( Amer) Est GFR (Non-Af Amer) BUN/Creatinine Ratio (10-20) Glucose (70-99) mg/dl Calcium (8.5-10.1) mg/dl Magnesium (1.8-2.4) mg/dl Total Bilirubin (0.2-1) mg/dl AST (15-37) U/L ALT (12-78) U/L Alkaline Phosphatase (45-117) U/L Ammonia < 10.0 L (11-32) umol/L Troponin I (0-0.045) ng/ml Total Protein (6.4-8.2) gm/dl Albumin (3.4-5.0) gm/dl Globulin (2.5-4.0) gm/dl Albumin/Globulin Ratio (0.9-2) TSH (0.300-4.500) uIu/ml Urine Color Yellow Urine Appearance Clear (Clear) Urine pH 7.5 (4.5-7.5) Ur Specific [place] 1.015 (1.000-1.030) Urine Protein Negative (Negative) Urine Glucose (UA) Negative (Negative) Urine Ketones Negative (Negative) Urine Blood Negative (Negative) Urine Nitrite Negative (Negative) Urine Bilirubin Negative (Negative) Urine Urobilinogen Negative (Negative) Ur Leukocyte Esterase Negative (Negative) Blood Type A Negative Antibody Screen NEGATIVE Imaging Data Radiologist's Impression: Radiology results as stated below per my review and the radiologist's interpretation: XR chest 1V portable CLINICAL HISTORY: ams mental status change. Dyspnea. COMPARISON STUDY: 10/11/2017 FINDINGS: The bones soft tissues and hemidiaphragms are normal. The cardiomediastinal silhouette is normal. The lungs are clear. The pulmonary vasculature is normal. Prior median sternotomy. IMPRESSION: No acute process. The above report was generated using voice recognition software. It may contain grammatical, syntax or spelling errors. Electronically signed by: Tres Avelar M.D. 11/10/2018 6:[address] head/brain wo con CT DOSE: 537.48 mGy.cm HISTORY: Mental status change Stroke evaluation, aphasia TECHNIQUE: Multiaxial CT images of the head were performed without the use of intravenous contrast. A dose lowering technique was utilized adhering to the principles of ALARA. Comparison: 10/11/2017 Findings: The paranasal sinuses and mastoid air cells are clear. The calvarium and skull base are intact. The ventricles and sulci are within normal limits. There is no mass, hematoma, midline shift, or acute infarct. Age-related atrophy and chronic small vessel change Impression: No acute intracranial abnormality. Age-related atrophy and chronic small vessel change The above report was generated using voice recognition software. It may contain grammatical, syntax or spelling errors. Electronically signed by: Ters Avelar M.D. 11/10/2018 7:10 PM ECG Data Attestation: I personally reviewed and interpreted this ECG as follows: Indication: weakness Rate (beats per minute): 61 Rhythm: sinus rhythm Findings: + other (LAD), + nonspecific-ST abn and + PVC; no ST depression and no ST elevation Blood Pressure Blood Pressure Findings: Elevated blood pressure Blood Pressure Disposition: further management by hospitalist XAVIER Denney 88-year-old gentleman with a past medical history significant for GI bleed, CAD, prostate cancer, DVT,PE, CKD presenting today with complaint new word finding difficulties. Evidently at. Patient states he is unsure when this started but endorses some difficulty finding words but knows he wants to stay. Denies any numbness or tingling. Denies any other weakness. Denies any trauma. States he was okay tripped on Thursday. This is 3 days ago. I was not a TPA candidate given the unknown last known well. CT head is unremarkable. Basic laboratory studies otherwise without acute findings. No evidence of acute cardiac dysfunction or ammonia elevation. Thyroid within normal limits. No significant electrolyte abnormalities. Urinalysis is negative. Discussed with hospitalist for admission for further evaluation of his new onset of aphasia including possible MRI for stroke workup. Impression & Plan Aphasia Discharge Plan Visit Data Chief Complaint: Stroke/CVA Symptoms Stated Complaint: CVA SX ED Provider: Kobe Tong Discharge Problem: Aphasia Patient Disposition: Being Evaluated by Hospitalist Forms Stand Alone Forms: My [facility], Important Visit Information Prescriptions Prescriptions: No Action aspirin [Aspir-81] 81 mg Tablet,Delayed Release (Dr/Ec) 81 mg PO DAILY RF: 0 gabapentin 300 mg Tablet Extended Release 24 Hr 300 mg PO HS RF: 0 Centrum Silver Men 300-600-300 mcg Tablet 1 tab PO DAILY RF: 0 magnesium oxide 400 mg magnesium Tablet 400 mg PO DAILY RF: 0 atorvastatin 40 mg tablet 40 mg PO DAILY RF: 0 isosorbide mononitrate 30 mg tablet extended release 24 hr 30 mg PO QAM RF: 0 Androderm 4 mg/24 hr patch 24 hour 1 patch topical DAILY RF: 0 levothyroxine 100 mcg tablet 100 mcg PO QAM RF: 0 meclizine 25 mg tablet 12.5 - 25 mg PO TID PRN (Reason: Dizziness) RF: 0 pantoprazole 40 mg tablet,delayed release (DR/EC) 40 mg PO QAM RF: 0 docusate sodium [Stool Softener] 100 mg capsule 100 mg PO BID PRN (Reason: Constipation) RF: 0 metformin 500 mg tablet extended release 24 hr 500 mg PO QAM RF: 0 lisinopril 2.5 mg tablet 2.5 mg PO DAILY RF: 0 calcium carbonate-vitamin D3 [Calcium 500 With D] 500 mg(1,250mg) -400 unit Tablet 1 tab PO BID RF: 0 acetaminophen 500 mg Tablet 1,000 mg PO Q6H PRN (Reason: Fever Or Pain) RF: 0 ferrous sulfate 325 mg (65 mg iron) Tablet 325 mg PO BID RF: 0 gabapentin 100 mg Capsule 100 mg PO BID RF: 0 Referrals Referrals: Gisselle Orellana, DO [Primary Care Provider] - The scribe's documentation has been prepared under my direction and personally reviewed by me in its entirety. I confirm that the note above accurately reflects all work, treatment, procedures, and medical decision making performed by me.
--- NOTE | 2018-11-10 21:08 | History & Physical Report ---
Date of Service November 10, 2018 Assessment & Plan (1) Aphasia: Episodic Possible TIA ?Aspirin failure Hypertensive urgency secondary to above CAD status post CABG prostate cancer post radiation history postop PE status post anti-coagulation chronic bradycardia DM 2 currently diet controlled, hemoglobin A1c of 5.8 last year OBS Medical telemetry Neurochecks Plavix for now for possible aspirin failure Permissive hypertension until acute stroke ruled out MRI/MRA of the brain RE episodic aphasia Neurology consult RE episodic aphasia ISS BG goal 140-180, update hemoglobin A1c DVT prophylaxis. Lovenox subcu Full code History of Present Illness Chief Complaint: Could not get the words out Primary Care Provider: Gisselle Orellana, DO History obtained from patient and records. Medical history significant for CAD status post CABG, hypertension, GERD, prostate cancer post radiation, history postop PE status post anti-coagulation, chronic bradycardia, CRI (baseline creatinine 1.3-1.9), DM 2 currently diet controlled Recent confinement May 2018 for diarrhea. Patient noted trouble getting words out the last 3 days. Word finding difficulty, possible right facial muscle weakness noted by patient's Cardiology provider today at the office. Patient denies chest pain, headache. Claims to be compliant with medications. Patient sent to the emergency room. 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 Allergies Allergy/AdvReac Type Severity Reaction Status Date / Time Iodinated Contrast- Oral and Allergy Severe THROAT Verified 06/06/18 18:10 IV Dye TIGHTNESS cefuroxime Allergy Unknown GI UPSET Verified 06/06/18 18:10 onion Allergy Unknown RAW Verified 06/06/18 18:10 ONIONS-BLISTERS ON HANDS AND FEET NSAIDS (Non-Steroidal AdvReac Unknown GI Verified 06/06/18 18:10 Anti-Inflamma BLEEDING- TAKES ASA AT HOME HMG-CoA-R Inhibitors AdvReac Intermediate ELEVATED Uncoded 06/06/18 18:10 LFT'S WITH CRESTOR Home Medications Home Medications Medication Instructions Recorded Confirmed Type Centrum Silver Men 1 tab PO DAILY 06/06/18 11/10/18 History aspirin [Aspir-81] 81 mg PO DAILY 06/06/18 11/10/18 History gabapentin 300 mg PO HS 06/06/18 11/10/18 History magnesium oxide 400 mg PO DAILY 06/06/18 11/10/18 History acetaminophen 1,000 mg PO Q6H PRN 11/10/18 11/10/18 History atorvastatin 40 mg PO DAILY 11/10/18 11/10/18 History calcium carbonate-vitamin D3 1 tab PO BID 11/10/18 11/10/18 History [Calcium 500 With D] docusate sodium [Stool Softener] 100 mg PO BID PRN 11/10/18 11/10/18 History ferrous sulfate 325 mg PO BID 11/10/18 11/10/18 History gabapentin 100 mg PO BID 11/10/18 11/10/18 History isosorbide mononitrate 30 mg PO QAM 11/10/18 11/10/18 History levothyroxine 100 mcg PO QAM 11/10/18 11/10/18 History lisinopril 2.5 mg PO DAILY 11/10/18 11/10/18 History meclizine 12.5 - 25 mg PO TID PRN 11/10/18 11/10/18 History metformin 500 mg PO QAM 11/10/18 11/10/18 History pantoprazole 40 mg PO QAM 11/10/18 11/10/18 History testosterone [Androderm] 1 patch TOPICAL DAILY 11/10/18 11/10/18 History Past Med/Surg History Medical History HTN (hypertension) (Chronic) Osteoarthritis (Chronic) Diverticulosis (Chronic) GI bleed (Chronic) CAD (coronary artery disease) (Chronic) "s/p CABG 2001 cath 2007 - LAD, RCA, and obtuse marginal 100% occlusion 80% stenosis diagonal #2 patent Rebolledo to LAD graft and saphenous to obtuse marginal occluded saphenous to RCA graft with collaterals" BPH (benign prostatic hyperplasia) (Chronic) Dyslipidemia (Chronic) Hypothyroidism (Chronic) Prostate cancer (Resolved 12/09/11) "Rising PSA while on Avodart to 16.02, clinical stage T1c Status post ultrasound-guided biopsies biopsy stage T2c Shawn grade 4+4 Hormonal suppression Status post prostate seed implant 02/10/2012 received 8500 cGy Status post completion of external radiation with IMRT/IGRT completed 06/22/2012 received 5000 cGy 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, left (Chronic) DVT (deep venous thrombosis) (Chronic) Pulmonary embolism (Chronic) Spontaneous pneumothorax (Chronic) CKD (chronic kidney disease), stage III (Chronic) Pyelonephritis Surgical History History of cholecystectomy (Chronic) History of bilateral knee replacement (Chronic) "revision of left for septic arthritis" S/P CABG x 3 (Chronic) "2000" S/P inguinal hernia repair (Chronic) Family History Other No significant family history Social History Preferred Language: Citizen Of [place] Communication Ability: Effective Day Habilitation Specialist Required: No Beliefs That Will Affect Care: None marital status: / Current Living Situation: Alone Current Living Situation Comment: Lives alone independently current occupational status: retired Other Information That Helps Us Care for You: No Feels Safe at Home: Yes Safety Concerns: Feels Safe At This Time Smoking Status: Never smoker Hx Alcohol Use: No Hx Substance Use: No Review of Systems Review of Systems: As per HPI, all 10 systems reviewed, all other ROS negative Physical Exam Vital Signs (Past 24 Hours): Last Vital Signs Temp 36.5 C 11/10/18 17:46 Pulse 56 L 11/10/18 20:31 Resp 20 11/10/18 20:31 BP 161/99 H 11/10/18 20:31 Pulse Ox 95 11/10/18 20:31 Physical Exam: GENERAL: Comfortable, pleasant, no respiratory distress SKIN: normal color, warm HEENT: pale palpebral conjunctivae, no ptosis, dry buccal mucosa NECK : Supple, no tenderness CHEST : Healed sternal scar, CTA, no tenderness HEART : RRR, systolic murmur ABDOMEN: Some distention, non-tender EXTREMITIES : No LE swelling/tenderness, no other conspicuous deformities noted NEUROLOGIC : Coherent, no facial asymmetry, no other gross focality except for mild hearing impairment Results & Data Laboratory Results Laboratory Results WBC 8.47 K/uL (4.8-10.8) 11/10/18 17:37 RBC 4.53 M/uL (4.7-6.1) L 11/10/18 17:37 Hgb 14.6 g/dL (14.0-18.0) 11/10/18 17:37 Hct 43.7 % (42-52) 11/10/18 17:37 MCV 96.5 fL (80-100) 11/10/18 17:37 MCH 32.2 pg (25-34) 11/10/18 17:37 MCHC 33.4 g/dL (32-36) 11/10/18 17:37 RDW Std Deviation 51.4 fL (36.4-46.3) H 11/10/18 17:37 RDW Coeff of Shraddha 14.5 % (11.5-14.5) 11/10/18 17:37 Plt Count 265 K/uL (130-400) 11/10/18 17:37 MPV 9.8 fL (7.4-10.4) 11/10/18 17:37 Immature Gran % (Auto) 0.2 % 11/10/18 17:37 Neut % (Auto) 57.0 % 11/10/18 17:37 Lymph % (Auto) 32.3 % 11/10/18 17:37 [place] % (Auto) 9.0 % 11/10/18 17:37 Eos % (Auto) 1.1 % 11/10/18 17:37 Baso % (Auto) 0.4 % 11/10/18 17:37 Immature Gran # (Auto) 0.02 K/uL (0.00-0.02) 11/10/18 17:37 Neut # (Auto) 4.83 K/uL (1.4-6.5) 11/10/18 17:37 Lymph # (Auto) 2.74 K/uL (1.2-3.4) 11/10/18 17:37 [place] # (Auto) 0.76 K/uL (0.11-0.59) H 11/10/18 17:37 Eos # (Auto) 0.09 K/uL (0-0.5) 11/10/18 17:37 Baso # (Auto) 0.03 K/uL (0-0.2) 11/10/18 17:37 PT 10.5 Seconds (9.0-12.0) 11/10/18 17:37 INR 1.0 (0.9-1.1) 11/10/18 17:37 APTT 26.6 Seconds (21.0-31.0) 11/10/18 17:37 PTT Ratio 1.0 11/10/18 17:37 Sodium 140 mmol/L (136-145) 11/10/18 17:37 Potassium 4.2 mmol/L (3.5-5.1) 11/10/18 17:37 Chloride 107 mmol/L (98-107) 11/10/18 17:37 Carbon Dioxide 30 mmol/L (21-32) 11/10/18 17:37 Anion Gap 3.0 (3-11) 11/10/18 17:37 BUN 16 mg/dl (7-18) 11/10/18 17:37 Creatinine 1.17 mg/dl (0.6-1.4) 11/10/18 17:37 Est Cr Clr Drug Dosing 45.1 ml/min 11/10/18 17:37 Est GFR ( Amer) 64.1 11/10/18 17:37 Est GFR (Non-Af Amer) 55.3 11/10/18 17:37 BUN/Creatinine Ratio 13.9 (10-20) 11/10/18 17:37 Glucose 92 mg/dl (70-99) 11/10/18 17:37 Calcium 9.3 mg/dl (8.5-10.1) 11/10/18 17:37 Magnesium 2.2 mg/dl (1.8-2.4) 11/10/18 17:37 Total Bilirubin 0.6 mg/dl (0.2-1) 11/10/18 17:37 AST 28 U/L (15-37) 11/10/18 17:37 ALT 29 U/L (12-78) 11/10/18 17:37 Alkaline Phosphatase 115 U/L (45-117) 11/10/18 17:37 Ammonia < 10.0 umol/L (11-32) L 11/10/18 18:29 Troponin I < 0.015 ng/ml (0-0.045) 11/10/18 17:37 Total Protein 7.2 gm/dl (6.4-8.2) 11/10/18 17:37 Albumin 3.5 gm/dl (3.4-5.0) 11/10/18 17:37 Globulin 3.7 gm/dl (2.5-4.0) 11/10/18 17:37 Albumin/Globulin Ratio 0.9 (0.9-2) 11/10/18 17:37 TSH 2.080 uIu/ml (0.300-4.500) 11/10/18 17:37 Urine Color Yellow 11/10/18 19:40 Urine Appearance Clear (Clear) 11/10/18 19:40 Urine pH 7.5 (4.5-7.5) 11/10/18 19:40 Ur Specific [place] 1.015 (1.000-1.030) 11/10/18 19:40 Urine Protein Negative (Negative) 11/10/18 19:40 Urine Glucose (UA) Negative (Negative) 11/10/18 19:40 Urine Ketones Negative (Negative) 11/10/18 19:40 Urine Blood Negative (Negative) 11/10/18 19:40 Urine Nitrite Negative (Negative) 11/10/18 19:40 Urine Bilirubin Negative (Negative) 11/10/18 19:40 Urine Urobilinogen Negative (Negative) 11/10/18 19:40 Ur Leukocyte Esterase Negative (Negative) 11/10/18 19:40 Blood Type A Negative 11/10/18 18:29 Antibody Screen NEGATIVE 11/10/18 18:[address] head no acute pathology, age-related atrophy chest x-ray showed no acute process EKG as per my interpretation : Rate 60, NSR, LAD, LAFB, LVH, PVCs
[2018-11-10] MEDS ORDERED: PROCHLORPERAZINE 5 MG in SYRINGE 4 ML IV PRN (22:05)
[2018-11-10] MEDS ORDERED: ACETAMINOPHEN 325 MG TAB PO PRN (22:05)
[2018-11-10] MEDS ORDERED: SODIUM CHLORIDE 0.9% 1000ML 1,000 ML IV STA (22:05)
[2018-11-10] MEDS ORDERED: NITROGLYCERIN SL 0.4 MG/TAB TAB SL PRN (22:05)
[2018-11-10] MEDS ORDERED: DOCUSATE SODIUM 100 MG CAP PO PRN (22:05)
[2018-11-10] MEDS: LISINOPRIL 2.5 MG TAB PO SCH (23:51)
[2018-11-11] MEDS ORDERED: GLUCAGON FOR INJ 1 MG VIAL SQ PRN (03:27)
[2018-11-11] MEDS ORDERED: DEXTROSE 50% 50 ML SYRINGE IV PRN (03:27)
[2018-11-11] MEDS ORDERED: GLUCOSE 40% GEL 15 GM TUBE PO PRN (03:27)
[2018-11-11] MEDS ORDERED: CARBOHYDRATES FOR HYPOGLYCEMIA PO PRN (03:27)
[2018-11-11] MEDS ORDERED: GLUCOSE 10 TABS/TUBE PO PRN (03:27)
[2018-11-11] MEDS: INSULIN ASPART 100 UNITS/ML 3 ML PEN SC SCH ×4 (04:11→21:45)
[2018-11-11 06:08] LABS: Basophils # (auto) 0.04 K/uL (0-0.2); Basophils % (auto) 0.5 %; Eosinophils # (auto) 0.11 K/uL (0-0.5); Eosinophils % (auto) 1.4 %; Hematocrit (blood only) 41.7 % (42-52); Hemoglobin 13.9 g/dL (14.0-18.0); Immature Granulocytes # (auto) 0.03 K/uL (0.00-0.02); Immature Granulocytes % (auto) 0.4 %; Lymphocytes # (auto) 2.39 K/uL (1.2-3.4); Mean Corpuscular Hgb Conc 33.3 g/dL (32-36); Mean Corpuscular Volume 97.4 fL (80-100); Mean Platelet Volume 9.4 fL (7.4-10.4); Monocytes # (auto) 0.72 K/uL (0.11-0.59); Monocytes % (auto) 9.4 %; Neutrophils # (auto) 4.41 K/uL (1.4-6.5); Neutrophils % (auto) 57.3 %; Platelet Count 232 K/uL (130-400); RDW Coefficient of Variation 14.4 % (11.5-14.5); RDW Standard Deviation 51.1 fL (36.4-46.3); Red Blood Count 4.28 M/uL (4.7-6.1)
[2018-11-11] MEDS: PANTOprazole 40 MG TAB PO SCH (06:31)
[2018-11-11 06:32] LABS: Estimated Average Glucose 128 mg/dl; Hemoglobin A1C 6.1 % (4.5-5.6)
[2018-11-11 06:39] LABS: Chol HDL Ratio 4; Cholesterol 130 mg/dl (0-200); HDL Cholesterol 35 mg/dl; LDL Cholesterol Calculated 64 mg/dl; Triglycerides 154 mg/dl (0-150); VLDL Cholesterol 31 mg/dl
--- NOTE | 2018-11-11 07:19 | Magnetic Resonance Report ---
MRA OF THE INTRACRANIAL CIRCULATION WITHOUT CONTRAST CLINICAL HISTORY: Transient ischemic attack. Dizziness. Speech difficulty. Right foot numbness. COMPARISON STUDY: Head CT November 10, 2018 TECHNIQUE: Utilizing a 1.5 Kristy magnet and 3-D [id number] technique, unenhanced MRA of the intra cranial circulation was obtained. FINDINGS: The bilateral M1 and M2 segments are patent. The right A1 segment is hypoplastic, likely on a congenital basis. There are large bilateral posterior communicating arteries. No definite flow is identified within the intracranial portion of the right vertebral artery. The intracranial portion of the left vertebral artery is diminutive. The basilar artery is diminutive. The posterior circulation is largely supplied by the large bilateral posterior communicating arteries. No intracranial aneurys m is identified. No abrupt vessel cut off is identified. IMPRESSION: Diminished flow within the intracranial portion of the right vertebral artery with diminutive intracr anial portion of the left vertebral artery and a diminutive basilar artery. Although age indeterminat e, the findings are probably chronic and related to large bilateral posterior communicating arteries which largely supply the posterior circulation. Electronically signed by: Mauricio Snyder M.D. 11/11/2018 7:17 AM
--- NOTE | 2018-11-11 07:28 | Magnetic Resonance Report ---
Brain MRI WITHOUT CONTRAST HISTORY: Dizziness. Difficulty with speech. TECHNIQUE: Multiplanar multisequence MRI of the brain was performed without the use of contrast. COMPARISON STUDY: Head CT 11/10/2018. Brain MRI 12/20/2014. FINDINGS: There is no mass, hematoma, midline shift, or acute infarct. The paranasal sinuses are nisha r. The mastoid air cells are clear. The ventricles and sulci demonstrate mild age-related involutiona l changes. Scattered foci of T2 hyperintensity seen within the periventricular and subcortical white matter are nonspecific but suggestive of mild microvascular ischemic changes. The major vascular flow voids at the skull base are well-maintained. IMPRESSION: No acute intracranial abnormality. Scattered foci of T2 hyperintensity seen within the periventricula r and subcortical white matter are nonspecific but favor microvascular ischemic change. Electronically signed by: Vik Gomes M.D. 11/11/2018 7:26 AM
[2018-11-11] MEDS: CLOPIDOGREL BISULFATE 75 MG TAB PO SCH (07:49)
[2018-11-11] MEDS: ATORVASTATIN 40 MG TAB PO SCH (07:49)
[2018-11-11] MEDS: FERROUS SULFATE 325 MG TAB PO SCH ×2 (07:49→21:00)
[2018-11-11] MEDS: GABAPENTIN 100 MG CAP PO SCH ×2 (07:49→12:32)
[2018-11-11] MEDS: ASPIRIN 81 MG ECTAB PO SCH (07:49)
[2018-11-11] MEDS: ENOXAPARIN INJ 30 MG/0.3 ML SYR SQ SCH (07:50)
--- NOTE | 2018-11-11 12:29 | Ultrasound Report ---
BILATERAL CAROTID DOPPLER STUDY HISTORY: Aphasia COMPARISON: None. TECHNIQUE: Real-time, grayscale, and color Doppler sonography of the carotid arteries was performed. Imaging reviewed in the transverse and longitudinal planes. All measurements were calculated based on NASCET criteria. FINDINGS: Antegrade flow is seen in the bilateral vertebral arteries. The brachial pressures were not obtained. Mild calcified plaque within the bilateral carotid bifurcations. The peak systolic velocity within the right ICA is 55 cm/s. The right systolic ratio is 0.9. The peak systolic velocity within the left ICA is 54 cm/s. The left systolic ratio is 1.1. IMPRESSION: No hemodynamically significant stenosis seen within the carotid arteries. Electronically signed by: Vik Gomes M.D. 11/11/2018 12:27 PM
--- NOTE | 2018-11-11 13:56 | Neurology Consultation ---
Date of Consultation November 11, 2018 Assessment & Plan (1) Aphasia: 1. MRI with no acute ischemic event 2. home medication aspirin 81 mg would add plavix 75 mg x 21 days then plavix for lifetime 3. optimize HTN, HLD, DM LDL<70 consider patient age 4. follows with Dr Sow at [facility]- recent cardiac holter monitor with no sustained irregular heart rate 5. PT/OT speech for any discharge needs 6. lives alone- may need some nursing visits for patient safety 7. ZIO as outpatient neurology Katt Rod PAC schedule 4-6 weeks. Supervising Physician Co-Signing Physician Notes I have seen and discussed above patient with Dr Katt Lowe, neurology Pt seen and examined. NO current neurolog deficit. Pt had 1/2 hour of aphasia without headache or alteration of consciousness. Suspect large vessel TIA. Anti- plt tx as above. REc zio as outpt MD Ronald History of Present Illness Reason for Consultation: transient aphasia Requesting Physician: Javad Low MD Attending Physician: Javad Low MD History of Present Illness Thom is an 88 year old male who has a H CAD s/p CABG 01/2001, HTN, GERD, prostrate CA post radiation, history postop PE status post anti-coagulation, chronic shmuel cardia, CRI, DM 2 who was having trouble getting words out the last 3 days. He was at his cardiology appointment and had some word finding issues and possible right facial droop. He was then sent to the ED. He denies CP, SOB, abdominal pain, one sided weakness, numbness tingling, N, V, vision changes swallowing issues. 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 He has know CAD severe with evaluation 09/2007 Allergies Allergy/AdvReac Type Severity Reaction Status Date / Time Iodinated Contrast- Oral and Allergy Severe THROAT Verified 06/06/18 18:10 IV Dye TIGHTNESS cefuroxime Allergy Unknown GI UPSET Verified 06/06/18 18:10 onion Allergy Unknown RAW Verified 06/06/18 18:10 ONIONS-BLISTERS ON HANDS AND FEET NSAIDS (Non-Steroidal AdvReac Unknown GI Verified 06/06/18 18:10 Anti-Inflamma BLEEDING- TAKES ASA AT HOME HMG-CoA-R Inhibitors AdvReac Intermediate ELEVATED Uncoded 06/06/18 18:10 LFT'S WITH CRESTOR Home Medications Home Medications Medication Instructions Recorded Confirmed Type Centrum Silver Men 1 tab PO DAILY 06/06/18 11/10/18 History aspirin [Aspir-81] 81 mg PO DAILY 06/06/18 11/10/18 History gabapentin 300 mg PO HS 06/06/18 11/10/18 History magnesium oxide 400 mg PO DAILY 06/06/18 11/10/18 History acetaminophen 1,000 mg PO Q6H PRN 11/10/18 11/10/18 History atorvastatin 40 mg PO DAILY 11/10/18 11/10/18 History calcium carbonate-vitamin D3 1 tab PO BID 11/10/18 11/10/18 History [Calcium 500 With D] docusate sodium [Stool Softener] 100 mg PO BID PRN 11/10/18 11/10/18 History ferrous sulfate 325 mg PO BID 11/10/18 11/10/18 History gabapentin 100 mg PO BID 11/10/18 11/10/18 History isosorbide mononitrate 30 mg PO QAM 11/10/18 11/10/18 History levothyroxine 100 mcg PO QAM 11/10/18 11/10/18 History lisinopril 2.5 mg PO DAILY 11/10/18 11/10/18 History meclizine 12.5 - 25 mg PO TID PRN 11/10/18 11/10/18 History metformin 500 mg PO QAM 11/10/18 11/10/18 History pantoprazole 40 mg PO QAM 11/10/18 11/10/18 History testosterone [Androderm] 1 patch TOPICAL DAILY 11/10/18 11/10/18 History Patient History Medical History HTN (hypertension) (Chronic) Osteoarthritis (Chronic) Diverticulosis (Chronic) GI bleed (Chronic) CAD (coronary artery disease) (Chronic) "s/p CABG 2001 cath 2007 - LAD, RCA, and obtuse marginal 100% occlusion 80% stenosis diagonal #2 patent Rebolledo to LAD graft and saphenous to obtuse marginal occluded saphenous to RCA graft with collaterals" BPH (benign prostatic hyperplasia) (Chronic) Dyslipidemia (Chronic) Hypothyroidism (Chronic) Prostate cancer (Resolved 12/09/11) "Rising PSA while on Avodart to 16.02, clinical stage T1c Status post ultrasound-guided biopsies biopsy stage T2c [place] grade 4+4 Hormonal suppression Status post prostate seed implant 02/10/2012 received 8500 cGy Status post completion of external radiation with IMRT/IGRT completed 06/22/2012 received 5000 cGy 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, left (Chronic) DVT (deep venous thrombosis) (Chronic) Pulmonary embolism (Chronic) Spontaneous pneumothorax (Chronic) CKD (chronic kidney disease), stage III (Chronic) Pyelonephritis Surgical History History of cholecystectomy (Chronic) History of bilateral knee replacement (Chronic) "revision of left for septic arthritis" S/P CABG x 3 (Chronic) "2000" S/P inguinal hernia repair (Chronic) Family History Other No significant family history Social History Preferred Language: [place]i Communication Ability: Effective Microsoft Net Developer Required: No Beliefs That Will Affect Care: None marital status: / Current Living Situation: Alone Current Living Situation Comment: Lives alone independently current occupational status: retired Other Information That Helps Us Care for You: No Feels Safe at Home: Yes Safety Concerns: Feels Safe At This Time Smoking Status: Never smoker Hx Alcohol Use: No Hx Substance Use: No Physical Exam Physical Exam: Physical Exam: Constitutional: appearance nourished, healthy and normal Ears, Nose, Mouth and Throat: mucous membranes moist, no injection and skin normal, eyes normal Cardiovascular: normal S-1 and S-2 and regular rate and rhythm Respiratory: clear to auscultation (CTA) and no rales, rhonchi or wheeze Musculoskeletal: no peripheral edema and good distal pulses Skin: no stigmata of neurocutaneous disease noted and normal and intact Eyes: extraocular muscles intact (EOMI) and pupils equal, round and reactive to light (PERRL), gross peripheral vision intact NEUROLOGIC EXAMINATION: Mental status: Alert and interactive Oriented to full date and location Oriented to person Speech fluent closes eye sticks out tongue points to ceiling with left hand, knows [facility], 2019 president Sam Cranial Nerves smile eye brow raise symmetric Sensory: no sensory deficits, light cool touch Coordination: finger to nose no bi pass Gait/Stance: Posture normal. sitting in bed side chair Motor: Negative for pronator drift of out stretched arms with eyes closed. Strength: biceps triceps hand culinary manager 5/5 bilaterally, hip flex plantar flex ext Results & Data Vital Signs (Past 12 Hours) Vital Signs Temp Pulse Pulse Resp BP BP Pulse Ox 11/11/18 11:46 36.3 C L 79 18 134/82 96 11/11/18 07:19 61 11/11/18 07:09 36.8 C 55 L 18 152/79 H 93 11/11/18 04:00 36.3 C L 56 L 16 161/83 H 96 Laboratory Results Abnormal lab results 11/10/18 11/10/18 11/11/18 Range/Units 17:37 18:29 05:51 RBC 4.53 L 4.28 L (4.7-6.1) M/uL Hgb 13.9 L (14.0-18.0) g/dL Hct 41.7 L (42-52) % RDW Std Deviation 51.4 H 51.1 H (36.4-46.3) fL Immature Gran # (Auto) 0.03 H (0.00-0.02) K/uL [place] # (Auto) 0.76 H 0.72 H (0.11-0.59) K/uL POC Glucose (70-99) Hemoglobin A1c (4.5-5.6) % Ammonia < 10.0 L (11-32) umol/L Triglycerides (0-150) mg/dl 11/11/18 11/11/18 11/11/18 Range/Units 05:51 05:51 12:22 RBC (4.7-6.1) M/uL Hgb (14.0-18.0) g/dL Hct (42-52) % RDW Std Deviation (36.4-46.3) fL Immature Gran # (Auto) (0.00-0.02) K/uL [place] # (Auto) (0.11-0.59) K/uL POC Glucose 105 H (70-99) Hemoglobin A1c 6.1 H (4.5-5.6) % Ammonia (11-32) umol/L Triglycerides 154 H (0-150) mg/dl Diagnostic Findings CXR-No acute process. CT head- No acute intracranial abnormality. Age-related atrophy and chronic small vessel change MRI brain -No acute intracranial abnormality. Scattered foci of T2 hyperintensity seen within the periventricular and subcortical white matter are nonspecific but favor microvascular ischemic change. MRA-Diminished flow within the intracranial portion of the right vertebral artery with diminutive intracranial portion of the left vertebral artery and a diminutive basilar artery. Although age indeterminate, the findings are probably chronic and related to large bilateral posterior communicating arteries which largely supply the posterior circulation. carotid doppler-No hemodynamically significant stenosis seen within the carotid arteries. [employer] records no sustained irregular rate/rhythm -holter monitor 10/25/2018
--- NOTE | 2018-11-11 18:37 | Hospitalist Progress Note ---
Date of Service November 11, 2018 Assessment & Plan (1) Aphasia: Was sent from cardiology office after having trouble to find words and possible right facial droop. CT head showed no acute intracranial abnormality. MRI showed No acute intracranial abnormality. MRA head showed diminished flow within the intracranial portion of the right vertebral artery with diminutive intracranial portion of the left vertebral artery and a diminutive basilar artery. Carotid u/s showed no hemodynamically significant stenosis seen within the carotid arteries. Was starting on plavix LDL 64 and cholesterol 130 Continue aspirin and statin Neuro on board recommended to aspirin 81 mg and plavix 75 mg x 21 days then plavix for lifetime PT/OT recommended inpatient therapy due to risk of fall Pt does not want to go to rehab Speech on board ZIO as outpatient Follow up with neurology Katt Rod PAC schedule 4-6 weeks. Hypertension BP elevated on admission, possible due to hospital setting BP improved Continue isosorbide mononitrate and Lisinopril continue monitor BP CAD (coronary artery disease): Denies any chest pain Continue statin and aspirin stable CKD (chronic kidney disease), stage III: creatinine stable DVT px on heparin subq Code status FULL CODE Disposition Possible rehab Subjective Pt was seen and examined Sitting in chair with no distress Pt said that he feels fine he said that his speech is back to baseline Friend and associate material handler at bedside and said that they did not see anything usually Denies any chest pain, palpitation, dizziness and SOB Physical Exam Physical Exam: General- No acute distress Head- atraumatic Eyes- PERRL, EOMI, ENT- oropharynx clear Neck- supple, no JVD Lungs- clear to auscultation Heart- regular rhythm Abdomen- normal bowel sounds, soft, nontender Extremities- no calf tenderness Neuro- alert, oriented x 3; PERRL, EOMI; no facial palsy; no dysarthria Skin- warm & dry Results & Data Vital Signs (Past 12 Hours) Vital Signs Temp Pulse Pulse Pulse Resp BP BP 11/11/18 16:00 36.9 C 68 18 124/71 11/11/18 11:46 36.3 C L 79 18 134/82 11/11/18 07:19 61 11/11/18 07:09 36.8 C 55 L 18 152/79 H Pulse Ox 11/11/18 16:00 100 11/11/18 11:46 96 11/11/18 07:19 11/11/18 07:09 93
[2018-11-11] MEDS: LISINOPRIL 2.5 MG TAB PO SCH (21:00)
[2018-11-11] MEDS: GABAPENTIN 300 MG CAP PO SCH (21:00)
[2018-11-12] MEDS: PANTOprazole 40 MG TAB PO SCH (06:40)
[2018-11-12] MEDS: CLOPIDOGREL BISULFATE 75 MG TAB PO SCH (08:05)
[2018-11-12] MEDS: ATORVASTATIN 40 MG TAB PO SCH (08:05)
[2018-11-12] MEDS: INSULIN ASPART 100 UNITS/ML 3 ML PEN SC SCH ×4 (08:06→21:24)
[2018-11-12] MEDS: FERROUS SULFATE 325 MG TAB PO SCH ×2 (08:06→20:23)
[2018-11-12] MEDS: GABAPENTIN 100 MG CAP PO SCH ×2 (08:06→12:53)
[2018-11-12] MEDS: ENOXAPARIN INJ 30 MG/0.3 ML SYR SQ SCH (08:06)
[2018-11-12] MEDS: ASPIRIN 81 MG ECTAB PO SCH (08:06)
[2018-11-12] MEDS ORDERED: HydrALAZINE HCL 20 MG/ML VIAL IV PRN (08:22)
[2018-11-12] MEDS ORDERED: AMLODIPINE BESYLATE 5 MG TAB PO SCH (09:00)
--- NOTE | 2018-11-12 12:45 | Neurology Progress Note ---
Date of Service November 12, 2018 Assessment & Plan (1) Aphasia: 1. MRI with no acute ischemic event 2. home medication aspirin 81 mg would add plavix 75 mg x 21 days then plavix for lifetime 3. optimize HTN, HLD, DM LDL<70 consider patient age 4. follows with Dr Sow at [facility]- recent cardiac holter monitor with no sustained irregular heart rate 5. PT/OT speech for any discharge needs 6. lives alone- is in agreement to have rehab stay prior to return home 7. ZIO as outpatient neurology Katt Rod PAC schedule 4-6 weeks. Supervising Physician Co-Signing Physician Notes I have seen and discussed above patient with Dr Giuseppe Mckeon, neurology I see Mr. rashid today, interviewed him, examined him, reviewed the history and discussed the case with Katt Rod PA-C. He is currently virtually asym ptomatic has no aphasia but yesterday may have had a brief episode of a aphasia the prompted admission and fortunately was not associated with any demonstrable cerebrovascular accident on appropriate imaging studies He is being treated with dual antiplatelet therapy for 3 weeks we will see him back in our clinic in 4-6 weeks and currently he will apparently be going off to a rehabilitation facility for evaluation prior to returning him home the does live alone and is somewhat frail and may well have a significant fall risk Giuseppe Tomas is an 88 year old male who has a [facility] CAD s/p CABG 01/2001, HTN, GERD, prostrate CA post radiation, history postop PE status post anti-coagulation, chronic shmuel cardia, CRI, DM 2 who was having trouble getting words out the last 3 days. He was at his cardiology appointment and had some word finding issues and possible right facial droop. He was then sent to the ED. 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 He has know CAD severe with evaluation 09/2007 Today he feels he is doing well. PT/OT felt he should have rehab prior to return home. He is agreement. He denies CP, SOB, abdominal pain, one sided weakness, numbness tingling, N, V, vision changes swallowing issues. Physical Exam Physical Exam: Gen: alert NAD lungs CTA CV RRR neuro: facial symmetry, tongue midline year 2018, [facility] sitting bedside eating lunch Results & Data Vital Signs (Past 12 Hours) Vital Signs Temp Pulse Pulse Resp BP BP Pulse Ox 11/12/18 11:57 36.4 C L 54 L 20 171/84 H 167/83 H 11/12/18 08:00 48 L 11/12/18 07:27 36.3 C L 54 L 20 176/84 H 193/87 H 98 11/12/18 04:41 36.5 C 44 L 18 153/76 H 95 Laboratory Results Abnormal lab results 11/11/18 Range/Units 21:05 POC Glucose 118 H (70-99) Diagnostic Findings no new imaging
[2018-11-12] MEDS: LISINOPRIL 2.5 MG TAB PO SCH (20:21)
[2018-11-12] MEDS: GABAPENTIN 300 MG CAP PO SCH (20:23)
--- NOTE | 2018-11-12 21:14 | Hospitalist Progress Note ---
Date of Service November 12, 2018 Assessment & Plan (1) Aphasia: Was sent from cardiology office after having trouble to find words and possible right facial droop. CT head showed no acute intracranial abnormality. MRI showed No acute intracranial abnormality. MRA head showed diminished flow within the intracranial portion of the right vertebral artery with diminutive intracranial portion of the left vertebral artery and a diminutive basilar artery. Carotid u/s showed no hemodynamically significant stenosis seen within the carotid arteries. LDL 64 and cholesterol 130 Continue aspirin and statin Neuro on board recommended to aspirin 81 mg and plavix 75 mg x 21 days then plavix for lifetime PT/OT recommended inpatient therapy due to risk of fall Speech on board ZIO as outpatient Waiting on placement for rehab Follow up with neurology Katt Rod PAC schedule 4-6 weeks. Hypertension BP elevated on admission, possible due to hospital setting BP improved Continue isosorbide mononitrate and Lisinopril continue monitor BP CAD (coronary artery disease): Denies any chest pain Continue statin and aspirin stable CKD (chronic kidney disease), stage III: creatinine stable DVT px on heparin subq Code status FULL CODE Disposition Waiting for placement to rehab Subjective Pt was seen and examined Lying in bed with no distress Denies any complaint At first he did not want to go to rehab, but after his daughter talked to him He agreed to go to rehb Waiting for placement to rehab Physical Exam Physical Exam: General- No acute distress Head- atraumatic Eyes- PERRL, EOMI, ENT- oropharynx clear Neck- supple, no JVD Lungs- clear to auscultation Heart- regular rhythm Abdomen- normal bowel sounds, soft, nontender Extremities- no calf tenderness Neuro- alert, oriented x 3; PERRL, EOMI; no facial palsy; no dysarthria Skin- warm & dry Results & Data Vital Signs (Past 12 Hours) Vital Signs Temp Pulse Pulse Pulse Resp BP BP 11/12/18 20:18 55 L 158/90 H 11/12/18 19:52 36.8 C 54 L 18 178/90 H 11/12/18 16:00 59 L 11/12/18 14:58 36.3 C L 56 L 20 152/83 H 11/12/18 11:57 36.4 C L 54 L 20 171/84 H 167/83 H Pulse Ox 11/12/18 20:18 11/12/18 19:52 98 11/12/18 16:00 11/12/18 14:58 96 11/12/18 11:57
[2018-11-13] MEDS: PANTOprazole 40 MG TAB PO SCH (06:07)
[2018-11-13] MEDS ORDERED: LEVOTHYROXINE SODIUM 100 MCG TABLET PO SCH (06:30)
[2018-11-13] MEDS: ATORVASTATIN 40 MG TAB PO SCH (08:23)
[2018-11-13] MEDS: CLOPIDOGREL BISULFATE 75 MG TAB PO SCH (08:23)
[2018-11-13] MEDS: INSULIN ASPART 100 UNITS/ML 3 ML PEN SC SCH ×2 (08:23→12:14)
[2018-11-13] MEDS: ENOXAPARIN INJ 30 MG/0.3 ML SYR SQ SCH (08:23)
[2018-11-13] MEDS: GABAPENTIN 100 MG CAP PO SCH (08:23)
[2018-11-13] MEDS: ASPIRIN 81 MG ECTAB PO SCH (08:24)
[2018-11-13] MEDS: FERROUS SULFATE 325 MG TAB PO SCH (08:24)
--- NOTE | 2018-11-13 11:13 | Hospitalist Progress Note ---
Date of Service November 13, 2018 Assessment & Plan (1) TIA (transient ischemic attack): Presented with expressive aphasia and possible right facial palsy. Neuroimaging by CT and MRI showed small vessel ischemic disease, no acute vascular event. Carotid duplex showed mild plaque, no hemodynamically significant stenosis. MRA brain showed: " Diminished flow within the intracranial portion of the right vertebral artery with diminutive intracranial portion of the left vertebral artery and a d iminutive basilar artery." Cardiac rhythm was NSR / SB. Symptoms resolved. Seen in consultation by Neurology. Possible TIA. Patient was taking aspirin at home. Dual antiplatelet therapy with aspirin and clopidogrel recommended for 3 weeks, then single antiplatelet therapy with clopidogrel intermediate. LDL-c 64 on atorvastatin. Outpatient cardiac monitoring with ZIO patch recommended. Seen by PT, OT, AVIATION SAFETY OFFICER. [place] that patient was a fall risk and is unsafe to return home at this time. Skilled care for PT / OT recommended. (2) CAD (coronary artery disease): No anginal symptoms. Antiplatelet therapy as discussed above. No beta lizzie due to bradycardia. Continue isosorbide, lisinopril, atorvastatin. (3) HTN (hypertension): Continue lisinopril and isosorbide mononitrate. Avoid excessive lowering of BP in light of vertebrobasilar insufficiency. (4) CKD (chronic kidney disease), stage III: Serum creatinine 1.17. Follow. (5) Hypothyroidism: TSH normal. Continue levothyroxine. (6) Dyslipidemia: LDL-c 64. Continue atorvastatin. (7) Diabetes mellitus type 2, controlled: Hgb A1C 6.1. Metformin held during hospital stay. FBS today = 95. Will resume metformin at time of discharge, but may be reasonable to consider discontinuation in the future given current recommendations for glycemic goals in the elderly population. (8) DVT prophylaxis: Receiving enoxparin. Ambulating. (9) Discharge planning issues: Lives at home by himself. Seen by PT, OT, AVIATION SAFETY OFFICER. [place] that patient was a fall risk and is unsafe to return home at this time. Skilled care for PT / OT recommended. Case Management following. Peer-peer phone call made for insurance preauthorization. Subjective Recheck for expressive aphasia and other problems. Patient seen in his room around 10:30. Doing well. Expressive aphasia has resolved. No other neuro symptoms. No CP or SOB. No nausea, vomiting. Physical Exam Constitutional: no acute distress Respiratory: no respiratory distress Auscultation: lungs clear to auscultation bilaterally Cardiovascular: Rate/Rhythm: regular rate and regular rhythm Heart Sounds: no gallop, no murmur and no cardiac rub Vessels: no JVD Extremities: no calf tenderness and no edema Gastrointestinal (Abdomen): normal bowel sounds, soft, nontender, no hepatosplenomegaly Skin: no rashes, warm and dry Neurologic: alert, oriented PERRL, EOMI no facial palsy no dysarthria or aphasia motor strength upper and lower extremities 5/5 Psychiatric: Orientation: alert and oriented x 3 Results & Data Vital Signs (Past 12 Hours) Vital Signs Temp Pulse Resp BP Pulse Ox 11/13/18 07:28 36.9 C 51 L 18 139/78 95 11/13/18 03:48 36.6 C 58 L 16 122/55 L 93 11/12/18 23:52 36.4 C L 57 L 20 113/65 94
--- NOTE | 2018-11-13 13:23 | Discharge Summary ---
Date of Service Date of Admission: 11/10/18 Date of Discharge: 11/13/18 Admission HPI Per Admitting Provider History obtained from patient and records. Medical history significant for CAD status post CABG, hypertension, GERD, prostate cancer post radiation, history postop PE status post anti-coagulation, chronic bradycardia, CRI (baseline creatinine 1.3-1.9), DM 2 currently diet controlled Recent confinement May 2018 for diarrhea. Patient noted trouble getting words out the last 3 days. Word finding difficulty, possible right facial muscle weakness noted by patient's Cardiology provider today at the office. Patient denies chest pain, headache. Claims to be compliant with medications. Patient sent to the emergency room. 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 Admission Exam Per Admitting Provider GENERAL: Comfortable, pleasant, no respiratory distress SKIN: normal color, warm HEENT: pale palpebral conjunctivae, no ptosis, dry buccal mucosa NECK : Supple, no tenderness CHEST : Healed sternal scar, CTA, no tenderness HEART : RRR, systolic murmur ABDOMEN: Some distention, non-tender EXTREMITIES : No LE swelling/tenderness, no other conspicuous deformities noted NEUROLOGIC : Coherent, no facial asymmetry, no other gross focality except for mild hearing impairment Principal Diagnosis expressive aphasia, possible TIA Discharge Data Allergies Allergy/AdvReac Type Severity Reaction Status Date / Time Iodinated Contrast- Oral and Allergy Severe THROAT Verified 06/06/18 18:10 IV Dye TIGHTNESS cefuroxime Allergy Unknown GI UPSET Verified 06/06/18 18:10 onion Allergy Unknown RAW Verified 06/06/18 18:10 ONIONS-BLISTERS ON HANDS AND FEET NSAIDS (Non-Steroidal AdvReac Unknown GI Verified 06/06/18 18:10 Anti-Inflamma BLEEDING- TAKES ASA AT HOME HMG-CoA-R Inhibitors AdvReac Intermediate ELEVATED Uncoded 06/06/18 18:10 LFT'S WITH CRESTOR Consultations 11/10/18 19:38 ED Decision to Admit Stat 11/10/18 22:05 Consult Case Management - Discharge Planning Routine Consult Neurology Routine Ordered Studies 11/10/18 18:07 CT head/brain wo con Stat 11/11/18 00:06 MR angio head wo con Routine MR brain wo con Routine 11/11/18 10:58 US carotid doppler BI Routine Hospital Course (1) TIA (transient ischemic attack): Presented with expressive aphasia and possible right facial palsy. Neuroimaging by CT and MRI showed small vessel ischemic disease, no acute vascular event. Carotid duplex showed mild plaque, no hemodynamically significant stenosis. MRA brain showed: " Diminished flow within the intracranial portion of the right vertebral artery with diminutive intracranial portion of the left vertebral artery and a diminutive basilar artery." Cardiac rhythm was NSR / SB. Symptoms resolved. Seen in consultation by Neurology. Possible TIA. Patient was taking aspirin at home. Dual antiplatelet therapy with aspirin and clopidogrel recommended for 3 weeks, then single antiplatelet therapy with clopidogrel parts counterman. LDL-c 64 on atorvastatin. Outpatient cardiac monitoring with ZIO patch recommended. Seen by PT, OT, LEGAL INVESTIGATOR. [place] that patient was a fall risk and is unsafe to return home at this time. Skilled care for PT / OT recommended. (2) CAD (coronary artery disease): No anginal symptoms. Antiplatelet therapy as discussed above. No beta lizzie due to bradycardia. Continue isosorbide, lisinopril, atorvastatin. (3) HTN (hypertension): Continue lisinopril and isosorbide mononitrate. Avoid excessive lowering of BP in light of vertebrobasilar insufficiency. (4) CKD (chronic kidney disease), stage III: Serum creatinine 1.17. Follow. (5) Hypothyroidism: TSH normal. Continue levothyroxine. (6) Dyslipidemia: LDL-c 64. Continue atorvastatin. (7) Diabetes mellitus type 2, controlled: Hgb A1C 6.1. Metformin held during hospital stay. FBS today = 95. Will resume metformin at time of discharge, but may be reasonable to consider discontinuation in the future given current recommendations for glycemic goals in the elderly population. (8) DVT prophylaxis: Receiving enoxparin. Ambulating. (9) Discharge planning issues: Lives at home by himself. Seen by PT, OT, LEGAL INVESTIGATOR. [place] that patient was a fall risk and is unsafe to return home at this time. Skilled care for PT / OT recommended. Arrangements being made for transfer to [facility]. Family Medicine follow-up with Dr. Orellana after DC from [facility]. Neurology follow-up with Dr. Mckeon about 1 month after DC. Total Time Total Time Spent Total Time Spent (In Minutes): 45 Discharge Plan Discharge Items Patient Disposition: Transfer [facility] Fac Reason For Visit: difficulty speaking Discharge Diagnosis: possible TIA ("ministroke") Condition: Good Discharge Goals: Improve disease control and Improve function Activity: Per 'Additional Instructions' section Activity Comment: walk with care and assistance Non-emergency contact: Primary Care Provider, Hospitalist, Associate Publisher and Neurologist Call non-emergency contact if: you have any medication questions and your symptoms worsen Follow-up/Referrals: Gisselle Orellana DO [Primary Care Provider] - (Please arrange for follow-up visit about 1 week after discharge from your facility.) Giuseppe Mckeon MD [Physician] - (Please arrange for follow-up visit about 1 month after discharge from your facility.) Diet: Carb Consistent or DM2 and Heart Healthy Addtl Provider Instructions: Continue aspirin 81 mg daily + clopidogrel (Plavix) 75 mg daily for 3 weeks. After that, stop aspirin and continue clopidogrel (Plavix). Patient will need a prescription for clopidogrel (Plavix) when discharged from your facility. Thank you for receiving this patient in transfer. Please call if you have any questions. Giuseppe Cornell Prescriptions: New clopidogrel 75 mg Tablet 75 mg PO QAM Qty: 30 RF: 12 Continued aspirin [Aspir-81] 81 mg Tablet,Delayed Release (Dr/Ec) 81 mg PO DAILY RF: 0 gabapentin 300 mg Tablet Extended Release 24 Hr 300 mg PO HS RF: 0 Centrum Silver Men 300-600-300 mcg Tablet 1 tab PO DAILY RF: 0 magnesium oxide 400 mg magnesium Tablet 400 mg PO DAILY RF: 0 atorvastatin 40 mg tablet 40 mg PO DAILY RF: 0 isosorbide mononitrate 30 mg tablet extended release 24 hr 30 mg PO QAM RF: 0 Androderm 4 mg/24 hr patch 24 hour 1 patch topical DAILY RF: 0 levothyroxine 100 mcg tablet 100 mcg PO QAM RF: 0 meclizine 25 mg tablet 12.5 - 25 mg PO TID PRN (Reason: Dizziness) RF: 0 pantoprazole 40 mg tablet,delayed release (DR/EC) 40 mg PO QAM RF: 0 docusate sodium [Stool Softener] 100 mg capsule 100 mg PO BID PRN (Reason: Constipation) RF: 0 metformin 500 mg tablet extended release 24 hr 500 mg PO QAM RF: 0 lisinopril 2.5 mg tablet 2.5 mg PO DAILY RF: 0 calcium carbonate-vitamin D3 [Calcium 500 With D] 500 mg(1,250mg) -400 unit Tablet 1 tab PO BID RF: 0 acetaminophen 500 mg Tablet 1,000 mg PO Q6H PRN (Reason: Fever Or Pain) RF: 0 ferrous sulfate 325 mg (65 mg iron) Tablet 325 mg PO BID RF: 0 gabapentin 100 mg Capsule 100 mg PO BID RF: 0 Stand-Alone Forms: Count Includes [facility] Skilled Items Patient informed of condition?: Yes DNR: No Discharge Level of Care: Skilled Communicable Disease: No Discharge Prognosis: Improving Admission Data Admit Date/Time: 11/10/18 21:10 Attending Provider: Giuseppe Cornell Admit Provider: Reece Barnes Primary Care Provider: Gisselle Orellana Other Providers: Reece Barnes ; Katt Rod ; Giuseppe Mckeon ; Katt Lowe ; Reinaldo Hunter ; Mau Rey ; Javad Low Service: Telemetry Medical Other Pending Studies at Discharge: No
== END 2018-11-13 14:23 ==
LOC: ED 17:24 → 2N 17:24 → SUATTDRO 21:10 → 2N 21:40

== ENCOUNTER 2019-04-06 17:03 | Inpatient (IN) ==
--- OUTSIDE RECORDS SUMMARY | 2019-04-06 17:10 | External Medical Summary | Continuity of Care Document ---
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 (185) (C61) Urinary symptom or sign (788.99) (R39.9) Urinary symptom or sign (788.99) (R39.9) Nephrolithiasis (592.0) (N20.0) Ureteral stone (592.1) (N20.1) Retention of urine (788.20) (R33.9) Dysuria (788.1) (R30.0) Urinary tract infection (599.0) (N39.0) Nocturnal enuresis (788.36) (N39.44) Slowing of urinary stream (788.62) (R39.198) Allergies and Adverse Reactions Ceftin TABS (Allergy) Status: Denied Contrast Media Ready-Box MISC (Allergy) HMG-CoA-R Inhibitors (Allergy) Status: D enied Iodine SOLN (Allergy) NSAIDs (Allergy) Status: Denied Other (Allergy) Medications Phospha 250 Neutral TABS Refills: 0 Nicotinic Acid CPCR Refills: 0 Metoprolol Tartrate 25 MG Oral Tablet Refills: 0 Klor-Con M10 10 MEQ Oral Tablet Extended Release Refills: 0 Isosorbide Dinitrate 5 MG Oral Tablet Refills: 0 Furosemide 20 MG Oral Tablet Refills: 0 Ferrous Sulfate TABS Refills: 0 Vitamin D3 TABS Refills: 0 Niacin 500 MG Oral Tablet; TAKE 2 TABLETS DAILY. Refills: 0 OxyCONTIN 10 MG TB12 Refills: 0 Multivital TABS Refills: 0 Lipitor 80 MG Oral Tablet; TAKE 1 TABLET DAILY. Refills: 0 Zestril 2.5 MG Oral Tablet; TAKE 1 TABLET DAILY. Refills: 0 Protonix 40 MG Oral Tablet Delayed Release; TAKE 1 TABLET DA ANGEL. Refills: 0 Synthroid TABS; TAKE 100 MCG DAILY Refills: 0 Magnesium 400 MG CAPS; TAKE 1 CAPSULE daily Refills: 0 Aspirin 81 MG TABS Refills: 0 Androderm 4 MG/24HR Transdermal Patch 24 Hour Refills: 0 Acetaminophen 325 MG Oral Tablet Refills: 0 Nitrostat 0.4 MG Sublingual Tablet Sublingual Refills: 0 Procedures History of Knee Surgery Status: Complete d History of Cholecystectomy Status: Compl eted History of Bypass Graft Using Vein: Femoral-popliteal Status: Completed Immunizations Immunizations not documented Family History Unknown Family Member Family history of Heart Disease (V17.49) Status: Active Comments: Family History Family history of Cancer Status: Active Comments: Famil y History Family history of Breast Cancer (V16.3) Status: Active Comments: Family History Family history of Adenocarcinoma Of The Status: Active Comments: Family History Pancreas Family history of Father At Age ___ Status: Active Comments: Family History Family history of Mother At Age ___ Status: Active Comments: Family History Social History - Smoking Status Never smoker Interventions Follow-ups/ReferralsFollow-up visit in 1 year; Done: 17 Aug 2018 Discussion/SummaryAssessment1. Prostate cancer-doing well post treatment2. Lower urinary tract symptoms-symptoms are not bothersome Plan of Treatment Planned Observations Total PSA Start: 27-Jul-2019 Intent Results No Known Results Results not documented Encounters Appointment; Vin Gregory M.D. 11-Aug-2017 11:40 Encounter Diagnosis: Problem not documented Appointment; Vin Gregory M.D. 17-Aug-2018 10:00 Encounter Diagnosis: Problem not documented
[2019-04-06] MEDS ORDERED: SODIUM CHLORIDE 0.9% 500 ML IV SCH (18:00)
[2019-04-06 18:19] LABS: Basophils # (auto) 0.02 K/uL (0-0.2); Basophils % (auto) 0.1 %; Eosinophils # (auto) 0.01 K/uL (0-0.5); Eosinophils % (auto) 0.1 %; Hematocrit (blood only) 45.1 % (42-52); Hemoglobin 15.5 g/dL (14.0-18.0); Immature Granulocytes # (auto) 0.06 K/uL (0.00-0.02); Immature Granulocytes % (auto) 0.4 %; Lymphocytes # (auto) 1.44 K/uL (1.2-3.4); Lymphocytes % (auto) 10.8 %; Mean Corpuscular Hemoglobin 31.9 pg (25-34); Mean Corpuscular Hgb Conc 34.4 g/dL (32-36); Mean Corpuscular Volume 92.8 fL (80-100); Mean Platelet Volume 9.5 fL (7.4-10.4); Monocytes # (auto) 1.33 K/uL (0.11-0.59); Neutrophils # (auto) 10.48 K/uL (1.4-6.5); Neutrophils % (auto) 78.6 %; Platelet Count 252 K/uL (130-400); RDW Standard Deviation 47.4 fL (36.4-46.3); Red Blood Count 4.86 M/uL (4.7-6.1); White Blood Count 13.34 K/uL (4.8-10.8)
--- NOTE | 2019-04-06 18:28 | XRay Report ---
XR pelvis 1-2V routine CLINICAL HISTORY: 88 years-old Male presenting with fall. TECHNIQUE: Single frontal view of the pelvis is obtained. COMPARISON: Correlation made to CT of the abdomen and pelvis from 06/06/2018. FINDINGS: Brachytherapy seeds noted in the prostate. Osteopenia. Image quality is degraded mildly limiting diag nostic sensitivity the exam. Sacroiliac joints, pubic symphysis, and hip joints congruent. Advanced d egenerative changes of the right hip with joint space loss, subchondral sclerosis and cystic changes as well as osteophytosis. Mild to moderate degenerative changes of the left hip with osteophytosis an d mild joint space loss. Degenerative changes of the pubic symphysis. The bony pelvis is intact. Dege nerative changes of the lower lumbar spine are suggested. The sacrum is poorly visualized. Femoral ne cks are grossly intact. Prominent calcified atherosclerotic plaque. IMPRESSION: 1. Allowing for image quality, no acute osseous injury of the pelvis. 2. Advanced degenerative changes of the right hip. Additional degenerative changes as above. Electronically signed by: Anirudh Perez M.D. 04/06/2019 6:27 PM
--- NOTE | 2019-04-06 18:30 | XRay Report ---
XR chest 1V portable CLINICAL HISTORY: 88 years-old Male presenting with weakness. TECHNIQUE: Portable upright AP view of the chest was obtained. COMPARISON: 11/10/2018. FINDINGS: Elevation of the right hemidiaphragm as on prior exam. Median sternotomy wires and mediastinal surgic al clips noted. Atherosclerosis of the aortic arch. Cardiac silhouette mildly enlarged. Minimal pulmo nary vascular prominence as on prior exam. No focal opacity. No large effusion or pneumothorax. Degen erative changes of the thoracic spine. Mild gaseous distention of large bowel beneath the right hemid iaphragm. IMPRESSION: 1. Cardiomegaly. No other convincing evidence of acute cardiopulmonary disease. Electronically signed by: Anirudh Perez M.D. 04/06/2019 6:29 PM
--- NOTE | 2019-04-06 18:31 | XRay Report ---
XR elbow RT min 3V routine CLINICAL HISTORY: 88 years-old Male presenting with fall. TECHNIQUE: Until, oblique, lateral, and radial head views of the right elbow were obtained. COMPARISON: 05/07/2006. FINDINGS: Elbow joint congruent. No elbow joint effusion is grossly apparent. Soft tissue swelling over the ole cranon. Osteopenia. No acute fracture or malalignment. Trace degenerative changes in the medial and l ateral articulations. IMPRESSION: 1. Allowing for osteopenia, no acute osseous injury. 2. Soft tissue contusion suspected over the olecranon versus traumatic bursitis. Electronically signed by: Anirudh Perez M.D. 04/06/2019 6:30 PM
[2019-04-06 18:36] LABS: Albumin Level 3.2 gm/dl (3.4-5.0); BUN Creatinine Ratio 22.2 (10-20); Calcium 9.9 mg/dl (8.5-10.1); Creatinine Clr Calc Pharmacy 38.7 ml/min; Est GFR (African American) 62.8; Est GFR (Non-African American) 54.2; INR 1.1 (0.9-1.1); Magnesium 2.3 mg/dl (1.8-2.4); Partial Thromboplastin Time 27.1 Seconds (21.0-31.0); Potassium 3.8 mmol/L (3.5-5.1); Prothrombin Time 11.1 Seconds (9.0-12.0)
[2019-04-06 18:49] LABS: Albumin Globulin Ratio 0.7 (0.9-2); Globulin 4.6 gm/dl (2.5-4.0); Thyroid Stimulating Hormone 1.11 uIu/ml (0.300-4.500); Total Protein 7.8 gm/dl (6.4-8.2); Troponin I 0.146 ng/ml (0-0.045)
[2019-04-06 19:36] LABS: Appearance Urine Clear (Clear); Bacteria Urine Automated Negative (Negative); Bilirubin Urine Negative (Negative); Blood Urine 1+ (Negative); Color Urine Yellow; Epithelial Cell Urine Auto 0-5 /lpf (0-5); Glucose Urine UA Negative (Negative); Ketones Urine 2+ (Negative); Leukocyte Esterase Urine Negative (Negative); Nitrite Urine Negative (Negative); Protein Urine 2+ (Negative); RBC Urine Automated 0-4 /hpf (0-4); Specific Gravity Urine 1.025 (1.000-1.030); Urobilinogen Urine Negative (Negative); WBC Urine Automated 0 /hpf (0-5)
--- NOTE | 2019-04-06 20:43 | CT Scan Report ---
CT head/brain wo con CLINICAL HISTORY: 88 years-old Male presenting with AMS. TECHNIQUE: Multidetector CT imaging of the head was performed without the use of intravenous contrast . IV contrast: None. One or more dose lowering techniques were used consistent with the principles of ALARA (as low as reasonably achievable), including automatic exposure control, mA or kV adjustment t o individual patient size, and/or use of iterative reconstruction. COMPARISON: 11/10/2018. CT DOSE (mGy.cm): The estimated cumulative dose is 1417.21. FINDINGS: Fuel Efficient Automobile Designer topogram: Median sternotomy wires and cardiomegaly. Proportional ventricular and sulcal prominence, likely age-related parenchymal volume loss. No hemorr sai. Brain parenchyma normal in appearance with preserved gracia-white differentiation. No acute mary torial infarct. No mass effect or midline shift. No extra-axial fluid collection. Paranasal sinuses a nd mastoid air cells clear. Calvarium intact. Intracranial atherosclerosis noted. IMPRESSION: 1. No acute intracranial abnormality. Electronically signed by: Anirudh Perez M.D. 04/06/2019 8:42 PM
--- NOTE | 2019-04-06 20:52 | CT Scan Report ---
CT cervical spine wo con CLINICAL HISTORY: 88 years-old Male presenting with fall. TECHNIQUE: Multidetector CT of the cervical spine was performed without the use of intravenous contra st. IV contrast: None. One or more dose lowering techniques were used consistent with the principles of ALARA (as low as reasonably achievable), including automatic exposure control, mA or kV adjustment to individual patient size, and/or use of iterative reconstruction. COMPARISON: Correlation made to CT neck from 03/22/2017. CT DOSE (mGy.cm): The estimated cumulative dose is 1417.21. FINDINGS: Getterer topogram: Median sternotomy wires and cardiomegaly. Normal cervical lordosis. Vertebral bodies maintain normal height and alignment. Intervertebral disc height loss noted at C5-6 and C6-7, where there is the greatest degree of degenerative change. Multil evel disc osteophyte complexes most significant at C5-6 and C6-7. Mild posterior spondylitic spurring at these levels resulting in mild osseous spinal canal narrowing. Multilevel mild facet arthropathy greater on the left. Uncovertebral hypertrophy and facet arthropathy result in varying degrees of oss eous neural foraminal narrowing. Degenerative changes of the atlantodental articulation. No acute fra cture or subluxation. Visualized portion of the skull base intact. Soft tissue within the external au ditory canal is likely cerumen. Atherosclerosis. IMPRESSION: 1. No acute osseous injury of the cervical spine. 2. Multilevel degenerative changes. Electronically signed by: Anirudh Perez M.D. 04/06/2019 8:50 PM
--- NOTE | 2019-04-06 21:00 | CT Scan Report ---
CT abd pelvis wo con CLINICAL HISTORY: 88 years-old Male presenting with fall, flank pain. TECHNIQUE: Multidetector CT of the abdomen and pelvis was performed without the use of intravenous co ntrast. IV contrast: None. One or more dose lowering techniques were used consistent with the princip les of ALARA (as low as reasonably achievable), including automatic exposure control, mA or kV adjust ment to individual patient size, and/or use of iterative reconstruction. COMPARISON: 06/06/2018. CT DOSE (mGy.cm): The estimated cumulative dose is 1417.21 mGy.cm. FINDINGS: [employer] topogram: Median sternotomy wires and cardiomegaly. Evaluation limited by patient positioning of the arms at the sides. This mildly degrades diagnostic s ensitivity the exam. Lung bases: Normal heart size. Coronary artery and aortic valve calcification. Trace right pleural ef fusion may be present if any. Minimal dependent changes likely atelectasis. Liver: Normal morphology. Normal density. Punctate calcification suggest a history of granulomatous d isease. Biliary: No gross biliary ductal dilatation allowing for noncontrast technique. Gallbladder surgicall y absent. Pancreas: Multilobular cystic lesion in the pancreatic neck-body as on prior exam. Additional lesion may be present in the pancreatic head as on prior exam. These are incompletely evaluated without intr avenous contrast. Spleen: Punctate calcification suggest a history of granulomatous disease. Adrenal glands: Normal noncontrast appearance. Kidneys and ureters: Moderate bilateral nonspecific perinephric fat infiltration. Otherwise normal no ncontrast appearance of the kidneys. No hydronephrosis. Punctate nonobstructing calculus at the upper pole of the right kidney. Ureters nondistended. No evidence of a recently passed calculus. Bladder: Incompletely evaluated secondary to underdistention. Pelvic organs: Prostate enlargement likely secondary to benign prostatic hyperplasia. Brachytherapy s eeds noted in the prostate. Bowel: Severe diverticulosis of the sigmoid colon and to a lesser extent in the remainder of the colo n. No wall thickening or convincing evidence of pericolonic inflammatory change in the region of the sigmoid colon. Fluid noted in the right colon suggesting a diarrheal state. The appendix is normal. N o bowel obstruction. Small hiatal hernia potentially accompanied by esophageal dilatation. Peritoneal cavity: No free fluid or intraperitoneal gas. Lymph nodes: No gross lymphadenopathy allowing for noncontrast technique. Vasculature: Atherosclerosis of the normal caliber abdominal aorta. Abdominal wall: No subcutaneous contusion or hematoma is evident. Bilateral gynecomastia. Musculoskeletal: Degenerative changes of the spine. Degenerative changes of the hips, right greater t blackwood left, and sacroiliac joints. Osteopenia. Compression deformities of T12 and L2 as well as T7. The se are unchanged from prior. IMPRESSION: 1. Allowing for noncontrast technique, no acute intra-abdominal injury. No acute osseous injury. 2. Chronic findings as above. Notably, multiple cystic-appearing pancreatic lesions may represent si de branch intraductal papillary mucinous neoplasms or less likely serous cystadenomas. These are inco mpletely characterized and would require a dedicated pancreas protocol CT or MR for appropriate cosmo cterization. These are grossly stable from prior exam and 2018. 3. Chronic compression fractures. Electronically signed by: Anirudh Perez M.D. 04/06/2019 8:59 PM
--- NOTE | 2019-04-06 22:11 | History & Physical Report ---
Date of Service April 06, 2019 Assessment & Plan (1) Altered mental status: (2) Elevated troponin: (3) Elevated WBC count: This is a 88-year-old male who has significant PMH of CAD s/p CABG x 3 in 2000, HTN, HLD, CKD stage III baseline creatinine 1.1, diet-controlled T2DM, history of prostate cancer status post radiation, history of postoperative PE, testosterone deficiency, history of TIA in 10/2017 who presents to [facility] ED via EMS secondary to being found in bed by granddaughter with altered mental status. In ED patient was hypertensive 172/101 but otherwise hemodynamically stable and afebrile. Saturating well on room air. Found to have leukocytosis 13.34, H&H was stable at 15.5 45.1, BUN/creatinine 26 and 1.19 respectively. Troponin elevated at 0.146 but without significant ECG change. CK elevated at 323. Urinalysis not concerning for infection. CT scan of abd/pelvis revealed chronic compression fractures. Also notably multiple cystic-appearing pancreatic lesions may represent side branch intraductal papillary mucinous neoplasms or less likely serous cystadenomas. Recommend dedicated pancreas protocol scan for further eval. Pelvic x-ray without fracture, advanced degenerative changes of right hip. Elbow x-ray reveals soft tissue contusion versus traumatic bursitis. Head CT revealed no acute ab normality. Chest x-ray with cardiomegaly but no overt cardiopulmonary abnormality. Please refer to Dr. Brumfield Addendum for further details regarding assessment and plan (4) Olecranon bursitis, right elbow: APAP for pain control ICE TID consult orthopedics for a.m. (5) CAD (coronary artery disease): elevated troponin no complaints of chest pain or SOB, but pt altered on ASA, plavix, imdur, FELICE trend troponin, CK and ecg (6) Diabetes mellitus type 2, controlled: A1C 6.1 11/11/18 repeat A1C glucose 103 accuchecks AC/HS - place on novolog protocol (7) TIA (transient ischemic attack): hx of TIA 10/2018 recommend lifetime plavix therapy also on ASA and statin (8) CKD (chronic kidney disease), stage III: baseline CR 1.1 bun/cr 21/08/18 today IVF D5 1/2 NS 80cc/hr repeat bmp in a.m. (9) HTN (hypertension): blood pressure elevated upon arrival may also be in setting of pain vs acute process on lisinopril, imdur as outpatient (10) Hypothyroidism: continue levothyroxine TSH WNL (11) DVT prophylaxis: SQ heparin Disposition: telemetry; case management consulted along with PT/OT/ST Follow up: PCP Dr. Orellana upon discharge Pt was seen and examined in collaboration with Dr. Brumfield, please see addendum History of Present Illness Chief Complaint: Altered Mental Status Primary Care Provider: Gisselle Orellana, DO This is a 88-year-old male who has significant PMH of CAD s/p CABG x 3 in 2000, HTN, HLD, CKD stage III baseline creatinine 1.1, diet-controlled T2DM, history of prostate cancer status post radiation, history of postoperative PE, testosterone deficiency, history of TIA in 10/2017 who presents to [facility] ED via EMS secondary to being found in bed by granddaughter with altered mental status. Unable to obtain history from patient due to AMS. Per [facility] pt did have telephone call on 04/04 08/28 requesting to be seen due to fall down stair at [facility]. Complained of b/l elbow pain, unable to use arm. No family is at bedside to obtain history. Family member attempted to be reach but w/o success. In ED patient was hypertensive 172/101 but otherwise hemodynamically stable and afebrile. Saturating well on room air. Found to have leukocytosis 13.34, H&H was stable at 15.5 45.1, BUN/creatinine 26 and 1.19 respectively. Troponin elevated at 0.146 but without significant ECG change. CK elevated at 323. Urinalysis not concerning for infection. CT scan of abd/pelvis revealed chronic compression fractures. Also notably multiple cystic-appearing pancreatic lesions may represent side branch intraductal papillary mucinous neoplasms or less likely serous cystadenomas. Recommend dedicated pancreas protocol scan for further eval. Pelvic x-ray without fracture, advanced degenerative changes of right hip. Elbow x-ray reveals soft tissue contusion versus traumatic bursitis. Head CT revealed no acute ab normality. Chest x-ray with cardiomegaly but no overt cardiopulmonary abnormality. Allergies Allergy/AdvReac Type Severity Reaction Status Date / Time Iodinated Contrast- Oral and Allergy Severe THROAT Verified 04/06/19 18:56 IV Dye TIGHTNESS cefuroxime Allergy Unknown GI UPSET Verified 04/06/19 18:56 onion Allergy Unknown RAW Verified 04/06/19 18:56 ONIONS-BLISTERS ON HANDS AND FEET NSAIDS (Non-Steroidal AdvReac Unknown GI Verified 04/06/19 18:56 Anti-Inflamma BLEEDING- TAKES ASA AT HOME HMG-CoA-R Inhibitors AdvReac Intermediate ELEVATED Uncoded 04/06/19 18:56 LFT'S WITH CRESTOR Home Medications Home Medications Medication Instructions Recorded Confirmed Type Centrum Silver Men 1 tab PO DAILY 06/06/18 04/06/19 History aspirin [Aspir-81] 81 mg PO DAILY 06/06/18 04/06/19 History gabapentin 300 mg PO HS 06/06/18 04/06/19 History magnesium oxide 400 mg PO DAILY 06/06/18 04/06/19 History Androderm 1 patch TOPICAL DAILY 11/10/18 04/06/19 History atorvastatin 40 mg PO DAILY 11/10/18 04/06/19 History docusate sodium [Stool Softener] 100 mg PO BID 11/10/18 04/06/19 History ferrous sulfate 325 mg PO BID 11/10/18 04/06/19 History gabapentin 100 mg PO BID 11/10/18 04/06/19 History isosorbide mononitrate 30 mg PO DAILY 11/10/18 04/06/19 History levothyroxine 100 mcg PO DAILYBB 11/10/18 04/06/19 History lisinopril 2.5 mg PO QAM 11/10/18 04/06/19 History meclizine 12.5 - 25 mg PO TID PRN 11/10/18 04/06/19 History pantoprazole 40 mg PO QAM 11/10/18 04/06/19 History clopidogrel 75 mg PO QAM #30 tab 11/13/18 04/06/19 Rx acetaminophen [Tylenol] 650 mg PO QID PRN 04/06/19 04/06/19 History calcium carbonate [Calcium 500] 500 mg PO BID 04/06/19 04/06/19 History Past Med/Surg History Medical History TIA (transient ischemic attack) (Chronic) DVT prophylaxis Diabetes mellitus type 2, controlled (Chronic) HTN (hypertension) (Chronic) Osteoarthritis (Chronic) Diverticulosis (Chronic) GI bleed (Chronic) CAD (coronary artery disease) (Chronic) "s/p CABG 2000 cath 2008 - LAD, RCA, and obtuse marginal 100% occlusion 80% stenosis diagonal #2 patent [place]bol[place] to LAD graft and saphenous to obtuse marginal occluded saphenous to RCA graft with collaterals" BPH (benign prostatic hyperplasia) (Chronic) Dyslipidemia (Chronic) Hypothyroidism (Chronic) Prostate cancer (Resolved 12/09/11) "Rising PSA while on Avodart to 16.02, clinical stage T1c Status post ultrasound-guided biopsies biopsy stage T2c [place] grade 4+4 Hormonal suppression Status post prostate seed implant 02/10/2012 received 8500 cGy Status post completion of external radiation with IMRT/IGRT completed 06/22/2012 received 5000 cGy 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 Rodríguez DVT (deep venous thrombosis) (Chronic) Pulmonary embolism (Chronic) Spontaneous pneumothorax (Chronic) CKD (chronic kidney disease), stage III (Chronic) Surgical History History of cholecystectomy (Chronic) History of bilateral knee replacement (Chronic) "revision of left for septic arthritis" S/P CABG x 3 (Chronic) "2000" S/P inguinal hernia repair (Chronic) Family History Mother Dementia Diabetes Father Myocardial infarction, Onset Age: 61 Sister Multiple myeloma, Onset Age: 59 Social History Preferred Language: [place] Islander Communication Ability: Effective Engineering Technologist Required: No Beliefs That Will Affect Care: None marital status: / Current Living Situation: Alone Current Living Situation Comment: Lives alone independently current occupational status: retired Feels Safe at Home: Yes Smoking Status: Never smoker Hx Alcohol Use: No Hx Substance Use: No Review of Systems Review of Systems: Unobtainable due to cognitive status Physical Exam Physical Exam: Constitutional: Tall, elderly male, vitals as above, NAD, sitting up in bed, able to verbalize but unable to answer questions appropriately, +confusion Head: Normocephalic, Atraumatic Eyes: PERRL, conjunctivae normal, anicteric sclerae ENMT: external ear and nose normal, oropharynx normal but dry mucous membranes Neck: trachea midline, no thyromegaly normal visual inspection Respiratory: normal respiratory effort, lungs clear to auscultation, no wheeze, rales, rhonchi. Normal insp/exp effort, no accessory muscle use Cardiovascular: RRR, no murmur, no edema Vessels: no JVD or carotid bruit Chest: normal inspection of chest Abdomen: normal bowel sounds, soft, nontender, no hepatosplenomegaly Musculoskeletal: no cyanosis or clubbing, active ROM to all extremities except limited RUE due to pain, unable to assess motor strength 5/5, R olecranon bursitis with erythema and warmth Skin: no rashes, warm and mild turgor Neurologic: PERRL, EOMI, accommodation nl, no face palsy, no dysarthria CN's II-XI intact bilaterally and moves all extremities Psychiatric: A+O to self only, but was able to state his daughters name and phone no., euthymic affect : deferred Results & Data Vital Signs (Past 12 Hours) Vital Signs Temp Pulse Resp BP Pulse Ox 04/06/19 19:17 73 20 95 04/06/19 17:30 36.5 C 79 20 172/101 H 95 Laboratory Results Short CBC 04/06/19 Range/Units 18:04 WBC 13.34 H (4.8-10.8) K/uL Hgb 15.5 (14.0-18.0) g/dL Hct 45.1 (42-52) % Plt Count 252 (130-400) K/uL BMP 04/06/19 18:04 Sodium 140 Potassium 3.8 Chloride 104 Carbon Dioxide 23 BUN 26 H Creatinine 1.19 Glucose 103 H Calcium 9.9 Cardiac Enzymes 04/06/19 Range/Units 18:04 Total Creatine Kinase 323 H (39-308) U/L Troponin I 0.146 H* (0-0.045) ng/ml Liver Function 04/06/19 Range/Units 18:04 Total Bilirubin 1.0 (0.2-1) mg/dl AST 39 H (15-37) U/L ALT 28 (12-78) U/L Alkaline Phosphatase 127 H (45-117) U/L Albumin 3.2 L (3.4-5.0) gm/dl Urine 04/06/19 Range/Units 18:58 Urine Color Yellow Urine Appearance Clear (Clear) Urine pH 5.0 (4.5-7.5) Ur Specific [place] 1.025 (1.000-1.030) Urine Protein 2+ H (Negative) Urine Glucose (UA) Negative (Negative) Diagnostic Findings Abd/Pelvis CT: IMPRESSION: 1. Allowing for noncontrast technique, no acute intra-abdominal injury. No acute osseous injury. 2. Chronic findings as above. 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 These are incompletely characterized and would require a dedicated pancreas protocol CT or MR for appropriate characterization. These are grossly stable from prior exam and 2018. 3. Chronic compression fractures. Pelvis Xray: IMPRESSION: 1. Allowing for image quality, no acute osseous injury of the pelvis. 2. Advanced degenerative changes of the right hip. Additional degenerative changes as above. Elbow Xray: IMPRESSION: 1. Allowing for osteopenia, no acute osseous injury. 2. Soft tissue contusion suspected over the olecranon versus traumatic bursitis. Head CT: IMPRESSION: 1. No acute intracranial abnormality. CXR: IMPRESSION: 1. Cardiomegaly. No other convincing evidence of acute cardiopulmonary disease. CSpine CT: IMPRESSION: 1. No acute osseous injury of the cervical spine. 2. Multilevel degenerative changes. Medications Administered Discontinued Medications Sodium Chloride (Nss) 500 mls @ 999 mls/hr IV .Q31M KULWINDER Stop: 04/06/19 18:30 Last Infusion: 04/06/19 20:00 Dose: 0 mls/hr Documented by: [id number] Admin: 04/06/19 19:06 Dose: 999 mls/hr Documented by: [id number] ECG Rate (beats per minute): 72 Rhythm: normal sinus Code Status & VTE Plan Code Status Full Code unable to obtain accurate info from patient unable to reach family member will need to address in the am. VTE Prophylaxis Plan VTE Prophylaxis will be ordered: Yes Supervising Physician Co-Signing Physician Notes I, Dr. Trever Brumfield, have seen and examined the patient with physician drafter assistant and agree with the assessment and plan as above and would like to comment that By review of history, patient exam This is a 88 year old Male who as per history of the emergency room assessments was found by granddaughter to be confused and with foul smelling urine. In the ED, labs did not evidence of urinary tract infection. Labs were notable for a an elevated white blood cell count of 13,000 and televated troponins of 0.146. Patient did not appear to be having chest pain. He had swelling and tenderness of left elbow which caused him discomfort and pointed that he had right thigh pain history of recent fall down the stairs at the beginning of the week as per outpatient records. ED imaging scan of CT head, X ray of neck and extremities, and CT abdomen did not find acute fractures. He was not able to give a history of his health or personal life. He did not seem to be able to express that location was a hospital. He was able to tell use that he lived in [facility]. When asked who was Gwen Marquez who listed as the daughter in the chart, patient was able to tell medical doctor that that name of her daughter and able to recall correctly her phone number of [phone]. Hospitalist medical doctor tried to call phone number to obtain more history but went to voice mail Altered mental status Leukocytosis history of Transient ischemic attack in the past in 10/2017 -urine analysis is not suggestive of urinary tract infection, however an underlying infection may be possible given elevated white blood cell count. Blood cultures are drawn and empirically starting IV Zosyn. -elevated white blood cell count may also suggest component of dehydration -unclear at this time, patients swallowing, will need aspiration precautions and start IV fluids with dextrose to maintain hydration and calories for now -CT head without evidence of acute stroke; if altered mental status persists and patient cooperative in MRI and patients family can sign MRI safety sheet then a Brain MRI may be considered Elevated troponins History of Coronary artery disease s/p CABG x 3 in 2000 Hypertension -initial troponin 0.146, trend troponins, no chest pain and EKGs do not appear suggest ischemia at this time -monitor on telemetry -continue home medications of isosorbide, aspirin, Plavix, atorvastatin, Right elbow pain may be secondary to right elbow bursitis -check uric acid, ESR, and CRP -conservative management, orthopedic consult evlaution diet-controlled Ty[place] 2 diabetes mellitus -check hbA1c CKD stage III -baseline creatinine 1.1 -monitor renal function History of Hypothyroidism -Continue home dose Levoythroxine -Check TSH history of prostate cancer status post radiation, history of postoperative Pulmonary embolism in the past, testosterone deficiency, DVT ppx: heparin subc q8 hours Agree with other assessment and plan as described by PA My colleague Dr. Lorenzo will be taking over the care starting 04/07/19 (1) Altered mental status Altered mental status type: unspecified Qualified Code(s): R41.82 - Altered mental status, unspecified : Altered mental status Qualifiers: Altered mental status type: unspecified Qualified Code(s): R41.82 - Altered mental status, unspecified
[2019-04-06] MEDS ORDERED: D5W AND 1/2NSS 1,000 ML IV SCH (22:15)
[2019-04-06 22:47] LABS: C Reactive Protein 13.3 mg/dl (0-0.29); Troponin I 0.145 ng/ml (0-0.045); Uric Acid 5.7 mg/dl (2.6-7.2)
[2019-04-06] MEDS ORDERED: GLUCOSE 10 TABS/TUBE PO PRN (22:55)
[2019-04-06] MEDS ORDERED: GLUCAGON FOR INJ 1 MG VIAL SQ PRN (22:55)
[2019-04-06] MEDS ORDERED: DEXTROSE 50% 50 ML SYRINGE IV PRN (22:55)
[2019-04-06] MEDS ORDERED: ALUMINUM/MAGNESIUM SUSP 30 ML UDC PO PRN (22:55)
[2019-04-06] MEDS ORDERED: ONDANSETRON INJ 2 MG/ML 2 ML VIAL IV PRN (22:55)
[2019-04-06] MEDS ORDERED: MAGNESIUM HYDROXIDE SUSP 30 ML UDC PO PRN (22:55)
[2019-04-06] MEDS ORDERED: CARBOHYDRATES FOR HYPOGLYCEMIA PO PRN (22:55)
[2019-04-06] MEDS ORDERED: GLUCOSE 40% GEL 15 GM TUBE PO PRN (22:55)
[2019-04-06] MEDS ORDERED: PIPERACILL/TAZOBAC CONSULT ACTIVE PRN (22:55)
[2019-04-07] MEDS ORDERED: PIPERACILLIN/TAZOBACTAM 3.375 GM in DEXTROSE 5% 100 ML IV ONE (00:15)
[2019-04-07] MEDS: SODIUM CHLORIDE 0.9% 1000ML 1,000 ML IV SCH ×2 (00:33→11:41)
[2019-04-07] MEDS: INSULIN ASPART 100 UNITS/ML 3 ML PEN SC SCH ×5 (01:03→20:59)
[2019-04-07] MEDS: HEPARIN SOD 5,000 UNIT/0.5 ML VIAL SQ SCH ×3 (01:03→16:24)
--- NOTE | 2019-04-07 01:10 | Emergency Department Note ---
Entered by Franci Hall acting as a scribe for History of Present Illness General Chief complaint: Altered Mental Status Stated complaint: CONFUSION, Source: patient and other (nursing staff) History of Present Illness Onset (ago): day(s) (yesterday) Location: head, chest, abdomen and right (elbow) Quality: + other (AMS) Associated symptoms: + chest pain and + other (Positive right elbow pain, abdominal pain) The patient is a 88 year old male who presents to the ED for a CC of AMS. As per nursing staff, the patient fell yesterday and now has pain in his right elbow. Nursing staff states the patient has been confused today. The patient states he has right elbow pain as well as chest pain and abdominal pain. HPI and ROS limited due to the patient's AMS. Home Medications Home Medications Medication Instructions Recorded Confirmed Type Centrum Silver Men 1 tab PO DAILY 06/06/18 04/06/19 History aspirin [Aspir-81] 81 mg PO DAILY 06/06/18 04/06/19 History gabapentin 300 mg PO HS 06/06/18 04/06/19 History magnesium oxide 400 mg PO DAILY 06/06/18 04/06/19 History Androderm 1 patch TOPICAL DAILY 11/10/18 04/06/19 History atorvastatin 40 mg PO DAILY 11/10/18 04/06/19 History docusate sodium [Stool Softener] 100 mg PO BID 11/10/18 04/06/19 History ferrous sulfate 325 mg PO BID 11/10/18 04/06/19 History gabapentin 100 mg PO BID 11/10/18 04/06/19 History isosorbide mononitrate 30 mg PO DAILY 11/10/18 04/06/19 History levothyroxine 100 mcg PO DAILYBB 11/10/18 04/06/19 History lisinopril 2.5 mg PO QAM 11/10/18 04/06/19 History meclizine 12.5 - 25 mg PO TID PRN 11/10/18 04/06/19 History pantoprazole 40 mg PO QAM 11/10/18 04/06/19 History clopidogrel 75 mg PO QAM #30 tab 11/13/18 04/06/19 Rx acetaminophen [Tylenol] 650 mg PO QID PRN 04/06/19 04/06/19 History calcium carbonate [Calcium 500] 500 mg PO BID 04/06/19 04/06/19 History Allergies Allergy/AdvReac Type Severity Reaction Status Date / Time Iodinated Contrast- Oral and Allergy Severe THROAT Verified 04/06/19 18:56 IV Dye TIGHTNESS cefuroxime Allergy Unknown GI UPSET Verified 04/06/19 18:56 onion Allergy Unknown RAW Verified 04/06/19 18:56 ONIONS-BLISTERS ON HANDS AND FEET NSAIDS (Non-Steroidal AdvReac Unknown GI Verified 04/06/19 18:56 Anti-Inflamma BLEEDING- TAKES ASA AT HOME HMG-CoA-R Inhibitors AdvReac Intermediate ELEVATED Uncoded 04/06/19 18:56 LFT'S WITH CRESTOR Past Med/Surg History Medical History TIA (transient ischemic attack) (Chronic) DVT prophylaxis Diabetes mellitus type 2, controlled (Chronic) HTN (hypertension) (Chronic) Osteoarthritis (Chronic) Diverticulosis (Chronic) GI bleed (Chronic) CAD (coronary artery disease) (Chronic) "s/p CABG 2000 cath 2007 - LAD, RCA, and obtuse marginal 100% occlusion 80% stenosis diagonal #2 patent Rebolledo to LAD graft and saphenous to obtuse marginal occluded saphenous to RCA graft with collaterals" BPH (benign prostatic hyperplasia) (Chronic) Dyslipidemia (Chronic) Hypothyroidism (Chronic) Prostate cancer (Resolved 12/09/11) "Rising PSA while on Avodart to 16.02, clinical stage T1c Status post ultrasound-guided biopsies biopsy stage T2c Eleva grade 4+4 Hormonal suppression Status post prostate seed implant 02/10/2012 received 8500 cGy Status post completion of external radiation with IMRT/IGRT completed 06/22/2012 received 5000 cGy 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 Other (HPI and ROS limited due to the patient's AMS. ) Physical Exam Vital Signs Vital Signs - 24 hr 04/06/19 17:30 04/06/19 19:03 04/06/19 19:17 Temperature 36.5 C Temperature Source Oral Sepsis Recent Fever Within 48 Hours No Sepsis Action Taken by Nursing No Action Required Pulse Rate 79 66 73 Pulse Rate from SpO2 Sensor 66 Pulse Rhythm Regular Respiratory Rate 20 24 20 Respiratory Effort / Characteristics Non-Labored Spontaneous Respiratory Depth Normal Respiratory Pattern Regular Blood Pressure 172/101 H 168/113 H Blood Pressure Mean 124 131 Pulse Oximetry 95 94 95 Oxygen Delivery Method Room Air Room Air 04/06/19 19:27 04/06/19 19:30 04/06/19 19:31 Temperature Temperature Source Sepsis Recent Fever Within 48 Hours Sepsis Action Taken by Nursing Pulse Rate 67 71 68 Pulse Rate from SpO2 Sensor 67 71 69 Pulse Rhythm Respiratory Rate 26 H 23 30 H Respiratory Effort / Characteristics Respiratory Depth Respiratory Pattern Blood Pressure 174/93 H Blood Pressure Mean 120 Pulse Oximetry 94 96 94 Oxygen Delivery Method 04/06/19 20:00 04/06/19 20:01 Temperature Temperature Source Sepsis Recent Fever Within 48 Hours Sepsis Action Taken by Nursing Pulse Rate 66 64 Pulse Rate from SpO2 Sensor 66 64 Pulse Rhythm Respiratory Rate 27 H 26 H Respiratory Effort / Characteristics Respiratory Depth Respiratory Pattern Blood Pressure 161/97 H Blood Pressure Mean 118 Pulse Oximetry 95 95 Oxygen Delivery Method GENERAL: Patient is awake, alert, and in no acute distress. Patient is anxious a ppearing. Appears to be in significant pain EYES: The conjunctivae are clear. The pupils are round and reactive. EARS, NOSE, MOUTH AND THROAT: The nose is without any evidence of any deformity. Mucous membranes are dry. Tongue is midline NECK: The neck is nontender and supple. RESPIRATORY: Lung sounds diminished at the right lung field. Mild tachypnea appreciated but no conversational dyspnea CARDIOVASCULAR: Regular rate and rhythm noted. There no murmurs rubs or gallops normal S1 normal S2 GASTROINTESTINAL: The abdomen is soft. Bowel sounds are present in all quadrants. Abdomen is nontender. MUSCULOSKELETAL/EXTREMITIES: Significant swelling and decreased ROM of the right elbow. Overall muscle rigidity. Patient is resistant of ROM testing of LE NEUROLOGIC: Oriented to person place but not time or situation. Strength symmetric but diminished. Course 1756: Past medical records reviewed. The patient was evaluated in room C4. A complete history and physical exam was performed. 2136: [facility] the [facility] The patient will be evaluated for further management. Administered Medications Heparin Sodium (Porcine) (Heparin Sodium (Porcine)) 5,000 units SQ Q8H KULWINDER Stop: 05/07/19 00:00 Last Admin: 04/07/19 01:03 Dose: 5,000 units Documented by: [id number] Cosigned by: [id number] Sodium Chloride (Nss 1000ml) 1,000 mls @ 80 mls/hr IV .[id number] KULWINDER Stop: 05/06/19 22:54 Last Admin: 04/07/19 00:33 Dose: 80 mls/hr Documented by: [id number] Insulin Aspart (Novolog Flexpen) 0 units SC Q6 KULWINDER Stop: 05/07/19 00:00 Last Admin: 04/07/19 01:03 Dose: Not Given Documented by: [id number] Cosigned by: [id number] Discontinued Medications Sodium Chloride (Nss) 500 mls @ 999 mls/hr IV .[id number] KULWINDER Stop: 04/06/19 18:30 Last Infusion: 04/06/19 20:00 Dose: 0 mls/hr Documented by: [id number] Admin: 04/06/19 19:06 Dose: 999 mls/hr Documented by: [id number] Dextrose/Sodium Chloride (D5w And 1/2nss) 1,000 mls @ 80 mls/hr IV .[id number] KULWINDER Stop: 05/06/19 22:14 Last Admin: 04/07/19 00:14 Dose: Not Given Documented by: [id number] Piperacillin Sod/Tazobactam (Sod 3.375 gm/ Dextrose) 115 mls @ 230 mls/hr IV NOW ONE; Protocol Stop: 04/07/19 00:44 Last Admin: 04/07/19 01:02 Dose: 230 mls/hr Documented by: [id number] Medical Decision Making Differential Diagnosis Differential diagnosis: Etiologies such as metabolic, infection, hypoglycemia, electrolyte abnormali ties, cardiac sources, intracerebral event, toxicologic, neurologic, as well as others were entertained. Medical Records Attestation: I reviewed the patient's medical records. Home Medications Current Medication List: was personally reviewed by me Laboratory Data Attestation: I reviewed the patient's lab results. Result diagrams: 04/06/19 18:04 04/06/19 18:04 Lab Results 04/06/19 04/06/19 04/06/19 Range/Units 18:04 18:04 18:04 WBC 13.34 H (4.8-10.8) K/uL RBC 4.86 (4.7-6.1) M/uL Hgb 15.5 (14.0-18.0) g/dL Hct 45.1 (42-52) % MCV 92.8 (80-100) fL MCH 31.9 (25-34) pg MCHC 34.4 (32-36) g/dL RDW Std Deviation 47.4 H (36.4-46.3) fL RDW Coeff of Shraddha 14.0 (11.5-14.5) % Plt Count 252 (130-400) K/uL MPV 9.5 (7.4-10.4) fL Immature Gran % (Auto) 0.4 % Neut % (Auto) 78.6 % Lymph % (Auto) 10.8 % [place] % (Auto) 10.0 % Eos % (Auto) 0.1 % Baso % (Auto) 0.1 % Immature Gran # (Auto) 0.06 H (0.00-0.02) K/uL Neut # (Auto) 10.48 H (1.4-6.5) K/uL Lymph # (Auto) 1.44 (1.2-3.4) K/uL [place] # (Auto) 1.33 H (0.11-0.59) K/uL Eos # (Auto) 0.01 (0-0.5) K/uL Baso # (Auto) 0.02 (0-0.2) K/uL PT 11.1 (9.0-12.0) Seconds INR 1.1 (0.9-1.1) APTT 27.1 (21.0-31.0) Seconds PTT Ratio 1.0 Sodium 140 (136-145) mmol/L Potassium 3.8 (3.5-5.1) mmol/L Chloride 104 (98-107) mmol/L Carbon Dioxide 23 (21-32) mmol/L Anion Gap 13.0 H (3-11) BUN 26 H (7-18) mg/dl Creatinine 1.19 (0.6-1.4) mg/dl Est Cr Clr Drug Dosing 38.7 ml/min Est GFR ( Amer) 62.8 Est GFR (Non-Af Amer) 54.2 BUN/Creatinine Ratio 22.2 H (10-20) Glucose 103 H (70-99) mg/dl POC Lactic Acid Dieter (0.90-1.70) mmol/L Calcium 9.9 (8.5-10.1) mg/dl Magnesium 2.3 (1.8-2.4) mg/dl Total Bilirubin 1.0 (0.2-1) mg/dl AST 39 H (15-37) U/L ALT 28 (12-78) U/L Alkaline Phosphatase 127 H (45-117) U/L Total Creatine Kinase 323 H (39-308) U/L Troponin I 0.146 H* (0-0.045) ng/ml Total Protein 7.8 (6.4-8.2) gm/dl Albumin 3.2 L (3.4-5.0) gm/dl Globulin 4.6 H (2.5-4.0) gm/dl Albumin/Globulin Ratio 0.7 L (0.9-2) TSH 1.110 (0.300-4.500) uIu/ml Urine Color Urine Appearance (Clear) Urine pH (4.5-7.5) Ur Specific [place] (1.000-1.030) Urine Protein (Negative) Urine Glucose (UA) (Negative) Urine Ketones (Negative) Urine Blood (Negative) Urine Nitrite (Negative) Urine Bilirubin (Negative) Urine Urobilinogen (Negative) Ur Leukocyte Esterase (Negative) Urine WBC (Auto) (0-5) /hpf Urine RBC (Auto) (0-4) /hpf U Hyaline Cast (Auto) (0-5) /lpf U Epithel Cells (Auto) (0-5) /lpf Urine Bacteria (Auto) (Negative) 04/06/19 04/06/19 Range/Units 18:07 18:58 WBC (4.8-10.8) K/uL RBC (4.7-6.1) M/uL Hgb (14.0-18.0) g/dL Hct (42-52) % MCV (80-100) fL MCH (25-34) pg MCHC (32-36) g/dL RDW Std Deviation (36.4-46.3) fL RDW Coeff of Shraddha (11.5-14.5) % Plt Count (130-400) K/uL MPV (7.4-10.4) fL Immature Gran % (Auto) % Neut % (Auto) % Lymph % (Auto) % [place] % (Auto) % Eos % (Auto) % Baso % (Auto) % Immature Gran # (Auto) (0.00-0.02) K/uL Neut # (Auto) (1.4-6.5) K/uL Lymph # (Auto) (1.2-3.4) K/uL [place] # (Auto) (0.11-0.59) K/uL Eos # (Auto) (0-0.5) K/uL Baso # (Auto) (0-0.2) K/uL PT (9.0-12.0) Seconds INR (0.9-1.1) APTT (21.0-31.0) Seconds PTT Ratio Sodium (136-145) mmol/L Potassium (3.5-5.1) mmol/L Chloride (98-107) mmol/L Carbon Dioxide (21-32) mmol/L Anion Gap (3-11) BUN (7-18) mg/dl Creatinine (0.6-1.4) mg/dl Est Cr Clr Drug Dosing ml/min Est GFR ( Amer) Est GFR (Non-Af Amer) BUN/Creatinine Ratio (10-20) Glucose (70-99) mg/dl POC Lactic Acid Dieter 1.66 (0.90-1.70) mmol/L Calcium (8.5-10.1) mg/dl Magnesium (1.8-2.4) mg/dl Total Bilirubin (0.2-1) mg/dl AST (15-37) U/L ALT (12-78) U/L Alkaline Phosphatase (45-117) U/L Total Creatine Kinase (39-308) U/L Troponin I (0-0.045) ng/ml Total Protein (6.4-8.2) gm/dl Albumin (3.4-5.0) gm/dl Globulin (2.5-4.0) gm/dl Albumin/Globulin Ratio (0.9-2) TSH (0.300-4.500) uIu/ml Urine Color Yellow Urine Appearance Clear (Clear) Urine pH 5.0 (4.5-7.5) Ur Specific [place] 1.025 (1.000-1.030) Urine Protein 2+ H (Negative) Urine Glucose (UA) Negative (Negative) Urine Ketones 2+ H (Negative) Urine Blood 1+ H (Negative) Urine Nitrite Negative (Negative) Urine Bilirubin Negative (Negative) Urine Urobilinogen Negative (Negative) Ur Leukocyte Esterase Negative (Negative) Urine WBC (Auto) 0 (0-5) /hpf Urine RBC (Auto) 0-4 (0-4) /hpf U Hyaline Cast (Auto) 1-5 (0-5) /lpf U Epithel Cells (Auto) 0-5 (0-5) /lpf Urine Bacteria (Auto) Negative (Negative) Imaging Data Radiologist's Impression: Radiology results as stated below per my review and the radiologist's interpretation: XR chest 1V portable CLINICAL HISTORY: 88 years-old Male presenting with weakness. TECHNIQUE: Portable upright AP view of the chest was obtained. COMPARISON: 11/10/2018. FINDINGS: Elevation of the right hemidiaphragm as on prior exam. Median sternotomy wires and mediastinal surgical clips noted. Atherosclerosis of the aortic arch. Cardiac silhouette mildly enlarged. Minimal pulmonary vascular prominence as on prior exam. No focal opacity. No large effusion or pneumothorax. Degenerative changes of the thoracic spine. Mild gaseous distention of large bowel beneath the right hemidiaphragm. IMPRESSION: 1. Cardiomegaly. No other convincing evidence of acute cardiopulmonary disease. Electronically signed by: Anirudh Perez M.D. 04/06/2019 6:29 PM XR elbow RT min 3V routine CLINICAL HISTORY: 88 years-old Male presenting with fall. TECHNIQUE: Until, oblique, lateral, and radial head views of the right elbow were obtained. COMPARISON: 05/07/2006. FINDINGS: Elbow joint congruent. No elbow joint effusion is grossly apparent. Soft tissue swelling over the olecranon. Osteopenia. No acute fracture or malalignment. Trace degenerative changes in the medial and lateral articulations. IMPRESSION: 1. Allowing for osteopenia, no acute osseous injury. 2. Soft tissue contusion suspected over the olecranon versus traumatic bursitis. Electronically signed by: Anirudh Perez M.D. 04/06/2019 6:30 PM XR pelvis 1-2V routine CLINICAL HISTORY: 88 years-old Male presenting with fall. TECHNIQUE: Single frontal view of the pelvis is obtained. COMPARISON: Correlation made to CT of the abdomen and pelvis from 06/06/2018. FINDINGS: Brachytherapy seeds noted in the prostate. Osteopenia. Image quality is degraded mildly limiting diagnostic sensitivity the exam. Sacroiliac joints, pubic symphysis, and hip joints congruent. Advanced degenerative changes of the right hip with joint space loss, subchondral sclerosis and cystic changes as well as osteophytosis. Mild to moderate degenerative changes of the left hip with osteophytosis and mild joint space loss. Degenerative changes of the pubic symphysis. The bony pelvis is intact. Degenerative changes of the lower lumbar spine are suggested. The sacrum is poorly visualized. Femoral necks are grossly intact. Prominent calcified atherosclerotic plaque. IMPRESSION: 1. Allowing for image quality, no acute osseous injury of the pelvis. 2. Advanced degenerative changes of the right hip. Additional degenerative changes as above. Electronically signed by: Anirudh Perez M.D. 04/06/2019 6:[address] cervical spine wo con CLINICAL HISTORY: 88 years-old Male presenting with fall. TECHNIQUE: Multidetector CT of the cervical spine was performed without the use of intravenous contrast. IV contrast: None. One or more dose lowering techniques were used consistent with the principles of ALARA (as low as reasonably achieva ble), including automatic exposure control, mA or kV adjustment to individual patient size, and/or use of iterative reconstruction. COMPARISON: Correlation made to CT neck from 03/22/2017. CT DOSE (mGy.cm): The estimated cumulative dose is 1417.21. 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 Normal cervical lordosis. Vertebral bodies maintain normal height and alignment. Intervertebral disc height loss noted at C5-6 and C6-7, where there is the greatest degree of degenerative change. Multilevel disc osteophyte complexes most significant at C5-6 and C6-7. Mild posterior spondylitic spurring at these levels resulting in mild osseous spinal canal narrowing. Multilevel mild facet arthropathy greater on the left. Uncovertebral hypertrophy and facet arthropathy result in varying degrees of osseous neural foraminal narrowing. Degenerative changes of the atlantodental articulation. No acute fracture or subluxation. Visualized portion of the skull base intact. Soft tissue within the external auditory canal is likely cerumen. Atherosclerosis. IMPRESSION: 1. No acute osseous injury of the cervical spine. 2. Multilevel degenerative changes. Electronically signed by: Anirudh Perez M.D. 04/06/2019 8:[address] head/brain wo con CLINICAL HISTORY: 88 years-old Male presenting with AMS. TECHNIQUE: Multidetector CT imaging of the head was performed without the use of intravenous contrast. IV contrast: None. One or more dose lowering techniques were used consistent with the principles of ALARA (as low as reasonably achievable), including automatic exposure control, mA or kV adjustment to individual patient size, and/or use of iterative reconstruction. COMPARISON: 11/10/2018. CT DOSE (mGy.cm): The estimated cumulative dose is 1417.21. 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 Proportional ventricular and sulcal prominence, likely age-related parenchymal volume loss. No hemorrhage. Brain parenchyma normal in appearance with preserved gracia-white differentiation. No acute territorial infarct. No mass effect or midline shift. No extra-axial fluid collection. Paranasal sinuses and mastoid air cells clear. Calvarium intact. Intracranial atherosclerosis noted. IMPRESSION: 1. No acute intracranial abnormality. Electronically signed by: Anirudh Perez M.D. 04/06/2019 8:42 PM XR pelvis 1-2V routine CLINICAL HISTORY: 88 years-old Male presenting with fall. TECHNIQUE: Single frontal view of the pelvis is obtained. COMPARISON: Correlation made to CT of the abdomen and pelvis from 06/06/2018. FINDINGS: Brachytherapy seeds noted in the prostate. Osteopenia. Image quality is degraded mildly limiting diagnostic sensitivity the exam. Sacroiliac joints, pubic symphysis, and hip joints congruent. Advanced degenerative changes of the right hip with joint space loss, subchondral sclerosis and cystic changes as well as osteophytosis. Mild to moderate degenerative changes of the left hip with osteophytosis and mild joint space loss. Degenerative changes of the pubic symphysis. The bony pelvis is intact. Degenerative changes of the lower lumbar spine are suggested. The sacrum is poorly visualized. Femoral necks are grossly intact. Prominent calcified atherosclerotic plaque. IMPRESSION: 1. Allowing for image quality, no acute osseous injury of the pelvis. 2. Advanced degenerative changes of the right hip. Additional degenerative changes as above. Electronically signed by: Anirudh Perez M.D. 04/06/2019 6:[address] abd pelvis wo con CLINICAL HISTORY: 88 years-old Male presenting with fall, flank pain. TECHNIQUE: Multidetector CT of the abdomen and pelvis was performed without the use of intravenous contrast. IV contrast: None. One or more dose lowering techniques were used consistent with the principles of ALARA (as low as reasonably achievable), including automatic exposure control, mA or kV adjustment to individual patient size, and/or use of iterative reconstruction. COMPARISON: 06/06/2018. CT DOSE (mGy.cm): The estimated cumulative dose is 1417.21 mGy.cm. 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 Evaluation limited by patient positioning of the arms at the sides. This mildly degrades diagnostic sensitivity the exam. Lung bases: Normal heart size. Coronary artery and aortic valve calcification. Trace right pleural effusion may be present if any. Minimal dependent changes likely atelectasis. Liver: Normal morphology. Normal density. Punctate calcification suggest a history of granulomatous disease. Biliary: No gross biliary ductal dilatation allowing for noncontrast technique. Gallbladder surgically absent. Pancreas: Multilobular cystic lesion in the pancreatic neck-body as on prior exam. Additional lesion may be present in the pancreatic head as on prior exam. These are incompletely evaluated without intravenous contrast. Spleen: Punctate calcification suggest a history of granulomatous disease. Adrenal glands: Normal noncontrast appearance. Kidneys and ureters: Moderate bilateral nonspecific perinephric fat infiltration. Otherwise normal noncontrast appearance of the kidneys. No hydronephrosis. Punctate nonobstructing calculus at the upper pole of the right kidney. Ureters nondistended. No evidence of a recently passed calculus. Bladder: Incompletely evaluated secondary to underdistention. Pelvic organs: Prostate enlargement likely secondary to benign prostatic hyperplasia. Brachytherapy seeds noted in the prostate. Bowel: Severe diverticulosis of the sigmoid colon and to a lesser extent in the remainder of the colon. No wall thickening or convincing evidence of pericolonic inflammatory change in the region of the sigmoid colon. Fluid noted in the right colon suggesting a diarrheal state. The appendix is normal. No bowel obstruction. Small hiatal hernia potentially accompanied by esophageal dilatation. Peritoneal cavity: No free fluid or intraperitoneal gas. Lymph nodes: No gross lymphadenopathy allowing for noncontrast technique. Vasculature: Atherosclerosis of the normal caliber abdominal aorta. Abdominal wall: No subcutaneous contusion or hematoma is evident. Bilateral gynecomastia. Musculoskeletal: Degenerative changes of the spine. Degenerative changes of the hips, right greater than left, and sacroiliac joints. Osteopenia. Compression deformities of T12 and L2 as well as T7. These are unchanged from prior. IMPRESSION: 1. Allowing for noncontrast technique, no acute intra-abdominal injury. No acute osseous injury. 2. Chronic findings as above. 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 These are incompletely characterized and would require a dedicated pancreas protocol CT or MR for appropriate characterization. These are grossly stable from prior exam and 2018. 3. Chronic compression fractures. Electronically signed by: Anirudh Perez M.D. 04/06/2019 8:59 PM ECG Data Attestation: I personally reviewed and interpreted this ECG as follows: Indication: altered mental status Rate (beats per minute): 72 Rhythm: normal sinus Findings: + ST depression (Lateral, Inferior) Comparison ECG Date: from (11/10/18) Change: no significant change Blood Pressure Blood Pressure Findings: Elevated blood pressure Blood Pressure Disposition: further management by hospitalist XAVIER Denney The patient is an 88-year-old male who presented to the emergency department for evaluation of altered mental status. The patient normally lives at home. Family member sent the patient to the emergency department because of altered mental status. The patient was confused. There is no definite cause for the p atient's confusion noted in the emergency department. I discussed the patient's laboratory and radiographic studies with him. The patient's family member was updated intermittently by the nursing staff. Ultimately I did discuss this patient's condition with the on-call [facility] hospitalist group. They have agreed to evaluate the patient in the emergency department for further management disposition. Impression & Plan Altered mental status, Confusion, Elevated troponin Discharge Plan Visit Data *Final* Discharge Date/Time: 04/06/19 22:34 Chief Complaint: Altered Mental Status Stated Complaint: CONFUSION, ED Provider: Juan Bullard Discharge Problem: Altered mental status, Confusion, Elevated troponin Patient Disposition: Admitted As Inpatient Discharge Instructions Interventions: ED Discharge Assessment Last Done: 04/06/19 22:34 Discharge Problem: Altered mental status Qualifiers: Altered mental status type: unspecified Qualified Code(s): R41.82 - Altered mental status, unspecified The scribe's documentation has been prepared under my direction and personally reviewed by me in its entirety. I confirm that the note above accurately reflects all work, treatment, procedures, and medical decision making performed by me.
[2019-04-07] MEDS ORDERED: PNEUMOCOCCAL POLYSACCHARIDES 25 MCG/0.5 ML VIAL/SYR IM ONE (04:45)
[2019-04-07] MEDS ORDERED: PNEUMOCOCCAL ADMINISTRATION CHARGE ONE (04:45)
[2019-04-07] MEDS: LEVOTHYROXINE SODIUM 100 MCG TABLET PO SCH (05:50)
[2019-04-07] MEDS: PIPERACILLIN/TAZOBACTAM 3.375 GM in DEXTROSE 5% 100 ML IV SCH ×2 (05:51→14:03)
[2019-04-07 06:14] LABS: Estimated Average Glucose 134 mg/dl; Hemoglobin A1C 6.3 % (4.5-5.6)
[2019-04-07 07:13] LABS: Basophils # (auto) 0.02 K/uL (0-0.2); Basophils % (auto) 0.2 %; Eosinophils # (auto) 0.03 K/uL (0-0.5); Eosinophils % (auto) 0.3 %; Hematocrit (blood only) 42.4 % (42-52); Hemoglobin 14.5 g/dL (14.0-18.0); Immature Granulocytes # (auto) 0.04 K/uL (0.00-0.02); Immature Granulocytes % (auto) 0.3 %; Lymphocytes # (auto) 1.61 K/uL (1.2-3.4); Mean Corpuscular Hgb Conc 34.2 g/dL (32-36); Mean Corpuscular Volume 93.6 fL (80-100); Mean Platelet Volume 9.6 fL (7.4-10.4); Monocytes # (auto) 1.23 K/uL (0.11-0.59); Monocytes % (auto) 10.7 %; Neutrophils % (auto) 74.5 %; Platelet Count 234 K/uL (130-400); RDW Coefficient of Variation 14.1 % (11.5-14.5); RDW Standard Deviation 48.2 fL (36.4-46.3); Red Blood Count 4.53 M/uL (4.7-6.1); White Blood Count 11.53 K/uL (4.8-10.8)
[2019-04-07 07:50] LABS: Albumin Level 2.7 gm/dl (3.4-5.0); BUN Creatinine Ratio 29.7 (10-20); Creatinine Clr Calc Pharmacy 42.3 ml/min; Est GFR (African American) 69.9; Est GFR (Non-African American) 60.3; Potassium 3.5 mmol/L (3.5-5.1)
[2019-04-07 07:57] LABS: Albumin Globulin Ratio 0.7 (0.9-2); Bilirubin,Total 0.9 mg/dl (0.2-1); Globulin 4.1 gm/dl (2.5-4.0); Total Protein 6.8 gm/dl (6.4-8.2); Troponin I 0.121 ng/ml (0-0.045)
[2019-04-07] MEDS: CLOPIDOGREL BISULFATE 75 MG TAB PO SCH (09:22)
[2019-04-07] MEDS: ASPIRIN 81 MG ECTAB PO SCH (09:22)
[2019-04-07] MEDS: CALCIUM CARBONATE 1250MG TAB PO SCH ×3 (09:22→21:21)
[2019-04-07] MEDS: ATORVASTATIN 40 MG TAB PO SCH (09:22)
[2019-04-07] MEDS: DOCUSATE SODIUM 100 MG CAP PO SCH ×2 (09:22→20:38)
[2019-04-07] MEDS: CEROVITE ADV FORMULA TAB PO SCH (09:23)
[2019-04-07] MEDS: PANTOprazole 40 MG TAB PO SCH (09:23)
[2019-04-07] MEDS: MAGNESIUM OXIDE 400 MG TAB PO SCH (09:23)
[2019-04-07] MEDS: FERROUS SULFATE 325 MG TAB PO SCH ×2 (09:23→20:38)
[2019-04-07] MEDS: ISOSORBIDE MONO EXTENDED REL 30 MG TABCR PO SCH (09:23)
[2019-04-07] MEDS: ACETAMINOPHEN 325 MG TAB PO PRN (09:34)
--- NOTE | 2019-04-07 12:19 | Hospitalist Progress Note ---
Date of Service April 07, 2019 Assessment & Plan (1) Altered mental status: Uncertain etiology. No h/o seizures or evidence of tongue-biting when found. No stroke like symptoms are present and he remembers the morning where he was ambulating and eating normally. He has no preceeding infectious symptoms, and is not septic with normal UA, CXR and no evidenc of intra- abdominal findings of infection on CT. Zosyn will be stopped. He does have this angry inflamed R elbow after a recent mechanical fall that is causing him some significant pain. He reports taking Aleve for this. Daughter mentioned that he took hydrocodone last year for something. She also states that when niece found patient, it appeared he hadn't taken his prescribed meds for one day. Urine tox ordered to screen for narcotics that may have caused altered consciousness. He also has some evidence of metabolic syndrome with an A1C of 6.3. There is a possibility of an acute blood sugar change at home, however, his blood sugar checks have been very stable since admission, so this seems less likely. He has had no events on telemetry overnight, but did not complete his Zio patch after last admission, nor did he follow-up with Cardiology as he no- showed his appointment in November. Will cont monitoring on telemetry and recommend this going home. Will also ask Neurology to evaluate him for any further insight into what may have caused this event. All findings were discussed with daughter by phone and she is fine with the plan. (2) Elevated troponin: No evidence of ACS. He has known CAD s/p CABG in 2000. Will cont medical management of CAD including ASA, Plavix, Lipitor, lisinopril. Will obtain repeat echocardiogram to ensure no new acute wall motion abnormalities are present. Cont to monitor on telemetry for now. (3) Olecranon bursitis, right elbow: Leukocytosis and possible altered mental status as a result of the pain and swelling surrounding this elbow injury. Per Ortho, there is nothing to aspirate. Will await formal recommendations. Cont supportive care with APAP and Ice. (4) CKD (chronic kidney disease), stage III: at baseline. (5) Hypothyroidism: continue levothyroxine TSH WNL (6) DVT prophylaxis: SQ heparin Full Code Disposition: telemetry; uncertain at this time. Cont workup as above and await Neuro recommendations. Hilda Lorenzo DO [facility] Hospitalist Subjective 88-year-old man who was found minimally responsive at home by his granddaughter. He was found lying in his bed with urine soaked sheets and was brought to the ER. He had a known fall at [employer] on Thursday, approximately 3 days prior to this episode where he hit his right elbow and subsequently developed right elbow swelling, pain and decreased range of motion. An elbow x-ray on arrival to the ER was negative for fracture. Other imaging was unremarkable for acute fracture, including pelvic XR and Cervical spine CT. Head CT was negative for acute intracranial abnormality. And an abdomen and pelvis CT was performed with out contrast revealing no acute intra-abdominal injury. There were some cystic- appearing pancreatic lesions that appeared grossly stable from prior exam in 2018. Chronic compression fractures were also seen. The patient is oriented today but is notably weak and deconditioned. He lives alone and reports ambulating with a walker intermittently. He denies any pain, headache, strokelike symptoms including no dysphasia, difficulty speaking or finding words, difficulty moving arms or legs aside from his right elbow. He also denies any urinary tract infection symptoms including no dysuria, urinary urgency or increased urinary frequency recently. He denies any abdominal pain, chest pain, shortness of breath. He denies any respiratory symptoms recently and chest x-ray is clear. He has had no new medication changes recently. He reports taking Aleve for his elbow pain which was significant in the past couple of days. Yesterday when he came into the hospital he does remember the ambulan ce ride. He also admits to remembering that he woke up in the morning and had breakfast but does not remember anything beyond that. He has no other evidence of additional trauma outside of the elbow. He was placed on Zosyn empirically and has not had fevers, chills or any other infectious symptoms. Blood cultures are pending. He is nontoxic-appearing. He was admitted to this hospital in October 2018 for suspected TIA. He had issues with aphasia at that point and an MRI revealed no acute ischemic event. He was placed on dual antiplatelet therapy and then Plavix for life. He transitioned to [facility] snf and was discharged on November 29. He no showed for his cardiology appointment in November but has since followed up with primary care consistently. I did review the situation with his daughter by phone who lives in [place]. The patient has a niece who lives locally. The family is uncertain what happened but 2 family members did speak with him Irina night and he was mentating normally. Review of Systems Review of Systems: All systems reviewed & are unremarkable except as noted in HPI & below Physical Exam Physical Exam: CONSTITUTIONAL: thin, elderly, vitals as above, generally appears fatigued and fragile. EYES: PERRL, normal conjunctivae, no scleral icterus ENT: MMM, dentures in place that continue to slip out when he speaks. RESPIRATORY: clear to auscultation bilaterally, no crackles, rales or wheezes, normal respiratory effort CARDIOVASCULAR: regular rate and rhythm, S1 and 2 heard without murmurs, gallops or rubs, no JVD, no peripheral edema GASTROINTESTINAL: soft, nontender, nondistended MUSCULOSKELETAL: strength 5/5 throughout, with some guarded hip extension on the right citing pain in his right anterior hip area. Head is normocephalic and atraumatic RUE: erythema and increased warmth and swelling of medial elbow. Some decreased flexion and extension of the right elbow. biceps tendon appears to be intact with no pain over insertion site. There is significant TTP of the medial elbow. SKIN: warm and dry, and R elbow findings as above. NEUROLOGIC: No facial palsy, no dysarthria. CN 2-12 grossly intact, no sensory deficit, normal cognition, normal speech, no tremor PSYCHIATRIC: alert cooperative and oriented to person, place and time. Some short-term memory loss surrounding the time yesterday where he was reportedly confused. Results & Data Vital Signs (Past 12 Hours) Vital Signs Temp Pulse Pulse Resp BP Pulse Ox 04/07/19 11:21 36.5 C 76 24 131/84 96 04/07/19 07:15 36.5 C 55 L 18 170/87 H 96 04/07/19 04:15 36.5 C 66 21 155/80 H 92 Laboratory Results Short CBC 04/06/19 04/07/19 Range/Units 18:04 06:36 WBC 13.34 H 11.53 H (4.8-10.8) K/uL Hgb 15.5 14.5 (14.0-18.0) g/dL Hct 45.1 42.4 (42-52) % Plt Count 252 234 (130-400) K/uL [facility] 04/06/19 04/07/19 18:04 06:36 Sodium 140 141 Potassium 3.8 3.5 Chloride 104 108 H Carbon Dioxide 23 23 BUN 26 H 32 H Creatinine 1.19 1.09 Glucose 103 H 102 H Calcium 9.9 9.0 Cardiac Enzymes 04/06/19 04/06/19 04/07/19 Range/Units 18:04 22:12 00:12 Total Creatine Kinase 323 H (39-308) U/L Troponin I 0.146 H* 0.145 H* 0.153 H* (0-0.045) ng/ml 04/07/19 Range/Units 06:36 Total Creatine Kinase 195 (39-308) U/L Troponin I 0.121 H* (0-0.045) ng/ml Liver Function 04/06/19 04/07/19 Range/Units 18:04 06:36 Total Bilirubin 1.0 0.9 (0.2-1) mg/dl AST 39 H 28 (15-37) U/L ALT 28 23 (12-78) U/L Alkaline Phosphatase 127 H 107 (45-117) U/L Albumin 3.2 L 2.7 L (3.4-5.0) gm/dl Urine 04/06/19 Range/Units 18:58 Urine Color Yellow Urine Appearance Clear (Clear) Urine pH 5.0 (4.5-7.5) Ur Specific Greer 1.025 (1.000-1.030) Urine Protein 2+ H (Negative) Urine Glucose (UA) Negative (Negative) Medications Administered Current Inpatient Medications Acetaminophen (Tylenol) 650 mg PO Q4H PRN PRN Reason: Pain or Fever Stop: 05/06/19 22:54 Last Admin: 04/07/19 09:34 Dose: 650 mg Documented by: Al Hydrox/Mg Hydrox/Simethicone (Maalox) 15 ml PO Q4H PRN PRN Reason: Dyspepsia Stop: 05/06/19 22:54 Aspirin (Ecotrin Ectab) 81 mg PO DAILY [facility] Stop: 05/07/19 08:59 Last Admin: 04/07/19 09:22 Dose: 81 mg Documented by: Atorvastatin Calcium (Lipitor) 40 mg PO DAILY [facility] Stop: 05/07/19 08:59 Last Admin: 04/07/19 09:22 Dose: 40 mg Documented by: Calcium Carbonate (Os-Yamil 500) 1,250 mg PO BID [facility] Stop: 05/07/19 08:59 Last Admin: 04/07/19 09:22 Dose: 1,250 mg Documented by: Clopidogrel Bisulfate (Plavix) 75 mg PO QAM [facility] Stop: 05/07/19 08:59 Last Admin: 04/07/19 09:22 Dose: 75 mg Documented by: Dextrose (Dextrose 50%) 25 - 50 ml IV UD PRN; Protocol PRN Reason: Hypoglycemia Protocol Stop: 05/06/19 22:54 Docusate Sodium (Colace) 100 mg PO BID [facility] Stop: 05/07/19 08:59 Last Admin: 04/07/19 09:22 Dose: 100 mg Documented by: Ferrous Sulfate (Feosol) 325 mg PO BID [facility] Stop: 05/07/19 08:59 Last Admin: 04/07/19 09:23 Dose: 325 mg Documented by: Glucagon (Glucagen) 1 mg SQ UD PRN; Protocol PRN Reason: Hypoglycemia Protocol Stop: 05/06/19 22:54 Glucose (Glucose 40%) 15 - 30 gm PO UD PRN; Protocol PRN Reason: Hypoglycemia Protocol Stop: 05/06/19 22:54 Glucose (Dex4 Glucose) 4 - 8 tabs PO UD PRN; Protocol PRN Reason: Hypoglycemia Protocol Stop: 05/06/19 22:54 Heparin Sodium (Porcine) (Heparin Sodium (Porcine)) 5,000 units SQ Q8H [facility] Stop: 05/07/19 00:00 Last Admin: 04/07/19 09:22 Dose: 5,000 units Documented by: Sodium Chloride (Nss 1000ml) 1,000 mls @ 80 mls/hr IV .[id number] [facility] Stop: 05/06/19 22:54 Last Admin: 04/07/19 11:41 Dose: 80 mls/hr Documented by: Piperacillin Sod/Tazobactam (Sod 3.375 gm/ Dextrose) 115 mls @ 28.75 mls/hr IV Q8H [facility]; Protocol Stop: 04/09/19 05:59 Last Infusion: 04/07/19 09:24 Dose: Infused Documented by: Insulin Aspart (Novolog Flexpen) 0 units SC Q6 [facility] Stop: 05/07/19 00:00 Last Admin: 04/07/19 11:40 Dose: Not Given Documented by: Isosorbide Mononitrate (Imdur Extended Rel) 30 mg PO DAILY [facility] Stop: 05/07/19 08:59 Last Admin: 04/07/19 09:23 Dose: 30 mg Documented by: Levothyroxine Sodium (Synthroid) 100 mcg PO DAILYBB [facility] Stop: 05/07/19 06:29 Last Admin: 04/07/19 05:50 Dose: Not Given Documented by: Lisinopril (Zestril) 2.5 mg PO QAM [facility] Stop: 05/07/19 08:59 Last Admin: 04/07/19 09:23 Dose: 2.5 mg Documented by: Magnesium Hydroxide (Milk Of Magnesia) 30 ml PO Q12H PRN PRN Reason: Constipation Stop: 05/06/19 22:54 Magnesium Oxide (Mag-Ox) 400 mg PO DAILY [facility] Stop: 05/07/19 08:59 Last Admin: 04/07/19 09:23 Dose: 400 mg Documented by: Miscellaneous (Carbohydrates For Hypoglycemia) 15 - 30 gm PO UD PRN PRN Reason: Hypoglycemia Treatment Stop: 05/06/19 22:54 Miscellaneous (Order Awaiting Action) 1 ea N/A QS [facility] Stop: 05/07/19 07:59 Last Admin: 04/07/19 11:41 Dose: Not Given Documented by: Miscellaneous Information (Consult) 1 ea N/A UD PRN PRN Reason: Consult Stop: 05/06/19 22:54 Multivitamins/Minerals (Multivitamin W/ Minerals Tab) 1 tab PO DAILY [facility] Stop: 05/07/19 08:59 Last Admin: 04/07/19 09:23 Dose: 1 tab Documented by: Ondansetron HCl (Zofran) 4 mg IV Q6H PRN PRN Reason: Nausea Stop: 05/06/19 22:54 Pantoprazole Sodium (Protonix) 40 mg PO QAM [facility] Stop: 05/07/19 08:59 Last Admin: 04/07/19 09:23 Dose: 40 mg Documented by: Polyethylene Glycol (Miralax Powder Packet) 17 gm PO DAILY PRN PRN Reason: Constipation Stop: 05/06/19 22:54 (1) Altered mental status Altered mental status type: unspecified Qualified Code(s): R41.82 - Altered mental status, unspecified
--- NOTE | 2019-04-07 19:28 | Orthopedic Consultation ---
Date of Consultation April 07, 2019 Assessment & Plan (1) Olecranon bursitis, right elbow: This does not look like an obvious septic olecranon bursitis. This appears more to be a chronic bursitis with a possibility of cellulitis intermixed. The scant amount of fluid that we obtained will be sent down for culture. Continue the Wade wrap and dressing overnight. This can be removed as needed starting tomorrow. X-rays were reviewed with Dr Wade. No obvious fractures noted. No overt joint effusion noted per radiology for the elbow x- rays but question of a small anterior fat pad sign is possible. Would continue IV antibiotics for now and add anti-inflammatories if possible for the chronic bursitis aspect if allowable. If he continues with persistent elbow pain even when cellulitis/bursitis begins to calm down, further radiologic studies may be needed. Thank you for this consult. Dr Wade was present during this consult. History of Present Illness Reason for Consultation: Right elbow bursitis Attending Physician: Hilda Lorenzo, DO History of Present Illness Patient is an 88-year-old white male who was admitted for mental status changes, elevated troponin, elevated white count. Patient was unable to give history at that time due to mental status changes. Today Mr. rashid does answer questions appropriately. He states that he was at [employer] earlier in the week and was going down some steps. It was slippery and he ended up falling. He states that he banged up his elbows and was having worse pain on the right side than the left. His above-noted symptoms ensued and he was admitted by the [facility] medical service. He was noted to have some erythema and possible bursitis of th e right elbow and we have been asked to see him for this. Currently upon entering the room he is sleeping but is easily awoken. He has no overt complaints at this time and pain appears to be controlled. Dr. Wade is present for exam. Allergies Allergy/AdvReac Type Severity Reaction Status Date / Time Iodinated Contrast- Oral and Allergy Severe THROAT Verified 04/06/19 18:56 IV Dye TIGHTNESS cefuroxime Allergy Unknown GI UPSET Verified 04/06/19 18:56 onion Allergy Unknown RAW Verified 04/06/19 18:56 ONIONS-BLISTERS ON HANDS AND FEET NSAIDS (Non-Steroidal AdvReac Unknown GI Verified 04/06/19 18:56 Anti-Inflamma BLEEDING- TAKES ASA AT HOME HMG-CoA-R Inhibitors AdvReac Intermediate ELEVATED Uncoded 04/06/19 18:56 LFT'S WITH CRESTOR Home Medications Home Medications Medication Instructions Recorded Confirmed Type Centrum Silver Men 1 tab PO DAILY 06/06/18 04/06/19 History aspirin [Aspir-81] 81 mg PO DAILY 06/06/18 04/06/19 History gabapentin 300 mg PO HS 06/06/18 04/06/19 History magnesium oxide 400 mg PO DAILY 06/06/18 04/06/19 History Androderm 1 patch TOPICAL DAILY 11/10/18 04/06/19 History atorvastatin 40 mg PO DAILY 11/10/18 04/06/19 History docusate sodium [Stool Softener] 100 mg PO BID 11/10/18 04/06/19 History ferrous sulfate 325 mg PO BID 11/10/18 04/06/19 History gabapentin 100 mg PO BID 11/10/18 04/06/19 History isosorbide mononitrate 30 mg PO DAILY 11/10/18 04/06/19 History levothyroxine 100 mcg PO DAILYBB 11/10/18 04/06/19 History lisinopril 2.5 mg PO QAM 11/10/18 04/06/19 History meclizine 12.5 - 25 mg PO TID PRN 11/10/18 04/06/19 History pantoprazole 40 mg PO QAM 11/10/18 04/06/19 History clopidogrel 75 mg PO QAM #30 tab 11/13/18 04/06/19 Rx acetaminophen [Tylenol] 650 mg PO QID PRN 04/06/19 04/06/19 History calcium carbonate [Calcium 500] 500 mg PO BID 04/06/19 04/06/19 History Patient History Medical History TIA (transient ischemic attack) (Chronic) DVT prophylaxis Diabetes mellitus type 2, controlled (Chronic) HTN (hypertension) (Chronic) Osteoarthritis (Chronic) Diverticulosis (Chronic) GI bleed (Chronic) CAD (coronary artery disease) (Chronic) "s/p CABG 2000 cath 2007 - LAD, RCA, and obtuse marginal 100% occlusion 80% stenosis diagonal #2 patent Rebolledo to LAD graft and saphenous to obtuse marginal occluded saphenous to RCA graft with collaterals" BPH (benign prostatic hyperplasia) (Chronic) Dyslipidemia (Chronic) Hypothyroidism (Chronic) Prostate cancer (Resolved 12/09/11) "Rising PSA while on Avodart to 16.02, clinical stage T1c Status post ultrasound-guided biopsies biopsy stage T2c [place] grade 4+4 Hormonal suppression Status post prostate seed implant 02/10/2012 received 8500 cGy Status post completion of external radiation with IMRT/IGRT completed 06/22/2012 received 5000 cGy 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 Rodríguez DVT (deep venous thrombosis) (Chronic) Pulmonary embolism (Chronic) Spontaneous pneumothorax (Chronic) CKD (chronic kidney disease), stage III (Chronic) Surgical History History of cholecystectomy (Chronic) History of bilateral knee replacement (Chronic) "revision of left for septic arthritis" S/P CABG x 3 (Chronic) "2000" S/P inguinal hernia repair (Chronic) Family History Mother Dementia Diabetes Father Myocardial infarction, Onset Age: 61 Sister Multiple myeloma, Onset Age: 59 Social History Preferred Language: French Communication Ability: Effective Library Sales Consultant Required: No Beliefs That Will Affect Care: None marital status: / Current Living Situation: Alone Current Living Situation Comment: Lives alone independently current occupational status: retired Feels Safe at Home: Yes Smoking Status: Never smoker Hx Alcohol Use: No Hx Substance Use: No Physical Exam Physical Exam: On examination the right elbow, he has some moderate erythema surrounding the elbow itself on the medial lateral aspects that travels slightly proximally as well as distally. No obvious striations going down the forearm or up into the axilla. He is tender on palpation over the medial aspect of the elbow. He has very loosened skin over the right elbow and appears to have had a chronic bursitis. His skin is similar on the left elbow but not quite as pronounced. Range of motion of the elbow is not overtly affected. He is able to take the elbow through flexion extension with minimal discomfort. He is able to do supination and pronation quite well but complains of some medial pain at that point. It appeared he had some moderate fluid in the olecranon bursa which seemed to spread throughout distally and proximally to this area. We were able to apply pressure to try and coalesce the fluid into one position. At that point time, that area was swabbed with alcohol swabs and 3 Betadine swabs and length dry. An 18-gauge needle was then inserted into the bursal area and a very minimal amount of fluid was retrieved which was a clear orange serous fluid. No gross purulence noted. The needle was removed and a small dressing was applied to the elbow and Wade wrap was applied. Results & Data Vital Signs (Past 12 Hours) Vital Signs Temp Pulse Pulse Pulse Resp BP Pulse Ox 04/07/19 16:00 79 04/07/19 15:26 36.4 C L 60 23 144/74 H 96 04/07/19 11:21 36.5 C 76 24 131/84 96
[2019-04-07 21:51] LABS: Amphetamines+Metham, Urine Neg (Neg); Barbiturates, Urine Neg (Neg); Benzodiazepine, Urine Neg (Neg); Cocaine, Urine Neg (Neg); MDMA (Ecstacy), Urine Neg (Neg); Methadone, Urine Neg (Neg); Opiate, Urine Neg (Neg); Phencyclidine, Urine Neg (Neg)
[2019-04-08] MEDS: HEPARIN SOD 5,000 UNIT/0.5 ML VIAL SQ SCH ×3 (00:15→16:14)
[2019-04-08] MEDS: LEVOTHYROXINE SODIUM 100 MCG TABLET PO SCH (06:41)
[2019-04-08 07:10] LABS: Basophils # (auto) 0.01 K/uL (0-0.2); Basophils % (auto) 0.1 %; Eosinophils # (auto) 0.09 K/uL (0-0.5); Eosinophils % (auto) 0.6 %; Hematocrit (blood only) 39.7 % (42-52); Hemoglobin 13.5 g/dL (14.0-18.0); Immature Granulocytes # (auto) 0.05 K/uL (0.00-0.02); Immature Granulocytes % (auto) 0.3 %; Lymphocytes # (auto) 1.52 K/uL (1.2-3.4); Lymphocytes % (auto) 10.4 %; Mean Corpuscular Hemoglobin 31.8 pg (25-34); Mean Corpuscular Volume 93.4 fL (80-100); Mean Platelet Volume 9.5 fL (7.4-10.4); Monocytes # (auto) 1.24 K/uL (0.11-0.59); Monocytes % (auto) 8.5 %; Neutrophils # (auto) 11.75 K/uL (1.4-6.5); Neutrophils % (auto) 80.1 %; Platelet Count 256 K/uL (130-400); RDW Coefficient of Variation 14.1 % (11.5-14.5); RDW Standard Deviation 47.9 fL (36.4-46.3); Red Blood Count 4.25 M/uL (4.7-6.1); White Blood Count 14.66 K/uL (4.8-10.8)
[2019-04-08 07:36] LABS: BUN Creatinine Ratio 29.7 (10-20); Calcium 8.8 mg/dl (8.5-10.1); Creatinine Clr Calc Pharmacy 41.9 ml/min; Est GFR (African American) 69.1; Est GFR (Non-African American) 59.6; Magnesium 2.2 mg/dl (1.8-2.4); Potassium 3.2 mmol/L (3.5-5.1)
[2019-04-08] MEDS: ASPIRIN 81 MG ECTAB PO SCH (08:12)
[2019-04-08] MEDS: CEROVITE ADV FORMULA TAB PO SCH (08:12)
[2019-04-08] MEDS: DOCUSATE SODIUM 100 MG CAP PO SCH ×2 (08:12→20:38)
[2019-04-08] MEDS: FERROUS SULFATE 325 MG TAB PO SCH ×2 (08:12→20:39)
[2019-04-08] MEDS: ATORVASTATIN 40 MG TAB PO SCH (08:12)
[2019-04-08] MEDS: CLOPIDOGREL BISULFATE 75 MG TAB PO SCH (08:12)
[2019-04-08] MEDS: CALCIUM CARBONATE 1250MG TAB PO SCH ×2 (08:12→20:39)
[2019-04-08] MEDS: PANTOprazole 40 MG TAB PO SCH (08:12)
[2019-04-08] MEDS: ISOSORBIDE MONO EXTENDED REL 30 MG TABCR PO SCH (08:12)
[2019-04-08] MEDS: MAGNESIUM OXIDE 400 MG TAB PO SCH (08:12)
--- NOTE | 2019-04-08 09:22 | Electroencephalogram ---
EEG Procedure Note Date of Service April 08, 2019 Start / End Times Start Time: 0800 End Time: 0825 Referring Physician Giuseppe Mckeon MD History Confusion of uncertain causation question seizure with postictal state Home Medication List Home Medications Medication Instructions Recorded Confirmed Type Centrum Silver Men 1 tab PO DAILY 06/06/18 04/06/19 History aspirin [Aspir-81] 81 mg PO DAILY 06/06/18 04/06/19 History gabapentin 300 mg PO HS 06/06/18 04/06/19 History magnesium oxide 400 mg PO DAILY 06/06/18 04/06/19 History Androderm 1 patch TOPICAL DAILY 11/10/18 04/06/19 History atorvastatin 40 mg PO DAILY 11/10/18 04/06/19 History docusate sodium [Stool Softener] 100 mg PO BID 11/10/18 04/06/19 History ferrous sulfate 325 mg PO BID 11/10/18 04/06/19 History gabapentin 100 mg PO BID 11/10/18 04/06/19 History isosorbide mononitrate 30 mg PO DAILY 11/10/18 04/06/19 History levothyroxine 100 mcg PO DAILYBB 11/10/18 04/06/19 History lisinopril 2.5 mg PO QAM 11/10/18 04/06/19 History meclizine 12.5 - 25 mg PO TID PRN 11/10/18 04/06/19 History pantoprazole 40 mg PO QAM 11/10/18 04/06/19 History clopidogrel 75 mg PO QAM #30 tab 11/13/18 04/06/19 Rx acetaminophen [Tylenol] 650 mg PO QID PRN 04/06/19 04/06/19 History calcium carbonate [Calcium 500] 500 mg PO BID 04/06/19 04/06/19 History Inpatient Medication List Acetaminophen (Tylenol) 650 mg PO Q4H PRN PRN Reason: Pain or Fever Stop: 05/06/19 22:54 Last Admin: 04/07/19 09:34 Dose: 650 mg Documented by: [id number] Aspirin (Ecotrin Ectab) 81 mg PO DAILY KULWINDER Stop: 05/07/19 08:59 Last Admin: 04/08/19 08:12 Dose: 81 mg Documented by: [id number] Admin: 04/07/19 09:22 Dose: 81 mg Documented by: [id number] Atorvastatin Calcium (Lipitor) 40 mg PO DAILY [facility] Stop: 05/07/19 08:59 Last Admin: 04/08/19 08:12 Dose: 40 mg Documented by: [id number] Admin: 04/07/19 09:22 Dose: 40 mg Documented by: [id number] Calcium Carbonate (Os-Yamil 500) 1,250 mg PO BID KULWINDER Stop: 05/07/19 08:59 Last Admin: 04/08/19 08:12 Dose: 1,250 mg Documented by: [id number] Admin: 04/07/19 21:21 Dose: Not Given Documented by: [id number] Admin: 04/07/19 09:22 Dose: 1,250 mg Documented by: [id number] Clopidogrel Bisulfate (Plavix) 75 mg PO QAM KULWINDER Stop: 05/07/19 08:59 Last Admin: 04/08/19 08:12 Dose: 75 mg Documented by: [id number] Admin: 04/07/19 09:22 Dose: 75 mg Documented by: [id number] Docusate Sodium (Colace) 100 mg PO BID [facility] Stop: 05/07/19 08:59 Last Admin: 04/08/19 08:12 Dose: 100 mg Documented by: [id number] Admin: 04/07/19 20:38 Dose: 100 mg Documented by: [id number] Admin: 04/07/19 09:22 Dose: 100 mg Documented by: [id number] Ferrous Sulfate (Feosol) 325 mg PO BID [facility] Stop: 05/07/19 08:59 Last Admin: 04/08/19 08:12 Dose: 325 mg Documented by: [id number] Admin: 04/07/19 20:38 Dose: 325 mg Documented by: [id number] Admin: 04/07/19 09:23 Dose: 325 mg Documented by: [id number] Heparin Sodium (Porcine) (Heparin Sodium (Porcine)) 5,000 units SQ Q8H [facility] Stop: 05/07/19 00:00 Last Admin: 04/08/19 00:15 Dose: 5,000 units Documented by: [id number] Cosigned by: [id number] Admin: 04/07/19 16:24 Dose: 5,000 units Documented by: [id number] Cosigned by: [id number] Admin: 04/07/19 09:22 Dose: 5,000 units Documented by: [id number] Cosigned by: [id number] Admin: 04/07/19 01:03 Dose: 5,000 units Documented by: [id number] Cosigned by: [id number] Insulin Aspart (Novolog Flexpen) 0 units SC ACHS KULWIND[facility] Stop: 05/07/19 16:29 Last Admin: 04/07/19 20:59 Dose: Not Given Documented by: [id number] Cosigned by: [id number] Admin: 04/07/19 17:45 Dose: 1 units Documented by: [id number] Cosigned by: [id number] Isosorbide Mononitrate (Imdur Extended Rel) 30 mg PO DAILY K[facility]WIND[facility] Stop: 05/07/19 08:59 Last Admin: 04/08/19 08:12 Dose: 30 mg Documented by: [id number] Admin: 04/07/19 09:23 Dose: 30 mg Documented by: [id number] Levothyroxine Sodium (Synthroid) 100 mcg PO DAILYBB [facility] Stop: 05/07/19 06:29 Last Admin: 04/08/19 06:41 Dose: 100 mcg Documented by: [id number] Admin: 04/07/19 05:50 Dose: Not Given Documented by: [id number] Lisinopril (Zestril) 2.5 mg PO QAM KULWINDER Stop: 05/07/19 08:59 Last Admin: 04/08/19 08:12 Dose: 2.5 mg Documented by: [id number] Admin: 04/07/19 09:23 Dose: 2.5 mg Documented by: [id number] Magnesium Oxide (Mag-Ox) 400 mg PO DAILY [facility] Stop: 05/07/19 08:59 Last Admin: 04/08/19 08:12 Dose: 400 mg Documented by: [id number] Admin: 04/07/19 09:23 Dose: 400 mg Documented by: [id number] Miscellaneous (Order Awaiting Action) 1 ea N/A QS [facility] Stop: 05/07/19 07:59 Last Admin: 04/08/19 08:13 Dose: Not Given Documented by: [id number] Admin: 04/08/19 00:15 Dose: Not Given Documented by: [id number] Admin: 04/07/19 11:41 Dose: Not Given Documented by: [id number] Admin: 04/07/19 09:23 Dose: Not Given Documented by: [id number] Multivitamins/Minerals (Multivitamin W/ Minerals Tab) 1 tab PO DAILY [facility] Stop: 05/07/19 08:59 Last Admin: 04/08/19 08:12 Dose: 1 tab Documented by: [id number] Admin: 04/07/19 09:23 Dose: 1 tab Documented by: [id number] Pantoprazole Sodium (Protonix) 40 mg PO QAM [facility] Stop: 05/07/19 08:59 Last Admin: 04/08/19 08:12 Dose: 40 mg Documented by: [id number] Admin: 04/07/19 09:23 Dose: 40 mg Documented by: [id number] Discontinued Medications Sodium Chloride (Nss) 500 mls @ 999 mls/hr IV .Q31M [facility] Stop: 04/06/19 18:30 Last Infusion: 04/06/19 20:00 Dose: 0 mls/hr Documented by: [id number] Admin: 04/06/19 19:06 Dose: 999 mls/hr Documented by: [id number] Dextrose/Sodium Chloride (D5w And 1/2nss) 1,000 mls @ 80 mls/hr IV .[id number] KULWIND[facility] Stop: 05/06/19 22:14 Last Admin: 04/07/19 00:14 Dose: Not Given Documented by: [id number] Sodium Chloride (Nss 1000ml) 1,000 mls @ 80 mls/hr IV .[id number] [facility]WINDER Stop: 05/06/19 22:54 Last Infusion: 04/07/19 19:43 Dose: 0 mls/hr Documented by: [id number] Admin: 04/07/19 11:41 Dose: 80 mls/hr Documented by: [id number] Infusion: 04/07/19 11:41 Dose: 80 mls/hr Documented by: [id number] Admin: 04/07/19 00:33 Dose: 80 mls/hr Documented by: [id number] Piperacillin Sod/Tazobactam (Sod 3.375 gm/ Dextrose) 115 mls @ 230 mls/hr IV NOW ONE; Protocol Stop: 04/07/19 00:44 Last Infusion: 04/07/19 01:35 Dose: 0 mls/hr Documented by: [id number] Admin: 04/07/19 01:02 Dose: 230 mls/hr Documented by: [id number] Piperacillin Sod/Tazobactam (Sod 3.375 gm/ Dextrose) 115 mls @ 28.75 mls/hr IV Q8H KULWINDER; Protocol Stop: 04/09/19 05:59 Last Infusion: 04/07/19 19:34 Dose: 0 mls/hr Documented by: [id number] Admin: 04/07/19 14:03 Dose: 28.8 mls/hr Documented by: [id number] Infusion: 04/07/19 09:24 Dose: 0 mls/hr Documented by: [id number] Admin: 04/07/19 05:51 Dose: 28.8 mls/hr Documented by: [id number] Insulin Aspart (Novolog Flexpen) 0 units SC Q6 [facility] Stop: 05/07/19 00:00 Last Admin: 04/07/19 11:40 Dose: Not Given Documented by: [id number] Cosigned by: [id number] Admin: 04/07/19 06:08 Dose: Not Given Documented by: [id number] Cosigned by: [id number] Admin: 04/07/19 01:03 Dose: Not Given Documented by: [id number] Cosigned by: [id number] Pneumococcal Polyvalent Vaccine (Pneumovax-23) 25 mcg IM .ONCE ONE Stop: 04/07/19 04:46 Last Admin: 04/07/19 09:35 Dose: Not Given Documented by: [id number] Description This is a 21 electrode EEG with a single channel dedicated to limited EKG. The electrodes were placed in accordance with the International 10-20 system. This EEG was done as a bedside recording and is of good technical quality with few or no muscle and movement artifacts. Simultaneous video analysis of patient movement and behavior was obtained. Photic stimulation was performed. Very brief duration drowsiness is recorded intermittently Under these conditions there is evidence for normal-appearing background rhythm in the lower alpha range of up to 9 Hz and maximum frequency of up to 30 V maximum amplitude. Polymorphic mid to moderate frequency theta activity of modest voltage is seen over central regions in a symmetrical fashion. Beta activity is seen bifrontally Photic stimulation provokes a normal driving response without a photo myogenic a photoparoxysmal component Brief duration drowsiness is associated with no significant abnormalities At no time during the waking or brief duration drowsy recording is or evidence for potentially epileptogenic activity Interpretation This is a normal EEG during wakefulness and brief duration drowsiness Clinical Correlation This is a normal EEG failing to reveal evidence for focal or generalized encephalopathy or evidence for potentially epileptogenic activity Giuseppe Mckeon MD
[2019-04-08] MEDS: INSULIN ASPART 100 UNITS/ML 3 ML PEN SC SCH ×4 (09:26→20:41)
[2019-04-08] MEDS: cefTRIAXone SODIUM 1,000 MG in DEXTROSE 5% 50 ML IV SCH (12:35)
--- NOTE | 2019-04-08 12:36 | Neurology Consultation ---
Date of Consultation April 08, 2019 Assessment & Plan (1) Altered mental status: 1. CT head- no acute findings 2. MRI brain could be done but it would not change room attendant- recommend only if stroke symptoms occur 3. continue plavix 75 mg and aspirin 81 mg daily 4. optimize HTN, HLD, DM LDL <70 consider patients age 5. PT/OT for discharge needs 6. passed swallowing study 7. orthopedics -consulted for possible bursitis in elbow- Rocephin given 8. appears to back to baseline- needs discussion regarding driving and living alone with he and his granddaughter who is child day care center worker 9. TTE- no ASD- out patient cardio net was negative for arrhythmia Supervising Physician Co-Signing Physician Notes I have seen and discussed above patient with Dr Giuseppe Mckeon, neurology Is all really okay I have seen this man, examined him briefly, interviewed him, discussed his case with Katt Rod PA-C and reviewed his CT scan and the EEG that was requested. He is here now for recurrent episode of confusion of uncertain origin for which she is totally amnestic and it appears that she recalls going to bed the night prior to admission but then a little or nothing else up until the time he was placed in his hospital room after being found by his granddaughter, transported here to the hospital, seen in the emergency room and then sent to the floor. He is now back to his baseline or close to his baseline according to what I can glean from Katt Rod PA-C who knows him from the last admission and his examination shows nothing of significance, the CT scan shows no evidence for subdural which would have been important in light of his recent fall down some stairs in [place] and his EEG is normal indicating no evidence for a generalized or focal encephalopathy and no evidence for potentially epileptogenic activity At this point I would suggest he simply be observed, continued his treatment for presumptive cellulitis of the right arm following his trauma to the elbow during the fall check back with him through the weekend and anticipate he will probably be able to be discharged either Thursday or Thursday Of concern is the fact that this man lives alone, drives a car and has now had 2 episodes of confusion making me suspicious that he might need more supervision that he is receiving at this point time but this again will be something that social service may need to address and the family is going to have to wrestle with as at his baseline he seems alert awake oriented and can provide an incredibly detailed history about many aspects of his life and recent events Giuseppe Mckeon MD History of Present Illness Reason for Consultation: altered mental status Requesting Physician: Hilda Lorenzo DO Attending Physician: Hilda Lorenzo DO History of Present Illness Thom is an 88 year old male with a PMH of CAD s/p CABG x 3 in 2000, HTN, HLD, CKD stage III baseline creatinine 1.1, diet-controlled DM 2, history of prostate cancer status post radiation, postoperative PE, testosterone deficiency, history of TIA in 10/2017 who presents to [facility] ED via EMS secondary to being found in bed by granddaughter with altered mental status. He was seen back in October 2018 for a change in MS and imaging was negative. He also had an outpatient heart monitor which showed no sustained arrhythmias. He did fall down stairs at his [place] and has an open injury to his elbow. He appears to be back to his baseline. denies CP, SOB, abdominal pain, N, V, vision changes, swallowing issues. He still drives and lives alone this was discussed at previous admission but he and his granddaughter will need to discuss again. Allergies Allergy/AdvReac Type Severity Reaction Status Date / Time Iodinated Contrast- Oral and Allergy Severe THROAT Verified 04/06/19 18:56 IV Dye TIGHTNESS onion Allergy Unknown RAW Verified 04/06/19 18:56 ONIONS-BLISTERS ON HANDS AND FEET rosuvastatin [From Crestor] AdvReac Mild Unknown Verified 04/08/19 10:50 cefuroxime AdvReac Unknown GI UPSET Verified 04/08/19 10:48 NSAIDS (Non-Steroidal AdvReac Unknown GI Verified 04/06/19 18:56 Anti-Inflamma BLEEDING- TAKES ASA AT HOME Home Medications Home Medications Medication Instructions Recorded Confirmed Type Centrum Silver Men 1 tab PO DAILY 06/06/18 04/06/19 History aspirin [Aspir-81] 81 mg PO DAILY 06/06/18 04/06/19 History gabapentin 300 mg PO HS 06/06/18 04/06/19 History magnesium oxide 400 mg PO DAILY 06/06/18 04/06/19 History Androderm 1 patch TOPICAL DAILY 11/10/18 04/06/19 History atorvastatin 40 mg PO DAILY 11/10/18 04/06/19 History docusate sodium [Stool Softener] 100 mg PO BID 11/10/18 04/06/19 History ferrous sulfate 325 mg PO BID 11/10/18 04/06/19 History gabapentin 100 mg PO BID 11/10/18 04/06/19 History isosorbide mononitrate 30 mg PO DAILY 11/10/18 04/06/19 History levothyroxine 100 mcg PO DAILYBB 11/10/18 04/06/19 History lisinopril 2.5 mg PO QAM 11/10/18 04/06/19 History meclizine 12.5 - 25 mg PO TID PRN 11/10/18 04/06/19 History pantoprazole 40 mg PO QAM 11/10/18 04/06/19 History clopidogrel 75 mg PO QAM #30 tab 11/13/18 04/06/19 Rx acetaminophen [Tylenol] 650 mg PO QID PRN 04/06/19 04/06/19 History calcium carbonate [Calcium 500] 500 mg PO BID 04/06/19 04/06/19 History Patient History Medical History TIA (transient ischemic attack) (Chronic) DVT prophylaxis Diabetes mellitus type 2, controlled (Chronic) HTN (hypertension) (Chronic) Osteoarthritis (Chronic) Diverticulosis (Chronic) GI bleed (Chronic) CAD (coronary artery disease) (Chronic) "s/p CABG 2001 cath 2007 - LAD, RCA, and obtuse marginal 100% occlusion 80% stenosis diagonal #2 patent Rebolledo to LAD graft and saphenous to obtuse marginal occluded saphenous to RCA graft with collaterals" BPH (benign prostatic hyperplasia) (Chronic) Dyslipidemia (Chronic) Hypothyroidism (Chronic) Prostate cancer (Resolved 12/09/11) "Rising PSA while on Avodart to 16.02, clinical stage T1c Status post ultrasound-guided biopsies biopsy stage T2c Hobbs grade 4+4 Hormonal suppression Status post prostate seed implant 02/10/2012 received 8500 cGy Status post completion of external radiation with IMRT/IGRT completed 06/22/2012 received 5000 cGy 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 Rodríguez DVT (deep venous thrombosis) (Chronic) Pulmonary embolism (Chronic) Spontaneous pneumothorax (Chronic) CKD (chronic kidney disease), stage III (Chronic) Surgical History History of cholecystectomy (Chronic) History of bilateral knee replacement (Chronic) "revision of left for septic arthritis" S/P CABG x 3 (Chronic) "2000" S/P inguinal hernia repair (Chronic) Family History Mother Dementia Diabetes Father Myocardial infarction, Onset Age: 61 Sister Multiple myeloma, Onset Age: 59 Social History Preferred Language: Jamaican Communication Ability: Effective Vending Machine Host/Hostess Required: No Beliefs That Will Affect Care: None marital status: / Current Living Situation: Alone Current Living Situation Comment: Lives alone independently current occupational status: retired Feels Safe at Home: Yes Smoking Status: Never smoker Hx Alcohol Use: No Hx Substance Use: No Physical Exam Physical Exam: Physical Exam: Constitutional: appearance nourished, frail Ears, Nose, Mouth and Throat: mucous membranes moist, no injection and skin normal, eyes normal Cardiovascular: normal S-1 and S-2 and regular rate and rhythm Respiratory: course breath sounds Musculoskeletal: no peripheral edema and good distal pulses Skin: no stigmata of neurocutaneous disease noted and normal and intact Eyes: extraocular muscles intact (EOMI) and pupils equal, round and reactive to light (PERRL) NEUROLOGIC EXAMINATION: Mental status: Alert and interactive Oriented to [facility], [facility], [place] lives in [place] Oriented to person Speech fluent with no evidence of aphasia Cranial Nerves smile eye brow raise symmetric Reflexes: Deep tendon reflexes were symmetrical and graded 2/5. Sensory: light and cool touch intact Coordination: finger to nose no bi pass Gait/Stance: Posture normal. Gait normal not assessed. Motor: Negative for pronator drift of out stretched arms with eyes closed. Strength: biceps triceps hand hot stick man 4+/5 (expected for age) hip flex 5/5 Results & Data Vital Signs (Past 12 Hours) Vital Signs Temp Pulse Pulse Resp BP Pulse Ox 04/08/19 10:52 36.7 C 73 22 132/78 95 04/08/19 08:37 57 L 04/08/19 07:07 36.3 C L 56 L 23 169/95 H 94 04/08/19 03:55 37.1 C 62 19 166/82 H 94 Laboratory Results Abnormal lab results 04/07/19 04/08/19 04/08/19 Range/Units 16:24 06:45 06:45 WBC 14.66 H (4.8-10.8) K/uL RBC 4.25 L (4.7-6.1) M/uL Hgb 13.5 L (14.0-18.0) g/dL Hct 39.7 L (42-52) % RDW Std Deviation 47.9 H (36.4-46.3) fL Immature Gran # (Auto) 0.05 H (0.00-0.02) K/uL Neut # (Auto) 11.75 H (1.4-6.5) K/uL Pepin # (Auto) 1.24 H (0.11-0.59) K/uL Potassium 3.2 L (3.5-5.1) mmol/L Chloride 110 H (98-107) mmol/L BUN 33 H (7-18) mg/dl BUN/Creatinine Ratio 29.7 H (10-20) POC Glucose 129 H (70-99) 04/08/19 04/08/19 Range/Units 08:28 11:51 WBC (4.8-10.8) K/uL RBC (4.7-6.1) M/uL Hgb (14.0-18.0) g/dL Hct (42-52) % RDW Std Deviation (36.4-46.3) fL Immature Gran # (Auto) (0.00-0.02) K/uL Neut # (Auto) (1.4-6.5) K/uL Pepin # (Auto) (0.11-0.59) K/uL Potassium (3.5-5.1) mmol/L Chloride (98-107) mmol/L BUN (7-18) mg/dl BUN/Creatinine Ratio (10-20) POC Glucose 103 H 128 H (70-99) Diagnostic Findings CT c spine-no acute osseous injury of the cervical spine. Multilevel degenerative changes. CT head- No acute intracranial abnormality. elbow x ray-Allowing for osteopenia, no acute osseous injury. Soft tissue contusion suspected over the olecranon versus traumatic bursitis. xray pelvis-Allowing for image quality, no acute osseous injury of the pelvis. Advanced degenerative changes of the right hip. Additional degenerative changes as above. abdomen/pelvis- CT- Allowing for noncontrast technique, no acute intra-abd ominal injury. No acute osseous injury. Chronic findings as above. 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 These are incompletely characterized and would require a dedicated pancreas protocol CT or MR for appropriate characterization. These are grossly stable from prior exam and 2018. Chronic compression fractures. TTE- EF 55-60% no ASD (1) Altered mental status Altered mental status type: unspecified Qualified Code(s): R41.82 - Altered mental status, unspecified
--- NOTE | 2019-04-08 13:31 | Fluoroscopy Report ---
VIDEO SWALLOW STUDY CLINICAL HISTORY: Aspiration. COMPARISON STUDY: Barium esophagram dated 12/31/2015. Fluoroscopy time: 2.5 minutes. FINDINGS: Fluoroscopic guidance was provided to the Department of Speech Pathology in performing a vi carissa swallow study. The patient consumed barium pudding, cracker with paste, nectar thick li quid, and thin barium and the swallowing mechanism was observed in real-time. No penetration or aspir ation was seen with any of the sampled textures. IMPRESSION: No penetration or aspiration was seen with any of the sampled textures. See dedicated sp eech pathology report for detailed findings and recommendations. Dictated: 04/08/2019 11:44 AM Transcribed: 04/08/2019 1:06 PM Dolly [id number] [email or web address] Electronically signed by: Olayinka Dior M.D. 04/08/2019 1:30 PM
--- NOTE | 2019-04-08 18:21 | Hospitalist Progress Note ---
Date of Service April 08, 2019 Assessment & Plan (1) Acute metabolic encephalopathy: Likely 2/2 elbow infection. Utox was negative and mental status has improved to baseline with treatment. Restarted abx based on ortho recs. No evidence of sepsis. No fevers overnight. Cont short course of antibiotics. Appreciate Neuro assessment. No further neurologic workup indicated at this time. (2) Olecranon bursitis, right elbow: possible Septic right olecranon bursitis w/o Sepsis--Leukocytosis with slight increase overnight off antibiotics. However, it is noted he had an orthopedic manipulation which may have affected this. Possible altered mental status as a result of the pain and swelling surrounding this elbow injury which is resolved. Will restart abx at this time using ceftriaxone based on orthopedic recommendations. Cont supportive care with rest, ice and APAP. Of note, on todays exam, his redness is almost resolved and the swelling has decreased substantially. (3) Demand ischemia: No evidence of ACS. He has known CAD s/p CABG in 2000. Elevated troponin without accelerated rise with trend likely due to demand ischemia. Will cont medical management of CAD including ASA, Plavix, Lipitor, lisinopril. No events on telemetry review overnight. Echo reveals no evidence of new wall motion abnormalities to suggest an area of infarct. (4) CKD (chronic kidney disease), stage III: at baseline. (5) Hypothyroidism: continue levothyroxine TSH WNL (6) DVT prophylaxis: SQ heparin Full Code Disposition: telemetry; uncertain at this time. Cont workup as above and await Neuro recommendations. Hilda Lorenzo DO [facility] Hospitalist Subjective Doing well-fatigued from events of the day Normal video swallow study today Normal TTE PT/OT worked with him Orthopedics and Neuro evaluated him No issues with confusion today Tele review was unremarkable tolerating PO Denies pain today Review of Systems Review of Systems: All systems reviewed & are unremarkable except as noted in HPI & below Physical Exam Physical Exam: CONSTITUTIONAL: thin, elderly, vitals as above, generally appears well today EYES: normal conjunctivae, no scleral icterus ENT: MMM RESPIRATORY: clear to auscultation bilaterally, no crackles, rales or wheezes, normal respiratory effort CARDIOVASCULAR: regular rate and rhythm, S1 and 2 heard without murmurs, gallops or rubs, no JVD, no peripheral edema GASTROINTESTINAL: soft, nontender, nondistended MUSCULOSKELETAL: moves all extremities equally. RUE: erythema, warmth and swelling have improved subsstantially today and there appears to be less pain with manipulation. SKIN: warm and dry NEUROLOGIC: No facial palsy, no dysarthria. CN 2-12 grossly intact, no sensory deficit, normal cognition, normal speech, no tremor. No gross focal deficits. PSYCHIATRIC: alert cooperative and oriented to person, place and time. Results & Data Vital Signs (Past 12 Hours) Vital Signs Temp Pulse Pulse Resp BP Pulse Ox 04/08/19 15:28 36.6 C 70 24 120/75 95 04/08/19 10:52 36.7 C 73 22 132/78 95 04/08/19 08:37 57 L 04/08/19 07:07 36.3 C L 56 L 23 169/95 H 94 Laboratory Results Short CBC 04/08/19 Range/Units 06:45 WBC 14.66 H (4.8-10.8) K/uL Hgb 13.5 L (14.0-18.0) g/dL Hct 39.7 L (42-52) % Plt Count 256 (130-400) K/uL BMP 04/08/19 06:45 Sodium 143 Potassium 3.2 L Chloride 110 H Carbon Dioxide 26 BUN 33 H Creatinine 1.10 Glucose 99 Calcium 8.8 Cardiac Enzymes 04/08/19 Range/Units 06:45 Total Creatine Kinase 108 (39-308) U/L Medications Administered Current Inpatient Medications Acetaminophen (Tylenol) 650 mg PO Q4H PRN PRN Reason: Pain or Fever Stop: 05/06/19 22:54 Last Admin: 04/07/19 09:34 Dose: 650 mg Documented by: Al Hydrox/Mg Hydrox/Simethicone (Maalox) 15 ml PO Q4H PRN PRN Reason: Dyspepsia Stop: 05/06/19 22:54 Aspirin (Ecotrin Ectab) 81 mg PO DAILY [facility] Stop: 05/07/19 08:59 Last Admin: 04/08/19 08:12 Dose: 81 mg Documented by: Atorvastatin Calcium (Lipitor) 40 mg PO DAILY [facility] Stop: 05/07/19 08:59 Last Admin: 04/08/19 08:12 Dose: 40 mg Documented by: Calcium Carbonate (Os-Yamil 500) 1,250 mg PO BID [facility] Stop: 05/07/19 08:59 Last Admin: 04/08/19 08:12 Dose: 1,250 mg Documented by: Clopidogrel Bisulfate (Plavix) 75 mg PO QAM [facility] Stop: 05/07/19 08:59 Last Admin: 04/08/19 08:12 Dose: 75 mg Documented by: Dextrose (Dextrose 50%) 25 - 50 ml IV UD PRN; Protocol PRN Reason: Hypoglycemia Protocol Stop: 05/06/19 22:54 Docusate Sodium (Colace) 100 mg PO BID [facility] Stop: 05/07/19 08:59 Last Admin: 04/08/19 08:12 Dose: 100 mg Documented by: Ferrous Sulfate (Feosol) 325 mg PO BID [facility] Stop: 05/07/19 08:59 Last Admin: 04/08/19 08:12 Dose: 325 mg Documented by: Glucagon (Glucagen) 1 mg SQ UD PRN; Protocol PRN Reason: Hypoglycemia Protocol Stop: 05/06/19 22:54 Glucose (Glucose 40%) 15 - 30 gm PO UD PRN; Protocol PRN Reason: Hypoglycemia Protocol Stop: 05/06/19 22:54 Glucose (Dex4 Glucose) 4 - 8 tabs PO UD PRN; Protocol PRN Reason: Hypoglycemia Protocol Stop: 05/06/19 22:54 Heparin Sodium (Porcine) (Heparin Sodium (Porcine)) 5,000 units SQ Q8H [facility] Stop: 05/07/19 00:00 Last Admin: 04/08/19 16:14 Dose: 5,000 units Documented by: Ceftriaxone Sodium 1,000 mg/ (Dextrose) 50 mls @ 100 mls/hr IV Q24H [facility]; Protocol Stop: 04/18/19 10:59 Last Infusion: 04/08/19 13:12 Dose: Infused Documented by: Insulin Aspart (Novolog Flexpen) 0 units SC ACHS [facility] Stop: 05/07/19 16:29 Last Admin: 04/08/19 17:51 Dose: 1 units Documented by: Isosorbide Mononitrate (Imdur Extended Rel) 30 mg PO DAILY [facility] Stop: 05/07/19 08:59 Last Admin: 04/08/19 08:12 Dose: 30 mg Documented by: Levothyroxine Sodium (Synthroid) 100 mcg PO DAILYBB [facility] Stop: 05/07/19 06:29 Last Admin: 04/08/19 06:41 Dose: 100 mcg Documented by: Lisinopril (Zestril) 2.5 mg PO QAM [facility] Stop: 05/07/19 08:59 Last Admin: 04/08/19 08:12 Dose: 2.5 mg Documented by: Magnesium Hydroxide (Milk Of Magnesia) 30 ml PO Q12H PRN PRN Reason: Constipation Stop: 05/06/19 22:54 Magnesium Oxide (Mag-Ox) 400 mg PO DAILY [facility] Stop: 05/07/19 08:59 Last Admin: 04/08/19 08:12 Dose: 400 mg Documented by: Miscellaneous (Carbohydrates For Hypoglycemia) 15 - 30 gm PO UD PRN PRN Reason: Hypoglycemia Treatment Stop: 05/06/19 22:54 Miscellaneous (Order Awaiting Action) 1 ea N/A QS [facility] Stop: 05/07/19 07:59 Last Admin: 04/08/19 17:52 Dose: Not Given Documented by: Multivitamins/Minerals (Multivitamin W/ Minerals Tab) 1 tab PO DAILY [facility] Stop: 05/07/19 08:59 Last Admin: 04/08/19 08:12 Dose: 1 tab Documented by: Ondansetron HCl (Zofran) 4 mg IV Q6H PRN PRN Reason: Nausea Stop: 05/06/19 22:54 Pantoprazole Sodium (Protonix) 40 mg PO QAM [facility] Stop: 05/07/19 08:59 Last Admin: 04/08/19 08:12 Dose: 40 mg Documented by: Polyethylene Glycol (Miralax Powder Packet) 17 gm PO DAILY PRN PRN Reason: Constipation Stop: 05/06/19 22:54
[2019-04-08] MEDS: GABAPENTIN 300 MG CAP PO SCH (21:12)
[2019-04-09] MEDS: HEPARIN SOD 5,000 UNIT/0.5 ML VIAL SQ SCH (00:09)
[2019-04-09 06:01] LABS: Hematocrit (blood only) 37.2 % (42-52); Hemoglobin 12.3 g/dL (14.0-18.0); Mean Corpuscular Hemoglobin 30.9 pg (25-34); Mean Corpuscular Hgb Conc 33.1 g/dL (32-36); Mean Corpuscular Volume 93.5 fL (80-100); Mean Platelet Volume 9.5 fL (7.4-10.4); Platelet Count 263 K/uL (130-400); RDW Coefficient of Variation 14.3 % (11.5-14.5); RDW Standard Deviation 48.1 fL (36.4-46.3); Red Blood Count 3.98 M/uL (4.7-6.1); White Blood Count 8.32 K/uL (4.8-10.8)
[2019-04-09] MEDS: LEVOTHYROXINE SODIUM 100 MCG TABLET PO SCH (06:12)
[2019-04-09 06:20] LABS: BUN Creatinine Ratio 31.4 (10-20); Calcium 8.7 mg/dl (8.5-10.1); Creatinine Clr Calc Pharmacy 44.7 ml/min; Est GFR (African American) 74.8; Est GFR (Non-African American) 64.6; Potassium 3.3 mmol/L (3.5-5.1)
[2019-04-09] MEDS ORDERED: POTASSIUM CHLORIDE 20 MEQ TABCR PO ONE (07:00)
[2019-04-09] MEDS: GABAPENTIN 100 MG CAP PO SCH ×2 (08:35→12:45)
[2019-04-09] MEDS: PANTOprazole 40 MG TAB PO SCH (08:35)
[2019-04-09] MEDS: CLOPIDOGREL BISULFATE 75 MG TAB PO SCH (08:36)
[2019-04-09] MEDS: ISOSORBIDE MONO EXTENDED REL 30 MG TABCR PO SCH (08:39)
[2019-04-09] MEDS: FERROUS SULFATE 325 MG TAB PO SCH ×2 (08:41→21:47)
[2019-04-09] MEDS: CEROVITE ADV FORMULA TAB PO SCH (08:42)
[2019-04-09] MEDS: CALCIUM CARBONATE 1250MG TAB PO SCH ×2 (08:42→21:16)
[2019-04-09] MEDS: ASPIRIN 81 MG ECTAB PO SCH (08:42)
[2019-04-09] MEDS: DOCUSATE SODIUM 100 MG CAP PO SCH ×2 (08:42→21:47)
[2019-04-09] MEDS: MAGNESIUM OXIDE 400 MG TAB PO SCH (08:43)
[2019-04-09] MEDS: ENOXAPARIN INJ 40 MG/0.4 ML SYR SQ SCH (08:43)
[2019-04-09] MEDS: ATORVASTATIN 40 MG TAB PO SCH (08:43)
[2019-04-09] MEDS: INSULIN ASPART 100 UNITS/ML 3 ML PEN SC SCH ×4 (08:44→21:16)
--- NOTE | 2019-04-09 10:18 | Orthopedic Progress Note ---
Date of Service April 09, 2019 Assessment & Plan (1) Olecranon bursitis, right elbow: right elbow olecranon bursitis patient examined with Dr. Beck today. No surgical indication at this time. Appears to be resolving. Ortho will sign off. please consult if needed Supervising Physician Co-Signing Physician Notes Patient seen and examined this morning. I agree with BABITA Duran's note as above. His Wade wrap was taken down today. He was obviously a little tight, and causing some bruising in the antecubital fossa. However, there is minimal swelling, no erythema, no induration, and no tenderness to palpation over the olecranon bursa. No indication for surgical intervention. Will sign off for now. Subjective resting comfortably in bed. he has some mild complaints of pain. Physical Exam Physical Exam: right elbow, no erythema, significant swelling or open wound. Ecchymosis mild to antecubital area Results & Data Vital Signs (Past 12 Hours) Vital Signs Temp Pulse Resp BP Pulse Ox 04/09/19 07:16 36.7 C 52 L 17 146/77 H 96 04/08/19 22:58 36.9 C 95 H 18 109/67 97
--- NOTE | 2019-04-09 11:16 | Communication Note ---
Date of Service: April 09, 2019 Mr. 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 Orthopedics continues to feel he has a normal creatinine bursitis on the right and indeed the arm is tender and he holds it in flexion and is being treated for possible cellulitis with appropriate antibiotics. Discharge planning is not as yet established but I suspect he may be going home within the next day or 2 and less family and social service feels he might benefit from a rehabilitation type stay for a week or 2 until his condition stabilizes At present she is totally alert awake oriented in 3 spheres can tell me his room number the date knows there is a [employer] game today but still has no recall of the events that transpired overnight which led to his being discovered by his granddaughter in a confused state and being brought to the emergency room. CT scans EEGs etc. have shown no evidence for new central nervous system event or seizure and we are left with the diagnosis of exclusion of a parainfectious process with transient confusion and disorientation that is now resolved with appropriate treatment of the underlying medical problem Neurology probably does not need to see him on a regular basis unless his primary care physician feels we did need to do so on an outpatient basis and I will let this decision totally up to Dr. Orellana who will be assuming his care posthospitalization Neurology is now been a sign off the case but will be happy to reassess Mr. Rashid should things change Giuseppe Mckeon MD
[2019-04-09] MEDS: cefTRIAXone SODIUM 1,000 MG in DEXTROSE 5% 50 ML IV SCH (11:50)
--- NOTE | 2019-04-09 16:40 | Hospitalist Progress Note ---
Date of Service April 09, 2019 Assessment & Plan (1) Acute metabolic encephalopathy: Resolved. Was likely 2/2 elbow infection. Utox was negative and mental status has improved to baseline with treatment. Cont short course of abx. (2) Olecranon bursitis, right elbow: possible Septic right olecranon bursitis w/o Sepsis--Leukocytosis has resolved. Cont supportive care. No further workup per ortho at this time but may consider a CT elbow if pain doesn't completely resolve. (3) Demand ischemia: No evidence of ACS. He has known CAD s/p CABG in 2000. Elevated troponin without accelerated rise with trend likely due to demand ischemia. Will cont medical management of CAD including ASA, Plavix, Lipitor, lisinopril. Echo reveals no evidence of new wall motion abnormalities to suggest an area of infarct. No further workup. (4) CKD (chronic kidney disease), stage III: at baseline. (5) Hypothyroidism: continue levothyroxine TSH WNL (6) DVT prophylaxis: SQ heparin Full Code Disposition: [facility]wait[facility] doing well today no confusion overnight no increased redness around the elbow doing well on the antibiotic tolerating PO Review of Systems Review of Systems: All systems reviewed & are unremarkable except as noted in HPI & below Physical Exam Physical Exam: CONSTITUTIONAL: thin, elderly, vitals as above, generally appears well today EYES: normal conjunctivae, no scleral icterus ENT: MMM RESPIRATORY: clear to auscultation bilaterally, no crackles, rales or wheezes, normal respiratory effort CARDIOVASCULAR: regular rate and rhythm, S1 and 2 heard without murmurs, gallops or rubs, no JVD, no peripheral edema GASTROINTESTINAL: soft, nontender, nondistended MUSCULOSKELETAL: moves all extremities equally. RUE: erythema, warmth and swelling have resolved. He cannot put arm into full extension without pain. Flexion, supination and pronation are fine. SKIN: warm and dry NEUROLOGIC: No facial palsy, no dysarthria. CN 2-12 grossly intact, no sensory deficit, normal cognition, normal speech, no tremor. No gross focal deficits. PSYCHIATRIC: alert cooperative and oriented to person, place and time. Results & Data Vital Signs (Past 12 Hours) Vital Signs Temp Pulse Resp BP Pulse Ox 04/09/19 15:06 36.5 C 59 L 17 109/64 96 04/09/19 07:16 36.7 C 52 L 17 146/77 H 96 Laboratory Results Short CBC 04/09/19 Range/Units 05:29 WBC 8.32 (4.8-10.8) K/uL Hgb 12.3 L (14.0-18.0) g/dL Hct 37.2 L (42-52) % Plt Count 263 (130-400) K/uL BMP 04/09/19 05:29 Sodium 143 Potassium 3.3 L Chloride 109 H Carbon Dioxide 27 BUN 32 H Creatinine 1.03 Glucose 105 H Calcium 8.7 Medications Administered Current Inpatient Medications Acetaminophen (Tylenol) 650 mg PO Q4H PRN PRN Reason: Pain or Fever Stop: 05/06/19 22:54 Last Admin: 04/07/19 09:34 Dose: 650 mg Documented by: Al Hydrox/Mg Hydrox/Simethicone (Maalox) 15 ml PO Q4H PRN PRN Reason: Dyspepsia Stop: 05/06/19 22:54 Aspirin (Ecotrin Ectab) 81 mg PO DAILY [facility] Stop: 05/07/19 08:59 Last Admin: 04/09/19 08:42 Dose: 81 mg Documented by: Atorvastatin Calcium (Lipitor) 40 mg PO DAILY [facility] Stop: 05/07/19 08:59 Last Admin: 04/09/19 08:43 Dose: 40 mg Documented by: Calcium Carbonate (Os-Yamil 500) 1,250 mg PO BID [facility] Stop: 05/07/19 08:59 Last Admin: 04/09/19 08:42 Dose: 1,250 mg Documented by: Clopidogrel Bisulfate (Plavix) 75 mg PO QAM [facility] Stop: 05/07/19 08:59 Last Admin: 04/09/19 08:36 Dose: 75 mg Documented by: Dextrose (Dextrose 50%) 25 - 50 ml IV UD PRN; Protocol PRN Reason: Hypoglycemia Protocol Stop: 05/06/19 22:54 Docusate Sodium (Colace) 100 mg PO BID [facility] Stop: 05/07/19 08:59 Last Admin: 04/09/19 08:42 Dose: 100 mg Documented by: Enoxaparin Sodium (Lovenox) 40 mg SQ QAM [facility] Stop: 05/09/19 08:59 Last Admin: 04/09/19 08:43 Dose: 40 mg Documented by: Ferrous Sulfate (Feosol) 325 mg PO BID [facility] Stop: 05/07/19 08:59 Last Admin: 04/09/19 08:41 Dose: 325 mg Documented by: Gabapentin (Neurontin) 300 mg PO HS [facility] Stop: 05/08/19 20:59 Last Admin: 04/08/19 21:12 Dose: 300 mg Documented by: Gabapentin (Neurontin) 100 mg PO DAILY@0730,1130 [facility] Stop: 05/09/19 07:29 Last Admin: 04/09/19 12:45 Dose: 100 mg Documented by: Glucagon (Glucagen) 1 mg SQ UD PRN; Protocol PRN Reason: Hypoglycemia Protocol Stop: 05/06/19 22:54 Glucose (Glucose 40%) 15 - 30 gm PO UD PRN; Protocol PRN Reason: Hypoglycemia Protocol Stop: 05/06/19 22:54 Glucose (Dex4 Glucose) 4 - 8 tabs PO UD PRN; Protocol PRN Reason: Hypoglycemia Protocol Stop: 05/06/19 22:54 Ceftriaxone Sodium 1,000 mg/ (Dextrose) 50 mls @ 100 mls/hr IV Q24H [facility]; Protocol Stop: 04/18/19 10:59 Last Infusion: 04/09/19 12:24 Dose: Infused Documented by: Insulin Aspart (Novolog Flexpen) 0 units SC ACHS [facility] Stop: 05/07/19 16:29 Last Admin: 04/09/19 12:46 Dose: 2 units Documented by: Isosorbide Mononitrate (Imdur Extended Rel) 30 mg PO DAILY [facility] Stop: 05/07/19 08:59 Last Admin: 04/09/19 08:39 Dose: 30 mg Documented by: Levothyroxine Sodium (Synthroid) 100 mcg PO DAILYBB [facility] Stop: 05/07/19 06:29 Last Admin: 04/09/19 06:12 Dose: 100 mcg Documented by: Lisinopril (Zestril) 2.5 mg PO QAM [facility] Stop: 05/07/19 08:59 Last Admin: 04/09/19 08:42 Dose: 2.5 mg Documented by: Magnesium Hydroxide (Milk Of Magnesia) 30 ml PO Q12H PRN PRN Reason: Constipation Stop: 05/06/19 22:54 Magnesium Oxide (Mag-Ox) 400 mg PO DAILY [facility] Stop: 05/07/19 08:59 Last Admin: 04/09/19 08:43 Dose: 400 mg Documented by: Miscellaneous (Carbohydrates For Hypoglycemia) 15 - 30 gm PO UD PRN PRN Reason: Hypoglycemia Treatment Stop: 05/06/19 22:54 Miscellaneous (Order Awaiting Action) 1 ea N/A QS [facility] Stop: 05/07/19 07:59 Last Admin: 04/09/19 15:47 Dose: Not Given Documented by: Multivitamins/Minerals (Multivitamin W/ Minerals Tab) 1 tab PO DAILY [facility] Stop: 05/07/19 08:59 Last Admin: 04/09/19 08:42 Dose: 1 tab Documented by: Ondansetron HCl (Zofran) 4 mg IV Q6H PRN PRN Reason: Nausea Stop: 05/06/19 22:54 Pantoprazole Sodium (Protonix) 40 mg PO QAM [facility] Stop: 05/07/19 08:59 Last Admin: 04/09/19 08:35 Dose: 40 mg Documented by: Polyethylene Glycol (Miralax Powder Packet) 17 gm PO DAILY PRN PRN Reason: Constipation Stop: 05/06/19 22:54
[2019-04-09] MEDS: GABAPENTIN 300 MG CAP PO SCH (21:13)
[2019-04-10 04:57] LABS: Hematocrit (blood only) 37.2 % (42-52); Hemoglobin 12.5 g/dL (14.0-18.0); Mean Corpuscular Hemoglobin 31.6 pg (25-34); Mean Corpuscular Hgb Conc 33.6 g/dL (32-36); Mean Corpuscular Volume 94.2 fL (80-100); Mean Platelet Volume 9.4 fL (7.4-10.4); Platelet Count 270 K/uL (130-400); RDW Coefficient of Variation 14.4 % (11.5-14.5); RDW Standard Deviation 49.3 fL (36.4-46.3); Red Blood Count 3.95 M/uL (4.7-6.1); White Blood Count 7.59 K/uL (4.8-10.8)
[2019-04-10] MEDS: LEVOTHYROXINE SODIUM 100 MCG TABLET PO SCH (06:00)
[2019-04-10] MEDS: ACETAMINOPHEN 325 MG TAB PO PRN (06:00)
[2019-04-10] MEDS: GABAPENTIN 100 MG CAP PO SCH ×2 (07:52→11:33)
[2019-04-10] MEDS: CLOPIDOGREL BISULFATE 75 MG TAB PO SCH (08:42)
[2019-04-10] MEDS: PANTOprazole 40 MG TAB PO SCH (08:42)
[2019-04-10] MEDS: CEROVITE ADV FORMULA TAB PO SCH (08:42)
[2019-04-10] MEDS: FERROUS SULFATE 325 MG TAB PO SCH ×2 (08:43→20:39)
[2019-04-10] MEDS: ISOSORBIDE MONO EXTENDED REL 30 MG TABCR PO SCH (08:43)
[2019-04-10] MEDS: ASPIRIN 81 MG ECTAB PO SCH (08:43)
[2019-04-10] MEDS: MAGNESIUM OXIDE 400 MG TAB PO SCH (08:43)
[2019-04-10] MEDS: ATORVASTATIN 40 MG TAB PO SCH (08:43)
[2019-04-10] MEDS: CALCIUM CARBONATE 1250MG TAB PO SCH ×2 (08:43→20:39)
[2019-04-10] MEDS: INSULIN ASPART 100 UNITS/ML 3 ML PEN SC SCH ×4 (08:53→21:00)
[2019-04-10] MEDS: DOCUSATE SODIUM 100 MG CAP PO SCH ×2 (09:13→20:44)
[2019-04-10] MEDS: POTASSIUM CHLORIDE 20 MEQ TABCR PO SCH ×2 (09:13→15:37)
[2019-04-10] MEDS: ENOXAPARIN INJ 40 MG/0.4 ML SYR SQ SCH (09:14)
[2019-04-10] MEDS: cefTRIAXone SODIUM 1,000 MG in DEXTROSE 5% 50 ML IV SCH (11:32)
--- NOTE | 2019-04-10 12:11 | Hospitalist Progress Note ---
Date of Service April 10, 2019 Assessment & Plan (1) Acute metabolic encephalopathy: Resolved. (2) Olecranon bursitis, right elbow: Cont ceftriaxone for now. No fracture on CT elbow. (3) CKD (chronic kidney disease), stage III: at baseline. (4) Hypothyroidism: continue levothyroxine TSH WNL (5) CAD (coronary artery disease): Cont medical management of CAD including ASA, Plavix, Lipitor, lisinopril. Echo reveals no evidence of new wall motion abnormalities to suggest an area of infarct. No further workup. (6) DVT prophylaxis: Lovenox Full Code Disposition: Awaiting placement at [facility] Hilda Lorenzo DO [facility] Hospitalist Subjective tolerating PO doing well today discussed SNF vs home and he agreed to speak with his daughter moving forward. Denies albow pain Review of Systems Review of Systems: All systems reviewed & are unremarkable except as noted in HPI & below Physical Exam Physical Exam: CONSTITUTIONAL: thin, elderly, vitals as above, generally appears well today EYES: normal conjunctivae, no scleral icterus ENT: MMM RESPIRATORY: clear to auscultation bilaterally, no crackles, rales or wheezes, normal respiratory effort CARDIOVASCULAR: regular rate and rhythm, S1 and 2 heard without murmurs, gallops or rubs, no JVD, no peripheral edema GASTROINTESTINAL: soft, nontender, nondistended MUSCULOSKELETAL: moves all extremities equally. RUE: erythema, warmth and swelling have resolved. He cannot put arm into full extension without pain. Flexion, supination and pronation are fine. SKIN: warm and dry NEUROLOGIC: No facial palsy, no dysarthria. CN 2-12 grossly intact, no sensory deficit, normal cognition, normal speech, no tremor. No gross focal deficits. PSYCHIATRIC: alert cooperative and oriented to person, place and time. Results & Data Vital Signs (Past 12 Hours) Vital Signs Temp Pulse Resp BP Pulse Ox 04/10/19 07:17 36.6 C 52 L 20 130/71 96 Laboratory Results Short CBC 04/10/19 Range/Units 04:53 WBC 7.59 (4.8-10.8) K/uL Hgb 12.5 L (14.0-18.0) g/dL Hct 37.2 L (42-52) % Plt Count 270 (130-400) K/uL Diagnostic Findings CT OF THE RIGHT ELBOW WITHOUT CONTRAST CLINICAL HISTORY: Trauma. Right elbow pain. Evaluate for occult fracture. COMPARISON STUDY: Right elbow radiographs April 06, 2019. TECHNIQUE: Axial images of the right elbow were obtained without IV contrast. Sagittal and coronal reconstructions were viewed. Automated exposure control was utilized for the study. A dose lowering technique was utilized adhering to the principles of ALARA. FINDINGS: Alignment of the right elbow is anatomic. Exam is mildly compromised by artifact. No acute fracture is identified. Several small calcific/ossific densities adjacent to the distal left humerus are noted. There is a moderate right elbow joint effusion. No suspicious osseous lesion is noted. There is no CT evidence for osteomyelitis. Mild soft tissue swelling overlying the olecranon is noted. IMPRESSION: 1. No acute fracture identified. However, moderate sized right elbow joint effusion which could indicate an occult fracture. However, the joint effusion is nonspecific and infectious and inflammatory etiologies could have00 a similar appearance. 2. Several tiny calcific densities adjacent to the distal humerus, several of which are within the joint space. Medications Administered Current Inpatient Medications Acetaminophen (Tylenol) 650 mg PO Q4H PRN PRN Reason: Pain or Fever Stop: 05/06/19 22:54 Last Admin: 04/10/19 06:00 Dose: 650 mg Documented by: Al Hydrox/Mg Hydrox/Simethicone (Maalox) 15 ml PO Q4H PRN PRN Reason: Dyspepsia Stop: 05/06/19 22:54 Aspirin (Ecotrin Ectab) 81 mg PO DAILY [facility] Stop: 05/07/19 08:59 Last Admin: 04/10/19 08:43 Dose: 81 mg Documented by: Atorvastatin Calcium (Lipitor) 40 mg PO DAILY [facility] Stop: 05/07/19 08:59 Last Admin: 04/10/19 08:43 Dose: 40 mg Documented by: Calcium Carbonate (Os-Yamil 500) 1,250 mg PO BID [facility] Stop: 05/07/19 08:59 Last Admin: 04/10/19 08:43 Dose: 1,250 mg Documented by: Clopidogrel Bisulfate (Plavix) 75 mg PO QAM [facility] Stop: 05/07/19 08:59 Last Admin: 04/10/19 08:42 Dose: 75 mg Documented by: Dextrose (Dextrose 50%) 25 - 50 ml IV UD PRN; Protocol PRN Reason: Hypoglycemia Protocol Stop: 05/06/19 22:54 Docusate Sodium (Colace) 100 mg PO BID [facility] Stop: 05/07/19 08:59 Last Admin: 04/10/19 09:13 Dose: 100 mg Documented by: Enoxaparin Sodium (Lovenox) 40 mg SQ QAM [facility] Stop: 05/09/19 08:59 Last Admin: 04/10/19 09:14 Dose: 40 mg Documented by: Ferrous Sulfate (Feosol) 325 mg PO BID [facility] Stop: 05/07/19 08:59 Last Admin: 04/10/19 08:43 Dose: 325 mg Documented by: Gabapentin (Neurontin) 300 mg PO HS [facility] Stop: 05/08/19 20:59 Last Admin: 04/09/19 21:13 Dose: 300 mg Documented by: Gabapentin (Neurontin) 100 mg PO DAILY@0730,1130 [facility] Stop: 05/09/19 07:29 Last Admin: 04/10/19 11:33 Dose: 100 mg Documented by: Glucagon (Glucagen) 1 mg SQ UD PRN; Protocol PRN Reason: Hypoglycemia Protocol Stop: 05/06/19 22:54 Glucose (Glucose 40%) 15 - 30 gm PO UD PRN; Protocol PRN Reason: Hypoglycemia Protocol Stop: 05/06/19 22:54 Glucose (Dex4 Glucose) 4 - 8 tabs PO UD PRN; Protocol PRN Reason: Hypoglycemia Protocol Stop: 05/06/19 22:54 Ceftriaxone Sodium 1,000 mg/ (Dextrose) 50 mls @ 100 mls/hr IV Q24H [facility]; Protocol Stop: 04/18/19 10:59 Last Infusion: 04/10/19 12:10 Dose: Infused Documented by: Insulin Aspart (Novolog Flexpen) 0 units SC ACHS [facility] Stop: 05/07/19 16:29 Last Admin: 04/10/19 08:53 Dose: Not Given Documented by: Isosorbide Mononitrate (Imdur Extended Rel) 30 mg PO DAILY [facility] Stop: 05/07/19 08:59 Last Admin: 04/10/19 08:43 Dose: 30 mg Documented by: Levothyroxine Sodium (Synthroid) 100 mcg PO DAILYBB [facility] Stop: 05/07/19 06:29 Last Admin: 04/10/19 06:00 Dose: 100 mcg Documented by: Lisinopril (Zestril) 2.5 mg PO QAM [facility] Stop: 05/07/19 08:59 Last Admin: 04/10/19 08:43 Dose: 2.5 mg Documented by: Magnesium Hydroxide (Milk Of Magnesia) 30 ml PO Q12H PRN PRN Reason: Constipation Stop: 05/06/19 22:54 Magnesium Oxide (Mag-Ox) 400 mg PO DAILY [facility] Stop: 05/07/19 08:59 Last Admin: 04/10/19 08:43 Dose: 400 mg Documented by: Miscellaneous (Carbohydrates For Hypoglycemia) 15 - 30 gm PO UD PRN PRN Reason: Hypoglycemia Treatment Stop: 05/06/19 22:54 Miscellaneous (Order Awaiting Action) 1 ea N/A QS [facility] Stop: 05/07/19 07:59 Last Admin: 04/10/19 08:40 Dose: Not Given Documented by: Multivitamins/Minerals (Multivitamin W/ Minerals Tab) 1 tab PO DAILY [facility] Stop: 05/07/19 08:59 Last Admin: 04/10/19 08:42 Dose: 1 tab Documented by: Ondansetron HCl (Zofran) 4 mg IV Q6H PRN PRN Reason: Nausea Stop: 05/06/19 22:54 Pantoprazole Sodium (Protonix) 40 mg PO QAM [facility] Stop: 05/07/19 08:59 Last Admin: 04/10/19 08:42 Dose: 40 mg Documented by: Polyethylene Glycol (Miralax Powder Packet) 17 gm PO DAILY PRN PRN Reason: Constipation Stop: 05/06/19 22:54 Potassium Chloride (Klor-Con M20) 40 meq PO Q6H [facility] Stop: 04/10/19 14:31 Last Admin: 04/10/19 09:13 Dose: 40 meq Documented by:
--- NOTE | 2019-04-10 12:49 | CT Scan Report ---
CT OF THE RIGHT ELBOW WITHOUT CONTRAST CLINICAL HISTORY: Trauma. Right elbow pain. Evaluate for occult fracture. COMPARISON STUDY: Right elbow radiographs April 06, 2019. TECHNIQUE: Axial images of the right elbow were obtained without IV contrast. Sagittal and coronal re constructions were viewed. Automated exposure control was utilized for the study. A dose lowering te chnique was utilized adhering to the principles of ALARA. FINDINGS: Alignment of the right elbow is anatomic. Exam is mildly compromised by artifact. No acute fracture is identified. Several small calcific/ossific densities adjacent to the distal left humerus are noted. There is a moderate right elbow joint effusion. No suspicious osseous lesion is noted. The re is no CT evidence for osteomyelitis. Mild soft tissue swelling overlying the olecranon is noted. IMPRESSION: 1. No acute fracture identified. However, moderate sized right elbow joint effusion which could indic ate an occult fracture. However, the joint effusion is nonspecific and infectious and inflammatory et iologies could have00 a similar appearance. 2. Several tiny calcific densities adjacent to the distal humerus, several of which are within the idana int space. Electronically signed by: Mauricio Snyder M.D. 04/10/2019 12:48 PM
[2019-04-10] MEDS: GABAPENTIN 300 MG CAP PO SCH (20:40)
[2019-04-11 06:13] LABS: BUN Creatinine Ratio 18.1 (10-20); Calcium 9.2 mg/dl (8.5-10.1); Creatinine Clr Calc Pharmacy 38.7 ml/min; Est GFR (African American) 62.8; Est GFR (Non-African American) 54.2; Magnesium 2.1 mg/dl (1.8-2.4); Potassium 4.5 mmol/L (3.5-5.1)
[2019-04-11] MEDS: LEVOTHYROXINE SODIUM 100 MCG TABLET PO SCH (06:47)
[2019-04-11] MEDS: POLYETHYLENE (MIRALAX) 17 GM PACK PO PRN (08:25)
[2019-04-11] MEDS: GABAPENTIN 100 MG CAP PO SCH ×2 (08:27→12:28)
[2019-04-11] MEDS: ATORVASTATIN 40 MG TAB PO SCH (08:27)
[2019-04-11] MEDS: CEROVITE ADV FORMULA TAB PO SCH (08:27)
[2019-04-11] MEDS: CLOPIDOGREL BISULFATE 75 MG TAB PO SCH (08:27)
[2019-04-11] MEDS: CALCIUM CARBONATE 1250MG TAB PO SCH ×2 (08:27→21:12)
[2019-04-11] MEDS: FERROUS SULFATE 325 MG TAB PO SCH ×2 (08:27→21:13)
[2019-04-11] MEDS: PANTOprazole 40 MG TAB PO SCH (08:27)
[2019-04-11] MEDS: MAGNESIUM OXIDE 400 MG TAB PO SCH (08:28)
[2019-04-11] MEDS: ISOSORBIDE MONO EXTENDED REL 30 MG TABCR PO SCH (08:28)
[2019-04-11] MEDS: ENOXAPARIN INJ 40 MG/0.4 ML SYR SQ SCH (08:28)
[2019-04-11] MEDS: ASPIRIN 81 MG ECTAB PO SCH (08:28)
[2019-04-11] MEDS: DOCUSATE SODIUM 100 MG CAP PO SCH ×2 (08:30→21:12)
[2019-04-11] MEDS: INSULIN ASPART 100 UNITS/ML 3 ML PEN SC SCH ×4 (08:34→21:47)
[2019-04-11] MEDS: cefTRIAXone SODIUM 1,000 MG in DEXTROSE 5% 50 ML IV SCH (11:19)
--- NOTE | 2019-04-11 15:26 | Hospitalist Progress Note ---
Date of Service April 11, 2019 Assessment & Plan (1) Olecranon bursitis, right elbow: possible Septic right olecranon bursitis w/o Sepsis--Leukocytosis has resolved. Cont supportive care. No further workup per ortho at this time but may consider a CT elbow if pain doesn't completely resolve. Will switch to oral antibiotics around time of discharge. (2) CKD (chronic kidney disease), stage III: at baseline. (3) Hypothyroidism: continue levothyroxine TSH WNL (4) CAD (coronary artery disease): Cont medical management of CAD including ASA, Plavix, Lipitor, lisinopril. Echo reveals no evidence of new wall motion abnormalities to suggest an area of infarct. No further workup. (5) Memory loss: Loss of memory around recent event that prompted hospitalization, which is the second time this has occurred this year. After speaking with his family, he is not notifying anyone when he is feeling poorly. He has a life alert system that he is not utilizing for one reason or another. With his level of age and fragiilty in the setting of the repeating events this year, I would be hesitant for him to live alone and have recommended a personal long-term or some assisted living. This may be cost prohibitive and he will be going to SNF initially. 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 He drives at abnormal speeds, and I don't believe he would have the appropriate reaction time to handle driving a car any longer. His primary care physician was under the impression that he was not driving, however, his daughter states that he is. He does have family in the area, and is set up with meals on wheels. He would be able to qualify for other home based therapies once he goes home and may even be a good candidate for the [facility] program. My recommendation is that he stop driving for the reasons above in the context of these periods of memory loss which have occurred twice in the last year and are of uncertain etiology. (6) DVT prophylaxis: Lovenox. Full Code Disposition: [facility] Subjective Improvement in ROM of elbow today Denies pain CT scan reviewed with patient tolerating PO PT therapy visit this am with recommendations for SNF and patient is ok with that. Review of Systems Review of Systems: All systems reviewed & are unremarkable except as noted in HPI & below Physical Exam Physical Exam: CONSTITUTIONAL: thin, elderly, vitals as above, generally appears well today EYES: normal conjunctivae, no scleral icterus ENT: MMM RESPIRATORY: clear to auscultation bilaterally, no crackles, rales or wheezes, normal respiratory effort CARDIOVASCULAR: regular rate and rhythm, S1 and 2 heard without murmurs, gallops or rubs, no JVD, no peripheral edema GASTROINTESTINAL: soft, nontender, nondistended MUSCULOSKELETAL: moves all extremities equally. RUE: erythema, warmth and swelling have resolved. Normal flexion and extension of R arm. SKIN: warm and dry NEUROLOGIC: No facial palsy, no dysarthria. CN 2-12 grossly intact, no sensory deficit, normal cognition, normal speech, no tremor. No gross focal deficits. PSYCHIATRIC: alert cooperative and oriented to person, place and time. Results & Data Vital Signs (Past 12 Hours) Vital Signs Temp Pulse Resp BP BP Pulse Ox 04/11/19 15:20 36.6 C 68 17 158/87 H 97 04/11/19 07:16 36.8 C 54 L 18 147/77 H 93 Laboratory Results BMP 04/11/19 05:19 Sodium 142 Potassium 4.5 D Chloride 107 Carbon Dioxide 29 BUN 22 H Creatinine 1.19 Glucose 116 H Calcium 9.2 Medications Administered Current Inpatient Medications Acetaminophen (Tylenol) 650 mg PO Q4H PRN PRN Reason: Pain or Fever Stop: 05/06/19 22:54 Last Admin: 04/10/19 06:00 Dose: 650 mg Documented by: Al Hydrox/Mg Hydrox/Simethicone (Maalox) 15 ml PO Q4H PRN PRN Reason: Dyspepsia Stop: 05/06/19 22:54 Aspirin (Ecotrin Ectab) 81 mg PO DAILY [facility] Stop: 05/07/19 08:59 Last Admin: 04/11/19 08:28 Dose: 81 mg Documented by: Atorvastatin Calcium (Lipitor) 40 mg PO DAILY [facility] Stop: 05/07/19 08:59 Last Admin: 04/11/19 08:27 Dose: 40 mg Documented by: Calcium Carbonate (Os-Yamil 500) 1,250 mg PO BID [facility] Stop: 05/07/19 08:59 Last Admin: 04/11/19 08:27 Dose: 1,250 mg Documented by: Clopidogrel Bisulfate (Plavix) 75 mg PO QAM [facility] Stop: 05/07/19 08:59 Last Admin: 04/11/19 08:27 Dose: 75 mg Documented by: Dextrose (Dextrose 50%) 25 - 50 ml IV UD PRN; Protocol PRN Reason: Hypoglycemia Protocol Stop: 05/06/19 22:54 Docusate Sodium (Colace) 100 mg PO BID [facility] Stop: 05/07/19 08:59 Last Admin: 04/11/19 08:30 Dose: 100 mg Documented by: Enoxaparin Sodium (Lovenox) 40 mg SQ QAM [facility]ULWINDER Stop: 05/09/19 08:59 Last Admin: 04/11/19 08:28 Dose: 40 mg Documented by: Ferrous Sulfate (Feosol) 325 mg PO BID [facility] Stop: 05/07/19 08:59 Last Admin: 04/11/19 08:27 Dose: 325 mg Documented by: Gabapentin (Neurontin) 300 mg PO HS [facility] Stop: 05/08/19 20:59 Last Admin: 04/10/19 20:40 Dose: 300 mg Documented by: Gabapentin (Neurontin) 100 mg PO DAILY@0730,1130 [facility] Stop: 05/09/19 07:29 Last Admin: 04/11/19 12:28 Dose: 100 mg Documented by: Glucagon (Glucagen) 1 mg SQ UD PRN; Protocol PRN Reason: Hypoglycemia Protocol Stop: 05/06/19 22:54 Glucose (Glucose 40%) 15 - 30 gm PO UD PRN; Protocol PRN Reason: Hypoglycemia Protocol Stop: 05/06/19 22:54 Glucose (Dex4 Glucose) 4 - 8 tabs PO UD PRN; Protocol PRN Reason: Hypoglycemia Protocol Stop: 05/06/19 22:54 Ceftriaxone Sodium 1,000 mg/ (Dextrose) 50 mls @ 100 mls/hr IV Q24H KULWINDER; Protoc ol Stop: 04/18/19 10:59 Last Infusion: 04/11/19 11:55 Dose: Infused Documented by: Insulin Aspart (Novolog Flexpen) 0 units SC ACHS [facility]UL[facility] Stop: 05/07/19 16:29 Last Admin: 04/11/19 12:31 Dose: 2 units Documented by: Isosorbide Mononitrate (Imdur Extended Rel) 30 mg PO DAILY [facility] Stop: 05/07/19 08:59 Last Admin: 04/11/19 08:28 Dose: 30 mg Documented by: Levothyroxine Sodium (Synthroid) 100 mcg PO DAILYBB [facility] Stop: 05/07/19 06:29 Last Admin: 04/11/19 06:47 Dose: 100 mcg Documented by: Lisinopril (Zestril) 2.5 mg PO QAM [facility] Stop: 05/07/19 08:59 Last Admin: 04/11/19 08:28 Dose: 2.5 mg Documented by: Magnesium Hydroxide (Milk Of Magnesia) 30 ml PO Q12H PRN PRN Reason: Constipation Stop: 05/06/19 22:54 Magnesium Oxide (Mag-Ox) 400 mg PO DAILY [facility] Stop: 05/07/19 08:59 Last Admin: 04/11/19 08:28 Dose: 400 mg Documented by: Miscellaneous (Carbohydrates For Hypoglycemia) 15 - 30 gm PO UD PRN PRN Reason: Hypoglycemia Treatment Stop: 05/06/19 22:54 Multivitamins/Minerals (Multivitamin W/ Minerals Tab) 1 tab PO DAILY [facility] Stop: 05/07/19 08:59 Last Admin: 04/11/19 08:27 Dose: 1 tab Documented by: Ondansetron HCl (Zofran) 4 mg IV Q6H PRN PRN Reason: Nausea Stop: 05/06/19 22:54 Pantoprazole Sodium (Protonix) 40 mg PO QAM [facility] Stop: 05/07/19 08:59 Last Admin: 04/11/19 08:27 Dose: 40 mg Documented by: Polyethylene Glycol (Miralax Powder Packet) 17 gm PO DAILY PRN PRN Reason: Constipation Stop: 05/06/19 22:54 Last Admin: 04/11/19 08:25 Dose: 17 gm Documented by:
[2019-04-11] MEDS: GABAPENTIN 300 MG CAP PO SCH (21:13)
[2019-04-12] MEDS: LEVOTHYROXINE SODIUM 100 MCG TABLET PO SCH (05:47)
[2019-04-12 06:46] LABS: Creatinine Clr Calc Pharmacy 38.4 ml/min; Est GFR (African American) 62.2; Est GFR (Non-African American) 53.7
[2019-04-12] MEDS: GABAPENTIN 100 MG CAP PO SCH ×2 (08:29→12:32)
[2019-04-12] MEDS: INSULIN ASPART 100 UNITS/ML 3 ML PEN SC SCH ×2 (08:32→12:33)
[2019-04-12] MEDS: ASPIRIN 81 MG ECTAB PO SCH (08:38)
[2019-04-12] MEDS: ATORVASTATIN 40 MG TAB PO SCH (08:38)
[2019-04-12] MEDS: FERROUS SULFATE 325 MG TAB PO SCH (08:38)
[2019-04-12] MEDS: MAGNESIUM OXIDE 400 MG TAB PO SCH (08:38)
[2019-04-12] MEDS: CLOPIDOGREL BISULFATE 75 MG TAB PO SCH (08:39)
[2019-04-12] MEDS: PANTOprazole 40 MG TAB PO SCH (08:39)
[2019-04-12] MEDS: ENOXAPARIN INJ 40 MG/0.4 ML SYR SQ SCH (08:39)
[2019-04-12] MEDS: CEROVITE ADV FORMULA TAB PO SCH (08:39)
[2019-04-12] MEDS: CALCIUM CARBONATE 1250MG TAB PO SCH (08:39)
[2019-04-12] MEDS: ISOSORBIDE MONO EXTENDED REL 30 MG TABCR PO SCH (08:39)
[2019-04-12] MEDS: DOCUSATE SODIUM 100 MG CAP PO SCH (08:40)
[2019-04-12] MEDS: POLYETHYLENE (MIRALAX) 17 GM PACK PO PRN (08:58)
[2019-04-12] MEDS: cefTRIAXone SODIUM 1,000 MG in DEXTROSE 5% 50 ML IV SCH (10:36)
[2019-04-12 11:43] VITALS: BP 121/72; PULSE 68; TEMP 98.1; O2SAT 95
--- NOTE | 2019-04-12 14:16 | Discharge Summary ---
Date of Service April 12, 2019 Admission HPI Per Admitting Provider This is a 88-year-old male who has significant PMH of CAD s/p CABG x 3 in 2000, HTN, HLD, CKD stage III baseline creatinine 1.1, diet-controlled T2DM, history of prostate cancer status post radiation, history of postoperative PE, testosterone deficiency, history of TIA in 10/2017 who presents to [facility] [address] ED via EMS secondary to being found in bed by granddaughter with altered mental status. Unable to obtain history from patient due to AMS. Per [facility] pt did have telephone call on 04/04 08/28 requesting to be seen due to fall down stair at [facility]. Complained of b/l elbow pain, unable to use arm. No family is at bedside to obtain history. Family member attempted to be reach but w/o success. In ED patient was hypertensive 172/101 but otherwise hemodynamically stable and afebrile. Saturating well on room air. Found to have leukocytosis 13.34, H&H was stable at 15.5 45.1, BUN/creatinine 26 and 1.19 respectively. Troponin elevated at 0.146 but without significant ECG change. CK elevated at 323. Urinalysis not concerning for infection. CT scan of abd/pelvis revealed chronic compression fractures. 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 Recommend dedicated pancreas protocol scan for further eval. Pelvic x-ray without fracture, advanced degenerative changes of right hip. Elbow x-ray reveals soft tissue contusion versus traumatic bursitis. Head CT revealed no acute ab normality. Chest x-ray with cardiomegaly but no overt cardiopulmonary abnormality. Admission Exam Per Admitting Provider Constitutional: Tall, elderly male, vitals as above, NAD, sitting up in bed, able to verbalize but unable to answer questions appropriately, +confusion Head: Normocephalic, Atraumatic Eyes: PERRL, conjunctivae normal, anicteric sclerae ENMT: external ear and nose normal, oropharynx normal but dry mucous membranes Neck: trachea midline, no thyromegaly normal visual inspection Respiratory: normal respiratory effort, lungs clear to auscultation, no wheeze, rales, rhonchi. Normal insp/exp effort, no accessory muscle use Cardiovascular: RRR, no murmur, no edema Vessels: no JVD or carotid bruit Chest: normal inspection of chest Abdomen: normal bowel sounds, soft, nontender, no hepatosplenomegaly Musculoskeletal: no cyanosis or clubbing, active ROM to all extremities except limited RUE due to pain, unable to assess motor strength 5/5, R olecranon bursitis with erythema and warmth Skin: no rashes, warm and mild turgor Neurologic: PERRL, EOMI, accommodation nl, no face palsy, no dysarthria CN's II-XI intact bilaterally and moves all extremities Psychiatric: A+O to self only, but was able to state his daughters name and phone no., euthymic affect : deferred Principal Diagnosis acute metabolic encephalopathy-resolved possible septic olecranon bursitis Discharge Data Allergies Allergy/AdvReac Type Severity Reaction Status Date / Time Iodinated Contrast Media Allergy Severe THROAT Verified 04/06/19 18:56 TIGHTNESS onion Allergy Unknown RAW Verified 04/06/19 18:56 ONIONS-BLISTERS ON HANDS AND FEET rosuvastatin [From Crestor] AdvReac Mild Unknown Verified 04/08/19 10:50 cefuroxime AdvReac Unknown GI UPSET Verified 04/08/19 10:48 NSAIDS (Non-Steroidal AdvReac Unknown GI Verified 04/06/19 18:56 Anti-Inflamma BLEEDING- TAKES ASA AT HOME Consultations 04/06/19 21:20 ED Decision to Admit Stat 04/06/19 22:55 Consult Case Management - Discharge Planning Routine Consult Orthopedic Surgery Routine 04/07/19 18:36 Consult Neurology Routine Ordered Studies 04/06/19 17:58 CT cervical spine wo con Stat CT head/brain wo con Stat 04/06/19 19:42 CT abd pelvis wo con Stat 04/08/19 11:00 FL video swallow Routine 04/10/19 12:09 CT elbow RT wo con Routine Hospital Course (1) Acute metabolic encephalopathy: Uncertain etiology per Neurology. Second episode this year where he has had a period of confusion and memory loss that is unexplained. He was back to baseline mental status within 24 hours of arrival to the hospital. Recommend placement as there are safety concerns with him living alone. Recommend against driving anymore. (2) Olecranon bursitis, right elbow: Completed a course of IV abx while hospitalized. No sepsis present. Orthopedics performed injection of the bursa but no aspirate could be obtained. No Ortho follow-up needed. Elbow CT confirmed no acute fracture. Pain decreased and ROM improved as hospitalization progressed. DC to SNF. (3) CKD (chronic kidney disease), stage III: at baseline. (4) Hypothyroidism: continue levothyroxine TSH WNL (5) CAD (coronary artery disease): Troponin trended without rise, EKG without evidence of acute ischemia. Monitored on telemetry initially during hospitalization without evidence of arrhythmia. Cont medical management of CAD including ASA, Plavix, Lipitor, lisinopril. Echo reveals no evidence of new wall motion abnormalities to suggest an area of infarct. No further workup. At time of discharge a face to face examination was performed revealing a hemodynamically stable and afebrile patient in no acute distress. Physical exam was unchanged from prior with lungs clear to auscultation, heart auscultation revealing normal S1 and S2 heard without evidence of murmurs, gallops or rubs. No edema was present. R elbow was normal without evidence of swelling erythema and demonstrates normal range of motion without pain or guarding. He was mentating and ambulating at baseline. He was sent in stable condition to SNF for further rehabilitation efforts. No driving is recommended moving forward. We also discussed the need to continue testosterone, and he reports it not making a difference for him from a quality of life standpoint, so this was stopped. Close follow-up was recommended with primary care physician to ensure he is doing well post-hospitalization, and to discuss the need for further red ging of his pancreas as there were incidental, stable pancreatic lesions seen on imaging. Total Time Total Time Spent Total Time Spent (In Minutes): 60 Total Time Includes: Examination of the Patient, Discharge Planning, Medication Reconciliation and Communication With Other Providers Discharge Plan Discharge Items Patient Disposition: Transfer [facility] Fac Reason For Visit: ALTERED MENTAL STATUS Discharge Diagnosis: acute metabolic encephalopathy-resolved possible septic olecranon bursitis Condition on Discharge: Good Activity: Resume your previous activity Lifting: Gradually increase as tolerated Driving/Machine Use: No Driving Non-emergency contact: Primary Care Provider Call non-emergency contact if: you have any medication questions, your symptoms worsen, your pain is not controlled, your pain is worsening, your pain is unusual for you, your pain is concerning for you and you have a fever Follow-up/Referrals: Gisselle Orellana, [Primary Care Provider] - Diet: Carb Consistent or DM2 Addtl Attending Provider Instructions: Please take all medications as instructed on discharge list below. It is recommended that you follow-up with your primary care physician within one week of discharge from the hospital. Imaging performed in the hospital revealed an incidental finding of multiple cystic-appearing pancreatic lesions which are stable from prior imaging studies. Further imaging would be necessary to classify these further, including a dedicated pancreas CT or MR for appropriate characterization. The need for this should be discussed further with your primary care physician at the follow-up visit. It was a pleasure taking care of you! Please call if you have any questions or problems. You can reach a [facility] hospitalist on duty at [facility] [address] 24 hours a day by calling [phone]. Take care of yourself. Hilda Lorenzo, [facility] Pending Studies at Discharge: No Stand-Alone Forms: My [facility] Skilled Items Patient informed of condition?: Yes DNR: No Discharge Level of Care: Skilled Communicable Disease: No Discharge Prognosis: Stable Lines: None Urinary Catheter: No Medications and DC Order Prescriptions: Continued acetaminophen [Tylenol] 325 mg Tablet 650 mg PO QID PRN (Reason: Pain) RF: 0 calcium carbonate [Calcium 500] 500 mg calcium (1,250 mg) Tablet 500 mg PO BID RF: 0 aspirin [Aspir-81] 81 mg Tablet,Delayed Release (Dr/Ec) 81 mg PO DAILY RF: 0 gabapentin 300 mg Tablet Extended Release 24 Hr 300 mg PO HS RF: 0 Centrum Silver Men 300-600-300 mcg Tablet 1 tab PO DAILY RF: 0 magnesium oxide 400 mg magnesium Tablet 400 mg PO DAILY RF: 0 atorvastatin 40 mg tablet 40 mg PO DAILY RF: 0 isosorbide mononitrate 30 mg tablet extended release 24 hr 30 mg PO DAILY RF: 0 levothyroxine 100 mcg tablet 100 mcg PO DAILYBB RF: 0 meclizine 25 mg tablet 12.5 - 25 mg PO TID PRN (Reason: Dizziness) RF: 0 pantoprazole 40 mg tablet,delayed release (DR/EC) 40 mg PO QAM RF: 0 docusate sodium [Stool Softener] 100 mg capsule 100 mg PO BID RF: 0 lisinopril 2.5 mg tablet 2.5 mg PO QAM RF: 0 ferrous sulfate 325 mg (65 mg iron) Tablet 325 mg PO BID RF: 0 gabapentin 100 mg Capsule 100 mg PO BID RF: 0 clopidogrel 75 mg Tablet 75 mg PO QAM Qty: 30 RF: 12 Discontinued Androderm 4 mg/24 hr patch 24 hour 1 patch topical DAILY RF: 0 Discharge Orders: Discharge Order (Routine); Ordered 04/12/19 Ordered By: Hilda Lorenzo Admission Data Admit Date/Time: 04/06/19 21:53 Attending Provider: Hilda Lorenzo Admit Provider: Trever Brumfield Primary Care Provider: Gisselle Orellana Other Providers: Reece Barnes ; Aurelio Lyons ; Katt Lowe
== END 2019-04-12 15:25 | DRG 548 ==
LOC: ED 17:03 → 2E 21:53 → 4W 04-08 19:11

== ENCOUNTER 2019-09-23 16:28 | Inpatient (IN) ==
[2019-09-23] MEDS ORDERED: SODIUM CHLORIDE 0.9% 1000ML 1,000 ML IV SCH ×2 (17:00→20:30)
[2019-09-23 17:24] LABS: Basophils # (auto) 0.03 K/uL (0-0.2); Basophils % (auto) 0.4 %; Eosinophils % (auto) 1.2 %; Hematocrit (blood only) 44.3 % (42-52); Hemoglobin 14.6 g/dL (14.0-18.0); Immature Granulocytes # (auto) 0.06 K/uL (0.00-0.02); Immature Granulocytes % (auto) 0.7 %; Lymphocytes # (auto) 2.68 K/uL (1.2-3.4); Lymphocytes % (auto) 32.9 %; Mean Corpuscular Hemoglobin 32.2 pg (25-34); Mean Corpuscular Volume 97.8 fL (80-100); Mean Platelet Volume 9.1 fL (7.4-10.4); Monocytes # (auto) 0.73 K/uL (0.11-0.59); Neutrophils # (auto) 4.55 K/uL (1.4-6.5); Neutrophils % (auto) 55.8 %; Platelet Count 279 K/uL (130-400); RDW Coefficient of Variation 14.2 % (11.5-14.5); RDW Standard Deviation 50.4 fL (36.4-46.3); Red Blood Count 4.53 M/uL (4.7-6.1); White Blood Count 8.15 K/uL (4.8-10.8)
[2019-09-23 17:32] LABS: Prothrombin Time 10.7 Seconds (9.0-12.0)
--- NOTE | 2019-09-23 17:36 | CT Scan Report ---
HEAD CT NONCONTRAST CT DOSE: 638.56 mGycm HISTORY: Altered mental status. TECHNIQUE: Multiaxial CT images of the head were performed without the use of intravenous contrast. A utomated exposure control was utilized for this study. A dose lowering technique was utilized adheri ng to the principles of ALARA. Comparison: Head CT 07/26/2019. Findings: The paranasal sinuses and mastoid air cells are clear. The calvarium and skull base are int act. There is no mass, hematoma, midline shift, acute infarct. White matter hypodensity is nonspecifi c but suggestive of microvascular ischemic change. The ventricles and sulci demonstrate mild age-rela nasrin involutional changes. Impression: No significant change compared to the prior study. No acute intracranial abnormality. ACT 112: Negative or not required by law. Electronically signed by: Vik Gomes M.D. 09/23/2019 5:35 PM
[2019-09-23 17:51] LABS: Appearance Urine Clear (Clear); Bacteria Urine Automated Negative (Negative); Bilirubin Urine Negative (Negative); Blood Urine Negative (Negative); Cast Urine Automated 0 /lpf (0-5); Color Urine Yellow; Epithelial Cell Urine Auto 0-5 /lpf (0-5); Glucose Urine UA Negative (Negative); Ketones Urine Negative (Negative); Leukocyte Esterase Urine Negative (Negative); Nitrite Urine Negative (Negative); RBC Urine Automated 0-4 /hpf (0-4); Urobilinogen Urine Negative (Negative); WBC Urine Automated 0 /hpf (0-5)
[2019-09-23 17:52] LABS: Protein Urine Negative (Negative); Sulfosalicylic Acid Urine Negative (Negative)
--- NOTE | 2019-09-23 17:55 | XRay Report ---
XR chest 1V portable HISTORY: 89 years-old Male Chest Pain acute atypical chest pain COMPARISON: Chest radiograph 07/26/2019 TECHNIQUE: Portable AP view of the chest FINDINGS: Cardiac silhouette is enlarged, unchanged. Prior median sternotomy and CABG. Calcified plaque of the thoracic aorta. Unchanged right hemidiaphragmatic elevation. No pneumothorax, large pleural effusion or overt pulmonary edema. Mild linear left midlung and left lung base scarring/atelectasis. No airspa ce consolidation typical for pneumonia. Degenerative changes of the shoulders and spine. IMPRESSION: Chronic findings as above without acute process. ACT 112: Negative or not required by law. The above report was generated using voice recognition software. It may contain grammatical, syntax o r spelling errors. Electronically signed by: Chevy Emmanuel M.D. 09/23/2019 5:54 PM
[2019-09-23 17:57] LABS: Alanine Aminotransferase 22 U/L (12-78); Albumin Level 3.3 gm/dl (3.4-5.0); Aspartate Aminotransferase 21 U/L (15-37); BUN Creatinine Ratio 22.7 (10-20); Blood Urea Nitrogen 26 mg/dl (7-18); Calcium 9.6 mg/dl (8.5-10.1); Carbon Dioxide 30 mmol/L (21-32); Chloride 107 mmol/L (98-107); Est GFR (African American) 64.4; Est GFR (Non-African American) 55.5; Glucose 103 mg/dl (70-99); Lipase 63 U/L (73-393); Magnesium 2.3 mg/dl (1.8-2.4); Potassium 4.7 mmol/L (3.5-5.1); Sodium 141 mmol/L (136-145)
[2019-09-23 18:09] LABS: Albumin Globulin Ratio 0.8 (0.9-2); Alkaline Phosphatase 135 U/L (45-117); Bilirubin,Total 0.6 mg/dl (0.2-1); Globulin 3.9 gm/dl (2.5-4.0); Phosphorus 3.1 mg/dl (2.5-4.9); Total Protein 7.2 gm/dl (6.4-8.2); Troponin I 0.021 ng/ml (0-0.045)
[2019-09-23] MEDS ORDERED: ACETAMINOPHEN 500 MG TAB PO STA (19:06)
--- NOTE | 2019-09-23 19:29 | Emergency Department Note ---
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 ) The patient is a 89 year old male who presents to the ED with complaints of hypertension. He is accompanied by his granddaughter who states when she arrived at the patients house today, he was very lethargic and could not complete his sentences. His granddaughter reports they went to his PCP today who recommended the patient come to the ED as his blood pressure was high. His granddaughter states the patient currently lives alone, but has a 2 weeks respite next week to see if he likes this home. The patient complains of right hip pain and back pain. Home Medications Home Medications Medication Instructions Recorded Confirmed Type Centrum Silver Men 1 tab PO QDD 06/06/18 09/23/19 History aspirin [Aspir-81] 81 mg PO QDD 06/06/18 09/23/19 History atorvastatin [Lipitor] 40 mg PO QDD 11/10/18 09/23/19 History ferrous sulfate 325 mg PO QDD 11/10/18 09/23/19 History isosorbide mononitrate 30 mg PO QDD 11/10/18 09/23/19 History levothyroxine 100 mcg PO DAILYBB 11/10/18 09/23/19 History lisinopril 2.5 mg PO QDD 11/10/18 09/23/19 History pantoprazole [Protonix] 40 mg PO DAILYBB 11/10/18 09/23/19 History acetaminophen [Tylenol] 650 mg PO Q6H PRN 04/06/19 09/23/19 History clopidogrel [Plavix] 75 mg PO QDD 09/23/19 09/23/19 History gabapentin [Neurontin] 300 mg PO TID PRN 09/23/19 09/23/19 History testosterone [Androderm] 4 mg TOPICAL HS 09/23/19 09/23/19 History Allergies Allergy/AdvReac Type Severity Reaction Status Date / Time Iodinated Contrast Media Allergy Severe THROAT Verified 09/23/19 17:54 TIGHTNESS onion Allergy Unknown RAW Verified 09/23/19 17:54 ONIONS-BLISTERS ON HANDS AND FEET rosuvastatin [From Crestor] AdvReac Mild Unknown Verified 09/23/19 17:54 cefuroxime AdvReac Unknown Gastrointestinal Verified 09/23/19 17:54 Upset NSAIDS (Non-Steroidal AdvReac Unknown GI BLEEDING Verified 09/23/19 17:54 Anti-Inflamma Past Med/Surg History Medical History BPH (benign prostatic hyperplasia) (Chronic) CAD (coronary artery disease) (Chronic) "s/p CABG 2000 cath 2007 - LAD, RCA, and obtuse marginal 100% occlusion 80% stenosis diagonal #2 patent Rebolledo to LAD graft and saphenous to obtuse marginal occluded saphenous to RCA graft with collaterals" CKD (chronic kidney disease), stage III (Chronic) Diabetes mellitus type 2, controlled (Chronic) Diverticulosis (Chronic) DVT (deep venous thrombosis) (Chronic) DVT prophylaxis Dyslipidemia (Chronic) GI bleed (Chronic) HTN (hypertension) (Chronic) Hypothyroidism (Chronic) Osteoarthritis (Chronic) Prostate cancer (Resolved 12/09/11) "Rising PSA while on Avodart to 16.02, clinical stage T1c Status post ultrasound-guided biopsies biopsy stage T2c Jolley grade 4+4 Hormonal suppression Status post prostate seed implant 02/10/2012 received 8500 cGy Status post completion of external radiation with IMRT/IGRT completed 06/22/2012 received 5000 cGy Radiation proctitis status post laser therapy" Pulmonary embolism (Chronic) Septic arthritis of knee, left (Chronic) with hx of revision of L TKA by Dr. 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" S/P inguinal hernia repair (Chronic) Family History Mother Dementia Diabetes Father Myocardial infarction, Onset Age: 61 Sister Multiple myeloma, Onset Age: 59 Social History Preferred Language: Tamaz[place] Communication Ability: Effective Alodize Machine Helper Required: No Beliefs That Will Affect Care: None marital status: / Current Living Situation: Alone Current Living Situation Comment: Lives alone independently current occupational status: retired Other Information That Helps Us Care for You: No Feels Safe at Home: Yes Safety Concerns: Feels Safe At This Time Smoking Status: Unknown if ever smoked Hx Alcohol Use: No Hx Substance Use: No Review of Systems See HPI for pertinent positives & negatives. and A total of 10 systems reviewed and were otherwise negative Physical Exam Vital Signs Vital Signs - 24 hr 09/23/19 16:29 09/23/19 17:03 09/23/19 17:09 Temperature 36.4 C L Temperature Source Oral Pulse Rate 67 60 58 L Pulse Rate from SpO2 Sensor 61 58 L Respiratory Rate 18 16 12 Respiratory Effort / Characteristics Non-Labored Respiratory Depth Normal Respiratory Pattern Regular Blood Pressure 201/92 H 167/80 H Blood Pressure Mean 128 99 Blood Pressure Position Sitting Pulse Oximetry 94 95 97 Oxygen Delivery Method Room Air Room Air Sepsis Recent Fever Within 48 Hours No Sepsis New/Unexplained Change in Mental Status No Sepsis Action Taken by Nursing No Action Required 09/23/19 17:31 09/23/19 17:33 09/23/19 17:34 Temperature Temperature Source Pulse Rate 64 62 56 L Pulse Rate from SpO2 Sensor 63 58 L 58 L Respiratory Rate 19 18 22 Respiratory Effort / Characteristics Respiratory Depth Respiratory Pattern Blood Pressure 179/89 H Blood Pressure Mean 135 Blood Pressure Position Pulse Oximetry 95 95 96 Oxygen Delivery Method Sepsis Recent Fever Within 48 Hours Sepsis New/Unexplained Change in Mental Status Sepsis Action Taken by Nursing 09/23/19 18:00 09/23/19 18:30 09/23/19 18:31 Temperature Temperature Source Pulse Rate 53 L 56 L 57 L Pulse Rate from SpO2 Sensor 55 L 56 L 56 L Respiratory Rate 19 24 21 Respiratory Effort / Characteristics Respiratory Depth Respiratory Pattern Blood Pressure 183/97 H 183/85 H Blood Pressure Mean 139 107 Blood Pressure Position Pulse Oximetry 97 97 97 Oxygen Delivery Method Sepsis Recent Fever Within 48 Hours Sepsis New/Unexplained Change in Mental Status Sepsis Action Taken by Nursing 09/23/19 18:56 09/23/19 19:00 09/23/19 19:01 Temperature Temperature Source Pulse Rate 59 L 60 65 Pulse Rate from SpO2 Sensor 59 L 62 65 Respiratory Rate 27 H 20 21 Respiratory Effort / Characteristics Respiratory Depth Respiratory Pattern Blood Pressure 176/85 H 179/104 H Blood Pressure Mean 109 138 Blood Pressure Position Pulse Oximetry 97 97 98 Oxygen Delivery Method Sepsis Recent Fever Within 48 Hours Sepsis New/Unexplained Change in Mental Status Sepsis Action Taken by Nursing GENERAL: Awake, alert, fatigued but well-appearing, in no distress HENT: Normocephalic, atraumatic. Oropharynx with dry mucous membranes and otherwise unremarkable. EYES: Normal conjunctiva. Sclera non-icteric. EOMI. No nystamgus. PEARRL. NECK: Supple. No nuchal rigidity. FROM. No JVD. RESPIRATORY: CTAB CARDIAC: Regular rate, normal rhythm. Extremities warm and well perfused. Pulses equal. ABDOMEN: Soft, non-distended. No tenderness to palpation. No rebound or g uarding. No masses. RECTAL: Deferred. MUSCULOSKELETAL: Chest examination reveals no tenderness. The back is symmetrical on inspection without obvious abnormality. There is no CVA tenderness to palpation. No joint edema. LOWER EXTREMITIES: Calves are equal size bilaterally and non-tender. No edema. N o discoloration. NEURO: Normal sensorium. No sensory or motor deficits noted. Subtle word finding difficulties. Otherwise, fluent speech. 5/5 strength and SILT x4 extremities. Cerebellar function intact, including finger to nose, alternating palms, heel to ac. SKIN: No rash or jaundice noted. Course Course 1648: Past medical records reviewed. The patient was evaluated in room C9. A complete history and physical exam was performed. 1815: Discussed the patient's case with Kati Traore PA-C. The patient will be evaluated for further management by Dr. Weaver, [facility] Hospitalist . Administered Medications Aspirin (Ecotrin Ectab) 81 mg PO QDD [facility] Stop: 10/23/19 19:52 Last Admin: 09/23/19 21:09 Dose: 81 mg Documented by: [id number] Clopidogrel Bisulfate (Plavix) 75 mg PO QDD [facility] Stop: 10/23/19 19:52 Last Admin: 09/23/19 21:09 Dose: 75 mg Documented by: [id number] Isosorbide Mononitrate (Imdur Extended Rel) 30 mg PO QDD [facility] Stop: 10/23/19 19:52 Last Admin: 09/23/19 21:08 Dose: 30 mg Documented by: [id number] Discontinued Medications Acetaminophen (Tylenol) 1,000 mg PO NOW STA Stop: 09/23/19 19:07 Last Admin: 09/23/19 19:17 Dose: 1,000 mg Documented by: [id number] Sodium Chloride (Nss 1000ml) 1,000 mls @ 999 mls/hr IV .Q1H1M KULWINDER Stop: 09/23/19 18:00 Last Infusion: 09/23/19 18:24 Dose: 0 mls/hr Documented by: [id number] Admin: 09/23/19 17:23 Dose: 999 mls/hr Documented by: [id number] Medical Decision Making Medical Records Attestation: I reviewed the patient's medical records. Home Medications Current Medication List: was personally reviewed by me Laboratory Data Attestation: I reviewed the patient's lab results. Result diagrams: 09/23/19 17:00 09/23/19 17:00 Lab Results 09/23/19 09/23/19 09/23/19 Range/Units 17:00 17:00 17:00 WBC 8.15 (4.8-10.8) K/uL RBC 4.53 L (4.7-6.1) M/uL Hgb 14.6 (14.0-18.0) g/dL Hct 44.3 (42-52) % MCV 97.8 (80-100) fL MCH 32.2 (25-34) pg MCHC 33.0 (32-36) g/dL RDW Std Deviation 50.4 H (36.4-46.3) fL RDW Coeff of Shraddha 14.2 (11.5-14.5) % Plt Count 279 (130-400) K/uL MPV 9.1 (7.4-10.4) fL Immature Gran % (Auto) 0.7 % Neut % (Auto) 55.8 % Lymph % (Auto) 32.9 % Prentiss % (Auto) 9.0 % Eos % (Auto) 1.2 % Baso % (Auto) 0.4 % Immature Gran # (Auto) 0.06 H (0.00-0.02) K/uL Neut # (Auto) 4.55 (1.4-6.5) K/uL Lymph # (Auto) 2.68 (1.2-3.4) K/uL Prentiss # (Auto) 0.73 H (0.11-0.59) K/uL Eos # (Auto) 0.10 (0-0.5) K/uL Baso # (Auto) 0.03 (0-0.2) K/uL PT 10.7 (9.0-12.0) Seconds INR 1.0 (0.9-1.1) Sodium 141 (136-145) mmol/L Potassium 4.7 (3.5-5.1) mmol/L Chloride 107 (98-107) mmol/L Carbon Dioxide 30 (21-32) mmol/L Anion Gap 4.0 (3-11) BUN 26 H (7-18) mg/dl Creatinine 1.16 (0.6-1.4) mg/dl Est Cr Clr Drug Dosing Not Reportable Est GFR ( Amer) 64.4 Est GFR (Non-Af Amer) 55.5 BUN/Creatinine Ratio 22.7 H (10-20) Glucose 103 H (70-99) mg/dl Calcium 9.6 (8.5-10.1) mg/dl Phosphorus 3.1 (2.5-4.9) mg/dl Magnesium 2.3 (1.8-2.4) mg/dl Total Bilirubin 0.6 (0.2-1) mg/dl AST 21 (15-37) U/L ALT 22 (12-78) U/L Alkaline Phosphatase 135 H (45-117) U/L Troponin I 0.021 (0-0.045) ng/ml Total Protein 7.2 (6.4-8.2) gm/dl Albumin 3.3 L (3.4-5.0) gm/dl Globulin 3.9 (2.5-4.0) gm/dl Albumin/Globulin Ratio 0.8 L (0.9-2) Lipase 63 L (73-393) U/L TSH 3.010 (0.300-4.500) uIu/ml Urine Color Urine Appearance (Clear) Urine pH (4.5-7.5) Ur Specific Bagley (1.000-1.030) Urine Protein (Negative) Urine Glucose (UA) (Negative) Urine Ketones (Negative) Urine Blood (Negative) Urine Nitrite (Negative) Urine Bilirubin (Negative) Urine Urobilinogen (Negative) Ur Leukocyte Esterase (Negative) Urine WBC (Auto) (0-5) /hpf Urine RBC (Auto) (0-4) /hpf U Hyaline Cast (Auto) (0-5) /lpf U Epithel Cells (Auto) (0-5) /lpf Urine Bacteria (Auto) (Negative) 09/23/19 Range/Units 17:20 WBC (4.8-10.8) K/uL RBC (4.7-6.1) M/uL Hgb (14.0-18.0) g/dL Hct (42-52) % MCV (80-100) fL MCH (25-34) pg MCHC (32-36) g/dL RDW Std Deviation (36.4-46.3) fL RDW Coeff of Shraddha (11.5-14.5) % Plt Count (130-400) K/uL MPV (7.4-10.4) fL Immature Gran % (Auto) % Neut % (Auto) % Lymph % (Auto) % Prentiss % (Auto) % Eos % (Auto) % Baso % (Auto) % Immature Gran # (Auto) (0.00-0.02) K/uL Neut # (Auto) (1.4-6.5) K/uL Lymph # (Auto) (1.2-3.4) K/uL Prentiss # (Auto) (0.11-0.59) K/uL Eos # (Auto) (0-0.5) K/uL Baso # (Auto) (0-0.2) K/uL PT (9.0-12.0) Seconds INR (0.9-1.1) Sodium (136-145) mmol/L Potassium (3.5-5.1) mmol/L Chloride (98-107) mmol/L Carbon Dioxide (21-32) mmol/L Anion Gap (3-11) BUN (7-18) mg/dl Creatinine (0.6-1.4) mg/dl Est Cr Clr Drug Dosing Est GFR ( Amer) Est GFR (Non-Af Amer) BUN/Creatinine Ratio (10-20) Glucose (70-99) mg/dl Calcium (8.5-10.1) mg/dl Phosphorus (2.5-4.9) mg/dl Magnesium (1.8-2.4) mg/dl Total Bilirubin (0.2-1) mg/dl AST (15-37) U/L ALT (12-78) U/L Alkaline Phosphatase (45-117) U/L Troponin I (0-0.045) ng/ml Total Protein (6.4-8.2) gm/dl Albumin (3.4-5.0) gm/dl Globulin (2.5-4.0) gm/dl Albumin/Globulin Ratio (0.9-2) Lipase (73-393) U/L TSH (0.300-4.500) uIu/ml Urine Color Yellow Urine Appearance Clear (Clear) Urine pH 8.0 H (4.5-7.5) Ur Specific Bagley 1.020 (1.000-1.030) Urine Protein Negative (Negative) Urine Glucose (UA) Negative (Negative) Urine Ketones Negative (Negative) Urine Blood Negative (Negative) Urine Nitrite Negative (Negative) Urine Bilirubin Negative (Negative) Urine Urobilinogen Negative (Negative) Ur Leukocyte Esterase Negative (Negative) Urine WBC (Auto) 0 (0-5) /hpf Urine RBC (Auto) 0-4 (0-4) /hpf U Hyaline Cast (Auto) 0 (0-5) /lpf U Epithel Cells (Auto) 0-5 (0-5) /lpf Urine Bacteria (Auto) Negative (Negative) Imaging Data Radiologist's Impression: Radiology results as stated below per my review and the radiologist's interpretation: HEAD CT NONCONTRAST CT DOSE: 638.56 mGycm HISTORY: Altered mental status. TECHNIQUE: Multiaxial CT images of the head were performed without the use of intravenous contrast. Automated exposure control was utilized for this study. A dose lowering technique was utilized adhering to the principles of ALARA. Comparison: Head CT 07/26/2019. Findings: The paranasal sinuses and mastoid air cells are clear. The calvarium and skull base are intact. There is no mass, hematoma, midline shift, acute infarct. White matter hypodensity is nonspecific but suggestive of microvascular ischemic change. The ventricles and sulci demonstrate mild age-related involutional changes. Impression: No significant change compared to the prior study. No acute intracranial abnormality. ACT 112: Negative or not required by law. Electronically signed by: Vik Gomes M.D. 09/23/2019 5:35 PM XR chest 1V portable HISTORY: 89 years-old Male Chest Pain acute atypical chest pain COMPARISON: Chest radiograph 07/26/2019 TECHNIQUE: Portable AP view of the chest FINDINGS: Cardiac silhouette is enlarged, unchanged. Prior median sternotomy and CABG. Calcified plaque of the thoracic aorta. Unchanged right hemidiaphragmatic elevation. No pneumothorax, large pleural effusion or overt pulmonary edema. Mild linear left midlung and left lung base scarring/atelectasis. No airspace consolidation typical for pneumonia. Degenerative changes of the shoulders and spine. IMPRESSION: Chronic findings as above without acute process. ACT 112: Negative or not required by law. The above report was generated using voice recognition software. It may contain grammatical, syntax or spelling errors. Electronically signed by: Chevy Emmanuel M.D. 09/23/2019 5:54 PM ECG Data Attestation: I personally reviewed and interpreted this ECG as follows: Indication: + other (confusion) Rate (beats per minute): 58 Rhythm: + sinus bradycardia ECG Intervals/blocks: + Left anterior fascicular block ECG ST segments: no ST depression and no ST elevation ECG Findings: + Other (LVH, QT-c 431, QRS 98) Blood Pressure Blood Pressure Findings: Elevated blood pressure Blood Pressure Disposition: further management by hospitalist [facility] Narrative The patient is a pleasant 89-year-old gentleman with a past medical history of CAD, metabolic encephalopathy, hypertension, hyperlipidemia, diabetes, CKD who presents emergency department with new onset confusion and difficulty with word finding in the setting of having similar episodes in the past related to infection however seen by PCP and given no clear urinary infection on dipstick referred to emergency department per HPI. The granddaughter at the bedside does express some concern that he may have gotten confused and taken his medications at home and appropriately which may have further contributed to his confusion. On arrival the patient is in no acute distress, afebrile stable vital signs. He is alert and oriented x3 however does intermittently have difficulty with word finding but otherwise speech is fluent. He does appear clinically dry. There are no focal neuro deficits otherwise. EKG without overt acute ischemia and similar to prior. Chest x-ray negative for acute process. WBC, H/H and platelets within normal limits. Chemistry without acidosis. BUN 26 consistent with the patient's clinically dry appearance with BUN/creatinine > 20. Electrolytes and LFTs otherwise unremarkable. Troponin 0.021, within normal limits. TSH within normal limits. UA without evidence of infection. CT of the head without contrast negative for acute findings. There is evidence of chronic microvascular ischemic change. IV contrast deferred given patient's allergy listed as throat tightness. Patient and his granddaughter are agreeable with plan for admission for further evaluation. Case was discussed with Vinod Wolff PA-C, who evaluate the patient for admission. Impression & Plan Confusion, Word finding difficulty, Dehydration, Cerebral microvascular disease Discharge Plan Visit Data *Final* Discharge Date/Time: 09/23/19 19:29 Chief Complaint: Hypertension Stated Complaint: CONFUSION, HIGH BP ED Provider: Coleman Stevens Discharge Problem: Confusion, Word finding difficulty, Dehydration, Cerebral microvascular disease Patient Disposition: Admitted As Inpatient Discharge Instructions Interventions: ED Discharge Assessment Last Done: 09/23/19 19:29 The scribe's documentation has been prepared under my direction and personally reviewed by me in its entirety. I confirm that the note above accurately reflects all work, treatment, procedures, and medical decision making performed by me.
--- NOTE | 2019-09-23 19:51 | History & Physical Report ---
Date of Service September 23, 2019 Assessment & Plan (1) Confusion: (2) Dehydration: (3) LLQ abdominal pain: This is a 89-year-old male who has significant PMH of CAD s/p CABG x 3 in 2000, HTN, HLD, CKD stage III baseline creatinine 1.1, diet-controlled T2DM, history of prostate cancer status post radiation, history of postoperative PE, testosterone deficiency, history of TIA in 10/2017 who presents to [facility] ED 2/2 to increased confusion x 3-4 days. Confusion possibly 2/2 to gabapentin (? if pt taking meds appropriately), acute diverticulitis due to LLQ abd pain, Hypertensive encephalopathy, CVA, progression of dementia admit to med/surg telemetry obtain CT scan abd/pelvis to r/o diverticulitis ( seen in ED 06/2019 dx with diverticulitis and tx with cipro flagyl), pt with LLQ abd pain to palpation Starting IV zosyn empirically hold off on MRI and neuro consult for now, if no improvement in a.m. would do MRI and consult Neuro IVF 75cc/hr x 1 L hold gabapentin (4) CAD (coronary artery disease): no c/o CP or SOB on ASA, plavix, statin, imdur, FELICE monitor (5) HTN (hypertension): pt significant hypertensive in ED ? 2/2 to pain vs underlying acute process vs not taking meds appropriately continue lisinopril and imdur tx if SBP > 180 or DBP > 110 with prn hydralazine (6) CKD (chronic kidney disease), stage III: baseline Cr 1.1 bun/cr 26 and 1.16 today mild pre renal azotemia 2/2 to dehydration received 1L IVF in ED; give 75cc/hr NS x 1 additional L repeat bmp in a.m. (7) Diabetes mellitus type 2, controlled: A1C 6.3 03/2019 diet controlled monitor FBS (8) TIA (transient ischemic attack): hx of TIA 10/2018 recommend lifetime plavix therapy also on ASA and statin if confusion does not resolve in a.m. consider MRI w/o contrast (9) Dyslipidemia: continue statin (10) Hypothyroidism: continue levothyroxine TSH WNL (11) DVT prophylaxis: SQ heparin Disposition: telemetry; case management consulted along with PT/OT/ST Follow up: PCP Dr. Orellana upon discharge Pt was seen and examined in collaboration with Dr. Weaver, please see addendum History of Present Illness Chief Complaint: Increased confusion x 3-4 days. Primary Care Provider: Gisselle Orellana, DO This is a 89-year-old male who has significant PMH of CAD s/p CABG x 3 in 2000, HTN, HLD, CKD stage III baseline creatinine 1.1, diet-controlled T2DM, history of prostate cancer status post radiation, history of postoperative PE, testosterone deficiency, history of TIA in 10/2017 who presents to [facility] ED 08/28 to increased confusion x 3-4 days. Caregiver is at bedside. She reports increased confusion over the past 3 to 4 days. Difficulty with word finding. History obtained from patient, caregiver as well as ED provider. Granddaughter was taking patient for a follow-up at PCP today when she felt he was more confused, unclear and difficulty with word finding. There was no report of slurred speech, facial droop or weakness. He ambulates with a walker at baseline and states that is how he came to the ED. When seen at PCP office today for PPD reading his confusion and difficulty with speaking was noticed along with his BP being significantly elevated. Because of this it was recommended to seek ED for further evaluation. Scow Captain at bedside states that recently his gabapentin has been increased to 100 mg 3 times a day. He is in charge of all of his medications and has been taking medications out of a separate a pill container as well as the gabapentin bottle. There is some question if patient is having difficulty handling his own medications and possibly taken additional gabapentin. He is to be transition to assisted living facility on in [facility]. He denies any recent illness, fever, chills, sweats, lightheadedness, syncope, fall, chest pain, shortness breath, palpitations, nausea, vomiting, abdominal pain. Last BM was this morning, normal, no hematochezia or melena. He denies any dysuria, increased frequency or urgency with urination. His appetite has overall been decreased. In ED he remained hemodynamically stable but was significantly hypertensive BP 179/104 during my evaluation. He was afebrile. Lab work notable for WBC 8.15, H&H 14.6 and 44.3 platelet 279 BUN 26, creatinine 1.16, ratio 22.7, glucose 103 TSH WNL, 1.021, UA negative. Head CT negative for acute abnormality chronic ischemic small vessel disease noted. Chest x-ray negative for any acute cardiopulmonary abnormality. Patient received 1 L IVF while in ED. Allergies Allergy/AdvReac Type Severity Reaction Status Date / Time Iodinated Contrast Media Allergy Severe THROAT Verified 09/23/19 17:54 TIGHTNESS onion Allergy Unknown RAW Verified 09/23/19 17:54 ONIONS-BLISTERS ON HANDS AND FEET rosuvastatin [From Crestor] AdvReac Mild Unknown Verified 09/23/19 17:54 cefuroxime AdvReac Unknown Gastrointestinal Verified 09/23/19 17:54 Upset NSAIDS (Non-Steroidal AdvReac Unknown GI BLEEDING Verified 09/23/19 17:54 Anti-Inflamma Home Medications Home Medications Medication Instructions Recorded Confirmed Type Centrum Silver Men 1 tab PO QDD 06/06/18 09/23/19 History aspirin [Aspir-81] 81 mg PO QDD 06/06/18 09/23/19 History atorvastatin [Lipitor] 40 mg PO QDD 11/10/18 09/23/19 History ferrous sulfate 325 mg PO QDD 11/10/18 09/23/19 History isosorbide mononitrate 30 mg PO QDD 11/10/18 09/23/19 History levothyroxine 100 mcg PO DAILYBB 11/10/18 09/23/19 History lisinopril 2.5 mg PO QDD 11/10/18 09/23/19 History pantoprazole [Protonix] 40 mg PO DAILYBB 11/10/18 09/23/19 History acetaminophen [Tylenol] 650 mg PO Q6H PRN 04/06/19 09/23/19 History clopidogrel [Plavix] 75 mg PO QDD 09/23/19 09/23/19 History gabapentin [Neurontin] 300 mg PO TID PRN 09/23/19 09/23/19 History testosterone [Androderm] 4 mg TOPICAL HS 09/23/19 09/23/19 History Past Med/Surg History Medical History BPH (benign prostatic hyperplasia) (Chronic) CAD (coronary artery disease) (Chronic) "s/p CABG 2000 cath 2007 - LAD, RCA, and obtuse marginal 100% occlusion 80% stenosis diagonal #2 patent [place]bol[place]o to LAD graft and saphenous to obtuse marginal occluded saphenous to RCA graft with collaterals" CKD (chronic kidney disease), stage III (Chronic) Diabetes mellitus type 2, controlled (Chronic) Diverticulosis (Chronic) DVT (deep venous thrombosis) (Chronic) DVT prophylaxis Dyslipidemia (Chronic) GI bleed (Chronic) HTN (hypertension) (Chronic) Hypothyroidism (Chronic) Osteoarthritis (Chronic) Prostate cancer (Resolved 12/09/11) "Rising PSA while on Avodart to 16.02, clinical stage T1c Status post ultrasound-guided biopsies biopsy stage T2c Duenweg grade 4+4 Hormonal suppression Status post prostate seed implant 02/10/2012 received 8500 cGy Status post completion of external radiation with IMRT/IGRT completed 06/22/2012 received 5000 cGy Radiation proctitis status post laser therapy" Pulmonary embolism (Chronic) Septic arthritis of knee, left (Chronic) with hx of revision of L TKA by Dr. 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" S/P inguinal hernia repair (Chronic) Family History Mother Dementia Diabetes Father Myocardial infarction, Onset Age: 61 Sister Multiple myeloma, Onset Age: 59 Social History Preferred Language: Amharic Communication Ability: Effective Logistics Account Manager Required: No Beliefs That Will Affect Care: None marital status: / Current Living Situation: Alone Current Living Situation Comment: Lives alone independently current occupational status: retired Feels Safe at Home: Yes Smoking Status: Never smoker Hx Alcohol Use: No Hx Substance Use: No Review of Systems Review of Systems: All systems reviewed & are unremarkable except as noted in HPI & below Physical Exam Physical Exam: Constitutional: Tall, elderly, male, lying in bed, answers questions appropriately but slow to respond, mild word finding difficulty, follows directions, WD/WN, vitals as above, NAD Head: Normocephalic, Atraumatic Eyes: PERRL, conjunctivae normal, anicteric sclerae ENMT: external ear and nose normal, oropharynx normal dry mucous membranes Neck: trachea midline, no thyromegaly normal visual inspection Respiratory: normal respiratory effort, lungs clear to auscultation, no wheeze, rales, rhonchi. Normal insp/exp effort, no accessory muscle use Cardiovascular: RRR, 1/6 ESTEVAN noted RUSB, occasional ectopy, no edema Vessels: no JVD or carotid bruit Chest: normal inspection of chest Abdomen: normal bowel sounds, soft, exquisitely tender to soft and deep palpation left lower quadrant, no rebound or guarding or rigidity, no hepatosplenomegaly Musculoskeletal: no cyanosis or clubbing, extremities motor strength 5/5 Skin: no rashes, warm and dry normal turgor Neurologic: PERRL, EOMI, accommodation nl, no face palsy, no dysarthria CN's II-XI intact bilaterally and moves all extremities Psychiatric: A+O to person, place and year, euthymic affect Lymphatic: no cervical or axillary lymphadenopathy : deferred Results & Data Vital Signs (Past 12 Hours) Vital Signs Temp Pulse Resp BP Pulse Ox 09/23/19 19:01 65 21 98 09/23/19 19:00 60 20 179/104 H 97 09/23/19 18:56 59 L 27 H 176/85 H 97 09/23/19 18:31 57 L 21 97 09/23/19 18:30 56 L 24 183/85 H 97 09/23/19 18:00 53 L 19 183/97 H 97 09/23/19 17:34 56 L 22 96 09/23/19 17:33 62 18 179/89 H 95 09/23/19 17:31 64 19 95 09/23/19 17:09 58 L 12 97 09/23/19 17:03 60 16 167/80 H 95 09/23/19 16:29 36.4 C L 67 18 201/92 H 94 Laboratory Results Short CBC 09/23/19 Range/Units 17:00 WBC 8.15 (4.8-10.8) K/uL Hgb 14.6 (14.0-18.0) g/dL Hct 44.3 (42-52) % Plt Count 279 (130-400) K/uL BMP 09/23/19 17:00 Sodium 141 Potassium 4.7 Chloride 107 Carbon Dioxide 30 BUN 26 H Creatinine 1.16 Glucose 103 H Calcium 9.6 Cardiac Enzymes 09/23/19 Range/Units 17:00 Troponin I 0.021 (0-0.045) ng/ml Liver Function 09/23/19 Range/Units 17:00 Total Bilirubin 0.6 (0.2-1) mg/dl AST 21 (15-37) U/L ALT 22 (12-78) U/L Alkaline Phosphatase 135 H (45-117) U/L Albumin 3.3 L (3.4-5.0) gm/dl Urine 09/23/19 Range/Units 17:20 Urine Color Yellow Urine Appearance Clear (Clear) Urine pH 8.0 H (4.5-7.5) Ur Specific [place] 1.020 (1.000-1.030) Urine Protein Negative (Negative) Urine Glucose (UA) Negative (Negative) Diagnostic Findings Head CT: Findings: The paranasal sinuses and mastoid air cells are clear. The calvarium and skull base are intact. There is no mass, hematoma, midline shift, acute infarct. White matter hypodensity is nonspecific but suggestive of microvascular ischemic change. The ventricles and sulci demonstrate mild age-related invol utional changes. Impression: No significant change compared to the prior study. No acute intracranial abnormality. CXR: IMPRESSION: Chronic findings as above without acute process. Medications Administered Discontinued Medications Acetaminophen (Tylenol) 1,000 mg PO NOW STA Stop: 09/23/19 19:07 Last Admin: 09/23/19 19:17 Dose: 1,000 mg Documented by: [id number] Sodium Chloride (Nss 1000ml) 1,000 mls @ 999 mls/hr IV .Q1H1M KULWINDER Stop: 09/23/19 18:00 Last Infusion: 09/23/19 18:24 Dose: 0 mls/hr Documented by: [id number] Admin: 09/23/19 17:23 Dose: 999 mls/hr Documented by: [id number] Code Status & VTE Plan Code Status Full Code VTE Prophylaxis Plan VTE Prophylaxis will be ordered: Yes Supervising Physician Co-Signing Physician Notes Care coordinated with Kati SHEIKH. Agree with above note. Patient seen and examined. Please refer to her notes for full details. Vital signs reviewed. Physical exam: General exam: Alert and oriented. Slow to answer questions Not in acute distress. CVS: S1 and S2 heard, regular rate and rhythm, no murmurs. RS: Clear to auscultation, no wheezing or crackles. ABD: Soft, bowel sounds present, nontender, no distention. PETS SALESPERSON: aler and oriented x 2 speech clear but slow to answer remote memory intact adriel lift his extremities no pronator drift co ordination of movements normal sensations intact EXT: No edema, no erythema. Labs: Reviewed. Assessment and plan: 89M with above medical problems who lives alone was taken to PCP office today by his grand daughter and was found to be confused and some word finding difficulty and was brought to Er. Ct head unremarkable. No slurred speech. Patient is somewhat slow to answer but answering appropriately. recently gabapentin dose increased. Question of mixing up with meds.Also having LLQ abdominal pain. Will get ct abd/plevis and empiric iv Zosyn. Will observe in med/tele. Neuro consult in am. Patient already on aspirin and plavix and statin. Holding gabapentin and restart at lower dose when stable.If not improving to consider MRI.pt/ot. May need placement. Other diagnosis and plan of care as per Kati Traore PA-C. Nabil urrutia MD.
[2019-09-23] MEDS ORDERED: MAGNESIUM HYDROXIDE SUSP 30 ML UDC PO PRN (19:53)
[2019-09-23] MEDS ORDERED: POLYETHYLENE (MIRALAX) 17 GM PACK PO PRN (19:53)
[2019-09-23] MEDS ORDERED: ONDANSETRON INJ 2 MG/ML 2 ML VIAL IV PRN (19:53)
[2019-09-23] MEDS ORDERED: PIPERACILL/TAZOBAC CONSULT ACTIVE PRN (19:53)
[2019-09-23] MEDS ORDERED: ACETAMINOPHEN 325 MG TAB PO PRN (19:53)
[2019-09-23] MEDS ORDERED: ALUMINUM/MAGNESIUM SUSP 30 ML UDC PO PRN (19:53)
[2019-09-23] MEDS ORDERED: HydrALAZINE HCL 20 MG/ML VIAL IV PRN (20:09)
[2019-09-23] MEDS ORDERED: PIPERACILLIN/TAZOBACTAM 3.375 GM in DEXTROSE 5% 100 ML IV ONE (20:15)
[2019-09-23] MEDS ORDERED: INFLUENZA ADMINISTRATION CHARGE ONE (21:01)
[2019-09-23] MEDS ORDERED: INFLUENZA VACCINE HIGH DOSE 65+ 0.5 ML SYR IM ONE (21:01)
[2019-09-23] MEDS: ISOSORBIDE MONO EXTENDED REL 30 MG TABCR PO SCH (21:08)
[2019-09-23] MEDS: CLOPIDOGREL BISULFATE 75 MG TAB PO SCH (21:09)
[2019-09-23] MEDS: ASPIRIN 81 MG ECTAB PO SCH (21:09)
[2019-09-23] MEDS: HEPARIN SOD 5,000 UNIT/0.5 ML VIAL SQ SCH (21:31)
--- NOTE | 2019-09-23 21:38 | CT Scan Report ---
ABDOMEN AND PELVIS CT WITHOUT CONTRAST CT DOSE: 431.62 mGy.cm HISTORY: Left lower quadrant pain. Assess for diverticulitis. TECHNIQUE: Multiaxial CT images of the abdomen and pelvis were performed without contrast. A dose lo wering technique was utilized adhering to the principles of ALARA. COMPARISON STUDY: Abdomen and pelvis CT 07/26/2019. FINDINGS: Mild bibasilar interstitial thickening and bibasilar linear densities suggesting subsegment al atelectasis. Moderate hiatus hernia. Chronic elevation of the right hemidiaphragm. Punctate calcif ied granulomas seen within the liver and spleen. The unenhanced adrenal glands are unremarkable. The gallbladder appears surgically absent. Multiple cystic lesions are again noted throughout the pancrea s with the largest measuring 3.2 cm. These are not significantly changed compared to the prior study. No retroperitoneal lymphadenopathy. Moderate calcified plaque within the normal caliber abdominal ao rta. Normal bladder. Multiple brachytherapy seeds within the prostate gland. No pelvic lymphadenopath y. Suboptimal evaluation for bowel pathology due to the lack of intravenous and oral contrast. There is extensive colonic diverticulosis. Minimal inflammatory change at the mid sigmoid colon. Findings f avor a developing acute diverticulitis. No perforation or abscess identified this time. No evidence f or bowel obstruction. Normal appendix. 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 This remains unch anged. There are poststernotomy changes. Punctate right renal calculi. No ureteral calculi. No hydron ephrosis. No left-sided renal calculi. IMPRESSION: 1. Extensive colonic diverticulosis. Minimal inflammatory change adjacent to the mid sigmoid colon menezes ggests a developing acute diverticulitis. No perforation or abscess identified. 2. Moderate hiatus hernia, unchanged. 3. Chronic elevation of the right hemidiaphragm. 4. Right-sided nephrolithiasis. No ureteral stones. No hydronephrosis. 5. Normal appendix. 6. Additional stable findings as described above. ACT 112: Negative or not required by law. Electronically signed by: Vik Gomes M.D. 09/23/2019 9:37 PM
[2019-09-24] MEDS: PIPERACILLIN/TAZOBACTAM 3.375 GM in DEXTROSE 5% 100 ML IV SCH ×3 (01:38→18:11)
[2019-09-24] MEDS: PANTOprazole 40 MG TAB PO SCH (05:27)
[2019-09-24] MEDS: LEVOTHYROXINE SODIUM 100 MCG TABLET PO SCH (05:28)
[2019-09-24] MEDS: HEPARIN SOD 5,000 UNIT/0.5 ML VIAL SQ SCH ×3 (05:29→20:47)
[2019-09-24 06:51] LABS: Creatinine Clr Calc Pharmacy 38.7 ml/min; Est GFR (African American) 61.1; Est GFR (Non-African American) 52.8
--- NOTE | 2019-09-24 07:22 | Hospitalist Progress Note ---
Date of Service September 24, 2019 Assessment & Plan (1) Confusion: (2) Dehydration: (3) LLQ abdominal pain: This is a 89-year-old male who has significant PMH of CAD s/p CABG x 3 in 2000, HTN, HLD, CKD stage III baseline creatinine 1.1, diet-controlled T2DM, history of prostate cancer status post radiation, history of postoperative PE, testosterone deficiency, history of TIA in 10/2017 who presents to [facility] ED 2/2 to increased confusion x 3-4 days. Confusion possibly 2/2 to gabapentin (? if pt taking meds appropriately), acute diverticulitis due to LLQ abd pain, Hypertensive encephalopathy, CVA, progression of dementia cont med/surg DC telemetry CT scan abd/pelvis+ for diverticulitis ( seen in ED 06/2019 dx with diverticulitis and tx with cipro flagyl), pt with LLQ abd pain to palpation on admission-reolved IV zosyn hold off on MRI and neuro consult for now, if no improvement in a.m. would do MRI and consult Neuro IVFs hold gabapentin (4) CAD (coronary artery disease): no c/o CP or SOB on ASA, plavix, statin, imdur, FELICE monitor (5) HTN (hypertension): pt significant hypertensive in ED ? 2/2 to pain vs underlying acute process vs not taking meds appropriately continue lisinopril and imdur tx if SBP > 180 or DBP > 110 with prn hydralazine (6) CKD (chronic kidney disease), stage III: baseline Cr 1.1 mild pre renal azotemia 2/2 to dehydration (7) Diabetes mellitus type 2, controlled: A1C 6.3 03/2019 diet controlled monitor FBS (8) TIA (transient ischemic attack): hx of TIA 10/2018 recommend lifetime plavix therapy also on ASA and statin (9) Dyslipidemia: continue statin (10) Hypothyroidism: continue levothyroxine TSH WNL (11) DVT prophylaxis: SQ heparin Disposition: telemetry; case management consulted along with PT/OT/ST Follow up: PCP Dr. Orellana upon discharge Labs Checked ROS-No Headache, No Visual Changes, No Nausea, No Vomiting, No Fever, No Chills, No Neck Pain or Stiffness, No Chest Pain, No Palpitations, No SOB, No LALA, No Cough, No Sputum, No Wheezing, No Abdominal Pain, No Diarrhea, No Hematemesis, No Hemoptysis, No Unexpected Weight Loss, No Flank pain, No Melena, No Hematochezia, No Frequency, No Urgency, No Burning, No Hematuria, No Rashes, No Diaphoresis. Appetite is Normal Physical Exam Gen-AAO x 1, NAD, Afebrile Head-NCAT, EOMI, PERRLA, Anicteric Sclera, No Posterior Pharyngeal Erythema Neck-Supple, No JVD, No Thyromegaly, No Masses, No LAD, No Bruits Lungs-Clear to Auscultation Bilaterally, No Rales, No Rhonchi, No Wheezing, No Crepitus Chest-No S4, +S1, +S2, No S3, No Murmurs, No Rubs, No Gallops, No Ectopy Abdomen-Soft, Bowel Sounds Present, Non Tender, Non Distended, No Hepatomegaly, No Splenomegaly, No Palpable Masses, No Rebound, No Rigidity, No Guarding Musculoskeletal-Full Range of Motion Bilaterally, No CVAT Extremities-No Cyanosis, No Clubbing, No Edema Nuero-Cranial Nerves II-XII grossly intact, Motor WNL, DTRs WNL, Strength WNL, Non Focal Psych-Normal Mood Admission and Anticipated Discharge Date Admission Date: September 23, 2019 Results & Data ([facility]) Vital Signs (Past 12 Hours) Vital Signs Temp Pulse Pulse Resp BP BP Pulse Ox 09/24/19 05:32 36.7 C 60 20 142/78 H 94 09/24/19 00:59 57 L 09/23/19 23:51 37.0 C 76 20 112/64 95 09/23/19 21:03 58 L
[2019-09-24] MEDS: SODIUM CHLORIDE 0.9% 1000ML 1,000 ML IV SCH ×2 (09:22→22:34)
--- NOTE | 2019-09-24 12:21 | Electrocardiogram Report ---
Test Reason : Blood Pressure : / mmHG Vent. Rate : 058 BPM Atrial Rate : 058 BPM P-R Int : 170 ms QRS Dur : 098 ms QT Int : 440 ms P-R-T Axes : 047 -49 -06 degrees QTc Int : 431 ms Poor data quality, interpretation may be adversely affected Sinus bradycardia Left anterior fascicular block Moderate voltage criteria for LVH, may be normal variant Abnormal ECG When compared with ECG of 26-JUL-2019 16:05, No significant change was found Confirmed by Watson Myers ([id number]) on 09/24/2019 12:20:48 PM Referred By: REFERRED SELF Confirmed By:Watson Myers
--- NOTE | 2019-09-24 13:57 | Magnetic Resonance Report ---
MRI OF THE BRAIN WITHOUT IV CONTRAST CLINICAL HISTORY: Change in mental status. COMPARISON STUDY: CT of the brain dated 09/23/2019. TECHNIQUE: MRI of the brain was performed utilizing various T1 and T2-weighted sequences in the axial , sagittal, and coronal planes. IV contrast was not administered for this examination. FINDINGS: Brain parenchyma: There is age-related involutional change noting mild patchy subcortical and periven tricular microangiopathic disease. There is no hemorrhage or mass effect. There is no restricted diff usion to suggest acute ischemia. Guzman-white matter differentiation is preserved. No extra-axial fluid collection is seen. The cerebellar tonsils are normal in configuration. Ventricles, sulci, and cisterns: Prominent secondary to involutional change. Pituitary and sella: Partially empty sella is incidentally noted. Intracranial vasculature: Normal flow voids are maintained at the skull base. Orbits: The bony orbits are grossly intact. Orbital contents are normal in appearance noting bilatera l ocular lens implants. Sinuses and mastoids: Clear. Calvarium: Unremarkable. Cervical cord: Partially visualized cervical spinal cord is normal in morphology and signal intensity . IMPRESSION: No acute intracranial abnormality. ACT 112: Negative or not required by law. Electronically signed by: Olayinka Dior M.D. 09/24/2019 1:56 PM
[2019-09-24] MEDS: ATORVASTATIN 40 MG TAB PO SCH (15:56)
[2019-09-24] MEDS: MULTIVITAMIN TAB PO SCH (15:56)
[2019-09-24] MEDS: CLOPIDOGREL BISULFATE 75 MG TAB PO SCH (15:56)
[2019-09-24] MEDS: ISOSORBIDE MONO EXTENDED REL 30 MG TABCR PO SCH (15:56)
[2019-09-24] MEDS: FERROUS SULFATE 325 MG TAB PO SCH (15:57)
[2019-09-24] MEDS: ASPIRIN 81 MG ECTAB PO SCH (16:07)
[2019-09-25] MEDS: PIPERACILLIN/TAZOBACTAM 3.375 GM in DEXTROSE 5% 100 ML IV SCH ×3 (01:33→17:52)
[2019-09-25 06:03] LABS: Hematocrit (blood only) 45.5 % (42-52); Hemoglobin 15.4 g/dL (14.0-18.0); Mean Corpuscular Hemoglobin 32.1 pg (25-34); Mean Corpuscular Hgb Conc 33.8 g/dL (32-36); Mean Corpuscular Volume 94.8 fL (80-100); Mean Platelet Volume 9.2 fL (7.4-10.4); Platelet Count 267 K/uL (130-400); RDW Coefficient of Variation 13.9 % (11.5-14.5); RDW Standard Deviation 47.8 fL (36.4-46.3); White Blood Count 9.86 K/uL (4.8-10.8)
[2019-09-25 06:37] LABS: BUN Creatinine Ratio 17.9 (10-20); Calcium 9.9 mg/dl (8.5-10.1); Creatinine Clr Calc Pharmacy 37.2 ml/min; Est GFR (African American) 58.2; Est GFR (Non-African American) 50.2; Potassium 3.5 mmol/L (3.5-5.1)
[2019-09-25] MEDS: LEVOTHYROXINE SODIUM 100 MCG TABLET PO SCH (06:48)
[2019-09-25] MEDS: HEPARIN SOD 5,000 UNIT/0.5 ML VIAL SQ SCH ×3 (06:55→21:21)
--- NOTE | 2019-09-25 07:39 | Hospitalist Progress Note ---
Date of Service September 25, 2019 Assessment & Plan (1) Confusion: (2) Dehydration: (3) LLQ abdominal pain: This is a 89-year-old male who has significant PMH of CAD s/p CABG x 3 in 2000, HTN, HLD, CKD stage III baseline creatinine 1.1, diet-controlled T2DM, history of prostate cancer status post radiation, history of postoperative PE, testosterone deficiency, history of TIA in 10/2017 who presents to [facility] ED 2/2 to increased confusion x 3-4 days. Confusion possibly 2/2 to gabapentin (? if pt taking meds appropriately), acute diverticulitis due to LLQ abd pain, Hypertensive encephalopathy, CVA, progression of dementia cont med/surg telemetry CT scan abd/pelvis+ for diverticulitis ( seen in ED 06/2019 dx with diverticulitis and tx with cipro flagyl), pt with LLQ abd pain to palpation on admission-reolved IV zosyn IVFs hold gabapentin (4) CAD (coronary artery disease): no c/o CP or SOB on ASA, plavix, statin, imdur, FELICE monitor (5) HTN (hypertension): pt significant hypertensive in ED ? 2/2 to pain vs underlying acute process vs not taking meds appropriately continue lisinopril and Imdur, PRN Hydralazine, Metoprolol (6) CKD (chronic kidney disease), stage III: baseline Cr 1.1 mild pre renal azotemia 2/2 to dehydration (7) Diabetes mellitus type 2, controlled: A1C 6.3 03/2019 diet controlled monitor FBS (8) TIA (transient ischemic attack): hx of TIA 10/2018 recommend lifetime plavix therapy also on ASA and statin (9) Dyslipidemia: continue statin (10) Hypothyroidism: continue levothyroxine TSH WNL (11) DVT prophylaxis: SQ heparin Disposition: telemetry; case management consulted along with PT/OT/ST Follow up: PCP Dr. Orellana upon discharge Labs Checked ROS-No Headache, No Visual Changes, No Nausea, No Vomiting, No Fever, No Chills, No Neck Pain or Stiffness, No Chest Pain, No Palpitations, No SOB, No LALA, No Cough, No Sputum, No Wheezing, No Abdominal Pain, No Diarrhea, No Hematemesis, No Hemoptysis, No Unexpected Weight Loss, No Flank pain, No Melena, No Hematochezia, No Frequency, No Urgency, No Burning, No Hematuria, No Rashes, No Diaphoresis. Appetite is Normal Physical Exam Gen-AAO x 1, NAD, Afebrile Head-NCAT, EOMI, PERRLA, Anicteric Sclera, No Posterior Pharyngeal Erythema Neck-Supple, No JVD, No Thyromegaly, No Masses, No LAD, No Bruits Lungs-Clear to Auscultation Bilaterally, No Rales, No Rhonchi, No Wheezing, No Crepitus Chest-No S4, +S1, +S2, No S3, No Murmurs, No Rubs, No Gallops, No Ectopy Abdomen-Soft, Bowel Sounds Present, Non Tender, Non Distended, No Hepatomegaly, No Splenomegaly, No Palpable Masses, No Rebound, No Rigidity, No Guarding Musculoskeletal-Full Range of Motion Bilaterally, No CVAT Extremities-No Cyanosis, No Clubbing, No Edema Nuero-Cranial Nerves II-XII grossly intact, Motor WNL, DTRs WNL, Strength WNL, Non Focal Psych-Normal Mood Admission and Anticipated Discharge Date Admission Date: September 24, 2019 Results & Data ([facility]) Vital Signs (Past 12 Hours) Vital Signs Temp Pulse Pulse Resp BP Pulse Ox 09/25/19 07:27 91 H 09/25/19 04:15 36.5 C 70 20 183/88 H 94 09/24/19 23:17 36.6 C 63 20 155/82 H 95
[2019-09-25] MEDS: METOPROLOL TARTRATE 50 MG TAB PO SCH ×2 (08:51→21:21)
[2019-09-25] MEDS: PANTOprazole 40 MG TAB PO SCH (08:51)
[2019-09-25] MEDS: SODIUM CHLORIDE 0.9% 1000ML 1,000 ML IV SCH ×2 (08:51→21:21)
[2019-09-25] MEDS: lisinopriL 10 MG TAB PO SCH (08:55)
[2019-09-25] MEDS: FERROUS SULFATE 325 MG TAB PO SCH (16:00)
[2019-09-25] MEDS: ATORVASTATIN 40 MG TAB PO SCH (16:00)
[2019-09-25] MEDS: CLOPIDOGREL BISULFATE 75 MG TAB PO SCH (16:00)
[2019-09-25] MEDS: ISOSORBIDE MONO EXTENDED REL 30 MG TABCR PO SCH (16:00)
[2019-09-25] MEDS: ASPIRIN 81 MG ECTAB PO SCH (16:00)
[2019-09-25] MEDS: MULTIVITAMIN TAB PO SCH (16:01)
[2019-09-26] MEDS: PIPERACILLIN/TAZOBACTAM 3.375 GM in DEXTROSE 5% 100 ML IV SCH ×2 (03:43→09:06)
[2019-09-26] MEDS: HEPARIN SOD 5,000 UNIT/0.5 ML VIAL SQ SCH ×3 (06:24→22:10)
[2019-09-26] MEDS: LEVOTHYROXINE SODIUM 100 MCG TABLET PO SCH (06:25)
[2019-09-26] MEDS: PANTOprazole 40 MG TAB PO SCH (06:25)
--- NOTE | 2019-09-26 07:27 | Hospitalist Progress Note ---
Date of Service September 26, 2019 Assessment & Plan (1) Confusion: (2) Dehydration: (3) LLQ abdominal pain: This is a 89-year-old male who has significant PMH of CAD s/p CABG x 3 in 2000, HTN, HLD, CKD stage III baseline creatinine 1.1, diet-controlled T2DM, history of prostate cancer status post radiation, history of postoperative PE, testosterone deficiency, history of TIA in 10/2017 who presents to [facility] ED 2/2 to increased confusion x 3-4 days. Confusion possibly 2/2 to gabapentin (? if pt taking meds appropriately), acute diverticulitis due to LLQ abd pain, Hypertensive encephalopathy, CVA, progression of dementia cont med/surg telemetry, BP better CT scan abd/pelvis+ for diverticulitis ( seen in ED 06/2019 dx with diverticulitis and tx with cipro flagyl), pt with LLQ abd pain to palpation on admission-resolved IV Zosyn IVFs hold gabapentin (4) CAD (coronary artery disease): no c/o CP or SOB on ASA, plavix, statin, imdur, FELICE monitor (5) HTN (hypertension): pt significant hypertensive in ED ? 2/2 to pain vs underlying acute process vs not taking meds appropriately continue lisinopril and Imdur, PRN Hydralazine, Metoprolol (6) CKD (chronic kidney disease), stage III: baseline Cr 1.1 mild pre renal azotemia 2/2 to dehydration (7) Diabetes mellitus type 2, controlled: A1C 6.3 03/2019 diet controlled monitor FBS (8) TIA (transient ischemic attack): hx of TIA 10/2018 recommend lifetime plavix therapy also on ASA and statin (9) Dyslipidemia: continue statin (10) Hypothyroidism: continue levothyroxine TSH WNL (11) DVT prophylaxis: SQ heparin Disposition: telemetry; case management consulted along with PT/OT/ST Follow up: PCP Dr. Orellana upon discharge Labs Checked ROS-No Headache, No Visual Changes, No Nausea, No Vomiting, No Fever, No Chills, No Neck Pain or Stiffness, No Chest Pain, No Palpitations, No SOB, No LALA, No Cough, No Sputum, No Wheezing, No Abdominal Pain, No Diarrhea, No Hematemesis, No Hemoptysis, No Unexpected Weight Loss, No Flank pain, No Melena, No Hematochezia, No Frequency, No Urgency, No Burning, No Hematuria, No Rashes, No Diaphoresis. Appetite is Normal Physical Exam Gen-AAO x 1, NAD, Afebrile Head-NCAT, EOMI, PERRLA, Anicteric Sclera, No Posterior Pharyngeal Erythema Neck-Supple, No JVD, No Thyromegaly, No Masses, No LAD, No Bruits Lungs-Clear to Auscultation Bilaterally, No Rales, No Rhonchi, No Wheezing, No Crepitus Chest-No S4, +S1, +S2, No S3, No Murmurs, No Rubs, No Gallops, No Ectopy Abdomen-Soft, Bowel Sounds Present, Non Tender, Non Distended, No Hepatomegaly, No Splenomegaly, No Palpable Masses, No Rebound, No Rigidity, No Guarding Musculoskeletal-Full Range of Motion Bilaterally, No CVAT Extremities-No Cyanosis, No Clubbing, No Edema Nuero-Cranial Nerves II-XII grossly intact, Motor WNL, DTRs WNL, Strength WNL, Non Focal Psych-Normal Mood Admission and Anticipated Discharge Date Admission Date: September 24, 2019 Results & Data ([facility]) Vital Signs (Past 12 Hours) Vital Signs Temp Pulse Resp BP BP Pulse Ox 09/26/19 06:34 36.3 C L 59 L 18 159/82 H 91 09/26/19 03:49 36.8 C 58 L 18 137/78 90 09/25/19 23:23 36.9 C 65 19 108/63 91
[2019-09-26] MEDS: METOPROLOL TARTRATE 50 MG TAB PO SCH ×2 (07:34→22:08)
[2019-09-26] MEDS: lisinopriL 10 MG TAB PO SCH (07:34)
[2019-09-26] MEDS: SODIUM CHLORIDE 0.9% 1000ML 1,000 ML IV SCH ×2 (07:34→20:32)
[2019-09-26 08:05] LABS: BUN Creatinine Ratio 17.2 (10-20); Creatinine Clr Calc Pharmacy 35.5 ml/min; Est GFR (Non-African American) 47.5; Potassium 3.8 mmol/L (3.5-5.1)
[2019-09-26 08:13] LABS: Hematocrit (blood only) 38.2 % (42-52); Hemoglobin 12.5 g/dL (14.0-18.0); Mean Corpuscular Hemoglobin 31.6 pg (25-34); Mean Corpuscular Hgb Conc 32.7 g/dL (32-36); Mean Corpuscular Volume 96.5 fL (80-100); Mean Platelet Volume 9.1 fL (7.4-10.4); Platelet Count 230 K/uL (130-400); RDW Coefficient of Variation 14.3 % (11.5-14.5); RDW Standard Deviation 50.3 fL (36.4-46.3); Red Blood Count 3.96 M/uL (4.7-6.1); White Blood Count 8.43 K/uL (4.8-10.8)
[2019-09-26] MEDS: metroNIDAZOLE 500 MG TAB PO SCH ×2 (14:50→22:08)
[2019-09-26] MEDS: ATORVASTATIN 40 MG TAB PO SCH (15:34)
[2019-09-26] MEDS: FERROUS SULFATE 325 MG TAB PO SCH (15:34)
[2019-09-26] MEDS: ASPIRIN 81 MG ECTAB PO SCH (15:35)
[2019-09-26] MEDS: ISOSORBIDE MONO EXTENDED REL 30 MG TABCR PO SCH (15:35)
[2019-09-26] MEDS: MULTIVITAMIN TAB PO SCH (15:35)
[2019-09-26] MEDS: CLOPIDOGREL BISULFATE 75 MG TAB PO SCH (15:36)
[2019-09-26] MEDS: CIPROFLOXACIN 500 MG TAB PO SCH (22:07)
[2019-09-26] MEDS: HydrALAZINE HCL 20 MG/ML VIAL IV PRN (23:33)
[2019-09-27] MEDS: HEPARIN SOD 5,000 UNIT/0.5 ML VIAL SQ SCH ×3 (05:49→21:18)
[2019-09-27] MEDS: HydrALAZINE HCL 20 MG/ML VIAL IV PRN (05:50)
[2019-09-27] MEDS: PANTOprazole 40 MG TAB PO SCH (05:58)
[2019-09-27] MEDS: LEVOTHYROXINE SODIUM 100 MCG TABLET PO SCH (05:58)
[2019-09-27 06:54] LABS: Hematocrit (blood only) 40.7 % (42-52); Hemoglobin 13.4 g/dL (14.0-18.0); Mean Corpuscular Hemoglobin 31.6 pg (25-34); Mean Corpuscular Hgb Conc 32.9 g/dL (32-36); Mean Platelet Volume 9.4 fL (7.4-10.4); Platelet Count 240 K/uL (130-400); RDW Coefficient of Variation 14.5 % (11.5-14.5); RDW Standard Deviation 50.1 fL (36.4-46.3); Red Blood Count 4.24 M/uL (4.7-6.1); White Blood Count 12.18 K/uL (4.8-10.8)
--- NOTE | 2019-09-27 07:15 | Hospitalist Progress Note ---
Date of Service September 27, 2019 Assessment & Plan (1) Confusion: (2) Dehydration: (3) LLQ abdominal pain: This is a 89-year-old male who has significant PMH of CAD s/p CABG x 3 in 2000, HTN, HLD, CKD stage III baseline creatinine 1.1, diet-controlled T2DM, history of prostate cancer status post radiation, history of postoperative PE, testosterone deficiency, history of TIA in 10/2017 who presents to [facility] ED 2/2 to increased confusion x 3-4 days. Confusion possibly 2/2 to gabapentin (? if pt taking meds appropriately), acute diverticulitis due to LLQ abd pain, Hypertensive encephalopathy, CVA, progression of dementia cont med/surg telemetry, BP better CT scan abd/pelvis+ for diverticulitis ( seen in ED 06/2019 dx with diverticulitis and tx with cipro flagyl), pt with LLQ abd pain to palpation on admission-resolved DC IV Zosyn-Cipro and Flagyl IVFs hold gabapentin (4) CAD (coronary artery disease): no c/o CP or SOB on ASA, plavix, statin, imdur, FELICE monitor (5) HTN (hypertension): pt significant hypertensive in ED ? 2/2 to pain vs underlying acute process vs not taking meds appropriately continue lisinopril and Imdur, PRN Hydralazine, Metoprolol (6) CKD (chronic kidney disease), stage III: baseline Cr 1.1 mild pre renal azotemia 2/2 to dehydration (7) Diabetes mellitus type 2, controlled: A1C 6.3 03/2019 diet controlled monitor FBS (8) TIA (transient ischemic attack): hx of TIA 10/2018 recommend lifetime plavix therapy also on ASA and statin (9) Dyslipidemia: continue statin (10) Hypothyroidism: continue levothyroxine TSH WNL (11) DVT prophylaxis: SQ heparin Disposition: telemetry; PT/OT/ST-Dtr coming from [facility] Follow up: PCP Dr. Orellana upon discharge Labs Checked ROS-No Headache, No Visual Changes, No Nausea, No Vomiting, No Fever, No Chills, No Neck Pain or Stiffness, No Chest Pain, No Palpitations, No SOB, No LALA, No Cough, No Sputum, No Wheezing, No Abdominal Pain, No Diarrhea, No Hematemesis, No Hemoptysis, No Unexpected Weight Loss, No Flank pain, No Melena, No Hematochezia, No Frequency, No Urgency, No Burning, No Hematuria, No Rashes, No Diaphoresis. Appetite is Normal Physical Exam Gen-AAO x 1, NAD, Afebrile, more confused Head-NCAT, EOMI, PERRLA, Anicteric Sclera, No Posterior Pharyngeal Erythema Neck-Supple, No JVD, No Thyromegaly, No Masses, No LAD, No Bruits Lungs-Clear to Auscultation Bilaterally, No Rales, No Rhonchi, No Wheezing, No Crepitus Chest-No S4, +S1, +S2, No S3, No Murmurs, No Rubs, No Gallops, No Ectopy Abdomen-Soft, Bowel Sounds Present, Non Tender, Non Distended, No Hepatomegaly, No Splenomegaly, No Palpable Masses, No Rebound, No Rigidity, No Guarding Musculoskeletal-Full Range of Motion Bilaterally, No CVAT Extremities-No Cyanosis, No Clubbing, No Edema Nuero-Cranial Nerves II-XII grossly intact, Motor WNL, DTRs WNL, Strength WNL, Non Focal Psych-Normal Mood Admission and Anticipated Discharge Date Admission Date: September 24, 2019 Results & Data ([facility]) Vital Signs (Past 12 Hours) Vital Signs Temp Pulse Pulse Resp BP Pulse Ox 09/27/19 04:09 36.7 C 69 18 159/83 H 92 09/26/19 23:48 58 L 09/26/19 23:31 36.6 C 52 L 16 156/86 H 94 09/26/19 22:57 36.9 C 57 L 18 177/86 H 91 09/26/19 22:09 72 09/26/19 19:44 36.5 C 55 L 19 146/75 H 91
[2019-09-27 07:26] LABS: BUN Creatinine Ratio 17.5 (10-20); Calcium 9.3 mg/dl (8.5-10.1); Creatinine Clr Calc Pharmacy 46.4 ml/min; Est GFR (African American) 76.1; Est GFR (Non-African American) 65.6; Potassium 3.4 mmol/L (3.5-5.1)
[2019-09-27] MEDS: METOPROLOL TARTRATE 50 MG TAB PO SCH ×2 (08:27→20:16)
[2019-09-27] MEDS: lisinopriL 10 MG TAB PO SCH (08:27)
[2019-09-27] MEDS: SODIUM CHLORIDE 0.9% 1000ML 1,000 ML IV SCH ×2 (08:28→21:17)
[2019-09-27] MEDS: metroNIDAZOLE 500 MG TAB PO SCH ×3 (09:46→20:17)
[2019-09-27] MEDS: CIPROFLOXACIN 500 MG TAB PO SCH ×2 (09:46→20:17)
[2019-09-27] MEDS: MULTIVITAMIN TAB PO SCH (16:15)
[2019-09-27] MEDS: FERROUS SULFATE 325 MG TAB PO SCH (16:15)
[2019-09-27] MEDS: CLOPIDOGREL BISULFATE 75 MG TAB PO SCH (16:15)
[2019-09-27] MEDS: ATORVASTATIN 40 MG TAB PO SCH (16:15)
[2019-09-27] MEDS: ISOSORBIDE MONO EXTENDED REL 30 MG TABCR PO SCH (16:16)
[2019-09-27] MEDS: ASPIRIN 81 MG ECTAB PO SCH (16:16)
[2019-09-28] MEDS: HEPARIN SOD 5,000 UNIT/0.5 ML VIAL SQ SCH ×2 (05:30→13:50)
[2019-09-28] MEDS: PANTOprazole 40 MG TAB PO SCH (05:32)
[2019-09-28] MEDS: LEVOTHYROXINE SODIUM 100 MCG TABLET PO SCH (05:32)
[2019-09-28] MEDS: METOPROLOL TARTRATE 50 MG TAB PO SCH (08:18)
[2019-09-28] MEDS: metroNIDAZOLE 500 MG TAB PO SCH ×2 (08:18→13:50)
[2019-09-28] MEDS: lisinopriL 10 MG TAB PO SCH (08:18)
[2019-09-28] MEDS: CIPROFLOXACIN 500 MG TAB PO SCH (08:18)
[2019-09-28] MEDS: SODIUM CHLORIDE 0.9% 1000ML 1,000 ML IV SCH (10:22)
--- NOTE | 2019-09-28 10:31 | Discharge Summary ---
Date of Service September 28, 2019 Admission HPI Per Admitting Provider This is a 89-year-old male who has significant PMH of CAD s/p CABG x 3 in 2000, HTN, HLD, CKD stage III baseline creatinine 1.1, diet-controlled T2DM, history of prostate cancer status post radiation, history of postoperative PE, testosterone deficiency, history of TIA in 10/2017 who presents to [facility] ED / to increased confusion x 3-4 days. Caregiver is at bedside. She reports increased confusion over the past 3 to 4 days. Difficulty with word finding. History obtained from patient, caregiver as well as ED provider. Granddaughter was taking patient for a follow-up at PCP today when sh e felt he was more confused, unclear and difficulty with word finding. There was no report of slurred speech, facial droop or weakness. He ambulates with a walker at baseline and states that is how he came to the ED. When seen at PCP office today for PPD reading his confusion and difficulty with speaking was noticed along with his BP being significantly elevated. Because of this it was recommended to seek ED for further evaluation. 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 He is in charge of all of his medications and has been taking medications out of a separate a pill container as well as the gabapentin bottle. There is some question if patient is having difficulty handling his own medications and possibly taken additional gabapentin. He is to be transition to assisted living facility on in [facility]. He denies any recent illness, fever, chills, sweats, lightheadedness, syncope, fall, chest pain, shortness breath, palpitations, nausea, vomiting, abdominal pain. Last BM was this morning, normal, no hematochezia or melena. He denies any dysuria, increased frequency or urgency with urination. His appetite has overall been decreased. In ED he remained hemodynamically stable but was significantly hypertensive BP 179/104 during my evaluation. He was afebrile. Lab work notable for WBC 8.15, H&H 14.6 and 44.3 platelet 279 BUN 26, creatinine 1.16, ratio 22.7, glucose 103 TSH WNL, 1.021, UA negative. Head CT negative for acute abnormality chronic ischemic small vessel disease noted. Chest x-ray negative for any acute cardiopulmonary abnormality. Patient received 1 L IVF while in ED. Admission Exam Per Admitting Provider Constitutional: Tall, elderly, male, lying in bed, answers questions appropriately but slow to respond, mild word finding difficulty, follows directions, WD/WN, vitals as above, NAD Head: Normocephalic, Atraumatic Eyes: PERRL, conjunctivae normal, anicteric sclerae ENMT: external ear and nose normal, oropharynx normal dry mucous membranes Neck: trachea midline, no thyromegaly normal visual inspection Respiratory: normal respiratory effort, lungs clear to auscultation, no wheeze, rales, rhonchi. Normal insp/exp effort, no accessory muscle use Cardiovascular: RRR, 1/6 ESTEVAN noted RUSB, occasional ectopy, no edema Vessels: no JVD or carotid bruit Chest: normal inspection of chest Abdomen: normal bowel sounds, soft, exquisitely tender to soft and deep palpation left lower quadrant, no rebound or guarding or rigidity, no hepatosplenomegaly Musculoskeletal: no cyanosis or clubbing, extremities motor strength 5/5 Skin: no rashes, warm and dry normal turgor Neurologic: PERRL, EOMI, accommodation nl, no face palsy, no dysarthria CN's II-XI intact bilaterally and moves all extremities Psychiatric: A+O to person, place and year, euthymic affect Lymphatic: no cervical or axillary lymphadenopathy : deferred Principal Diagnosis Acute diverticulitis Memory Loss/Impairment-possible metabolic encephalopathy Discharge Exam CONSTITUTIONAL: WNWD, vitals as above, generally well-appearing EYES: EOMI bilaterally, PERRL, normal conjunctivae, no scleral icterus ENT: external ear and nose normal, oropharynx clear RESPIRATORY: clear to auscultation bilaterally, no crackles, rales or wheezes, normal respiratory effort CARDIOVASCULAR: regular rate and rhythm, S1 and 2 heard without murmurs, gallops or rubs, no JVD, no peripheral edema GASTROINTESTINAL: soft, TTP of LLQ, no guarding, nondistended MUSCULOSKELETAL: strength 5/5 throughout, head is normocephalic and atraumatic SKIN: warm and dry NEUROLOGIC: No facial palsy, no dysarthria. CN 2-12 grossly intact, normal cognition, normal speech PSYCHIATRIC: alert cooperative and oriented to person, and time but not place. Knew the president. Couldn't remember why he was in the hospital. Discharge Data Allergies Allergy/AdvReac Type Severity Reaction Status Date / Time Iodinated Contrast Media Allergy Severe THROAT Verified 09/23/19 17:54 TIGHTNESS onion Allergy Unknown RAW Verified 09/23/19 17:54 ONIONS-BLISTERS ON HANDS AND FEET rosuvastatin [From Crestor] AdvReac Mild Unknown Verified 09/23/19 17:54 cefuroxime AdvReac Unknown Gastrointestinal Verified 09/23/19 17:54 Upset NSAIDS (Non-Steroidal AdvReac Unknown GI BLEEDING Verified 09/23/19 17:54 Anti-Inflamma Consultations 09/23/19 18:04 ED Decision to Admit Stat 09/23/19 19:53 Consult Case Management - Discharge Planning Routine Ordered Studies 09/23/19 16:59 CT head/brain wo con Stat 09/23/19 19:07 CT abd pelvis wo con Stat 09/24/19 07:22 MR brain wo con Urgent Hospital Course (1) Acute diverticulitis: (2) Memory loss or impairment: (3) HTN (hypertension): 89-year-old man presented with acute confusion and left lower quadrant abdominal pain. Work-up including a CT scan of the abdomen pelvis without contrast revealed evidence of acute diverticulitis and the patient was started on Zosyn. He was admitted to the hospitalist service. Gabapentin was held in the setting of acute confusion and his CT of his head revealed no significant change compared to the prior study with no acute intracranial abnormality. Further work-up the following day included a brain MRI revealing no acute intracranial abnormality. His mental status improved over his hospitalization and at time of discharge he was oriented to person and year and he knew the president. He was not oriented to place. He was slow to respond but did come up with the correct answer. He was ambulating with a walker, which was his baseline and he was tolerating p.o. Physical exam was unremarkable outside of persistent left lower quadrant tenderness without evidence of guarding or peritoneal signs. It is uncertain where his acute confusion came from, however, it does not appear he had a significant neurologic event. Although he has a history of TIAs in the past he is currently on aspirin and Plavix for known chronic ischemic heart disease. Would continue this moving forward and suspect acute confusion was secondary to infectious process versus medication side effects, as there were reports in the outpatient record he may not have been taking his gabapentin correctly. It is also noted that he was significantly hyertensive on admission with improvement of blood pressure into the normal range on his current medication regimen in the hospital. This may suggest noncompliance vs incorrect usage of other medications, also. I discussed with the heel caser this individual may not be able to live alone moving forward, and she states she discussed this with the daughter, whom I tried to call but could not reach today. He is currently being transferred to a SNF facility, and further decision on this should be made as the clinical situation continues to improve. Close primary care follow-up was recommended to ensure complete resolution of acute diverticulitis. Total Time Total Time Spent Total Time Spent (In Minutes): 60 Total Time Includes: Examination of the Patient, Discharge Planning, Medication Reconciliation and Communication With Other Providers Discharge Plan Discharge Items Patient Disposition: Trans Resident Long-Term Care Reason For Visit: CONFUSION Discharge Diagnosis: Acute Diverticulitis Memory loss Activity: Resume your previous activity Non-emergency contact: Primary Care Provider Call non-emergency contact if: you have any medication questions, your symptoms worsen, your pain is not controlled, your pain is worsening, your pain is unusual for you, your pain is concerning for you and you have a fever Follow-up/Referrals: Gisselle Orellana, [Primary Care Provider] - Diet: Carb Consistent or DM2 and Low Sodium (2gm) Addtl Attending Provider Instructions: Please take all medications as instructed on discharge list below. A one week follow-up with your primary care provider is recommended to ensure your left lower quadrant abdominal pain has resolved on antibiotic therapy and that you are improved from a cognitive standpoint prior to returning home alone. It was a pleasure taking care of you! Please call if you have any questions or problems. You can reach a [facility] hospitalist on duty at [facility] 24 hours a day by calling [phone]. Take care of yourself. Hilda Lorenzo, [facility] Hospitalist Pending Studies at Discharge: No Stand-Alone Forms: My [facility] Skilled Items Patient informed of condition?: Yes DNR: No Discharge Level of Care: Skilled Communicable Disease: No Discharge Prognosis: Stable Lines: None Urinary Catheter: No Medications and DC Order Prescriptions: New ciprofloxacin HCl 500 mg Tablet 500 mg PO BID 10 Days Qty: 20 RF: 0 metronidazole 500 mg Tablet 500 mg PO TID 10 Days Qty: 30 RF: 0 Continued acetaminophen [Tylenol] 325 mg Tablet 650 mg PO Q6H PRN (Reason: Pain, Moderate) RF: 0 aspirin [Aspir-81] 81 mg Tablet,Delayed Release (Dr/Ec) 81 mg PO QDD RF: 0 Centrum Silver Men 300-600-300 mcg Tablet 1 tab PO QDD RF: 0 atorvastatin [Lipitor] 40 mg tablet 40 mg PO QDD RF: 0 isosorbide mononitrate 30 mg tablet extended release 24 hr 30 mg PO QDD RF: 0 levothyroxine 100 mcg tablet 100 mcg PO DAILYBB RF: 0 pantoprazole [Protonix] 40 mg tablet,delayed release (DR/EC) 40 mg PO DAILYBB RF: 0 lisinopril 2.5 mg tablet 2.5 mg PO QDD RF: 0 ferrous sulfate 325 mg (65 mg iron) Tablet 325 mg PO QDD RF: 0 gabapentin [Neurontin] 300 mg capsule 300 mg PO TID PRN (Reason: Pain) RF: 0 clopidogrel [Plavix] 75 mg tablet 75 mg PO QDD RF: 0 Androderm 4 mg/24 hr patch 24 hour 4 mg topical HS RF: 0 Discharge Orders: Discharge Order (Routine); Ordered 09/28/19 Ordered By: Hilda Lorenzo Admission Data Admit Date/Time: 09/24/19 07:24 Attending Provider: Hilda Lorenzo Admit Provider: Nabil Weaver Primary Care Provider: Gisselle Orellana Other Providers: Nabil Weaver ; Marky Dillon [facility]
== END 2019-09-28 16:32 | DRG 92 ==
LOC: ED 16:28 → 2N 16:28 → SUATTDRO 19:03 → 2N 19:29 → SUATTDRO 09-24 07:24